=== PATIENT | male | born 1985 | race Caucasian/White ===

== ENCOUNTER 2017-05-07 15:26 | Inpatient (IN) | payer MEDICAID, SELFPAY ==
[2017-05-07] MEDS ORDERED: Ondansetron 4 MG/2 ML SDV IVPUSH ONE (15:36)
--- NOTE | 2017-05-07 15:46 | EDM.PDOC ---
ED HPI GENERAL MEDICAL PROBLEM - General Chief Complaint: Diabetic Complaint Stated Complaint: AMBULANCE Time Seen by Provider: 05/07/17 15:45 Source of Information: Reports: Patient - History of Present Illness INITIAL COMMENTS - FREE TEXT/NARRATIVE: HISTORY AND PHYSICAL: History of present illness: [Patient presents via EMS with generalized weakness and complaints of back pain he has been vomiting no chills sweats no chest pain shortness breath headache dizziness palpitation no bowel or urine symptoms ] Review of systems: As per history of present illness and below otherwise all systems reviewed and negative. Past medical history: As per history of present illness and as reviewed below otherwise noncontributory. Surgical history: As per history of present illness and as reviewed below otherwise noncontributory. Social history: No reported history of drug or alcohol abuse. Family history: As per history of present illness and as reviewed below otherwise noncontributory. Physical exam: HEENT: Atraumatic, normocephalic, pupils reactive, negative for conjunctival pallor or scleral icterus, mucous membranes moist, throat clear, neck supple, nontender, trachea midline. Lungs: Clear to auscultation, breath sounds equal bilaterally, chest nontender. Heart: S1S2, regular, negative for clicks, rubs, or JVD. Abdomen: Soft, nondistended, nontender. Negative for masses or hepatosplenomegaly. Negative for costovertebral tenderness. Pelvis: Stable nontender. Genitourinary: Deferred. Rectal: Deferred. Extremities: Atraumatic, negative for cords or calf pain. Neurovascular unremarkable. Neuro: Awake, alert, oriented. Cranial nerves II through XII unremarkable. Cerebellum unremarkable. Motor and sensory unremarkable throughout. Exam nonfocal. Diagnostics: [CBC CMP troponin UA amylase lipase Blood cultures 1 view chest EKG ] Therapeutics: [1 L normal saline bolus Insulin 10 units IV Insulin repeated 10 units IV 10 subcutaneous Insulin drip ] Morphine 2 mg IV Impression: []Hypoxia with EMS Pancreatitis DKA Low back pain Sinus tachycardia History of type 1 diabetes Hyperglycemia Hyperkalemia Definitive disposition and diagnosis as appropriate pending reevaluation and review of above. Back Pain Score (Numeric/FACES): 10 - Related Data Allergies Allergy/AdvReac Type Severity Reaction Status Date / Time No Known Allergies Allergy Verified 05/07/17 15:31 Home Meds: Home Meds Insulin Glarg,Human.Rec.Analog [LantUS Solostar] 30 unit SUBCUT DAILY 05/07/17 [ History] Past Medical History Endocrine/Metabolic History: Reports: Diabetes, Type I - Infectious Disease History Infectious Disease History: Reports: Chicken Pox - Past Surgical History GI Surgical History: Reports: Appendectomy Social & Family History - Tobacco Use Smoking Status *Q: Current Some Day Smoker Years of Tobacco use: 10 Packs/Tins Daily: 0.1 - Caffeine Use Caffeine Use: Reports: Soda, Tea - Recreational Drug Use Recreational Drug Use: Yes Drug Use in Last 12 Months: Yes Recreational Drug Type: Reports: Marijuana/Hashish Recreational Drug Use Frequency: Not Used In Over 1 Month ED ROS GENERAL - Review of Systems Review Of Systems: ROS reveals no pertinent complaints other than HPI. ED EXAM GENERAL NO PERIP PULSE - Physical Exam Exam: See Below Course - Vital Signs Last Recorded V/S: Last Vital Signs Temp 97.7 F 05/07/17 15:27 Pulse 127 H 05/07/17 15:27 Resp 20 05/07/17 15:27 BP 133/79 05/07/17 15:27 Pulse Ox 100 05/07/17 15:27 - Orders/Labs/Meds Orders: Active Orders 24 hr Category Date Time Status Patient Status [ADT] Stat ADT 05/07/17 16:25 Active Accu Check [Blood Glucose Check, Bedside] [RC] ONETIME Care 05/07/17 15:45 Active EKG Documentation Completion [RC] STAT Care 05/07/17 15:36 Active Chest 1V Frontal [CR] Stat Exams 05/07/17 15:36 Taken CULTURE URINE [RM] Stat Lab 05/07/17 15:44 Uncollected UA W/MICROSCOPIC [URIN] Stat Lab 05/07/17 15:36 Uncollected Insulin Regular, Human [NovoLIN R] 100 unit Med 05/07/17 16:30 Active Sodium Chloride 0.9% [Normal Saline] 99 ml IV TITRATE Sodium Chloride 0.9% [Normal Saline] 1,000 ml Med 05/07/17 15:45 Active IV ASDIRECTED Sodium Chloride 0.9% [Normal Saline] 1,000 ml Med 05/07/17 16:30 Ordered IV STAT Medication Orders Sodium Chloride (Normal Saline) 1,000 mls @ 999 mls/hr IV ASDIRECTED BONIFACIO Last Admin: 05/07/17 15:56 Dose: 999 mls/hr Insulin Human Regular 100 unit (/ Sodium Chloride) 100 mls @ 10 mls/hr IV TITRATE BONIFACIO; 10 UNIT/HR PRN Reason: Protocol Labs: Laboratory Tests 05/07/17 05/07/17 05/07/17 Range/Units 15:27 15:27 15:27 WBC 26.84 H (4.0-11.0) K/uL RBC 5.51 (4.50-5.90) M/uL Hgb 18.2 H (13.0-17.0) g/dL Hct 52.2 H (38.0-50.0) % MCV 94.7 (80.0-98.0) fL MCH 33.0 H (27.0-32.0) pg MCHC 34.9 (31.0-37.0) g/dL RDW Std Deviation 45.9 (28.0-62.0) fl RDW Coeff of Macario 13 (11.0-15.0) % Plt Count 256 (150-400) K/uL MPV 9.90 (7.40-12.00) fL Add Manual Diff YES Neutrophils % (Manual) 73 (48.0-80.0) % Band Neutrophils % 9 % Lymphocytes % (Manual) 13 L (16.0-40.0) % Monocytes % (Manual) 3 (0.0-15.0) % Basophils % (Manual) 2 H (0.0-1.5) % Nucleated RBC % 0.0 /100WBC Absolute Seg Neuts 19.6 H (1.4-5.7) Band Neutrophils # 2.4 Lymphocytes # (Manual) 3.5 H (0.6-2.4) Monocytes # (Manual) 0.8 (0.0-0.8) Basophils # (Manual) 0.5 H (0.0-0.1) Nucleated RBCs # 0 K/uL ABG pH (7.35-7.45) ABG pCO2 (35-45) mmHG ABG pO2 (75-100) mmHG ABG HCO3 (22-26) mEq/L ABG Total CO2 ABG Base Excess (-2.0-2.0) Lactate 6.7 H (0.20-2.00) mmol/L Sodium 131 L (136-146) mmol/L Potassium 6.1 H (3.5-5.1) mmol/L Chloride 91 L (98-110) mmol/L Carbon Dioxide < 5 L (21-31) mmol/L BUN 31 H (6.0-23.0) mg/dL Creatinine 2.2 H (0.6-1.5) mg/dL Est Cr Clr Drug Dosing 45.67 mL/min Estimated GFR (MDRD) 35.3 ml/min Glucose 685 H* (60-110) mg/dL Calcium 9.9 (8.8-10.8) mg/dL Total Bilirubin 0.6 (0.1-1.5) mg/dL AST 22 (5-40) IU/L ALT 33 (8-54) IU/L Alkaline Phosphatase 145 (40-150) Troponin I (0.0-0.29) NG/ML Total Protein 7.6 (6.0-8.0) g/dL Albumin 4.5 (3.5-5.0) g/dL Globulin 3.1 (2.0-3.5) g/dL Albumin/Globulin Ratio 1.5 (1.3-2.8) Amylase 99 H (10-90) U/L Lipase 131 H (7-80) U/L 05/07/17 05/07/17 Range/Units 15:27 15:57 WBC (4.0-11.0) K/uL RBC (4.50-5.90) M/uL Hgb (13.0-17.0) g/dL Hct (38.0-50.0) % MCV (80.0-98.0) fL MCH (27.0-32.0) pg MCHC (31.0-37.0) g/dL RDW Std Deviation (28.0-62.0) fl RDW Coeff of Macario (11.0-15.0) % Plt Count (150-400) K/uL MPV (7.40-12.00) fL Add Manual Diff Neutrophils % (Manual) (48.0-80.0) % Band Neutrophils % % Lymphocytes % (Manual) (16.0-40.0) % Monocytes % (Manual) (0.0-15.0) % Basophils % (Manual) (0.0-1.5) % Nucleated RBC % /100WBC Absolute Seg Neuts (1.4-5.7) Band Neutrophils # Lymphocytes # (Manual) (0.6-2.4) Monocytes # (Manual) (0.0-0.8) Basophils # (Manual) (0.0-0.1) Nucleated RBCs # K/uL ABG pH 7.016 L* (7.35-7.45) ABG pCO2 13 L (35-45) mmHG ABG pO2 143 H (75-100) mmHG ABG HCO3 3 L (22-26) mEq/L ABG Total CO2 3.2 ABG Base Excess -25.5 L (-2.0-2.0) Lactate (0.20-2.00) mmol/L Sodium (136-146) mmol/L Potassium (3.5-5.1) mmol/L Chloride (98-110) mmol/L Carbon Dioxide (21-31) mmol/L BUN (6.0-23.0) mg/dL Creatinine (0.6-1.5) mg/dL Est Cr Clr Drug Dosing mL/min Estimated GFR (MDRD) ml/min Glucose (60-110) mg/dL Calcium (8.8-10.8) mg/dL Total Bilirubin (0.1-1.5) mg/dL AST (5-40) IU/L ALT (8-54) IU/L Alkaline Phosphatase (40-150) Troponin I < 0.10 (0.0-0.29) NG/ML Total Protein (6.0-8.0) g/dL Albumin (3.5-5.0) g/dL Globulin (2.0-3.5) g/dL Albumin/Globulin Ratio (1.3-2.8) Amylase (10-90) U/L Lipase (7-80) U/L Meds: Medications Generic Name Dose Route Start Last Admin Trade Name Freq PRN Reason Stop Dose Admin Sodium Chloride 1,000 mls @ 999 mls/hr 05/07/17 15:45 05/07/17 15:56 Normal Saline IV 999 mls/hr ASDIRECTED BONIFACIO Administration Insulin Human Regular 100 unit 100 mls @ 10 mls/hr 05/07/17 16:30 / Sodium Chloride IV TITRATE BONIFACIO Protocol 10 UNIT/HR Discontinued Medications Generic Name Dose Route Start Last Admin Trade Name Freq PRN Reason Stop Dose Admin Insulin Human Regular 10 unit 05/07/17 15:49 05/07/17 16:16 Novolin R IVPUSH 05/07/17 15:50 10 units ONETIME ONE Administration Protocol Insulin Human Regular 10 unit 05/07/17 16:19 05/07/17 16:20 Novolin R SUBCUT 05/07/17 16:20 10 unit ONETIME ONE Administration Protocol Morphine Sulfate 2 mg 05/07/17 16:18 Morphine IVPUSH 05/07/17 16:19 ONETIME ONE Ondansetron HCl 4 mg 05/07/17 15:36 05/07/17 15:56 Zofran IVPUSH 05/07/17 15:37 4 mg ONETIME ONE Administration Departure - Departure Time of Disposition: 16:30 Disposition: Admitted As Inpatient 67 Condition: Poor Clinical Impression: DKA (diabetic ketoacidoses) - Discharge Information Referrals: PCP,None [Primary Care Provider] - Forms: ED Department Discharge - My Orders Last 24 Hours: My Active Orders 05/07/17 15:44 CULTURE URINE [RM] Stat 05/07/17 15:45 Accu Check [Blood Glucose Check, Bedside] [RC] ONETIME 05/07/17 16:25 Patient Status [ADT] Stat 05/07/17 16:30 Insulin Regular, Human [NovoLIN R] 100 unit Sodium Chloride 0.9% [Normal Saline] 99 ml IV TITRATE Sodium Chloride 0.9% [Normal Saline] 1,000 ml IV STAT - Assessment/Plan Last 24 Hours: My Active Orders 05/07/17 15:44 CULTURE URINE [RM] Stat 05/07/17 15:45 Accu Check [Blood Glucose Check, Bedside] [RC] ONETIME 05/07/17 16:25 Patient Status [ADT] Stat 05/07/17 16:30 Insulin Regular, Human [NovoLIN R] 100 unit Sodium Chloride 0.9% [Normal Saline] 99 ml IV TITRATE Sodium Chloride 0.9% [Normal Saline] 1,000 ml IV STAT
[2017-05-07] MEDS ORDERED: Insulin Regular, Human 100 Units/ML 10 ML Vial IVPUSH ONE (15:49)
[2017-05-07] MEDS: Sodium Chloride 0.9% 1,000 ML IV SCH ×2 (15:56→19:00)
[2017-05-07 16:08] LABS: CHLORIDE,CL 91 mmol/L (98-110); SODIUM,NA 131 mmol/L (136-146)
[2017-05-07] MEDS ORDERED: Insulin Regular, Human 100 Units/ML 10 ML Vial SUBCUT ONE (16:19)
--- NOTE | 2017-05-07 16:50 | PCM.HP ---
H&P History of Present Illness - General Date of Service: 05/07/17 Admit Problem/Dx: Admission Diagnosis/Problem Admission Diagnosis/Problem Diabetic ketoacidosis Source of Information: Patient, Family History Limitations: Reports: No Limitations - History of Present Illness Initial Comments - Free Text/Narative: 31 yo male presenting to ED with chief complaint of nausea and vomiting starting early this am with pmh of Type I diabetes. Patient states that he felt his normal self up until late last evening around midnight when he began to have nausea and vomiting. He did feel sweaty but reported no fever. He also reports a cough without production that started at similar time. He states that he now has some diffuse mild abdominal pain but denies dysuria. Secondary to his continued nausea and vomiting he presented to the ED with his father. He is a type I diabetic and has been in DKA before. States that he regularly only uses 30 of Lantus in the morning. He checks his blood sugars "every couple of days". They are usually in the 120s to 140s. He does note that for the last couple days they were little higher than low 200s. He also complains of some mild back pain she states started when he is in high school secondary to sports. He usually takes Tylenol for this pain. In ED found to have leukocytosis of 26k, 6.7 lactate, Glucose 700+, Na 131, K 6.1, BUN 31, Cr 2.2 and PH 7.0 metabolic acidosis. CXR neg, UA neg. Patient admitted for DKA Back Pain Score (Numeric/FACES): 10 - Related Data Allergies/Adverse Reactions: Allergies Allergy/AdvReac Type Severity Reaction Status Date / Time No Known Allergies Allergy Verified 05/07/17 15:31 Home Medications: Home Meds Insulin Glarg,Human.Rec.Analog [LantUS Solostar] 30 unit SUBCUT DAILY 05/07/17 [ History] Past Medical History Endocrine/Metabolic History: Reports: Diabetes, Type I - Infectious Disease History Infectious Disease History: Reports: Chicken Pox - Past Surgical History GI Surgical History: Reports: Appendectomy Social & Family History - Tobacco Use Smoking Status *Q: Current Some Day Smoker Years of Tobacco use: 10 Packs/Tins Daily: 0.1 - Caffeine Use Caffeine Use: Reports: Soda, Tea - Recreational Drug Use Recreational Drug Use: Yes Drug Use in Last 12 Months: Yes Recreational Drug Type: Reports: Marijuana/Hashish Recreational Drug Use Frequency: Not Used In Over 1 Month H&P Review of Systems - Review of Systems: Review Of Systems: See Below General: Reports: Chills, Weakness, Fatigue. Denies: Fever HEENT: Denies: Headaches, Sinus Congestion, Sore Throat Pulmonary: Reports: Shortness of Breath, Cough. Denies: Sputum Cardiovascular: Denies: Chest Pain, Palpitations, Edema Gastrointestinal: Reports: Abdominal Pain, Black Stool, Bloody Stool, Nausea, Vomiting. Denies: Constipation, Diarrhea Genitourinary: Denies: Dysuria, Hematuria Musculoskeletal: Reports: Back Pain. Denies: Neck Pain, Leg Pain Skin: Denies: Cyanosis Psychiatric: Denies: Confusion, Depression Neurological: Denies: Confusion, Dizziness, Headache Hematologic/Lymphatic: Denies: Anemia Exam - Exam Exam: See Below - Vital Signs Vital Signs: Last Vital Signs Temp 97.7 F 05/07/17 15:27 Pulse 127 H 05/07/17 15:27 Resp 20 05/07/17 15:27 BP 133/79 05/07/17 15:27 Pulse Ox 100 05/07/17 15:27 Weight: 65.771 kg - Exam Quality Assessment: DVT Prophylaxis General: Alert, Oriented, Cooperative, Mild Distress HEENT: Conjunctiva Clear, EACs Clear, EOMI, Hearing Intact, Mucosa Moist & Quintana , Nares Patent, Normal Nasal Septum, Posterior Pharynx Clear, TMs Clear, PERRLA Neck: Supple, Trachea Midline, 2 Lungs: Clear to Auscultation, Normal Respiratory Effort Cardiovascular: Regular Rate, Regular Rhythm, Normal S1, Normal S2 GI/Abdominal Exam: Normal Bowel Sounds, No Organomegaly, No Distention, No Mass , Tender Back Exam: Normal Inspection Extremities: Normal Inspection, Normal Range of Motion, Non-Tender, No Pedal Edema, Normal Capillary Refill Peripheral Pulses: 2+: Radial (L), Radial (R), Posterior Tibial (L), Posterior Tibial (R), Dorsalis Pedis (L), Dorsalis Pedis (R) Skin: Intact, Cool, Moist Neurological: Cranial Nerves Intact Neuro Extensive - Mental Status: Alert, Oriented x3, Normal Mood/Affect, Normal Cognition Neuro Extensive - Motor, Sensory, Reflexes: CN II-XII Intact Psychiatric: Alert, Normal Affect, Normal Mood - Patient Data Lab Results Last 24 hrs: Laboratory Results - last 24 hr 05/07/17 05/07/17 05/07/17 Range/Units 15:27 15:27 15:27 WBC 26.84 H (4.0-11.0) K/uL RBC 5.51 (4.50-5.90) M/uL Hgb 18.2 H (13.0-17.0) g/dL Hct 52.2 H (38.0-50.0) % MCV 94.7 (80.0-98.0) fL MCH 33.0 H (27.0-32.0) pg MCHC 34.9 (31.0-37.0) g/dL RDW Std Deviation 45.9 (28.0-62.0) fl RDW Coeff of Macario 13 (11.0-15.0) % Plt Count 256 (150-400) K/uL MPV 9.90 (7.40-12.00) fL Add Manual Diff YES Neutrophils % (Manual) 73 (48.0-80.0) % Band Neutrophils % 9 % Lymphocytes % (Manual) 13 L (16.0-40.0) % Monocytes % (Manual) 3 (0.0-15.0) % Basophils % (Manual) 2 H (0.0-1.5) % Nucleated RBC % 0.0 /100WBC Absolute Seg Neuts 19.6 H (1.4-5.7) Band Neutrophils # 2.4 Lymphocytes # (Manual) 3.5 H (0.6-2.4) Monocytes # (Manual) 0.8 (0.0-0.8) Basophils # (Manual) 0.5 H (0.0-0.1) Nucleated RBCs # 0 K/uL ABG pH (7.35-7.45) ABG pCO2 (35-45) mmHG ABG pO2 (75-100) mmHG ABG HCO3 (22-26) mEq/L ABG Total CO2 ABG Base Excess (-2.0-2.0) Lactate 6.7 H (0.20-2.00) mmol/L Sodium 131 L (136-146) mmol/L Potassium 6.1 H (3.5-5.1) mmol/L Chloride 91 L (98-110) mmol/L Carbon Dioxide < 5 L (21-31) mmol/L BUN 31 H (6.0-23.0) mg/dL Creatinine 2.2 H (0.6-1.5) mg/dL Est Cr Clr Drug Dosing 45.67 mL/min Estimated GFR (MDRD) 35.3 ml/min Glucose 685 H* (60-110) mg/dL Calcium 9.9 (8.8-10.8) mg/dL Total Bilirubin 0.6 (0.1-1.5) mg/dL AST 22 (5-40) IU/L ALT 33 (8-54) IU/L Alkaline Phosphatase 145 (40-150) Troponin I (0.0-0.29) NG/ML Total Protein 7.6 (6.0-8.0) g/dL Albumin 4.5 (3.5-5.0) g/dL Globulin 3.1 (2.0-3.5) g/dL Albumin/Globulin Ratio 1.5 (1.3-2.8) Amylase 99 H (10-90) U/L Lipase 131 H (7-80) U/L 05/07/17 05/07/17 Range/Units 15:27 15:57 WBC (4.0-11.0) K/uL RBC (4.50-5.90) M/uL Hgb (13.0-17.0) g/dL Hct (38.0-50.0) % MCV (80.0-98.0) fL MCH (27.0-32.0) pg MCHC (31.0-37.0) g/dL RDW Std Deviation (28.0-62.0) fl RDW Coeff of Macario (11.0-15.0) % Plt Count (150-400) K/uL MPV (7.40-12.00) fL Add Manual Diff Neutrophils % (Manual) (48.0-80.0) % Band Neutrophils % % Lymphocytes % (Manual) (16.0-40.0) % Monocytes % (Manual) (0.0-15.0) % Basophils % (Manual) (0.0-1.5) % Nucleated RBC % /100WBC Absolute Seg Neuts (1.4-5.7) Band Neutrophils # Lymphocytes # (Manual) (0.6-2.4) Monocytes # (Manual) (0.0-0.8) Basophils # (Manual) (0.0-0.1) Nucleated RBCs # K/uL ABG pH 7.016 L* (7.35-7.45) ABG pCO2 13 L (35-45) mmHG ABG pO2 143 H (75-100) mmHG ABG HCO3 3 L (22-26) mEq/L ABG Total CO2 3.2 ABG Base Excess -25.5 L (-2.0-2.0) Lactate (0.20-2.00) mmol/L Sodium (136-146) mmol/L Potassium (3.5-5.1) mmol/L Chloride (98-110) mmol/L Carbon Dioxide (21-31) mmol/L BUN (6.0-23.0) mg/dL Creatinine (0.6-1.5) mg/dL Est Cr Clr Drug Dosing mL/min Estimated GFR (MDRD) ml/min Glucose (60-110) mg/dL Calcium (8.8-10.8) mg/dL Total Bilirubin (0.1-1.5) mg/dL AST (5-40) IU/L ALT (8-54) IU/L Alkaline Phosphatase (40-150) Troponin I < 0.10 (0.0-0.29) NG/ML Total Protein (6.0-8.0) g/dL Albumin (3.5-5.0) g/dL Globulin (2.0-3.5) g/dL Albumin/Globulin Ratio (1.3-2.8) Amylase (10-90) U/L Lipase (7-80) U/L Result Diagrams: 05/07/17 15:27 05/07/17 18:03 *Q Meaningful Use (ADM) - VTE *Q VTE Criteria *Q: - Stroke *Q Stroke Criteria *Q: - AMI *Q AMI Criteria *Q: - Problem List (1) Leukocytosis, unspecified SNOMED Code(s): 354221486 ICD Code: D72.829 - ELEVATED WHITE BLOOD CELL COUNT, UNSPECIFIED Status: Acute Priority: High Current Visit: Yes Qualifiers: Leukocytosis type: unspecified Qualified Code(s): D72.829 - Elevated white blood cell count, unspecified (2) DKA (diabetic ketoacidoses) SNOMED Code(s): 938364614 ICD Code: E13.10 - OTH DIABETES MELLITUS WITH KETOACIDOSIS WITHOUT COMA Status: Acute Priority: High Current Visit: Yes Qualifiers: Diabetes mellitus type: type 1 Diabetes mellitus complication detail: without coma Qualified Code(s): E10.10 - Type 1 diabetes mellitus with ketoacidosis without coma Problem List Initiated/Reviewed/Updated: Yes Orders Last 24hrs: Active Orders 24 hr Category Date Time Status Patient Status [ADT] Stat ADT 05/07/17 16:25 Active Accu Check [Blood Glucose Check, Bedside] [RC] ONETIME Care 05/07/17 15:45 Active EKG Documentation Completion [RC] STAT Care 05/07/17 15:36 Active Chest 1V Frontal [CR] Stat Exams 05/07/17 15:36 Taken CULTURE URINE [RM] Stat Lab 05/07/17 15:44 Uncollected UA W/MICROSCOPIC [URIN] Stat Lab 05/07/17 15:36 Uncollected Insulin Regular, Human [NovoLIN R] 100 unit Med 05/07/17 16:30 Active Sodium Chloride 0.9% [Normal Saline] 99 ml IV TITRATE Sodium Chloride 0.9% [Normal Saline] 1,000 ml Med 05/07/17 15:45 Active IV ASDIRECTED Sodium Chloride 0.9% [Normal Saline] 1,000 ml Med 05/07/17 16:30 Active IV STAT Medication Orders Sodium Chloride (Normal Saline) 1,000 mls @ 999 mls/hr IV ASDIRECTED BONIFACIO Last Admin: 05/07/17 15:56 Dose: 999 mls/hr Insulin Human Regular 100 unit (/ Sodium Chloride) 100 mls @ 10 mls/hr IV TITRATE BONIFACIO; 10 UNIT/HR PRN Reason: Protocol Sodium Chloride (Normal Saline) 1,000 mls @ 999 mls/hr IV STAT ONE Stop: 05/07/17 17:30 Assessment/Plan Comment:: 31 yo Male admitted 05/07/17 for DKA and leukocytosis with pmh of type I diabetes. DKA: Moderate DKA, K 6.1 with pseudohyponatremia. 3 L bolus NS, NS 250 ml/hr, Insulin drip. Bmp q 4 hrs, glucose q 1 hr. After glucose 200 switch to D5 1/ 2NS. Patient is alert and oriented will monitor closely in ICU. Leukocytosis: Blood culture x2, CXR and UA neg. Tenderness on abd exam will get CT abd/pelvis tonight. Zosyn IV VTE proph: Heparin, SCD Dispo: 2-3 days pending
[2017-05-07] MEDS: Sodium Chloride 0.9% 1,000 ML IV ONE ×2 (16:53→19:00)
[2017-05-07] MEDS: Morphine 2 MG/ML Syringe IVPUSH ONE ×2 (16:55→16:56)
[2017-05-07] MEDS ORDERED: Acetaminophen 325 MG Tab PO PRN (17:09)
[2017-05-07] MEDS ORDERED: Ondansetron 4 MG/2 ML SDV IVPUSH PRN (17:09)
[2017-05-07] MEDS ORDERED: Sodium Chloride 0.9% 1,000 ML IV SCH ×2 (17:15→18:15)
[2017-05-07] MEDS: Piperacillin/Tazobactam 4.5 GM in Sodium Chloride 0.9% 100 ML IV SCH ×2 (18:23→23:19)
[2017-05-07] MEDS: HYDROmorphone 1 MG/ML Syringe IVPUSH PRN ×3 (18:27→23:37)
[2017-05-07] MEDS: Heparin Sodium 5,000 Units/ML Vial SUBCUT SCH (22:40)
[2017-05-08] MEDS: Dextrose 5%-0.45% NaCl 1,000 ML IV SCH ×3 (00:06→19:24)
[2017-05-08] MEDS: HYDROmorphone 1 MG/ML Syringe IVPUSH PRN ×7 (04:05→22:07)
[2017-05-08] MEDS: Piperacillin/Tazobactam 4.5 GM in Sodium Chloride 0.9% 100 ML IV SCH ×4 (05:09→23:49)
[2017-05-08] MEDS: Heparin Sodium 5,000 Units/ML Vial SUBCUT SCH ×3 (05:09→21:14)
[2017-05-08] MEDS ORDERED: Potassium Phosphates 3 mMole/ML 5 ML SDV IV ONE (07:00)
[2017-05-08] MEDS ORDERED: Dextrose 5%-0.45% NaCl 1,000 ML IV SCH (07:00)
[2017-05-08] MEDS ORDERED: Magnesium Sulfate/Water 2 GM in Premix Bag 1 BAG IV ONE (07:00)
[2017-05-08] MEDS ORDERED: Potassium Phosphates 30 MMOLE in Sodium Chloride 0.9% 500 ML IV ONE (07:30)
[2017-05-08] MEDS: Pantoprazole 40 MG Vial IVPUSH SCH (08:29)
--- NOTE | 2017-05-08 08:54 | PCM.PN ---
- General Info Date of Service: 05/08/17 Admission Dx/Problem (Free Text): Admission Diagnosis/Problem Admission Diagnosis/Problem Diabetic ketoacidosis Subjective Update: Feeling much more alert this morning. Mild nausea. Continued mid abd and back pain. Overall feeling much improved. Denies diarrhea, sob, cough. Functional Status: Reports: Pain Controlled - Review of Systems General: Reports: Fatigue. Denies: Fever, Chills HEENT: Denies: Headaches, Visual Changes Pulmonary: Denies: Shortness of Breath, Cough, Hemoptysis Cardiovascular: Denies: Chest Pain, Palpitations Gastrointestinal: Reports: Abdominal Pain, Nausea. Denies: Diarrhea, Vomiting Genitourinary: Denies: Dysuria, Hematuria Musculoskeletal: Denies: Neck Pain, Leg Pain Skin: Denies: Cyanosis Neurological: Denies: Confusion, Dizziness, Headache Psychiatric: Denies: Confusion - Patient Data Vitals - Most Recent: Last Vital Signs Temp 97.9 F 05/08/17 08:00 Pulse 132 H 05/07/17 16:57 Resp 12 05/08/17 08:00 BP 108/63 05/08/17 08:00 Pulse Ox 100 05/08/17 08:00 Weight - Most Recent: 59.3 kg I&O - Last 24 Hours: Intake & Output 05/07/17 05/08/17 05/08/17 22:59 06:59 14:59 Intake Total 3200 3338 Output Total 500 1200 Balance 2700 2138 Lab Results Last 24 Hours: Laboratory Results - last 24 hr 05/07/17 05/07/17 05/07/17 Range/Units 17:54 18:03 18:03 WBC (4.0-11.0) K/uL RBC (4.50-5.90) M/uL Hgb (13.0-17.0) g/dL Hct (38.0-50.0) % MCV (80.0-98.0) fL MCH (27.0-32.0) pg MCHC (31.0-37.0) g/dL RDW Std Deviation (28.0-62.0) fl RDW Coeff of Macario (11.0-15.0) % Plt Count (150-400) K/uL MPV (7.40-12.00) fL Neut % (Auto) (48.0-80.0) % Lymph % (Auto) (16.0-40.0) % Dawes % (Auto) (0.0-15.0) % Eos % (Auto) (0.0-7.0) % Baso % (Auto) (0.0-1.5) % Neut # (Auto) (1.4-5.7) K/uL Lymph # (Auto) (0.6-2.4) K/uL Dawes # (Auto) (0.0-0.8) K/uL Eos # (Auto) (0.0-0.7) K/uL Baso # (Auto) (0.0-0.1) K/uL Nucleated RBC % /100WBC Nucleated RBCs # K/uL Lactate 5.7 H (0.20-2.00) mmol/L Sodium 137 (136-146) mmol/L Potassium 5.3 H (3.5-5.1) mmol/L Chloride 100 (98-110) mmol/L Carbon Dioxide 6 L (21-31) mmol/L BUN 29 H (6.0-23.0) mg/dL Creatinine 1.9 H (0.6-1.5) mg/dL Est Cr Clr Drug Dosing 52.89 mL/min Estimated GFR (MDRD) 41.8 ml/min Glucose 512 H* (60-110) mg/dL POC Glucose 442 H (60-110) mg/dL Hemoglobin A1c (0.0-6.0) % Calcium 9.0 (8.8-10.8) mg/dL Phosphorus (2.4-4.7) mg/dL Magnesium (1.5-2.3) mEq/L Total Bilirubin (0.1-1.5) mg/dL AST (5-40) IU/L ALT (8-54) IU/L Alkaline Phosphatase (40-150) Total Protein (6.0-8.0) g/dL Albumin (3.5-5.0) g/dL Globulin (2.0-3.5) g/dL Albumin/Globulin Ratio (1.3-2.8) Amylase (10-90) U/L Lipase (7-80) U/L Urine Color Urine Appearance Urine pH (5.0-8.0) Ur Specific [place] (1.001-1.035) Urine Protein (NEGATIVE) mg/dL Urine Glucose (UA) (NEGATIVE) mg/dL Urine Ketones (NEGATIVE) mg/dL Urine Occult Blood (NEGATIVE) Urine Nitrite (NEGATIVE) Urine Bilirubin (NEGATIVE) Urine Urobilinogen (<2.0) EU/dL Ur Leukocyte Esterase (NEGATIVE) Urine RBC (0-2/HPF) Urine WBC (0-5/HPF) Ur Epithelial Cells (NONE-FEW) Urine Bacteria (NEGATIVE) Urine Yeast 05/07/17 05/07/17 05/07/17 Range/Units 18:10 19:03 20:04 WBC (4.0-11.0) K/uL RBC (4.50-5.90) M/uL Hgb (13.0-17.0) g/dL Hct (38.0-50.0) % MCV (80.0-98.0) fL MCH (27.0-32.0) pg MCHC (31.0-37.0) g/dL RDW Std Deviation (28.0-62.0) fl RDW Coeff of Macario (11.0-15.0) % Plt Count (150-400) K/uL MPV (7.40-12.00) fL Neut % (Auto) (48.0-80.0) % Lymph % (Auto) (16.0-40.0) % Dawes % (Auto) (0.0-15.0) % Eos % (Auto) (0.0-7.0) % Baso % (Auto) (0.0-1.5) % Neut # (Auto) (1.4-5.7) K/uL Lymph # (Auto) (0.6-2.4) K/uL Dawes # (Auto) (0.0-0.8) K/uL Eos # (Auto) (0.0-0.7) K/uL Baso # (Auto) (0.0-0.1) K/uL Nucleated RBC % /100WBC Nucleated RBCs # K/uL Lactate (0.20-2.00) mmol/L Sodium (136-146) mmol/L Potassium (3.5-5.1) mmol/L Chloride (98-110) mmol/L Carbon Dioxide (21-31) mmol/L BUN (6.0-23.0) mg/dL Creatinine (0.6-1.5) mg/dL Est Cr Clr Drug Dosing mL/min Estimated GFR (MDRD) ml/min Glucose (60-110) mg/dL POC Glucose 446 H 314 H (60-110) mg/dL Hemoglobin A1c (0.0-6.0) % Calcium (8.8-10.8) mg/dL Phosphorus (2.4-4.7) mg/dL Magnesium (1.5-2.3) mEq/L Total Bilirubin (0.1-1.5) mg/dL AST (5-40) IU/L ALT (8-54) IU/L Alkaline Phosphatase (40-150) Total Protein (6.0-8.0) g/dL Albumin (3.5-5.0) g/dL Globulin (2.0-3.5) g/dL Albumin/Globulin Ratio (1.3-2.8) Amylase (10-90) U/L Lipase (7-80) U/L Urine Color YELLOW Urine Appearance CLEAR Urine pH 5.5 (5.0-8.0) Ur Specific [place] >= 1.030 (1.001-1.035) Urine Protein TRACE (NEGATIVE) mg/dL Urine Glucose (UA) 500 H (NEGATIVE) mg/dL Urine Ketones >=80 (NEGATIVE) mg/dL Urine Occult Blood SMALL H (NEGATIVE) Urine Nitrite NEGATIVE (NEGATIVE) Urine Bilirubin NEGATIVE (NEGATIVE) Urine Urobilinogen 0.2 (<2.0) EU/dL Ur Leukocyte Esterase NEGATIVE (NEGATIVE) Urine RBC 0-1 (0-2/HPF) Urine WBC 0-1 (0-5/HPF) Ur Epithelial Cells OCCASIONAL (NONE-FEW) Urine Bacteria RARE (NEGATIVE) Urine Yeast OCCASIONAL 05/07/17 05/07/17 05/07/17 Range/Units 21:43 21:43 21:44 WBC (4.0-11.0) K/uL RBC (4.50-5.90) M/uL Hgb (13.0-17.0) g/dL Hct (38.0-50.0) % MCV (80.0-98.0) fL MCH (27.0-32.0) pg MCHC (31.0-37.0) g/dL RDW Std Deviation (28.0-62.0) fl RDW Coeff of Macario (11.0-15.0) % Plt Count (150-400) K/uL MPV (7.40-12.00) fL Neut % (Auto) (48.0-80.0) % Lymph % (Auto) (16.0-40.0) % Dawes % (Auto) (0.0-15.0) % Eos % (Auto) (0.0-7.0) % Baso % (Auto) (0.0-1.5) % Neut # (Auto) (1.4-5.7) K/uL Lymph # (Auto) (0.6-2.4) K/uL Dawes # (Auto) (0.0-0.8) K/uL Eos # (Auto) (0.0-0.7) K/uL Baso # (Auto) (0.0-0.1) K/uL Nucleated RBC % /100WBC Nucleated RBCs # K/uL Lactate 2.9 H (0.20-2.00) mmol/L Sodium 136 (136-146) mmol/L Potassium 4.8 (3.5-5.1) mmol/L Chloride 105 (98-110) mmol/L Carbon Dioxide 10 L (21-31) mmol/L BUN 24 H (6.0-23.0) mg/dL Creatinine 1.6 H (0.6-1.5) mg/dL Est Cr Clr Drug Dosing 62.80 mL/min Estimated GFR (MDRD) 51.0 ml/min Glucose 305 H (60-110) mg/dL POC Glucose 266 H (60-110) mg/dL Hemoglobin A1c (0.0-6.0) % Calcium 8.7 L (8.8-10.8) mg/dL Phosphorus (2.4-4.7) mg/dL Magnesium (1.5-2.3) mEq/L Total Bilirubin (0.1-1.5) mg/dL AST (5-40) IU/L ALT (8-54) IU/L Alkaline Phosphatase (40-150) Total Protein (6.0-8.0) g/dL Albumin (3.5-5.0) g/dL Globulin (2.0-3.5) g/dL Albumin/Globulin Ratio (1.3-2.8) Amylase (10-90) U/L Lipase (7-80) U/L Urine Color Urine Appearance Urine pH (5.0-8.0) Ur Specific [place] (1.001-1.035) Urine Protein (NEGATIVE) mg/dL Urine Glucose (UA) (NEGATIVE) mg/dL Urine Ketones (NEGATIVE) mg/dL Urine Occult Blood (NEGATIVE) Urine Nitrite (NEGATIVE) Urine Bilirubin (NEGATIVE) Urine Urobilinogen (<2.0) EU/dL Ur Leukocyte Esterase (NEGATIVE) Urine RBC (0-2/HPF) Urine WBC (0-5/HPF) Ur Epithelial Cells (NONE-FEW) Urine Bacteria (NEGATIVE) Urine Yeast 05/07/17 05/08/17 05/08/17 Range/Units 23:23 00:09 01:08 WBC (4.0-11.0) K/uL RBC (4.50-5.90) M/uL Hgb (13.0-17.0) g/dL Hct (38.0-50.0) % MCV (80.0-98.0) fL MCH (27.0-32.0) pg MCHC (31.0-37.0) g/dL RDW Std Deviation (28.0-62.0) fl RDW Coeff of Macario (11.0-15.0) % Plt Count (150-400) K/uL MPV (7.40-12.00) fL Neut % (Auto) (48.0-80.0) % Lymph % (Auto) (16.0-40.0) % Dawes % (Auto) (0.0-15.0) % Eos % (Auto) (0.0-7.0) % Baso % (Auto) (0.0-1.5) % Neut # (Auto) (1.4-5.7) K/uL Lymph # (Auto) (0.6-2.4) K/uL Dawes # (Auto) (0.0-0.8) K/uL Eos # (Auto) (0.0-0.7) K/uL Baso # (Auto) (0.0-0.1) K/uL Nucleated RBC % /100WBC Nucleated RBCs # K/uL Lactate 1.0 (0.20-2.00) mmol/L Sodium (136-146) mmol/L Potassium (3.5-5.1) mmol/L Chloride (98-110) mmol/L Carbon Dioxide (21-31) mmol/L BUN (6.0-23.0) mg/dL Creatinine (0.6-1.5) mg/dL Est Cr Clr Drug Dosing mL/min Estimated GFR (MDRD) ml/min Glucose (60-110) mg/dL POC Glucose 190 H 157 H (60-110) mg/dL Hemoglobin A1c (0.0-6.0) % Calcium (8.8-10.8) mg/dL Phosphorus (2.4-4.7) mg/dL Magnesium (1.5-2.3) mEq/L Total Bilirubin (0.1-1.5) mg/dL AST (5-40) IU/L ALT (8-54) IU/L Alkaline Phosphatase (40-150) Total Protein (6.0-8.0) g/dL Albumin (3.5-5.0) g/dL Globulin (2.0-3.5) g/dL Albumin/Globulin Ratio (1.3-2.8) Amylase (10-90) U/L Lipase (7-80) U/L Urine Color Urine Appearance Urine pH (5.0-8.0) Ur Specific [place] (1.001-1.035) Urine Protein (NEGATIVE) mg/dL Urine Glucose (UA) (NEGATIVE) mg/dL Urine Ketones (NEGATIVE) mg/dL Urine Occult Blood (NEGATIVE) Urine Nitrite (NEGATIVE) Urine Bilirubin (NEGATIVE) Urine Urobilinogen (<2.0) EU/dL Ur Leukocyte Esterase (NEGATIVE) Urine RBC (0-2/HPF) Urine WBC (0-5/HPF) Ur Epithelial Cells (NONE-FEW) Urine Bacteria (NEGATIVE) Urine Yeast 05/08/17 05/08/17 05/08/17 Range/Units 01:08 01:08 02:04 WBC (4.0-11.0) K/uL RBC (4.50-5.90) M/uL Hgb (13.0-17.0) g/dL Hct (38.0-50.0) % MCV (80.0-98.0) fL MCH (27.0-32.0) pg MCHC (31.0-37.0) g/dL RDW Std Deviation (28.0-62.0) fl RDW Coeff of Macario (11.0-15.0) % Plt Count (150-400) K/uL MPV (7.40-12.00) fL Neut % (Auto) (48.0-80.0) % Lymph % (Auto) (16.0-40.0) % Dawes % (Auto) (0.0-15.0) % Eos % (Auto) (0.0-7.0) % Baso % (Auto) (0.0-1.5) % Neut # (Auto) (1.4-5.7) K/uL Lymph # (Auto) (0.6-2.4) K/uL Dawes # (Auto) (0.0-0.8) K/uL Eos # (Auto) (0.0-0.7) K/uL Baso # (Auto) (0.0-0.1) K/uL Nucleated RBC % /100WBC Nucleated RBCs # K/uL Lactate (0.20-2.00) mmol/L Sodium 134 L (136-146) mmol/L Potassium 4.6 (3.5-5.1) mmol/L Chloride 107 (98-110) mmol/L Carbon Dioxide 16 L (21-31) mmol/L BUN 18 (6.0-23.0) mg/dL Creatinine 1.5 (0.6-1.5) mg/dL Est Cr Clr Drug Dosing 66.99 mL/min Estimated GFR (MDRD) 55.0 ml/min Glucose 242 H (60-110) mg/dL POC Glucose 199 H 240 H (60-110) mg/dL Hemoglobin A1c (0.0-6.0) % Calcium 7.9 L (8.8-10.8) mg/dL Phosphorus (2.4-4.7) mg/dL Magnesium (1.5-2.3) mEq/L Total Bilirubin (0.1-1.5) mg/dL AST (5-40) IU/L ALT (8-54) IU/L Alkaline Phosphatase (40-150) Total Protein (6.0-8.0) g/dL Albumin (3.5-5.0) g/dL Globulin (2.0-3.5) g/dL Albumin/Globulin Ratio (1.3-2.8) Amylase (10-90) U/L Lipase (7-80) U/L Urine Color Urine Appearance Urine pH (5.0-8.0) Ur Specific [place] (1.001-1.035) Urine Protein (NEGATIVE) mg/dL Urine Glucose (UA) (NEGATIVE) mg/dL Urine Ketones (NEGATIVE) mg/dL Urine Occult Blood (NEGATIVE) Urine Nitrite (NEGATIVE) Urine Bilirubin (NEGATIVE) Urine Urobilinogen (<2.0) EU/dL Ur Leukocyte Esterase (NEGATIVE) Urine RBC (0-2/HPF) Urine WBC (0-5/HPF) Ur Epithelial Cells (NONE-FEW) Urine Bacteria (NEGATIVE) Urine Yeast 05/08/17 05/08/17 05/08/17 Range/Units 03:12 03:53 04:58 WBC (4.0-11.0) K/uL RBC (4.50-5.90) M/uL Hgb (13.0-17.0) g/dL Hct (38.0-50.0) % MCV (80.0-98.0) fL MCH (27.0-32.0) pg MCHC (31.0-37.0) g/dL RDW Std Deviation (28.0-62.0) fl RDW Coeff of Macario (11.0-15.0) % Plt Count (150-400) K/uL MPV (7.40-12.00) fL Neut % (Auto) (48.0-80.0) % Lymph % (Auto) (16.0-40.0) % Dawes % (Auto) (0.0-15.0) % Eos % (Auto) (0.0-7.0) % Baso % (Auto) (0.0-1.5) % Neut # (Auto) (1.4-5.7) K/uL Lymph # (Auto) (0.6-2.4) K/uL [place] # (Auto) (0.0-0.8) K/uL Eos # (Auto) (0.0-0.7) K/uL Baso # (Auto) (0.0-0.1) K/uL Nucleated RBC % /100WBC Nucleated RBCs # K/uL Lactate (0.20-2.00) mmol/L Sodium (136-146) mmol/L Potassium (3.5-5.1) mmol/L Chloride (98-110) mmol/L Carbon Dioxide (21-31) mmol/L BUN (6.0-23.0) mg/dL Creatinine (0.6-1.5) mg/dL Est Cr Clr Drug Dosing mL/min Estimated GFR (MDRD) ml/min Glucose (60-110) mg/dL POC Glucose 263 H 250 H 264 H (60-110) mg/dL Hemoglobin A1c (0.0-6.0) % Calcium (8.8-10.8) mg/dL Phosphorus (2.4-4.7) mg/dL Magnesium (1.5-2.3) mEq/L Total Bilirubin (0.1-1.5) mg/dL AST (5-40) IU/L ALT (8-54) IU/L Alkaline Phosphatase (40-150) Total Protein (6.0-8.0) g/dL Albumin (3.5-5.0) g/dL Globulin (2.0-3.5) g/dL Albumin/Globulin Ratio (1.3-2.8) Amylase (10-90) U/L Lipase (7-80) U/L Urine Color Urine Appearance Urine pH (5.0-8.0) Ur Specific [place] (1.001-1.035) Urine Protein (NEGATIVE) mg/dL Urine Glucose (UA) (NEGATIVE) mg/dL Urine Ketones (NEGATIVE) mg/dL Urine Occult Blood (NEGATIVE) Urine Nitrite (NEGATIVE) Urine Bilirubin (NEGATIVE) Urine Urobilinogen (<2.0) EU/dL Ur Leukocyte Esterase (NEGATIVE) Urine RBC (0-2/HPF) Urine WBC (0-5/HPF) Ur Epithelial Cells (NONE-FEW) Urine Bacteria (NEGATIVE) Urine Yeast 05/08/17 05/08/17 05/08/17 Range/Units 05:25 05:25 05:25 WBC 13.92 H (4.0-11.0) K/uL RBC 4.60 (4.50-5.90) M/uL Hgb 14.5 (13.0-17.0) g/dL Hct 40.8 (38.0-50.0) % MCV 88.7 (80.0-98.0) fL MCH 31.5 (27.0-32.0) pg MCHC 35.5 (31.0-37.0) g/dL RDW Std Deviation 43.2 (28.0-62.0) fl RDW Coeff of Macario 14 (11.0-15.0) % Plt Count 141 L (150-400) K/uL MPV 8.80 (7.40-12.00) fL Neut % (Auto) 79.2 (48.0-80.0) % Lymph % (Auto) 12.8 L (16.0-40.0) % Dawes % (Auto) 7.8 (0.0-15.0) % Eos % (Auto) 0.1 (0.0-7.0) % Baso % (Auto) 0.1 (0.0-1.5) % Neut # (Auto) 11.0 H (1.4-5.7) K/uL Lymph # (Auto) 1.8 (0.6-2.4) K/uL [place]es # (Auto) 1.1 H (0.0-0.8) K/uL Eos # (Auto) 0.0 (0.0-0.7) K/uL Baso # (Auto) 0.0 (0.0-0.1) K/uL Nucleated RBC % 0.0 /100WBC Nucleated RBCs # 0 K/uL Lactate (0.20-2.00) mmol/L Sodium 134 L (136-146) mmol/L Potassium 3.7 (3.5-5.1) mmol/L Chloride 108 (98-110) mmol/L Carbon Dioxide 17 L (21-31) mmol/L BUN 15 (6.0-23.0) mg/dL Creatinine 1.4 (0.6-1.5) mg/dL Est Cr Clr Drug Dosing 64.71 mL/min Estimated GFR (MDRD) 59.5 ml/min Glucose 304 H (60-110) mg/dL POC Glucose (60-110) mg/dL Hemoglobin A1c 9.5 H (0.0-6.0) % Calcium 7.9 L (8.8-10.8) mg/dL Phosphorus 1.9 L (2.4-4.7) mg/dL Magnesium 1.3 L (1.5-2.3) mEq/L Total Bilirubin 0.6 (0.1-1.5) mg/dL AST 14 (5-40) IU/L ALT 21 (8-54) IU/L Alkaline Phosphatase 77 (40-150) Total Protein 5.0 L (6.0-8.0) g/dL Albumin 3.3 L (3.5-5.0) g/dL Globulin 1.7 L (2.0-3.5) g/dL Albumin/Globulin Ratio 1.9 (1.3-2.8) Amylase 898 H (10-90) U/L Lipase 870 H (7-80) U/L Urine Color Urine Appearance Urine pH (5.0-8.0) Ur Specific [place] (1.001-1.035) Urine Protein (NEGATIVE) mg/dL Urine Glucose (UA) (NEGATIVE) mg/dL Urine Ketones (NEGATIVE) mg/dL Urine Occult Blood (NEGATIVE) Urine Nitrite (NEGATIVE) Urine Bilirubin (NEGATIVE) Urine Urobilinogen (<2.0) EU/dL Ur Leukocyte Esterase (NEGATIVE) Urine RBC (0-2/HPF) Urine WBC (0-5/HPF) Ur Epithelial Cells (NONE-FEW) Urine Bacteria (NEGATIVE) Urine Yeast 05/08/17 05/08/17 05/08/17 Range/Units 05:58 06:54 08:01 WBC (4.0-11.0) K/uL RBC (4.50-5.90) M/uL Hgb (13.0-17.0) g/dL Hct (38.0-50.0) % MCV (80.0-98.0) fL MCH (27.0-32.0) pg MCHC (31.0-37.0) g/dL RDW Std Deviation (28.0-62.0) fl RDW Coeff of Macario (11.0-15.0) % Plt Count (150-400) K/uL MPV (7.40-12.00) fL Neut % (Auto) (48.0-80.0) % Lymph % (Auto) (16.0-40.0) % [place] % (Auto) (0.0-15.0) % Eos % (Auto) (0.0-7.0) % Baso % (Auto) (0.0-1.5) % Neut # (Auto) (1.4-5.7) K/uL Lymph # (Auto) (0.6-2.4) K/uL [place] # (Auto) (0.0-0.8) K/uL Eos # (Auto) (0.0-0.7) K/uL Baso # (Auto) (0.0-0.1) K/uL Nucleated RBC % /100WBC Nucleated RBCs # K/uL Lactate (0.20-2.00) mmol/L Sodium (136-146) mmol/L Potassium (3.5-5.1) mmol/L Chloride (98-110) mmol/L Carbon Dioxide (21-31) mmol/L BUN (6.0-23.0) mg/dL Creatinine (0.6-1.5) mg/dL Est Cr Clr Drug Dosing mL/min Estimated GFR (MDRD) ml/min Glucose (60-110) mg/dL POC Glucose 214 H 233 H 200 H (60-110) mg/dL Hemoglobin A1c (0.0-6.0) % Calcium (8.8-10.8) mg/dL Phosphorus (2.4-4.7) mg/dL Magnesium (1.5-2.3) mEq/L Total Bilirubin (0.1-1.5) mg/dL AST (5-40) IU/L ALT (8-54) IU/L Alkaline Phosphatase (40-150) Total Protein (6.0-8.0) g/dL Albumin (3.5-5.0) g/dL Globulin (2.0-3.5) g/dL Albumin/Globulin Ratio (1.3-2.8) Amylase (10-90) U/L Lipase (7-80) U/L Urine Color Urine Appearance Urine pH (5.0-8.0) Ur Specific [place] (1.001-1.035) Urine Protein (NEGATIVE) mg/dL Urine Glucose (UA) (NEGATIVE) mg/dL Urine Ketones (NEGATIVE) mg/dL Urine Occult Blood (NEGATIVE) Urine Nitrite (NEGATIVE) Urine Bilirubin (NEGATIVE) Urine Urobilinogen (<2.0) EU/dL Ur Leukocyte Esterase (NEGATIVE) Urine RBC (0-2/HPF) Urine WBC (0-5/HPF) Ur Epithelial Cells (NONE-FEW) Urine Bacteria (NEGATIVE) Urine Yeast Kavin Results Last 24 Hours: Microbiology 05/07/17 18:22 Anaerobic Blood Culture - Final Blood - Venous - Lab Draw 05/07/17 18:03 Anaerobic Blood Culture - Final Blood - Venous Med Orders - Current: Current Medications Acetaminophen (Tylenol) 650 mg PO Q4H PRN PRN Reason: Pain (Mild 1-3)/fever Heparin Sodium (Porcine) (Heparin Sodium) 5,000 units SUBCUT Q8H [facility] Last Admin: 05/08/17 05:09 Dose: 5,000 units Hydromorphone HCl (Dilaudid) 0.25 mg IVPUSH Q2H PRN PRN Reason: Pain (severe 7-10) Last Admin: 05/08/17 08:29 Dose: 0.25 mg Insulin Human Regular 100 unit (/ Sodium Chloride) 100 mls @ 4 mls/hr IV TITRATE BONIFACIO; 4 UNIT/HR PRN Reason: Protocol Last Titration: 05/08/17 08:05 Dose: 2 unit/hr, 2 mls/hr Piperacillin Sod/Tazobactam (Sod 4.5 gm/ Sodium Chloride) 100 mls @ 100 mls/hr IV Q6H [facility] Last Admin: 05/08/17 05:09 Dose: 100 mls/hr Dextrose/Sodium Chloride (Dextrose 5%-1/2 Ns) 1,000 mls @ 150 mls/hr IV ASDIRECTED [facility] Potassium Phosphate 30 mmole/ (Sodium Chloride) 510 mls @ 125 mls/hr IV ONETIME ONE Stop: 05/08/17 11:34 Last Admin: 05/08/17 08:29 Dose: 125 mls/hr Ondansetron HCl (Zofran) 4 mg IVPUSH Q4H PRN PRN Reason: Nausea Pantoprazole Sodium (Protonix Iv) 40 mg IVPUSH DAILY [facility] Last Admin: 05/08/17 08:29 Dose: 40 mg Discontinued Medications Sodium Chloride (Normal Saline) 1,000 mls @ 999 mls/hr IV ASDIRECTED [facility] Last Admin: 05/07/17 19:00 Dose: 999 mls/hr Insulin Human Regular 100 unit (/ Sodium Chloride) 100 mls @ 10 mls/hr IV TITRATE BONIFACIO; 10 UNIT/HR PRN Reason: Protocol Last Admin: 05/07/17 16:57 Dose: 10 unit/hr, 10 mls/hr Sodium Chloride (Normal Saline) 1,000 mls @ 999 mls/hr IV STAT ONE Stop: 05/07/17 17:30 Last Infusion: 05/07/17 17:54 Dose: Infused Sodium Chloride (Normal Saline) 1,000 mls @ 999 mls/hr IV .BOLUS BONIFACIO Sodium Chloride (Normal Saline) 1,000 mls @ 250 mls/hr IV ASDIRECTED BONIFACIO Last Admin: 05/07/17 18:16 Dose: 250 mls/hr Dextrose/Sodium Chloride (Dextrose 5%-1/2 Ns) 1,000 mls @ 250 mls/hr IV ASDIRECTED BONIFACIO Last Admin: 05/08/17 04:05 Dose: 250 mls/hr Magnesium Sulfate 2 gm/ Premix 50 mls @ 50 mls/hr IV ONETIME ONE Stop: 05/08/17 07:59 Last Admin: 05/08/17 07:31 Dose: 50 mls/hr Insulin Human Regular (Novolin R) 10 unit IVPUSH ONETIME ONE PRN Reason: Protocol Stop: 05/07/17 15:50 Last Admin: 05/07/17 16:16 Dose: 10 units Insulin Human Regular (Novolin R) 10 unit SUBCUT ONETIME ONE PRN Reason: Protocol Stop: 05/07/17 16:20 Last Admin: 05/07/17 16:20 Dose: 10 unit Morphine Sulfate (Morphine) 2 mg IVPUSH ONETIME ONE Stop: 05/07/17 16:19 Last Admin: 05/07/17 16:55 Dose: 2 mg Ondansetron HCl (Zofran) 4 mg IVPUSH ONETIME ONE Stop: 05/07/17 15:37 Last Admin: 05/07/17 15:56 Dose: 4 mg - Exam Quality Assessment: DVT Prophylaxis General: Alert, Oriented, Cooperative, No Acute Distress HEENT: Pupils Equal, Pupils Reactive, EOMI, Mucous Membr. Moist/[place]: Supple, Trachea Midline Lungs: Clear to Auscultation, Normal Respiratory Effort Cardiovascular: Regular Rate, Regular Rhythm, No Murmurs GI/Abdominal Exam: Normal Bowel Sounds, No Mass, Distended, Guarding, Tender Back Exam: Normal Inspection Extremities: Normal Inspection, Non-Tender, No Pedal Edema, Normal Capillary Refill Peripheral Pulses: 2+: Radial (L), Radial (R), Posterior Tibial (L), Posterior Tibial (R), Dorsalis Pedis (L), Dorsalis Pedis (R) Skin: Warm, Dry, Intact Neurological: No New Focal Deficit Psy/Mental Status: Alert, Normal Affect, Normal Mood - Problem List & Annotations (1) Leukocytosis, unspecified SNOMED Code(s): 786768833 Code(s): D72.829 - ELEVATED WHITE BLOOD CELL COUNT, UNSPECIFIED Status: Acute Priority: High Current Visit: Yes Qualifiers: Leukocytosis type: unspecified Qualified Code(s): D72.829 - Elevated white blood cell count, unspecified (2) DKA (diabetic ketoacidoses) SNOMED Code(s): 248988112 Code(s): E13.10 - OTH DIABETES MELLITUS WITH KETOACIDOSIS WITHOUT COMA Status: Acute Priority: High Current Visit: Yes Qualifiers: Diabetes mellitus type: type 1 Diabetes mellitus complication detail: without coma Qualified Code(s): E10.10 - Type 1 diabetes mellitus with ketoacidosis without coma (3) Pancreatitis SNOMED Code(s): 83949486 Code(s): K85.90 - ACUTE PANCREATITIS WITHOUT NECROSIS OR INFECTION, UNSP Status: Acute Priority: High Current Visit: Yes Qualifiers: Chronicity: acute Pancreatitis type: unspecified pancreatitis type Acute pancreatitis complication: unspecified Qualified Code(s): K85.90 - Acute pancreatitis without necrosis or infection, unspecified - Problem List Review Problem List Initiated/Reviewed/Updated: Yes - My Orders Last 24 Hours: My Active Orders 05/07/17 17:09 Patient Status [ADT] Routine Bedrest Bedside Commode [RC] ASDIRECTED Communication Order [RC] ROUTINE Height and Weight [RC] DAILY Oxygen Therapy [RC] PRN Vital Signs [RC] Q1H Acetaminophen [Tylenol] 650 mg PO Q4H PRN HYDROmorphone [Dilaudid] 0.25 mg IVPUSH Q2H PRN Ondansetron [Zofran] 4 mg IVPUSH Q4H PRN Resuscitation Status Routine 05/07/17 17:10 Intake and Output [RC] Q12H Pulse Oximetry [RC] CONTINUOUS 05/07/17 17:11 Sequential Compression Device [OM.PC] Per Unit Routine 05/07/17 17:13 Antiembolic Devices [RC] PER UNIT ROUTINE 05/07/17 18:00 Piperacillin/Tazobactam [Piperacil-Tazobact] 4.5 gm Sodium Chloride 0.9% [ Normal Saline] 100 ml IV Q6H 05/07/17 18:03 CULTURE BLOOD [BC] Stat 05/07/17 18:07 Blood Culture x2 Reflex Set [OM.PC] Stat 05/07/17 18:22 CULTURE BLOOD [BC] Stat 05/07/17 19:00 Blood Glucose Check, Bedside [RC] Q1HR 05/07/17 19:46 Abdomen Pelvis wo Cont [CT] Stat 05/07/17 22:00 Heparin Sodium 5,000 units SUBCUT Q8H 05/08/17 07:30 Potassium Phosphates 30 mmole Sodium Chloride 0.9% [Normal Saline] 500 ml IV ONETIME 05/08/17 09:29 BASIC METABOLIC PANEL,BMP [CHEM] Q4H 05/08/17 13:29 BASIC METABOLIC PANEL,BMP [CHEM] Q4H 05/08/17 17:29 BASIC METABOLIC PANEL,BMP [CHEM] Q4H 05/08/17 Breakfast NPO [Nothing Per Oral Diet] [DIET] 05/09/17 05:11 CBC WITH AUTO DIFF [HEME] AM COMPREHENSIVE METABOLIC PN,CMP [CHEM] AM 05/10/17 05:11 CBC WITH AUTO DIFF [HEME] AM COMPREHENSIVE METABOLIC PN,CMP [CHEM] AM 05/11/17 05:11 CBC WITH AUTO DIFF [HEME] AM COMPREHENSIVE METABOLIC PN,CMP [CHEM] AM - Plan Plan:: 31 yo Male admitted 05/07/17 for DKA and leukocytosis with pmh of type I diabetes. DKA: Moderate DKA, Gap closed this morning, Bicarb 17 will transition to regular insulin sliding scale qid today. Will remain NPO secondary to pancreatitis at this time may have ice chips. A1C 9.5 Leukocytosis: Afebrile WBC decreased from 26k to 13k this am. Anaerobic BC neg. BC pending this am. Still unclear of source. Will consider chest imaging today and continue Zosyn IV day 2. Pancreatitis: Amylase 898 up from 99 and Lipase [address] abd showed acute pancreatitis without well-defined fluid collection. No inflammatory changes seen in gallbladder. There was a subtle increase attenuation in the dependent portion of the gallbadder. Will get US today. Lipids unremarkable and patient not a heavy drinker. Talked with Dr. Fields, surgery and he recommended US and possible MRCP first. VTE proph: Heparin, SCD Dispo: 2-3 days pending
[2017-05-08 10:13] LABS: CHLORIDE,CL 108 mmol/L (98-110); SODIUM,NA 135 mmol/L (136-146)
--- NOTE | 2017-05-08 10:44 | CR ---
EXAM DATE: 05/07/17 PATIENT'S AGE: 31 Patient: KELLY DAVIS Facility: [place], [place] Site . Site : [id number] Study: XRay Chest [id number]/26/[id number] 4:09:02 PM Ordering Physician: Doctor French Final Report: INDICATION: Chest pain, shortness of breath. TECHNIQUE: Chest radiograph 1 view COMPARISON: None FINDINGS: Cardiovascular and mediastinum: The heart silhouette is normal in size and morphology. The mediastinum is normal in appearance. Lungs and pleural spaces: Both lungs are unremarkable in appearance. No sign of pleural effusion seen. No pneumothorax is identified. Bones and soft tissues: No significant findings. IMPRESSION: 1. Negative chest. Dictated by Alen Macario MD @ 05/07/2017 5:16:16 PM Dictated by: Alen Macario MD @ 05/07/2017 17:16:20 (Electronic Signature) Report Signed by Proxy. [facility]
[2017-05-08] MEDS ORDERED: Insulin Regular, Human 100 Units/ML 10 ML Vial SUBCUT SCH (11:30)
[2017-05-08] MEDS ORDERED: Insulin Aspart 100 Units/ML 3 ML Pen SUBCUT SCH (12:45)
--- NOTE | 2017-05-08 13:25 | CT ---
EXAM DATE: 05/07/17 PATIENT'S AGE: 31 Patient: KELLY DAVIS Facility: [place], [place] Site . Site : 1985 Study: CT Abdomen/Pelvis [id number] 9:25:39 PM Ordering Physician: Magdy Ashley Final Report: INDICATION: Elevated white blood count. Diabetic ketoacidosis. Abdominal pain. TECHNIQUE: CT abdomen and pelvis without contrast. COMPARISON: None. FINDINGS: Lower chest: Lung bases are clear. No effusions. . Liver: The unenhanced liver is unremarkable. . Spleen: Unremarkable. . Pancreas: Mild diffuse edematous appearance of the body of the pancreas with mild Uzma pancreatic stranding and ill-defined fluid. No well-defined peripancreatic fluid collection. . Gallbladder and bile ducts: Subtle increased attenuation in the dependent portion of the gallbladder. No acute inflammatory changes involving the gallbladder. . Kidneys: No evidence of urolithiasis or hydroureteronephrosis. . Adrenal glands: Unremarkable. . GI tract: Surgical clips about the cecum suggesting prior appendectomy. The appendix is not visualized. No bowel obstruction or focal inflammatory changes involving the GI tract. No free air or free fluid. . Vascular structures: Unremarkable. . Lymph nodes: Unremarkable. . Pelvic Organs: Distended urinary bladder. . Bones: No acute abnormality. IMPRESSION: Acute pancreatitis. No peripancreatic fluid collection. Question sludge or noncalcified stones in the dependent portion of the gallbladder. No inflammatory changes involving the gallbladder. Dictated by Filiberto Simpson MD @ 05/07/2017 10:27:42 PM Dictated by: Filiberto Simpson MD @ 05/07/2017 22:28:08 (Electronic Signature) Report Signed by Proxy. [facility] HOSPITALAshlee
[2017-05-08 14:20] LABS: CHLORIDE,CL 106 mmol/L (98-110); SODIUM,NA 135 mmol/L (136-146)
--- NOTE | 2017-05-08 14:22 | US ---
EXAM DATE: 05/07/17 PATIENT'S AGE: 31 Patient: KELLY DAVIS Facility: [place], [place] Site . Site : 1985 Study: US Abdomen [id number]/2017 12:00:28 PM Ordering Physician: Magdy Ashley Final Report: INDICATION: Right upper quadrant pain. Pancreatitis. TECHNIQUE: Ultrasound abdomen limited. Sonographic images of the right upper quadrant were obtained using sainz-scale and color Doppler images. COMPARISON: CT abdomen pelvis May 07, 2017. FINDINGS: LIVER: Normal in size and echotexture. No masses. No intrahepatic biliary dilatation. GALLBLADDER: No stones. There is minimal sludge. Normal wall thickness. No pericholecystic fluid. COMMON BILE DUCT: 4 mm. PANCREAS: Normal. RIGHT KIDNEY: Normal in size. Normal echotexture and cortex. No masses, stones, or hydronephrosis. IMPRESSION: Minimal gallbladder sludge. Otherwise unremarkable right upper quadrant ultrasound. Dictated by Ritesh Ramirez MD @ May 08 2017 12:44PM (Electronic Signature) Report Signed by Proxy. [facility]
[2017-05-08] MEDS: Insulin Aspart 100 Units/ML 3 ML Pen SUBCUT SCH ×2 (17:33→21:13)
[2017-05-08 18:04] LABS: CHLORIDE,CL 106 mmol/L (98-110); SODIUM,NA 134 mmol/L (136-146)
[2017-05-09] MEDS: HYDROmorphone 1 MG/ML Syringe IVPUSH PRN ×5 (01:12→13:31)
[2017-05-09] MEDS: Heparin Sodium 5,000 Units/ML Vial SUBCUT SCH ×3 (05:21→21:05)
[2017-05-09] MEDS: Piperacillin/Tazobactam 4.5 GM in Sodium Chloride 0.9% 100 ML IV SCH ×3 (05:23→17:18)
[2017-05-09 06:14] LABS: CHLORIDE,CL 107 mmol/L (98-110); SODIUM,NA 136 mmol/L (136-146)
[2017-05-09] MEDS: Insulin Aspart 100 Units/ML 3 ML Pen SUBCUT SCH ×5 (06:49→19:16)
[2017-05-09] MEDS: Dextrose 5%-0.45% NaCl 1,000 ML IV SCH (07:29)
[2017-05-09] MEDS ORDERED: Potassium Phosphates 3 mMole/ML 5 ML SDV IV ONE (07:30)
[2017-05-09] MEDS ORDERED: Magnesium Sulfate/Water 2 GM in Premix Bag 1 BAG IV ONE (07:31)
[2017-05-09] MEDS ORDERED: Potassium Phosphates 15 MMOLE in Sodium Chloride 0.9% 250 ML IV ONE (07:45)
[2017-05-09] MEDS: Insulin Glargine,Human Rec. Analog 100 Units/ML 3 ML Pen SUBCUT SCH ×2 (08:42→09:18)
[2017-05-09] MEDS: Pantoprazole 40 MG Vial IVPUSH SCH (08:56)
--- NOTE | 2017-05-09 14:00 | PCM.PN ---
- Review of Systems Systems Review Comment:: abdominal pain improving, wants to try eating. - Patient Data Vitals - Most Recent: Last Vital Signs Temp 36.2 C 05/09/17 12:00 Pulse 53 L 05/09/17 13:00 Resp 10 L 05/09/17 13:00 BP 100/62 05/09/17 13:00 Pulse Ox 99 05/09/17 13:00 Weight - Most Recent: 60.5 kg I&O - Last 24 Hours: Intake & Output 05/08/17 05/09/17 05/09/17 22:59 06:59 14:59 Intake Total 2150 1320 400 Output Total 1350 1400 Balance 800 -80 400 Lab Results Last 24 Hours: Laboratory Results - last 24 hr 05/08/17 05/08/17 05/08/17 Range/Units 13:38 17:31 17:32 WBC (4.0-11.0) K/uL RBC (4.50-5.90) M/uL Hgb (13.0-17.0) g/dL Hct (38.0-50.0) % MCV (80.0-98.0) fL MCH (27.0-32.0) pg MCHC (31.0-37.0) g/dL RDW Std Deviation (28.0-62.0) fl RDW Coeff of Macario (11.0-15.0) % Plt Count (150-400) K/uL MPV (7.40-12.00) fL Neut % (Auto) (48.0-80.0) % Lymph % (Auto) (16.0-40.0) % Dale % (Auto) (0.0-15.0) % Eos % (Auto) (0.0-7.0) % Baso % (Auto) (0.0-1.5) % Neut # (Auto) (1.4-5.7) K/uL Lymph # (Auto) (0.6-2.4) K/uL Dale # (Auto) (0.0-0.8) K/uL Eos # (Auto) (0.0-0.7) K/uL Baso # (Auto) (0.0-0.1) K/uL Nucleated RBC % /100WBC Nucleated RBCs # K/uL Sodium 135 L 134 L (136-146) mmol/L Potassium 4.4 4.1 (3.5-5.1) mmol/L Chloride 106 106 (98-110) mmol/L Carbon Dioxide 20 L 21 (21-31) mmol/L BUN 10 8 (6.0-23.0) mg/dL Creatinine 1.3 1.2 (0.6-1.5) mg/dL Est Cr Clr Drug Dosing 69.69 75.50 mL/min Estimated GFR (MDRD) > 60.0 > 60.0 ml/min Glucose 301 H 302 H (60-110) mg/dL POC Glucose 245 H (60-110) mg/dL Calcium 7.8 L 8.0 L (8.8-10.8) mg/dL Phosphorus (2.4-4.7) mg/dL Magnesium (1.5-2.3) mEq/L Total Bilirubin (0.1-1.5) mg/dL AST (5-40) IU/L ALT (8-54) IU/L Alkaline Phosphatase (40-150) Total Protein (6.0-8.0) g/dL Albumin (3.5-5.0) g/dL Globulin (2.0-3.5) g/dL Albumin/Globulin Ratio (1.3-2.8) Amylase (10-90) U/L Lipase (7-80) U/L 05/08/17 05/09/17 05/09/17 Range/Units 21:07 05:30 05:30 WBC 7.19 (4.0-11.0) K/uL RBC 4.60 (4.50-5.90) M/uL Hgb 14.8 (13.0-17.0) g/dL Hct 41.2 (38.0-50.0) % MCV 89.6 (80.0-98.0) fL MCH 32.2 H (27.0-32.0) pg MCHC 35.9 (31.0-37.0) g/dL RDW Std Deviation 45.8 (28.0-62.0) fl RDW Coeff of Macario 14 (11.0-15.0) % Plt Count 97 L (150-400) K/uL MPV 8.90 (7.40-12.00) fL Neut % (Auto) 62.7 (48.0-80.0) % Lymph % (Auto) 31.0 (16.0-40.0) % Dale % (Auto) 5.6 (0.0-15.0) % Eos % (Auto) 0.6 (0.0-7.0) % Baso % (Auto) 0.1 (0.0-1.5) % Neut # (Auto) 4.5 (1.4-5.7) K/uL Lymph # (Auto) 2.2 (0.6-2.4) K/uL Dale # (Auto) 0.4 (0.0-0.8) K/uL Eos # (Auto) 0.0 (0.0-0.7) K/uL Baso # (Auto) 0.0 (0.0-0.1) K/uL Nucleated RBC % 0.0 /100WBC Nucleated RBCs # 0 K/uL Sodium 136 (136-146) mmol/L Potassium 3.9 (3.5-5.1) mmol/L Chloride 107 (98-110) mmol/L Carbon Dioxide 19 L (21-31) mmol/L BUN 7 (6.0-23.0) mg/dL Creatinine 1.2 (0.6-1.5) mg/dL Est Cr Clr Drug Dosing 77.03 mL/min Estimated GFR (MDRD) > 60.0 ml/min Glucose 358 H (60-110) mg/dL POC Glucose 298 H (60-110) mg/dL Calcium 8.1 L (8.8-10.8) mg/dL Phosphorus (2.4-4.7) mg/dL Magnesium 1.4 L (1.5-2.3) mEq/L Total Bilirubin 0.5 (0.1-1.5) mg/dL AST 16 (5-40) IU/L ALT 20 (8-54) IU/L Alkaline Phosphatase 74 (40-150) Total Protein 5.0 L (6.0-8.0) g/dL Albumin 3.2 L (3.5-5.0) g/dL Globulin 1.8 L (2.0-3.5) g/dL Albumin/Globulin Ratio 1.8 (1.3-2.8) Amylase 622 H (10-90) U/L Lipase 791 H (7-80) U/L 05/09/17 05/09/17 05/09/17 Range/Units 05:30 06:33 11:13 WBC (4.0-11.0) K/uL RBC (4.50-5.90) M/uL Hgb (13.0-17.0) g/dL Hct (38.0-50.0) % MCV (80.0-98.0) fL MCH (27.0-32.0) pg MCHC (31.0-37.0) g/dL RDW Std Deviation (28.0-62.0) fl RDW Coeff of Macario (11.0-15.0) % Plt Count (150-400) K/uL MPV (7.40-12.00) fL Neut % (Auto) (48.0-80.0) % Lymph % (Auto) (16.0-40.0) % Dale % (Auto) (0.0-15.0) % Eos % (Auto) (0.0-7.0) % Baso % (Auto) (0.0-1.5) % Neut # (Auto) (1.4-5.7) K/uL Lymph # (Auto) (0.6-2.4) K/uL Dale # (Auto) (0.0-0.8) K/uL Eos # (Auto) (0.0-0.7) K/uL Baso # (Auto) (0.0-0.1) K/uL Nucleated RBC % /100WBC Nucleated RBCs # K/uL Sodium (136-146) mmol/L Potassium (3.5-5.1) mmol/L Chloride (98-110) mmol/L Carbon Dioxide (21-31) mmol/L BUN (6.0-23.0) mg/dL Creatinine (0.6-1.5) mg/dL Est Cr Clr Drug Dosing mL/min Estimated GFR (MDRD) ml/min Glucose (60-110) mg/dL POC Glucose 318 H 275 H (60-110) mg/dL Calcium (8.8-10.8) mg/dL Phosphorus 2.0 L (2.4-4.7) mg/dL Magnesium (1.5-2.3) mEq/L Total Bilirubin (0.1-1.5) mg/dL AST (5-40) IU/L ALT (8-54) IU/L Alkaline Phosphatase (40-150) Total Protein (6.0-8.0) g/dL Albumin (3.5-5.0) g/dL Globulin (2.0-3.5) g/dL Albumin/Globulin Ratio (1.3-2.8) Amylase (10-90) U/L Lipase (7-80) U/L Kavin Results Last 24 Hours: Microbiology 05/07/17 18:10 Urine Culture - Final Urine, Clean Catch YEAST 05/07/17 18:22 Aerobic Blood Culture - Preliminary Blood - Venous - Lab Draw NO GROWTH AFTER 1 DAY Anaerobic Blood Culture - Final 05/07/17 18:03 Aerobic Blood Culture - Preliminary Blood - Venous NO GROWTH AFTER 1 DAY Anaerobic Blood Culture - Final Med Orders - Current: Current Medications Acetaminophen (Tylenol) 650 mg PO Q4H PRN PRN Reason: Pain (Mild 1-3)/fever Last Admin: 05/09/17 10:48 Dose: 650 mg Heparin Sodium (Porcine) (Heparin Sodium) 5,000 units SUBCUT Q8H [facility] Last Admin: 05/09/17 13:31 Dose: 5,000 units Piperacillin Sod/Tazobactam (Sod 4.5 gm/ Sodium Chloride) 100 mls @ 100 mls/hr IV Q6H [facility] Last Admin: 05/09/17 11:21 Dose: 100 mls/hr Sodium Chloride (Normal Saline) 1,000 mls @ 100 mls/hr IV ASDIRECTED [facility] Insulin Aspart (Novolog) 0 unit SUBCUT Q4HR [facility] PRN Reason: Protocol Last Admin: 05/09/17 11:14 Dose: 6 units Insulin Glargine (Lantus Solostar) 15 units SUBCUT DAILY [facility] Last Admin: 05/09/17 09:18 Dose: Not Given Ondansetron HCl (Zofran) 4 mg IVPUSH Q4H PRN PRN Reason: Nausea Pantoprazole Sodium (Protonix Iv) 40 mg IVPUSH DAILY [facility] Last Admin: 05/09/17 08:56 Dose: 40 mg Discontinued Medications Hydromorphone HCl (Dilaudid) 0.25 mg IVPUSH Q2H PRN PRN Reason: Pain (severe 7-10) Last Admin: 05/08/17 10:35 Dose: 0.25 mg Hydromorphone HCl (Dilaudid) 0.5 mg IVPUSH Q2H PRN PRN Reason: pain Last Admin: 05/09/17 13:31 Dose: 0.5 mg Sodium Chloride (Normal Saline) 1,000 mls @ 999 mls/hr IV ASDIRECTED [facility] Last Admin: 05/07/17 19:00 Dose: 999 mls/hr Insulin Human Regular 100 unit (/ Sodium Chloride) 100 mls @ 10 mls/hr IV TITRATE [facility]; 10 UNIT/HR PRN Reason: Protocol Last Admin: 05/07/17 16:57 Dose: 10 unit/hr, 10 mls/hr Sodium Chloride (Normal Saline) 1,000 mls @ 999 mls/hr IV STAT ONE Stop: 05/07/17 17:30 Last Infusion: 05/07/17 17:54 Dose: Infused Insulin Human Regular 100 unit (/ Sodium Chloride) 100 mls @ 4 mls/hr IV TITRATE [facility]; 4 UNIT/HR PRN Reason: Protocol Last Titration: 05/08/17 08:05 Dose: 2 unit/hr, 2 mls/hr Sodium Chloride (Normal Saline) 1,000 mls @ 999 mls/hr IV .BOLUS [facility] Sodium Chloride (Normal Saline) 1,000 mls @ 250 mls/hr IV ASDIRECTED [facility] Last Admin: 05/07/17 18:16 Dose: 250 mls/hr Dextrose/Sodium Chloride (Dextrose 5%-1/2 Ns) 1,000 mls @ 250 mls/hr IV ASDIRECTED [facility] Last Admin: 05/08/17 04:05 Dose: 250 mls/hr Dextrose/Sodium Chloride (Dextrose 5%-1/2 Ns) 1,000 mls @ 150 mls/hr IV ASDIRECTED [facility] Last Admin: 05/08/17 10:37 Dose: 150 mls/hr Magnesium Sulfate 2 gm/ Premix 50 mls @ 50 mls/hr IV ONETIME ONE Stop: 05/08/17 07:59 Last Admin: 05/08/17 07:31 Dose: 50 mls/hr Potassium Phosphate 30 mmole/ (Sodium Chloride) 510 mls @ 125 mls/hr IV ONETIME ONE Stop: 05/08/17 11:34 Last Admin: 05/08/17 08:29 Dose: 125 mls/hr Dextrose/Sodium Chloride (Dextrose 5%-1/2 Ns) 1,000 mls @ 100 mls/hr IV ASDIRECTED [facility] Last Admin: 05/09/17 07:29 Dose: 100 mls/hr Magnesium Sulfate 2 gm/ Premix 50 mls @ 50 mls/hr IV ONETIME ONE Stop: 05/09/17 08:30 Last Admin: 05/09/17 08:56 Dose: 50 mls/hr Potassium Phosphate 15 mmole/ (Sodium Chloride) 255 mls @ 127.5 mls/hr IV ONETIME ONE Stop: 05/09/17 09:44 Last Admin: 05/09/17 08:45 Dose: 127.5 mls/hr Insulin Aspart (Novolog) 0 unit SUBCUT Q4H [facility] PRN Reason: Protocol Last Admin: 05/08/17 12:41 Dose: 6 units Insulin Aspart (Novolog) 0 unit SUBCUT QIDACANDBED [facility] PRN Reason: Protocol Last Admin: 05/09/17 06:49 Dose: 8 units Insulin Human Regular (Novolin R) 10 unit IVPUSH ONETIME ONE PRN Reason: Protocol Stop: 05/07/17 15:50 Last Admin: 05/07/17 16:16 Dose: 10 units Insulin Human Regular (Novolin R) 10 unit SUBCUT ONETIME ONE PRN Reason: Protocol Stop: 05/07/17 16:20 Last Admin: 05/07/17 16:20 Dose: 10 unit Insulin Human Regular (Novolin R) 0 unit SUBCUT QIDACANDBED [facility] PRN Reason: Protocol Last Admin: 05/08/17 13:00 Dose: Not Given Morphine Sulfate (Morphine) 2 mg IVPUSH ONETIME ONE Stop: 05/07/17 16:19 Last Admin: 05/07/17 16:55 Dose: 2 mg Ondansetron HCl (Zofran) 4 mg IVPUSH ONETIME ONE Stop: 05/07/17 15:37 Last Admin: 05/07/17 15:56 Dose: 4 mg - Exam General: Alert, Oriented HEENT: Mucous Membr. Moist/[place] Lungs: Clear to Auscultation, Normal Respiratory Effort Cardiovascular: Regular Rate, Regular Rhythm GI/Abdominal Exam: Soft, Non-Tender. No: Distended, Guarding Extremities: Non-Tender, No Pedal Edema - Problem List Review Problem List Initiated/Reviewed/Updated: Yes - My Orders Last 24 Hours: My Active Orders 05/09/17 14:00 Sodium Chloride 0.9% @ 100 MLS/HR(1,000ml) Sodium Chloride 0.9% [Normal Saline] 1,000 ml IV ASDIRECTED 05/09/17 Dinner Clear Liquid Diet [DIET] - Plan Plan:: 31 yo Male admitted DKA and pancreatitis Pancreatitis: MRCP reports acute pancreatitis, no bile duct dilation, WBC normal today. We will try clear liquids, DKA: resolving, on sliding scale insulin, and lantus VTE proph: Heparin, SCD Dispo: 2-3 days pending
[2017-05-09] MEDS: Sodium Chloride 0.9% 1,000 ML IV SCH ×2 (14:07→23:58)
--- NOTE | 2017-05-09 15:21 | MR ---
EXAM DATE: 05/07/17 PATIENT'S AGE: 31 Patient: KELLY DAVIS Facility: [place], [place] Site . Site : 1985 Study: MRI Abdomen [id number]/28/2017 9:19:45 AM Ordering Physician: Magdy Ashley Final Report: INDICATION: RUQ PAIN, MID ABD PAIN, PANCREATITIS WITHOUT ETIOLOGY, POSSIBLE STONE IN DUCT TECHNIQUE: MRCP with heavily T2 weighted 2D and 3D MRCP images. Axial T1 in- and out of phase and T2 weighted images also performed. No gadolinium administered. COMPARISON: Abdominal ultrasound dated [address] scan of the abdomen and pelvis dated 07 May 2017. FINDINGS: No fatty infiltration of the liver. No focal abnormalities identified in the visualized portions of the liver, spleen, adrenal glands, and kidneys. No hydronephrosis. Diffuse edema of the pancreas with a mild amount of peripancreatic edematous fluid extending into the pericolic gutters. No intra or extrahepatic bile duct dilation with the common bile duct measuring 4 mm. No filling defects in the biliary system. Normal size of the main pancreatic duct. IMPRESSION: 1. No bile duct dilation. No choledocholithiasis. Normal size of the main pancreatic duct. 2. Acute pancreatitis. Dictated by Oscar Tanner MD @ 05/09/2017 9:35:14 AM Dictated by: Oscar Tanner MD @ 05/09/2017 09:35:28 (Electronic Signature) Report Signed by Proxy. [facility] HOSPITALAshlee
[2017-05-10] MEDS: Piperacillin/Tazobactam 4.5 GM in Sodium Chloride 0.9% 100 ML IV SCH ×2 (00:08→05:12)
[2017-05-10] MEDS: Insulin Aspart 100 Units/ML 3 ML Pen SUBCUT SCH ×4 (00:11→12:22)
[2017-05-10] MEDS: Heparin Sodium 5,000 Units/ML Vial SUBCUT SCH (05:10)
[2017-05-10 05:26] LABS: CHLORIDE,CL 110 mmol/L (98-110); SODIUM,NA 139 mmol/L (136-146)
[2017-05-10] MEDS: Insulin Glargine,Human Rec. Analog 100 Units/ML 3 ML Pen SUBCUT SCH (08:53)
[2017-05-10] MEDS: Pantoprazole 40 MG Vial IVPUSH SCH (08:54)
--- NOTE | 2017-05-10 11:31 | PCM.DCSUM1 ---
Discharge Summary - Hospital Course Brief History: 31 yo male presenting to ED with chief complaint of nausea and vomiting starting early this am with pmh of Type I diabetes. Patient states that he felt his normal self up until late last evening around midnight when he began to have nausea and vomiting. He did feel sweaty but reported no fever. He also reports a cough without production that started at similar time. He states that he now has some diffuse mild abdominal pain but denies dysuria. Secondary to his continued nausea and vomiting he presented to the ED with his father. He is a type I diabetic and has been in DKA before. States that he regularly only uses 30 of Lantus in the morning. He checks his blood sugars "every couple of days". They are usually in the 120s to 140s. He does note that for the last couple days they were little higher than low 200s. He also complains of some mild back pain she states started when he is in high school secondary to sports. He usually takes Tylenol for this pain. In ED found to have leukocytosis of 26k, 6.7 lactate, Glucose 700+, Na 131, K 6.1, BUN 31, Cr 2.2 and PH 7.0 metabolic acidosis. CXR neg, UA neg. - Discharge Data Discharge Date: 05/10/17 Discharge Disposition: Home, Self-Care 01 Condition: Good - Discharge Diagnosis/Problem(s) (1) DM type 1 (diabetes mellitus, type 1) SNOMED Code(s): 76319089 ICD Code: E10.9 - TYPE 1 DIABETES MELLITUS WITHOUT COMPLICATIONS Status: Chronic Qualifiers: Diabetes mellitus complication status: with ketoacidosis Diabetes mellitus complication detail: without coma Qualified Code(s): E10.10 - Type 1 diabetes mellitus with ketoacidosis without coma (2) Pancreatitis SNOMED Code(s): 25856587 ICD Code: K85.90 - ACUTE PANCREATITIS WITHOUT NECROSIS OR INFECTION, UNSP Status: Acute Priority: High Qualifiers: Chronicity: acute Pancreatitis type: biliary Acute pancreatitis complication: unspecified Qualified Code(s): K85.10 - Biliary acute pancreatitis without necrosis or infection (3) Leukocytosis, unspecified SNOMED Code(s): 615089210 ICD Code: D72.829 - ELEVATED WHITE BLOOD CELL COUNT, UNSPECIFIED Status: Resolved Priority: High Qualifiers: Leukocytosis type: unspecified Qualified Code(s): D72.829 - Elevated white blood cell count, unspecified - Patient Summary/Data Consults: Consultations 05/10/17 09:37 Consult to Diabetic Nurse Specialist [CONS] Routine - Patient Instructions Diet: Diabetic Diet, GI Soft/Low Residue/Low Fiber Activity: As Tolerated Driving: May Drive Today Showering/Bathing: May Shower Notify Provider of: Fever, Increased Pain, Swelling and Redness, Drainage, Nausea and/or Vomiting - Discharge Plan Prescriptions/Med Rec: Insulin Aspart [NovoLOG] See Protocol SUBCUT TIDAC #1 box Insulin Glarg,Human.Rec.Analog [LantUS Solostar] 20 units SUBCUT DAILY #1 box Home Medications: Home Meds Insulin Aspart [NovoLOG] See Protocol SUBCUT TIDAC #1 box 05/10/17 [Rx] Insulin Glarg,Human.Rec.Analog [LantUS Solostar] 20 units SUBCUT DAILY #1 box [Rx] Patient Handouts: Insulin Aspart; Insulin Aspart Protamine injection, Type 1 Diabetes Mellitus, Adult, Insulin Glargine injection Referrals: Sulaiman Alberto MD [Physician] - 05/17/17 8:30 am Alfredo Oconnor MD [Physician] - 05/20/17 2:30 pm (Follow up appointment with Cloth Hauler this same day as well. Please bring meter to download blood sugar readings. ) - Discharge Summary/Plan Comment DC Time >30 min.: No Discharge Summary/Plan Comment: Admission Diagnoses: DKA Leukocytosis Pancreatitis Metabolic acidosis Discharge Diagnoses: Type 1 DM, DKA resolved Susepected biliary pancreatitis Mauricio was admitted to ICU initially and treated with agressive IV fluid resusitation and an insulin gtt to correct his metabolic acidosis and DKA. He was noted to have continued abdominal pain. Lipase and amylase were noted to be elevated as well. Surgery was contacted and recommended US and MRCP. Patient is not a heavy drinker and lipid panel was unremarkable. US revealed minimal gallbladder sludge. MRCP revealed no bile duct dilation, no choledocholithiasis and normal pancreatic duct, acute pancreatitis. He was treated with bowel rest and continued IVFs. He was moved to the floor after DKA resolved. Leukocytosis resolved as well, likely secondary to DKA and pancreatitis, no source of infection found. DM educator was notified and consulted to help with dosing of insulin. He reports he was taken off his mealtime insulin by his PCP due to his job and Lantus was increased to 30 units. He reports many lows during the most nights. He checks his blood sugars scarcely. 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 He will be started on aggressive Novolog SSI and Lantus will be decreased to 20 units nightly. He will follow up with Dr. Oconnor, since his PCP is leaving and also the same day follow up with Diabetic education. Aga was able to visit with him at length and provided him a new meter and samples of both short acting and long acting insulins. He requested not to carb count, so aggressive scale was selected for this reason. He was advanced to CL and FL diet well without returning abdominal pain or nausea and vomiting. He is eager to be discharged home today. He will follow up as scheduled with new PCP, DM educator and surgeon regarding suspected biliary pancreatitis. He is to return to ED or clinic if concerns should arise. He was encouraged to continue with low fat, low residue ADA diet until follow up with surgery. - General Info Date of Service: 05/10/17 Admission Dx/Problem (Free Text: Admission Diagnosis/Problem Admission Diagnosis/Problem Diabetic ketoacidosis Subjective Update: Feeling well this morning, no pain. Just hunger pains, wanting diet advanced and asking about discharge home. No chest pain or SOB. No recurrent abdominal pain, scant tenderness to epigastric region. No diarrhea or constipation. Functional Status: Reports: Pain Controlled, Tolerating Diet, Ambulating, Urinating - Review of Systems General: Reports: No Symptoms. Denies: Fever, Fatigue, Malaise Pulmonary: Reports: No Symptoms. Denies: Shortness of Breath Cardiovascular: Reports: No Symptoms. Denies: Chest Pain, Palpitations Gastrointestinal: Reports: No Symptoms. Denies: Abdominal Pain, Nausea, Vomiting Genitourinary: Reports: No Symptoms. Denies: Dysuria, Frequency, Burning, Pain , Urgency Skin: Reports: No Symptoms Psychiatric: Reports: No Symptoms. Denies: Confusion - Patient Data Vitals - Most Recent: Last Vital Signs Temp 97.3 F 05/10/17 08:00 Pulse 100 05/10/17 08:00 Resp 16 05/10/17 08:00 BP 119/73 05/10/17 08:00 Pulse Ox 98 05/10/17 08:00 Weight - Most Recent: 59.5 kg I&O - Last 24 hours: Intake & Output 05/09/17 05/10/17 05/10/17 22:59 06:59 14:59 Intake Total 2730 Output Total 500 1300 Balance -500 1430 Lab Results - Last 24 hrs: Laboratory Results - last 24 hr 05/09/17 05/09/17 05/10/17 Range/Units 15:52 19:15 00:11 WBC (4.0-11.0) K/uL RBC (4.50-5.90) M/uL Hgb (13.0-17.0) g/dL Hct (38.0-50.0) % MCV (80.0-98.0) fL MCH (27.0-32.0) pg MCHC (31.0-37.0) g/dL RDW Std Deviation (28.0-62.0) fl RDW Coeff of Macario (11.0-15.0) % Plt Count (150-400) K/uL MPV (7.40-12.00) fL Neut % (Auto) (48.0-80.0) % Lymph % (Auto) (16.0-40.0) % [place] % (Auto) (0.0-15.0) % Eos % (Auto) (0.0-7.0) % Baso % (Auto) (0.0-1.5) % Neut # (Auto) (1.4-5.7) K/uL Lymph # (Auto) (0.6-2.4) K/uL [place] # (Auto) (0.0-0.8) K/uL Eos # (Auto) (0.0-0.7) K/uL Baso # (Auto) (0.0-0.1) K/uL Nucleated RBC % /100WBC Nucleated RBCs # K/uL Sodium (136-146) mmol/L Potassium (3.5-5.1) mmol/L Chloride (98-110) mmol/L Carbon Dioxide (21-31) mmol/L BUN (6.0-23.0) mg/dL Creatinine (0.6-1.5) mg/dL Est Cr Clr Drug Dosing mL/min Estimated GFR (MDRD) ml/min Glucose (60-110) mg/dL POC Glucose 243 H 280 H 219 H (60-110) mg/dL Calcium (8.8-10.8) mg/dL Total Bilirubin (0.1-1.5) mg/dL AST (5-40) IU/L ALT (8-54) IU/L Alkaline Phosphatase (40-150) Total Protein (6.0-8.0) g/dL Albumin (3.5-5.0) g/dL Globulin (2.0-3.5) g/dL Albumin/Globulin Ratio (1.3-2.8) 05/10/17 05/10/17 05/10/17 Range/Units 04:16 04:16 04:16 WBC 4.65 (4.0-11.0) K/uL RBC 4.22 L (4.50-5.90) M/uL Hgb 13.5 (13.0-17.0) g/dL Hct 37.4 L (38.0-50.0) % MCV 88.6 (80.0-98.0) fL MCH 32.0 (27.0-32.0) pg MCHC 36.1 (31.0-37.0) g/dL RDW Std Deviation 43.4 (28.0-62.0) fl RDW Coeff of Macario 13 (11.0-15.0) % Plt Count 89 L (150-400) K/uL MPV 9.00 (7.40-12.00) fL Neut % (Auto) 51.3 (48.0-80.0) % Lymph % (Auto) 41.7 H (16.0-40.0) % [place] % (Auto) 6.0 (0.0-15.0) % Eos % (Auto) 0.6 (0.0-7.0) % Baso % (Auto) 0.4 (0.0-1.5) % Neut # (Auto) 2.4 (1.4-5.7) K/uL Lymph # (Auto) 1.9 (0.6-2.4) K/uL [place] # (Auto) 0.3 (0.0-0.8) K/uL Eos # (Auto) 0.0 (0.0-0.7) K/uL Baso # (Auto) 0.0 (0.0-0.1) K/uL Nucleated RBC % 0.0 /100WBC Nucleated RBCs # 0 K/uL Sodium 139 (136-146) mmol/L Potassium 3.5 (3.5-5.1) mmol/L Chloride 110 (98-110) mmol/L Carbon Dioxide 23 (21-31) mmol/L BUN 6 (6.0-23.0) mg/dL Creatinine 0.9 (0.6-1.5) mg/dL Est Cr Clr Drug Dosing 101.00 mL/min Estimated GFR (MDRD) > 60.0 ml/min Glucose 213 H (60-110) mg/dL POC Glucose 182 H (60-110) mg/dL Calcium 8.3 L (8.8-10.8) mg/dL Total Bilirubin 0.6 (0.1-1.5) mg/dL AST 20 (5-40) IU/L ALT 23 (8-54) IU/L Alkaline Phosphatase 65 (40-150) Total Protein 4.5 L (6.0-8.0) g/dL Albumin 2.9 L (3.5-5.0) g/dL Globulin 1.6 L (2.0-3.5) g/dL Albumin/Globulin Ratio 1.8 (1.3-2.8) 05/10/17 Range/Units 08:22 WBC (4.0-11.0) K/uL RBC (4.50-5.90) M/uL Hgb (13.0-17.0) g/dL Hct (38.0-50.0) % MCV (80.0-98.0) fL MCH (27.0-32.0) pg MCHC (31.0-37.0) g/dL RDW Std Deviation (28.0-62.0) fl RDW Coeff of Macario (11.0-15.0) % Plt Count (150-400) K/uL MPV (7.40-12.00) fL Neut % (Auto) (48.0-80.0) % Lymph % (Auto) (16.0-40.0) % [place] % (Auto) (0.0-15.0) % Eos % (Auto) (0.0-7.0) % Baso % (Auto) (0.0-1.5) % Neut # (Auto) (1.4-5.7) K/uL Lymph # (Auto) (0.6-2.4) K/uL [place] # (Auto) (0.0-0.8) K/uL Eos # (Auto) (0.0-0.7) K/uL Baso # (Auto) (0.0-0.1) K/uL Nucleated RBC % /100WBC Nucleated RBCs # K/uL Sodium (136-146) mmol/L Potassium (3.5-5.1) mmol/L Chloride (98-110) mmol/L Carbon Dioxide (21-31) mmol/L BUN (6.0-23.0) mg/dL Creatinine (0.6-1.5) mg/dL Est Cr Clr Drug Dosing mL/min Estimated GFR (MDRD) ml/min Glucose (60-110) mg/dL POC Glucose 326 H (60-110) mg/dL Calcium (8.8-10.8) mg/dL Total Bilirubin (0.1-1.5) mg/dL AST (5-40) IU/L ALT (8-54) IU/L Alkaline Phosphatase (40-150) Total Protein (6.0-8.0) g/dL Albumin (3.5-5.0) g/dL Globulin (2.0-3.5) g/dL Albumin/Globulin Ratio (1.3-2.8) DILAN Results - Last 24 hrs: Microbiology 05/07/17 18:22 Aerobic Blood Culture - Preliminary Blood - Venous - Lab Draw NO GROWTH AFTER 2 DAYS Anaerobic Blood Culture - Final 05/07/17 18:03 Aerobic Blood Culture - Preliminary Blood - Venous NO GROWTH AFTER 2 DAYS Anaerobic Blood Culture - Final 05/07/17 18:10 Urine Culture - Final Urine, Clean Catch YEAST Med Orders - Current: Current Medications Acetaminophen (Tylenol) 650 mg PO Q4H PRN PRN Reason: Pain (Mild 1-3)/fever Last Admin: 05/09/17 10:48 Dose: 650 mg Piperacillin Sod/Tazobactam (Sod 4.5 gm/ Sodium Chloride) 100 mls @ 100 mls/hr IV Q6H [facility] Last Admin: 05/10/17 05:12 Dose: 100 mls/hr Insulin Aspart (Novolog) 0 unit SUBCUT Q4HR [facility] PRN Reason: Protocol Last Admin: 05/10/17 08:53 Dose: 8 units Insulin Glargine (Lantus Solostar) 15 units SUBCUT DAILY [facility] Last Admin: 05/10/17 08:53 Dose: 15 units Ondansetron HCl (Zofran) 4 mg IVPUSH Q4H PRN PRN Reason: Nausea Pantoprazole Sodium (Protonix Iv) 40 mg IVPUSH DAILY [facility] Last Admin: 05/10/17 08:54 Dose: 40 mg Discontinued Medications Heparin Sodium (Porcine) (Heparin Sodium) 5,000 units SUBCUT Q8H [facility] Last Admin: 05/10/17 05:10 Dose: 5,000 units Hydromorphone HCl (Dilaudid) 0.25 mg IVPUSH Q2H PRN PRN Reason: Pain (severe 7-10) Last Admin: 05/08/17 10:35 Dose: 0.25 mg Hydromorphone HCl (Dilaudid) 0.5 mg IVPUSH Q2H PRN PRN Reason: pain Last Admin: 05/09/17 13:31 Dose: 0.5 mg Sodium Chloride (Normal Saline) 1,000 mls @ 999 mls/hr IV ASDIRECTED [facility] Last Admin: 05/07/17 19:00 Dose: 999 mls/hr Insulin Human Regular 100 unit (/ Sodium Chloride) 100 mls @ 10 mls/hr IV TITRATE BONIFACIO; 10 UNIT/HR PRN Reason: Protocol Last Admin: 05/07/17 16:57 Dose: 10 unit/hr, 10 mls/hr Sodium Chloride (Normal Saline) 1,000 mls @ 999 mls/hr IV STAT ONE Stop: 05/07/17 17:30 Last Infusion: 05/07/17 17:54 Dose: Infused Insulin Human Regular 100 unit (/ Sodium Chloride) 100 mls @ 4 mls/hr IV TITRATE BONIFACIO; 4 UNIT/HR PRN Reason: Protocol Last Titration: 05/08/17 08:05 Dose: 2 unit/hr, 2 mls/hr Sodium Chloride (Normal Saline) 1,000 mls @ 999 mls/hr IV .BOLUS [facility]ACIO Sodium Chloride (Normal Saline) 1,000 mls @ 250 mls/hr IV ASDIRECTED [facility] Last Admin: 05/07/17 18:16 Dose: 250 mls/hr Dextrose/Sodium Chloride (Dextrose 5%-1/2 Ns) 1,000 mls @ 250 mls/hr IV ASDIRECTED [facility] Last Admin: 05/08/17 04:05 Dose: 250 mls/hr Dextrose/Sodium Chloride (Dextrose 5%-1/2 Ns) 1,000 mls @ 150 mls/hr IV ASDIRECTED [facility] Last Admin: 05/08/17 10:37 Dose: 150 mls/hr Magnesium Sulfate 2 gm/ Premix 50 mls @ 50 mls/hr IV ONETIME ONE Stop: 05/08/17 07:59 Last Admin: 05/08/17 07:31 Dose: 50 mls/hr Potassium Phosphate 30 mmole/ (Sodium Chloride) 510 mls @ 125 mls/hr IV ONETIME ONE Stop: 05/08/17 11:34 Last Admin: 05/08/17 08:29 Dose: 125 mls/hr Dextrose/Sodium Chloride (Dextrose 5%-1/2 Ns) 1,000 mls @ 100 mls/hr IV ASDIRECTED [facility] Last Admin: 05/09/17 07:29 Dose: 100 mls/hr Magnesium Sulfate 2 gm/ Premix 50 mls @ 50 mls/hr IV ONETIME ONE Stop: 05/09/17 08:30 Last Admin: 05/09/17 08:56 Dose: 50 mls/hr Potassium Phosphate 15 mmole/ (Sodium Chloride) 255 mls @ 127.5 mls/hr IV ONETIME ONE Stop: 05/09/17 09:44 Last Admin: 05/09/17 08:45 Dose: 127.5 mls/hr Sodium Chloride (Normal Saline) 1,000 mls @ 100 mls/hr IV ASDIRECTED [facility] Last Admin: 05/09/17 23:58 Dose: 100 mls/hr Insulin Aspart (Novolog) 0 unit SUBCUT Q4H [facility] PRN Reason: Protocol Last Admin: 05/08/17 12:41 Dose: 6 units Insulin Aspart (Novolog) 0 unit SUBCUT QIDACANDBED [facility] PRN Reason: Protocol Last Admin: 05/09/17 06:49 Dose: 8 units Insulin Human Regular (Novolin R) 10 unit IVPUSH ONETIME ONE PRN Reason: Protocol Stop: 05/07/17 15:50 Last Admin: 05/07/17 16:16 Dose: 10 units Insulin Human Regular (Novolin R) 10 unit SUBCUT ONETIME ONE PRN Reason: Protocol Stop: 05/07/17 16:20 Last Admin: 05/07/17 16:20 Dose: 10 unit Insulin Human Regular (Novolin R) 0 unit SUBCUT QIDACANDBED [facility] PRN Reason: Protocol Last Admin: 05/08/17 13:00 Dose: Not Given Morphine Sulfate (Morphine) 2 mg IVPUSH ONETIME ONE Stop: 05/07/17 16:19 Last Admin: 05/07/17 16:55 Dose: 2 mg Ondansetron HCl (Zofran) 4 mg IVPUSH ONETIME ONE Stop: 05/07/17 15:37 Last Admin: 05/07/17 15:56 Dose: 4 mg - Exam General: Reports: Alert, Oriented, Cooperative, No Acute Distress Neck: Reports: Supple Lungs: Reports: Clear to Auscultation, Normal Respiratory Effort Cardiovascular: Reports: Regular Rate, Regular Rhythm GI/Abdominal Exam: Normal Bowel Sounds, Soft, No Organomegaly, No Distention, No Abnormal Bruit, No Mass, Pelvis Stable, Tender (scant to epigastric region, explained this tenderness may last a couple to few weeks after pancreatitis.) Back Exam: Reports: Normal Inspection, Full Range of Motion Extremities: Normal Inspection, Normal Range of Motion, Non-Tender, No Pedal Edema, Normal Capillary Refill Skin: Reports: Warm, Dry, Intact Neurological: Reports: No New Focal Deficit Psy/Mental Status: Reports: Alert, Normal Affect, Normal Mood *Q Meaningful Use (DIS) - VTE *Q VTE Criteria *Q: - Stroke *Q Stroke Criteria *Q: - AMI *Q AMI Criteria *Q:
== END 2017-05-10 12:15 | disposition home or self-care (01) | DRG 637 ==
LOC: MW.ED 15:26 → MW.ICU 16:55 → MW.MS 05-09 15:46
PROVIDERS: ADMIT Family Medicine; ATTEND Family Medicine
DX: E10.10 Type 1 diabetes mellitus with ketoacidosis without coma (principal); K85.10 Biliary acute pancreatitis without necrosis or infection; Z79.4 Long term (current) use of insulin; F17.210 Nicotine dependence, cigarettes, uncomplicated; D72.829 Elevated white blood cell count, unspecified
CPT/HCPCS: 36415; 36600; 71010; 71010-26; 74176; 74176-26; 74181; 74181-26; 76705; 76705-26; 80048; 80053; 80061; 81001; 82150; 82803; 82962; 83036; 83605; 83690; 83735; 84100; 84484; 85025; 87040; 87086; 93005; 96361; 96372; 96374; 96375; 96376; 99284; 99285-25; A9270-GY; C9113; J1170; J1644; J1815-GY ×2; J2270; J2405; J2543; J3475; J7030; J7040; J7042; J7050

== ENCOUNTER 2017-08-17 18:10 | Inpatient (IN) | payer MEDICAID ==
[2017-08-17] MEDS ORDERED: Ondansetron 4 MG/2 ML SDV IVPUSH ONE ×2 (18:26→18:31)
[2017-08-17] MEDS ORDERED: Sodium Chloride 0.9% 1,000 ML IV ONE ×3 (18:26→20:55)
[2017-08-17] MEDS ORDERED: Insulin Regular, Human 100 Units/ML 10 ML Vial IVPUSH ONE ×2 (18:27→19:44)
--- NOTE | 2017-08-17 18:31 | EDM.PDOC ---
ED HPI GENERAL MEDICAL PROBLEM - General Chief Complaint: Diabetic Complaint Stated Complaint: CHEST PAINS Time Seen by Provider: 08/17/17 18:28 Source of Information: Reports: Patient History Limitations: Reports: No Limitations - History of Present Illness INITIAL COMMENTS - FREE TEXT/NARRATIVE: HISTORY AND PHYSICAL: History of present illness: Patient is a 32-year-old male who presents to the emergency room with complaints of generalized abdominal pain, chest discomfort that radiates into his low back, nausea, vomiting and diarrhea. Patient is a type I diabetic and states he believes his sugars are high. He does not routinely check his blood sugars but uses a sliding scale at home. Was admitted on 05/09/2017 for DKA and pancreatitis. States his symptoms feel similar. Patient denies any fever, chills, shortness of breath, constipation. Review of systems: As per history of present illness and below otherwise all systems reviewed and negative. Past medical history: As per history of present illness and as reviewed below otherwise noncontributory. Surgical history: As per history of present illness and as reviewed below otherwise noncontributory. Social history: No reported history of drug or alcohol abuse. Family history: As per history of present illness and as reviewed below otherwise noncontributory. Physical exam: General: Well-developed and well-nourished 32-year-old male. Alert and oriented. Nontoxic appearing and in no acute distress. HEENT: Atraumatic, normocephalic, pupils equal and reactive bilaterally, negative for conjunctival pallor or scleral icterus, mucous membranes moist, throat clear, neck supple, nontender, trachea midline. No drooling or trismus noted. No meningeal signs Lungs: Clear to auscultation, breath sounds equal bilaterally, chest nontender. Heart: S1S2, regular rate and rhythm without overt murmur Abdomen: Soft, nondistended, generalized/diffuse abdominal pain in all 4 quadrants. Negative for masses or hepatosplenomegaly. Negative for costovertebral tenderness. Pelvis: Stable nontender. Genitourinary: Deferred. Rectal: Deferred. Skin: Intact, warm, dry. No lesions or rashes noted. Extremities: Atraumatic, negative for cords or calf pain. Neurovascular unremarkable. Neuro: Awake, alert, oriented. Cranial nerves II through XII unremarkable. Cerebellum unremarkable. Motor and sensory unremarkable throughout. Exam nonfocal. Notes: Bedside glucose is greater than 500. WBC 42.9, Lactic acid 8.6, Glucose 890. IV/ Subcut regular insulin and insulin drip ordered CT abd/pelvis WNL. Hospitalist paged at this time for admission. Dr. العراقي was consulted on this case. He has agreed to admit for inpatient ICU. It is aware and agreeable. Diagnostics: CBC, CMP, Lasix, lipase, lactic acid, UA Therapeutics: IV fluid, Zofran, regular insulin IV Push, Morphine Impression: DKA Plan: Patient ICU with insulin drip Definitive disposition and diagnosis as appropriate pending reevaluation and review of above. Onset: Today Duration: Hour(s): Generalized Pain Score (Numeric/FACES): 8 - Related Data Allergies Allergy/AdvReac Type Severity Reaction Status Date / Time No Known Allergies Allergy Verified 05/07/17 15:31 Home Meds: Home Meds Insulin Aspart [NovoLOG] See Protocol SUBCUT TIDAC #1 box 05/10/17 [Rx] Insulin Glarg,Human.Rec.Analog [LantUS Solostar] 27 units SUBCUT DAILY 08/17/17 [History] Past Medical History Endocrine/Metabolic History: Reports: Diabetes, Type I - Infectious Disease History Infectious Disease History: Reports: Chicken Pox - Past Surgical History GI Surgical History: Reports: Appendectomy Social & Family History - Tobacco Use Smoking Status *Q: Current Some Day Smoker Years of Tobacco use: 10 Packs/Tins Daily: 0.1 Second Hand Smoke Exposure: No - Caffeine Use Caffeine Use: Reports: Soda, Tea - Recreational Drug Use Recreational Drug Use: Yes Drug Use in Last 12 Months: Yes Recreational Drug Type: Reports: Marijuana/Hashish Recreational Drug Use Frequency: Not Used In Over 1 Month ED ROS GENERAL - Review of Systems Review Of Systems: ROS reveals no pertinent complaints other than HPI. ED EXAM GENERAL NO PERIP PULSE - Physical Exam Exam: See Below (See dictation) Course - Vital Signs Last Recorded V/S: Last Vital Signs Temp 98 F 08/17/17 19:30 Pulse 130 H 08/17/17 19:30 Resp 25 H 08/17/17 19:30 BP 119/70 08/17/17 19:30 Pulse Ox 100 08/17/17 19:30 - Orders/Labs/Meds Orders: Active Orders 24 hr Category Date Time Status Admission Status [Patient Status] [ADT] Stat ADT 08/17/17 19:57 Active EKG Documentation Completion [RC] STAT Care 08/17/17 18:26 Active Abdomen Pelvis wo Cont [CT] Stat Exams 08/17/17 18:34 Taken Chest 1V Frontal [CR] Stat Exams 08/17/17 18:26 Taken UA W/MICROSCOPIC [URIN] Stat Lab 08/17/17 18:27 Ordered Insulin Regular, Human [NovoLIN R] 100 unit Med 08/17/17 19:45 Active Sodium Chloride 0.9% [Normal Saline] 99 ml IV TITRATE Sodium Chloride 0.9% [Normal Saline] 1,000 ml Med 08/17/17 19:43 Active IV STAT Medication Orders Insulin Human Regular 100 unit (/ Sodium Chloride) 100 mls @ 6.8 mls/hr IV TITRATE BONIFACIO; Protocol Sodium Chloride (Normal Saline) 1,000 mls @ 999 mls/hr IV STAT ONE Stop: 08/17/17 20:43 Last Admin: 08/17/17 19:56 Dose: 999 mls/hr Labs: Laboratory Tests 08/17/17 08/17/17 08/17/17 Range/Units 18:48 18:48 18:48 WBC 42.92 H (4.0-11.0) K/uL RBC 5.64 (4.50-5.90) M/uL Hgb 18.5 H (13.0-17.0) g/dL Hct 55.0 H (38.0-50.0) % MCV 97.5 (80.0-98.0) fL MCH 32.8 H (27.0-32.0) pg MCHC 33.6 (31.0-37.0) g/dL RDW Std Deviation 47.9 (28.0-62.0) fl RDW Coeff of Macario 13 (11.0-15.0) % Plt Count 304 (150-400) K/uL MPV 10.20 (7.40-12.00) fL Add Manual Diff YES Neutrophils % (Manual) 87 H (48.0-80.0) % Band Neutrophils % 4 % Lymphocytes % (Manual) 6 L (16.0-40.0) % Monocytes % (Manual) 3 (0.0-15.0) % Nucleated RBC % 0.0 /100WBC Absolute Seg Neuts 37.3 H (1.4-5.7) Band Neutrophils # 1.7 Lymphocytes # (Manual) 2.6 H (0.6-2.4) Monocytes # (Manual) 1.3 H (0.0-0.8) Nucleated RBCs # 0 K/uL ABG pH (7.35-7.45) ABG pCO2 (35-45) mmHG ABG pO2 (75-100) mmHG ABG HCO3 (22-26) mEq/L ABG Total CO2 ABG Base Excess (-2.0-2.0) Lactate 8.6 H (0.20-2.00) mmol/L Sodium 127 L (136-148) mmol/L Potassium 5.5 H (3.5-5.1) mmol/L Chloride 81 L (98-107) mmol/L Carbon Dioxide 7.1 L (21.0-32.0) mmol/L BUN 29 H (7.0-18.0) mg/dL Creatinine 2.3 H (0.8-1.3) mg/dL Est Cr Clr Drug Dosing 44.78 mL/min Estimated GFR (MDRD) 33.3 ml/min Glucose 890 H* (74-106) mg/dL POC Glucose (60-110) mg/dL Calcium 9.5 (8.5-10.1) mg/dL Total Bilirubin 0.7 (0.2-1.0) mg/dL AST 28 (15-37) IU/L ALT 40 (14-63) IU/L Alkaline Phosphatase 145 H (46-116) U/L Total Protein 8.0 (6.4-8.2) g/dL Albumin 4.7 (3.4-5.0) g/dL Globulin 3.3 (2.0-3.5) g/dL Albumin/Globulin Ratio 1.4 (1.3-2.8) Amylase 76 (25-115) U/L Lipase 86 (73-393) U/L 08/17/17 08/17/17 08/17/17 Range/Units 18:58 19:29 19:50 WBC (4.0-11.0) K/uL RBC (4.50-5.90) M/uL Hgb (13.0-17.0) g/dL Hct (38.0-50.0) % MCV (80.0-98.0) fL MCH (27.0-32.0) pg MCHC (31.0-37.0) g/dL RDW Std Deviation (28.0-62.0) fl RDW Coeff of Macario (11.0-15.0) % Plt Count (150-400) K/uL MPV (7.40-12.00) fL Add Manual Diff Neutrophils % (Manual) (48.0-80.0) % Band Neutrophils % % Lymphocytes % (Manual) (16.0-40.0) % Monocytes % (Manual) (0.0-15.0) % Nucleated RBC % /100WBC Absolute Seg Neuts (1.4-5.7) Band Neutrophils # Lymphocytes # (Manual) (0.6-2.4) Monocytes # (Manual) (0.0-0.8) Nucleated RBCs # K/uL ABG pH 7.129 L* (7.35-7.45) ABG pCO2 18 L (35-45) mmHG ABG pO2 112 H (75-100) mmHG ABG HCO3 6 L (22-26) mEq/L ABG Total CO2 5.5 ABG Base Excess -21.0 L (-2.0-2.0) Lactate (0.20-2.00) mmol/L Sodium (136-148) mmol/L Potassium (3.5-5.1) mmol/L Chloride (98-107) mmol/L Carbon Dioxide (21.0-32.0) mmol/L BUN (7.0-18.0) mg/dL Creatinine (0.8-1.3) mg/dL Est Cr Clr Drug Dosing mL/min Estimated GFR (MDRD) ml/min Glucose (74-106) mg/dL POC Glucose > 500 H > 500 H (60-110) mg/dL Calcium (8.5-10.1) mg/dL Total Bilirubin (0.2-1.0) mg/dL AST (15-37) IU/L ALT (14-63) IU/L Alkaline Phosphatase (46-116) U/L Total Protein (6.4-8.2) g/dL Albumin (3.4-5.0) g/dL Globulin (2.0-3.5) g/dL Albumin/Globulin Ratio (1.3-2.8) Amylase (25-115) U/L Lipase (73-393) U/L Meds: Medications Generic Name Dose Route Start Last Admin Trade Name Freq PRN Reason Stop Dose Admin Insulin Human Regular 100 unit 100 mls @ 6.8 mls/hr 08/17/17 19:45 / Sodium Chloride IV TITRATE BONIFACIO Protocol 0.1 UNIT/KG/HR Sodium Chloride 1,000 mls @ 999 mls/hr 08/17/17 19:43 08/17/17 19:56 Normal Saline IV 08/17/17 20:43 999 mls/hr STAT ONE Administration Discontinued Medications Generic Name Dose Route Start Last Admin Trade Name Freq PRN Reason Stop Dose Admin Sodium Chloride 1,000 mls @ 999 mls/hr 08/17/17 18:26 08/17/17 18:59 Normal Saline IV 08/17/17 19:26 999 mls/hr .Bolus ONE Administration Insulin Human Regular 10 unit 08/17/17 18:27 08/17/17 18:57 Novolin R IVPUSH 08/17/17 18:28 10 units ONETIME ONE Administration Protocol Insulin Human Regular 10 unit 08/17/17 19:43 08/17/17 20:02 Novolin R SUBCUT 08/17/17 19:44 10 unit ONETIME ONE Administration Protocol Insulin Human Regular 10 unit 08/17/17 19:44 08/17/17 20:00 Novolin R IVPUSH 08/17/17 19:45 10 unit ONETIME ONE Administration Protocol Metoclopramide HCl 10 mg 08/17/17 19:42 08/17/17 19:58 Reglan IV 08/17/17 19:43 10 mg ONETIME ONE Administration Morphine Sulfate 4 mg 08/17/17 18:53 08/17/17 19:23 Morphine IVPUSH 08/17/17 18:54 4 mg ONETIME ONE Administration Ondansetron HCl 4 mg 08/17/17 18:26 08/17/17 18:57 Zofran IVPUSH 08/17/17 18:27 4 mg ONETIME ONE Administration Ondansetron HCl 4 mg 08/17/17 18:31 08/17/17 19:25 Zofran IVPUSH 08/17/17 18:32 4 mg ONETIME ONE Administration Departure - Departure Time of Disposition: 20:11 Disposition: Admitted As Inpatient 67 Clinical Impression: DKA (diabetic ketoacidoses) Qualifiers: Diabetes mellitus type: type 1 Diabetes mellitus complication detail: without coma Qualified Code(s): E10.10 - Type 1 diabetes mellitus with ketoacidosis without coma - Discharge Information Referrals: PCP,None [Primary Care Provider] - Forms: ED Department Discharge - My Orders Last 24 Hours: My Active Orders 08/17/17 18:26 EKG Documentation Completion [RC] STAT Chest 1V Frontal [CR] Stat 08/17/17 18:27 UA W/MICROSCOPIC [URIN] Stat 08/17/17 18:34 Abdomen Pelvis wo Cont [CT] Stat 08/17/17 19:43 Sodium Chloride 0.9% [Normal Saline] 1,000 ml IV STAT 08/17/17 19:45 Insulin Regular, Human [NovoLIN R] 100 unit Sodium Chloride 0.9% [Normal Saline] 99 ml IV TITRATE 08/17/17 19:57 Admission Status [Patient Status] [ADT] Stat - Assessment/Plan Last 24 Hours: My Active Orders 08/17/17 18:26 EKG Documentation Completion [RC] STAT Chest 1V Frontal [CR] Stat 08/17/17 18:27 UA W/MICROSCOPIC [URIN] Stat 08/17/17 18:34 Abdomen Pelvis wo Cont [CT] Stat 08/17/17 19:43 Sodium Chloride 0.9% [Normal Saline] 1,000 ml IV STAT 08/17/17 19:45 Insulin Regular, Human [NovoLIN R] 100 unit Sodium Chloride 0.9% [Normal Saline] 99 ml IV TITRATE 08/17/17 19:57 Admission Status [Patient Status] [ADT] Stat
[2017-08-17] MEDS ORDERED: Morphine 4 MG/ML Syringe IVPUSH ONE (18:53)
[2017-08-17] MEDS ORDERED: Metoclopramide 10 MG/2 ML SDV IV ONE (19:42)
[2017-08-17] MEDS ORDERED: Insulin Regular, Human 100 Units/ML 10 ML Vial SUBCUT ONE (19:43)
[2017-08-17] MEDS ORDERED: Pantoprazole 40 MG Vial IVPUSH ONE (21:01)
--- NOTE | 2017-08-17 21:08 | PCM.HP ---
H&P History of Present Illness - General Admit Problem/Dx: Admission Diagnosis/Problem Admission Diagnosis/Problem Diabetic ketoacidosis - History of Present Illness Initial Comments - Free Text/Narative: 32 yo male with pmh of type 1 DM and admission four months ago for DKA and pancreatitis who presents with nausea, vomiting and myalgias. Patient reports taking lantus 25 units daily with sliding scale insulin. He takes his blood glucose three times a day. He reports his blood glucose is normal controlled until today. In the ED he was noted to have blood sugar above 800, WBC of 42, 920, Bicarb of 7 and Creatinine of 2.3. CT abdomen and CXR were unremarkable. Patient was given a liter of fluid and started on an insulin drip. Generalized Pain Score (Numeric/FACES): 8 - Related Data Allergies/Adverse Reactions: Allergies Allergy/AdvReac Type Severity Reaction Status Date / Time No Known Allergies Allergy Verified 05/07/17 15:31 Home Medications: Home Meds Insulin Aspart [NovoLOG] See Protocol SUBCUT TIDAC #1 box 05/10/17 [Rx] Insulin Glarg,Human.Rec.Analog [LantUS Solostar] 25 units SUBCUT DAILY 08/17/17 [History] Past Medical History Endocrine/Metabolic History: Reports: Diabetes, Type I - Infectious Disease History Infectious Disease History: Reports: Chicken Pox - Past Surgical History GI Surgical History: Reports: Appendectomy Social & Family History - Family History Family Medical History: Noncontributory - Tobacco Use Smoking Status *Q: Current Some Day Smoker Years of Tobacco use: 10 Packs/Tins Daily: 0.1 Second Hand Smoke Exposure: No - Caffeine Use Caffeine Use: Reports: Soda, Tea - Recreational Drug Use Recreational Drug Use: Yes Drug Use in Last 12 Months: Yes Recreational Drug Type: Reports: Marijuana/Hashish Recreational Drug Use Frequency: Not Used In Over 1 Month H&P Review of Systems - Review of Systems: Review Of Systems: ROS reveals no pertinent complaints other than HPI. Exam - Exam Exam: See Below - Vital Signs Vital Signs: Last Vital Signs Temp 36.6 C 08/17/17 19:30 Pulse 130 H 08/17/17 20:30 Resp 24 H 08/17/17 20:30 BP 130/75 08/17/17 20:30 Pulse Ox 99 08/17/17 20:30 Weight: 68.039 kg - Exam General: Alert, Oriented HEENT: Mucosa Moist & [place] Neck: Supple, Trachea Midline Lungs: Clear to Auscultation, Normal Respiratory Effort Cardiovascular: Regular Rate, Regular Rhythm GI/Abdominal Exam: Soft, Non-Tender Extremities: Non-Tender, No Pedal Edema Skin: Warm, Dry, Intact - Patient Data Lab Results Last 24 hrs: Laboratory Results - last 24 hr 08/17/17 08/17/17 08/17/17 Range/Units 18:48 18:48 18:48 WBC 42.92 H (4.0-11.0) K/uL RBC 5.64 (4.50-5.90) M/uL Hgb 18.5 H (13.0-17.0) g/dL Hct 55.0 H (38.0-50.0) % MCV 97.5 (80.0-98.0) fL MCH 32.8 H (27.0-32.0) pg MCHC 33.6 (31.0-37.0) g/dL RDW Std Deviation 47.9 (28.0-62.0) fl RDW Coeff of Macario 13 (11.0-15.0) % Plt Count 304 (150-400) K/uL MPV 10.20 (7.40-12.00) fL Add Manual Diff YES Neutrophils % (Manual) 87 H (48.0-80.0) % Band Neutrophils % 4 % Lymphocytes % (Manual) 6 L (16.0-40.0) % Monocytes % (Manual) 3 (0.0-15.0) % Nucleated RBC % 0.0 /100WBC Absolute Seg Neuts 37.3 H (1.4-5.7) Band Neutrophils # 1.7 Lymphocytes # (Manual) 2.6 H (0.6-2.4) Monocytes # (Manual) 1.3 H (0.0-0.8) Nucleated RBCs # 0 K/uL ABG pH (7.35-7.45) ABG pCO2 (35-45) mmHG ABG pO2 (75-100) mmHG ABG HCO3 (22-26) mEq/L ABG Total CO2 ABG Base Excess (-2.0-2.0) Lactate 8.6 H (0.20-2.00) mmol/L Sodium 127 L (136-148) mmol/L Potassium 5.5 H (3.5-5.1) mmol/L Chloride 81 L (98-107) mmol/L Carbon Dioxide 7.1 L (21.0-32.0) mmol/L BUN 29 H (7.0-18.0) mg/dL Creatinine 2.3 H (0.8-1.3) mg/dL Est Cr Clr Drug Dosing 44.78 mL/min Estimated GFR (MDRD) 33.3 ml/min Glucose 890 H* (74-106) mg/dL POC Glucose (60-110) mg/dL Calcium 9.5 (8.5-10.1) mg/dL Total Bilirubin 0.7 (0.2-1.0) mg/dL AST 28 (15-37) IU/L ALT 40 (14-63) IU/L Alkaline Phosphatase 145 H (46-116) U/L Total Protein 8.0 (6.4-8.2) g/dL Albumin 4.7 (3.4-5.0) g/dL Globulin 3.3 (2.0-3.5) g/dL Albumin/Globulin Ratio 1.4 (1.3-2.8) Amylase 76 (25-115) U/L Lipase 86 (73-393) U/L 08/17/17 08/17/17 08/17/17 Range/Units 18:58 19:29 19:50 WBC (4.0-11.0) K/uL RBC (4.50-5.90) M/uL Hgb (13.0-17.0) g/dL Hct (38.0-50.0) % MCV (80.0-98.0) fL MCH (27.0-32.0) pg MCHC (31.0-37.0) g/dL RDW Std Deviation (28.0-62.0) fl RDW Coeff of Macario (11.0-15.0) % Plt Count (150-400) K/uL MPV (7.40-12.00) fL Add Manual Diff Neutrophils % (Manual) (48.0-80.0) % Band Neutrophils % % Lymphocytes % (Manual) (16.0-40.0) % Monocytes % (Manual) (0.0-15.0) % Nucleated RBC % /100WBC Absolute Seg Neuts (1.4-5.7) Band Neutrophils # Lymphocytes # (Manual) (0.6-2.4) Monocytes # (Manual) (0.0-0.8) Nucleated RBCs # K/uL ABG pH 7.129 L* (7.35-7.45) ABG pCO2 18 L (35-45) mmHG ABG pO2 112 H (75-100) mmHG ABG HCO3 6 L (22-26) mEq/L ABG Total CO2 5.5 ABG Base Excess -21.0 L (-2.0-2.0) Lactate (0.20-2.00) mmol/L Sodium (136-148) mmol/L Potassium (3.5-5.1) mmol/L Chloride (98-107) mmol/L Carbon Dioxide (21.0-32.0) mmol/L BUN (7.0-18.0) mg/dL Creatinine (0.8-1.3) mg/dL Est Cr Clr Drug Dosing mL/min Estimated GFR (MDRD) ml/min Glucose (74-106) mg/dL POC Glucose > 500 H > 500 H (60-110) mg/dL Calcium (8.5-10.1) mg/dL Total Bilirubin (0.2-1.0) mg/dL AST (15-37) IU/L ALT (14-63) IU/L Alkaline Phosphatase (46-116) U/L Total Protein (6.4-8.2) g/dL Albumin (3.4-5.0) g/dL Globulin (2.0-3.5) g/dL Albumin/Globulin Ratio (1.3-2.8) Amylase (25-115) U/L Lipase (73-393) U/L 08/17/17 Range/Units 20:29 WBC (4.0-11.0) K/uL RBC (4.50-5.90) M/uL Hgb (13.0-17.0) g/dL Hct (38.0-50.0) % MCV (80.0-98.0) fL MCH (27.0-32.0) pg MCHC (31.0-37.0) g/dL RDW Std Deviation (28.0-62.0) fl RDW Coeff of Macario (11.0-15.0) % Plt Count (150-400) K/uL MPV (7.40-12.00) fL Add Manual Diff Neutrophils % (Manual) (48.0-80.0) % Band Neutrophils % % Lymphocytes % (Manual) (16.0-40.0) % Monocytes % (Manual) (0.0-15.0) % Nucleated RBC % /100WBC Absolute Seg Neuts (1.4-5.7) Band Neutrophils # Lymphocytes # (Manual) (0.6-2.4) Monocytes # (Manual) (0.0-0.8) Nucleated RBCs # K/uL ABG pH (7.35-7.45) ABG pCO2 (35-45) mmHG ABG pO2 (75-100) mmHG ABG HCO3 (22-26) mEq/L ABG Total CO2 ABG Base Excess (-2.0-2.0) Lactate (0.20-2.00) mmol/L Sodium (136-148) mmol/L Potassium (3.5-5.1) mmol/L Chloride (98-107) mmol/L Carbon Dioxide (21.0-32.0) mmol/L BUN (7.0-18.0) mg/dL Creatinine (0.8-1.3) mg/dL Est Cr Clr Drug Dosing mL/min Estimated GFR (MDRD) ml/min Glucose (74-106) mg/dL POC Glucose > 500 H (60-110) mg/dL Calcium (8.5-10.1) mg/dL Total Bilirubin (0.2-1.0) mg/dL AST (15-37) IU/L ALT (14-63) IU/L Alkaline Phosphatase (46-116) U/L Total Protein (6.4-8.2) g/dL Albumin (3.4-5.0) g/dL Globulin (2.0-3.5) g/dL Albumin/Globulin Ratio (1.3-2.8) Amylase (25-115) U/L Lipase (73-393) U/L Result Diagrams: 08/18/17 05:29 08/18/17 05:29 Problem List Initiated/Reviewed/Updated: Yes Orders Last 24hrs: Active Orders 24 hr Category Date Time Status Admission Status [Patient Status] [ADT] Stat ADT 08/17/17 19:57 Active EKG Documentation Completion [RC] STAT Care 08/17/17 18:26 Active Oxygen Therapy [RC] PRN Care 08/17/17 21:01 Ordered VTE/DVT Education [RC] PER UNIT ROUTINE Care 08/17/17 21:01 Ordered Vital Signs [RC] Q4H Care 08/17/17 21:01 Ordered Consult to Diabetic Nurse Specialist [CONS] Routine Cons 08/17/17 21:01 Ordered Nothing per Oral Now Diet [DIET] Diet 08/17/17 Breakfast Ordered Abdomen Pelvis wo Cont [CT] Stat Exams 08/17/17 18:34 Taken Chest 1V Frontal [CR] Stat Exams 08/17/17 18:26 Taken BASIC METABOLIC PANEL,BMP [CHEM] Q4H Lab 08/17/17 21:01 Ordered BASIC METABOLIC PANEL,BMP [CHEM] Q4H Lab 08/18/17 01:01 Ordered BASIC METABOLIC PANEL,BMP [CHEM] Q4H Lab 08/18/17 05:01 Ordered BASIC METABOLIC PANEL,BMP [CHEM] Q4H Lab 08/18/17 09:01 Ordered CBC WITH AUTO DIFF [HEME] AM Lab 08/18/17 05:11 Ordered CBC WITH AUTO DIFF [HEME] AM Lab 08/19/17 05:11 Ordered UA W/MICROSCOPIC [URIN] Stat Lab 08/17/17 18:27 Ordered Acetaminophen [Tylenol] Med 08/17/17 21:01 Ordered 650 mg PO Q4H PRN Heparin Sodium Med 08/17/17 21:15 Ordered 5,000 units SUBCUT Q8H Insulin Regular, Human [NovoLIN R] 100 unit Med 08/17/17 19:45 Active Sodium Chloride 0.9% [Normal Saline] 99 ml IV TITRATE Morphine Med 08/17/17 21:01 Ordered 2 mg IVPUSH Q2H PRN Pantoprazole [ProTONIX IV] Med 08/17/17 21:01 Once 40 mg IVPUSH ONETIME ONE Sodium Chloride 0.9% [Normal Saline] 1,000 ml Med 08/17/17 20:55 Ordered IV .Bolus Sodium Chloride 0.9% [Normal Saline] 1,000 ml Med 08/17/17 21:15 Ordered IV ASDIRECTED Sequential Compression Device [OM.PC] Per Unit Routine Oth 08/17/17 21:02 Ordered Resuscitation Status Routine Resus Stat 08/17/17 21:01 Ordered Medication Orders Insulin Human Regular 100 unit (/ Sodium Chloride) 100 mls @ 6.8 mls/hr IV TITRATE BONIFACIO; Protocol Last Admin: 08/17/17 20:27 Dose: 0.1 unit/kg/hr, 6.8 mls/hr Sodium Chloride (Normal Saline) 1,000 mls @ 999 mls/hr IV .Bolus ONE Stop: 08/17/17 21:55 Assessment/Plan Comment:: 32 yo male admitted with DKA. We will resuscitate with IV fluids, treat with insulin drip and trend anion gap with serial BMPs. A UA is pending but suspect leukocytosis is secondary to DKA.
[2017-08-17] MEDS ORDERED: Sodium Chloride 0.9% 1,000 ML IV SCH (21:15)
[2017-08-17] MEDS: Morphine 4 MG/ML Syringe IVPUSH PRN (21:58)
[2017-08-17] MEDS: Acetaminophen 325 MG Tab PO PRN (22:02)
[2017-08-17] MEDS: Heparin Sodium 5,000 Units/ML Vial SUBCUT SCH (22:04)
[2017-08-18] MEDS: Morphine 4 MG/ML Syringe IVPUSH PRN ×5 (00:05→12:40)
[2017-08-18] MEDS: Dextrose 5%-0.9% NaCl 1,000 ML IV SCH ×2 (02:15→07:11)
[2017-08-18] MEDS: Heparin Sodium 5,000 Units/ML Vial SUBCUT SCH ×3 (06:27→22:29)
[2017-08-18] MEDS: Acetaminophen 325 MG Tab PO PRN ×2 (07:14→15:38)
[2017-08-18] MEDS ORDERED: Insulin Glargine,Human Rec. Analog 100 Units/ML 3 ML Pen SUBCUT SCH (09:00)
[2017-08-18] MEDS: Sodium Chloride 0.9% 1,000 ML IV SCH ×2 (09:00→16:52)
[2017-08-18] MEDS: Insulin Glargine,Human Rec. Analog 100 Units/ML 3 ML Pen SUBCUT SCH (09:27)
[2017-08-18] MEDS: Insulin Aspart 100 Units/ML 3 ML Pen SUBCUT SCH ×2 (11:26→16:35)
[2017-08-18] MEDS ORDERED: Insulin Aspart 100 Units/ML 3 ML Pen SUBCUT SCH (11:30)
--- NOTE | 2017-08-18 15:16 | PCM.PN ---
- Review of Systems Systems Review Comment:: abdominal and back pain improving, no fevers. - Patient Data Vitals - Most Recent: Last Vital Signs Temp 36.8 C 08/18/17 11:00 Pulse 130 H 08/17/17 20:30 Resp 14 08/18/17 15:00 BP 111/73 08/18/17 15:00 Pulse Ox 98 08/18/17 15:00 Weight - Most Recent: 64.7 kg I&O - Last 24 Hours: Intake & Output 08/18/17 08/18/17 08/18/17 06:59 14:59 22:59 Intake Total 1914 715 Output Total 1200 Balance 714 715 Lab Results Last 24 Hours: Laboratory Results - last 24 hr 08/17/17 08/17/17 08/17/17 Range/Units 18:48 18:48 18:48 WBC 42.92 H (4.0-11.0) K/uL RBC 5.64 (4.50-5.90) M/uL Hgb 18.5 H (13.0-17.0) g/dL Hct 55.0 H (38.0-50.0) % MCV 97.5 (80.0-98.0) fL MCH 32.8 H (27.0-32.0) pg MCHC 33.6 (31.0-37.0) g/dL RDW Std Deviation 47.9 (28.0-62.0) fl RDW Coeff of Macario 13 (11.0-15.0) % Plt Count 304 (150-400) K/uL MPV 10.20 (7.40-12.00) fL Neut % (Auto) (48.0-80.0) % Lymph % (Auto) (16.0-40.0) % [place] % (Auto) (0.0-15.0) % Eos % (Auto) (0.0-7.0) % Baso % (Auto) (0.0-1.5) % Neut # (Auto) (1.4-5.7) K/uL Lymph # (Auto) (0.6-2.4) K/uL [place] # (Auto) (0.0-0.8) K/uL Eos # (Auto) (0.0-0.7) K/uL Baso # (Auto) (0.0-0.1) K/uL Add Manual Diff YES Neutrophils % (Manual) 87 H (48.0-80.0) % Band Neutrophils % 4 % Lymphocytes % (Manual) 6 L (16.0-40.0) % Monocytes % (Manual) 3 (0.0-15.0) % Nucleated RBC % 0.0 /100WBC Absolute Seg Neuts 37.3 H (1.4-5.7) Band Neutrophils # 1.7 Lymphocytes # (Manual) 2.6 H (0.6-2.4) Monocytes # (Manual) 1.3 H (0.0-0.8) Nucleated RBCs # 0 K/uL ABG pH (7.35-7.45) ABG pCO2 (35-45) mmHG ABG pO2 (75-100) mmHG ABG HCO3 (22-26) mEq/L ABG Total CO2 ABG Base Excess (-2.0-2.0) Lactate 8.6 H (0.20-2.00) mmol/L Sodium 127 L (136-148) mmol/L Potassium 5.5 H (3.5-5.1) mmol/L Chloride 81 L (98-107) mmol/L Carbon Dioxide 7.1 L (21.0-32.0) mmol/L BUN 29 H (7.0-18.0) mg/dL Creatinine 2.3 H (0.8-1.3) mg/dL Est Cr Clr Drug Dosing 44.78 mL/min Estimated GFR (MDRD) 33.3 ml/min Glucose 890 H* (74-106) mg/dL POC Glucose (60-110) mg/dL Calcium 9.5 (8.5-10.1) mg/dL Total Bilirubin 0.7 (0.2-1.0) mg/dL AST 28 (15-37) IU/L ALT 40 (14-63) IU/L Alkaline Phosphatase 145 H (46-116) U/L Total Protein 8.0 (6.4-8.2) g/dL Albumin 4.7 (3.4-5.0) g/dL Globulin 3.3 (2.0-3.5) g/dL Albumin/Globulin Ratio 1.4 (1.3-2.8) Amylase 76 (25-115) U/L Lipase 86 (73-393) U/L Urine Color Urine Appearance Urine pH (5.0-8.0) Ur Specific [place] (1.001-1.035) Urine Protein (NEGATIVE) mg/dL Urine Glucose (UA) (NEGATIVE) mg/dL Urine Ketones (NEGATIVE) mg/dL Urine Occult Blood (NEGATIVE) Urine Nitrite (NEGATIVE) Urine Bilirubin (NEGATIVE) Urine Ictotest Urine Urobilinogen (<2.0) EU/dL Ur Leukocyte Esterase (NEGATIVE) Urine RBC (0-2/HPF) Urine WBC (0-5/HPF) Ur Epithelial Cells (NONE-FEW) Urine Bacteria (NEGATIVE) 08/17/17 08/17/17 08/17/17 Range/Units 18:58 19:29 19:50 WBC (4.0-11.0) K/uL RBC (4.50-5.90) M/uL Hgb (13.0-17.0) g/dL Hct (38.0-50.0) % MCV (80.0-98.0) fL MCH (27.0-32.0) pg MCHC (31.0-37.0) g/dL RDW Std Deviation (28.0-62.0) fl RDW Coeff of Macario (11.0-15.0) % Plt Count (150-400) K/uL MPV (7.40-12.00) fL Neut % (Auto) (48.0-80.0) % Lymph % (Auto) (16.0-40.0) % [place] % (Auto) (0.0-15.0) % Eos % (Auto) (0.0-7.0) % Baso % (Auto) (0.0-1.5) % Neut # (Auto) (1.4-5.7) K/uL Lymph # (Auto) (0.6-2.4) K/uL [place] # (Auto) (0.0-0.8) K/uL Eos # (Auto) (0.0-0.7) K/uL Baso # (Auto) (0.0-0.1) K/uL Add Manual Diff Neutrophils % (Manual) (48.0-80.0) % Band Neutrophils % % Lymphocytes % (Manual) (16.0-40.0) % Monocytes % (Manual) (0.0-15.0) % Nucleated RBC % /100WBC Absolute Seg Neuts (1.4-5.7) Band Neutrophils # Lymphocytes # (Manual) (0.6-2.4) Monocytes # (Manual) (0.0-0.8) Nucleated RBCs # K/uL ABG pH 7.129 L* (7.35-7.45) ABG pCO2 18 L (35-45) mmHG ABG pO2 112 H (75-100) mmHG ABG HCO3 6 L (22-26) mEq/L ABG Total CO2 5.5 ABG Base Excess -21.0 L (-2.0-2.0) Lactate (0.20-2.00) mmol/L Sodium (136-148) mmol/L Potassium (3.5-5.1) mmol/L Chloride (98-107) mmol/L Carbon Dioxide (21.0-32.0) mmol/L BUN (7.0-18.0) mg/dL Creatinine (0.8-1.3) mg/dL Est Cr Clr Drug Dosing mL/min Estimated GFR (MDRD) ml/min Glucose (74-106) mg/dL POC Glucose > 500 H > 500 H (60-110) mg/dL Calcium (8.5-10.1) mg/dL Total Bilirubin (0.2-1.0) mg/dL AST (15-37) IU/L ALT (14-63) IU/L Alkaline Phosphatase (46-116) U/L Total Protein (6.4-8.2) g/dL Albumin (3.4-5.0) g/dL Globulin (2.0-3.5) g/dL Albumin/Globulin Ratio (1.3-2.8) Amylase (25-115) U/L Lipase (73-393) U/L Urine Color Urine Appearance Urine pH (5.0-8.0) Ur Specific [place] (1.001-1.035) Urine Protein (NEGATIVE) mg/dL Urine Glucose (UA) (NEGATIVE) mg/dL Urine Ketones (NEGATIVE) mg/dL Urine Occult Blood (NEGATIVE) Urine Nitrite (NEGATIVE) Urine Bilirubin (NEGATIVE) Urine Ictotest Urine Urobilinogen (<2.0) EU/dL Ur Leukocyte Esterase (NEGATIVE) Urine RBC (0-2/HPF) Urine WBC (0-5/HPF) Ur Epithelial Cells (NONE-FEW) Urine Bacteria (NEGATIVE) 08/17/17 08/17/17 08/17/17 Range/Units 20:29 21:16 21:16 WBC (4.0-11.0) K/uL RBC (4.50-5.90) M/uL Hgb (13.0-17.0) g/dL Hct (38.0-50.0) % MCV (80.0-98.0) fL MCH (27.0-32.0) pg MCHC (31.0-37.0) g/dL RDW Std Deviation (28.0-62.0) fl RDW Coeff of Macario (11.0-15.0) % Plt Count (150-400) K/uL MPV (7.40-12.00) fL Neut % (Auto) (48.0-80.0) % Lymph % (Auto) (16.0-40.0) % [place] % (Auto) (0.0-15.0) % Eos % (Auto) (0.0-7.0) % Baso % (Auto) (0.0-1.5) % Neut # (Auto) (1.4-5.7) K/uL Lymph # (Auto) (0.6-2.4) K/uL [place] # (Auto) (0.0-0.8) K/uL Eos # (Auto) (0.0-0.7) K/uL Baso # (Auto) (0.0-0.1) K/uL Add Manual Diff Neutrophils % (Manual) (48.0-80.0) % Band Neutrophils % % Lymphocytes % (Manual) (16.0-40.0) % Monocytes % (Manual) (0.0-15.0) % Nucleated RBC % /100WBC Absolute Seg Neuts (1.4-5.7) Band Neutrophils # Lymphocytes # (Manual) (0.6-2.4) Monocytes # (Manual) (0.0-0.8) Nucleated RBCs # K/uL ABG pH (7.35-7.45) ABG pCO2 (35-45) mmHG ABG pO2 (75-100) mmHG ABG HCO3 (22-26) mEq/L ABG Total CO2 ABG Base Excess (-2.0-2.0) Lactate (0.20-2.00) mmol/L Sodium 130 L (136-148) mmol/L Potassium 4.6 (3.5-5.1) mmol/L Chloride 91 L (98-107) mmol/L Carbon Dioxide 11.3 L (21.0-32.0) mmol/L BUN 29 H (7.0-18.0) mg/dL Creatinine 2.0 H (0.8-1.3) mg/dL Est Cr Clr Drug Dosing 51.50 mL/min Estimated GFR (MDRD) 39.2 ml/min Glucose 609 H* (74-106) mg/dL POC Glucose > 500 H > 500 H (60-110) mg/dL Calcium 8.4 L (8.5-10.1) mg/dL Total Bilirubin (0.2-1.0) mg/dL AST (15-37) IU/L ALT (14-63) IU/L Alkaline Phosphatase (46-116) U/L Total Protein (6.4-8.2) g/dL Albumin (3.4-5.0) g/dL Globulin (2.0-3.5) g/dL Albumin/Globulin Ratio (1.3-2.8) Amylase (25-115) U/L Lipase (73-393) U/L Urine Color Urine Appearance Urine pH (5.0-8.0) Ur Specific [place] (1.001-1.035) Urine Protein (NEGATIVE) mg/dL Urine Glucose (UA) (NEGATIVE) mg/dL Urine Ketones (NEGATIVE) mg/dL Urine Occult Blood (NEGATIVE) Urine Nitrite (NEGATIVE) Urine Bilirubin (NEGATIVE) Urine Ictotest Urine Urobilinogen (<2.0) EU/dL Ur Leukocyte Esterase (NEGATIVE) Urine RBC (0-2/HPF) Urine WBC (0-5/HPF) Ur Epithelial Cells (NONE-FEW) Urine Bacteria (NEGATIVE) 08/17/17 08/17/17 08/18/17 Range/Units 23:00 23:07 00:09 WBC (4.0-11.0) K/uL RBC (4.50-5.90) M/uL Hgb (13.0-17.0) g/dL Hct (38.0-50.0) % MCV (80.0-98.0) fL MCH (27.0-32.0) pg MCHC (31.0-37.0) g/dL RDW Std Deviation (28.0-62.0) fl RDW Coeff of Macario (11.0-15.0) % Plt Count (150-400) K/uL MPV (7.40-12.00) fL Neut % (Auto) (48.0-80.0) % Lymph % (Auto) (16.0-40.0) % [place] % (Auto) (0.0-15.0) % Eos % (Auto) (0.0-7.0) % Baso % (Auto) (0.0-1.5) % Neut # (Auto) (1.4-5.7) K/uL Lymph # (Auto) (0.6-2.4) K/uL [place] # (Auto) (0.0-0.8) K/uL Eos # (Auto) (0.0-0.7) K/uL Baso # (Auto) (0.0-0.1) K/uL Add Manual Diff Neutrophils % (Manual) (48.0-80.0) % Band Neutrophils % % Lymphocytes % (Manual) (16.0-40.0) % Monocytes % (Manual) (0.0-15.0) % Nucleated RBC % /100WBC Absolute Seg Neuts (1.4-5.7) Band Neutrophils # Lymphocytes # (Manual) (0.6-2.4) Monocytes # (Manual) (0.0-0.8) Nucleated RBCs # K/uL ABG pH (7.35-7.45) ABG pCO2 (35-45) mmHG ABG pO2 (75-100) mmHG ABG HCO3 (22-26) mEq/L ABG Total CO2 ABG Base Excess (-2.0-2.0) Lactate (0.20-2.00) mmol/L Sodium (136-148) mmol/L Potassium (3.5-5.1) mmol/L Chloride (98-107) mmol/L Carbon Dioxide (21.0-32.0) mmol/L BUN (7.0-18.0) mg/dL Creatinine (0.8-1.3) mg/dL Est Cr Clr Drug Dosing mL/min Estimated GFR (MDRD) ml/min Glucose (74-106) mg/dL POC Glucose 426 H 316 H (60-110) mg/dL Calcium (8.5-10.1) mg/dL Total Bilirubin (0.2-1.0) mg/dL AST (15-37) IU/L ALT (14-63) IU/L Alkaline Phosphatase (46-116) U/L Total Protein (6.4-8.2) g/dL Albumin (3.4-5.0) g/dL Globulin (2.0-3.5) g/dL Albumin/Globulin Ratio (1.3-2.8) Amylase (25-115) U/L Lipase (73-393) U/L Urine Color YELLOW Urine Appearance CLEAR Urine pH 5.0 (5.0-8.0) Ur Specific [place] 1.020 (1.001-1.035) Urine Protein NEGATIVE (NEGATIVE) mg/dL Urine Glucose (UA) >=1000 (NEGATIVE) mg/dL Urine Ketones >=80 (NEGATIVE) mg/dL Urine Occult Blood TRACE-INTACT (NEGATIVE) Urine Nitrite NEGATIVE (NEGATIVE) Urine Bilirubin SMALL H (NEGATIVE) Urine Ictotest NEGATIVE Urine Urobilinogen 0.2 (<2.0) EU/dL Ur Leukocyte Esterase NEGATIVE (NEGATIVE) Urine RBC 0-2 (0-2/HPF) Urine WBC 0-2 (0-5/HPF) Ur Epithelial Cells RARE (NONE-FEW) Urine Bacteria RARE (NEGATIVE) 08/18/17 08/18/17 08/18/17 Range/Units 00:58 00:59 02:03 WBC (4.0-11.0) K/uL RBC (4.50-5.90) M/uL Hgb (13.0-17.0) g/dL Hct (38.0-50.0) % MCV (80.0-98.0) fL MCH (27.0-32.0) pg MCHC (31.0-37.0) g/dL RDW Std Deviation (28.0-62.0) fl RDW Coeff of Macario (11.0-15.0) % Plt Count (150-400) K/uL MPV (7.40-12.00) fL Neut % (Auto) (48.0-80.0) % Lymph % (Auto) (16.0-40.0) % [place] % (Auto) (0.0-15.0) % Eos % (Auto) (0.0-7.0) % Baso % (Auto) (0.0-1.5) % Neut # (Auto) (1.4-5.7) K/uL Lymph # (Auto) (0.6-2.4) K/uL [place] # (Auto) (0.0-0.8) K/uL Eos # (Auto) (0.0-0.7) K/uL Baso # (Auto) (0.0-0.1) K/uL Add Manual Diff Neutrophils % (Manual) (48.0-80.0) % Band Neutrophils % % Lymphocytes % (Manual) (16.0-40.0) % Monocytes % (Manual) (0.0-15.0) % Nucleated RBC % /100WBC Absolute Seg Neuts (1.4-5.7) Band Neutrophils # Lymphocytes # (Manual) (0.6-2.4) Monocytes # (Manual) (0.0-0.8) Nucleated RBCs # K/uL ABG pH (7.35-7.45) ABG pCO2 (35-45) mmHG ABG pO2 (75-100) mmHG ABG HCO3 (22-26) mEq/L ABG Total CO2 ABG Base Excess (-2.0-2.0) Lactate (0.20-2.00) mmol/L Sodium 137 (136-148) mmol/L Potassium 4.6 (3.5-5.1) mmol/L Chloride 101 (98-107) mmol/L Carbon Dioxide 18.6 L (21.0-32.0) mmol/L BUN 24 H (7.0-18.0) mg/dL Creatinine 1.6 H (0.8-1.3) mg/dL Est Cr Clr Drug Dosing 59.80 mL/min Estimated GFR (MDRD) 50.7 ml/min Glucose 276 H (74-106) mg/dL POC Glucose 254 H 169 H (60-110) mg/dL Calcium 8.1 L (8.5-10.1) mg/dL Total Bilirubin (0.2-1.0) mg/dL AST (15-37) IU/L ALT (14-63) IU/L Alkaline Phosphatase (46-116) U/L Total Protein (6.4-8.2) g/dL Albumin (3.4-5.0) g/dL Globulin (2.0-3.5) g/dL Albumin/Globulin Ratio (1.3-2.8) Amylase (25-115) U/L Lipase (73-393) U/L Urine Color Urine Appearance Urine pH (5.0-8.0) Ur Specific [place] (1.001-1.035) Urine Protein (NEGATIVE) mg/dL Urine Glucose (UA) (NEGATIVE) mg/dL Urine Ketones (NEGATIVE) mg/dL Urine Occult Blood (NEGATIVE) Urine Nitrite (NEGATIVE) Urine Bilirubin (NEGATIVE) Urine Ictotest Urine Urobilinogen (<2.0) EU/dL Ur Leukocyte Esterase (NEGATIVE) Urine RBC (0-2/HPF) Urine WBC (0-5/HPF) Ur Epithelial Cells (NONE-FEW) Urine Bacteria (NEGATIVE) 08/18/17 08/18/17 08/18/17 Range/Units 03:13 04:05 05:15 WBC (4.0-11.0) K/uL RBC (4.50-5.90) M/uL Hgb (13.0-17.0) g/dL Hct (38.0-50.0) % MCV (80.0-98.0) fL MCH (27.0-32.0) pg MCHC (31.0-37.0) g/dL RDW Std Deviation (28.0-62.0) fl RDW Coeff of Macario (11.0-15.0) % Plt Count (150-400) K/uL MPV (7.40-12.00) fL Neut % (Auto) (48.0-80.0) % Lymph % (Auto) (16.0-40.0) % [place] % (Auto) (0.0-15.0) % Eos % (Auto) (0.0-7.0) % Baso % (Auto) (0.0-1.5) % Neut # (Auto) (1.4-5.7) K/uL Lymph # (Auto) (0.6-2.4) K/uL [place] # (Auto) (0.0-0.8) K/uL Eos # (Auto) (0.0-0.7) K/uL Baso # (Auto) (0.0-0.1) K/uL Add Manual Diff Neutrophils % (Manual) (48.0-80.0) % Band Neutrophils % % Lymphocytes % (Manual) (16.0-40.0) % Monocytes % (Manual) (0.0-15.0) % Nucleated RBC % /100WBC Absolute Seg Neuts (1.4-5.7) Band Neutrophils # Lymphocytes # (Manual) (0.6-2.4) Monocytes # (Manual) (0.0-0.8) Nucleated RBCs # K/uL ABG pH (7.35-7.45) ABG pCO2 (35-45) mmHG ABG pO2 (75-100) mmHG ABG HCO3 (22-26) mEq/L ABG Total CO2 ABG Base Excess (-2.0-2.0) Lactate (0.20-2.00) mmol/L Sodium (136-148) mmol/L Potassium (3.5-5.1) mmol/L Chloride (98-107) mmol/L Carbon Dioxide (21.0-32.0) mmol/L BUN (7.0-18.0) mg/dL Creatinine (0.8-1.3) mg/dL Est Cr Clr Drug Dosing mL/min Estimated GFR (MDRD) ml/min Glucose (74-106) mg/dL POC Glucose 169 H 184 H 179 H (60-110) mg/dL Calcium (8.5-10.1) mg/dL Total Bilirubin (0.2-1.0) mg/dL AST (15-37) IU/L ALT (14-63) IU/L Alkaline Phosphatase (46-116) U/L Total Protein (6.4-8.2) g/dL Albumin (3.4-5.0) g/dL Globulin (2.0-3.5) g/dL Albumin/Globulin Ratio (1.3-2.8) Amylase (25-115) U/L Lipase (73-393) U/L Urine Color Urine Appearance Urine pH (5.0-8.0) Ur Specific [place] (1.001-1.035) Urine Protein (NEGATIVE) mg/dL Urine Glucose (UA) (NEGATIVE) mg/dL Urine Ketones (NEGATIVE) mg/dL Urine Occult Blood (NEGATIVE) Urine Nitrite (NEGATIVE) Urine Bilirubin (NEGATIVE) Urine Ictotest Urine Urobilinogen (<2.0) EU/dL Ur Leukocyte Esterase (NEGATIVE) Urine RBC (0-2/HPF) Urine WBC (0-5/HPF) Ur Epithelial Cells (NONE-FEW) Urine Bacteria (NEGATIVE) 08/18/17 08/18/17 08/18/17 Range/Units 05:29 05:29 06:15 WBC 20.55 H (4.0-11.0) K/uL RBC 4.42 L (4.50-5.90) M/uL Hgb 14.4 (13.0-17.0) g/dL Hct 39.7 (38.0-50.0) % MCV 89.8 (80.0-98.0) fL MCH 32.6 H (27.0-32.0) pg MCHC 36.3 (31.0-37.0) g/dL RDW Std Deviation 42.6 (28.0-62.0) fl RDW Coeff of Macario 13 (11.0-15.0) % Plt Count 169 (150-400) K/uL MPV 9.60 (7.40-12.00) fL Neut % (Auto) 80.6 H (48.0-80.0) % Lymph % (Auto) 10.1 L (16.0-40.0) % [place] % (Auto) 9.1 (0.0-15.0) % Eos % (Auto) 0.1 (0.0-7.0) % Baso % (Auto) 0.1 (0.0-1.5) % Neut # (Auto) 16.6 H (1.4-5.7) K/uL Lymph # (Auto) 2.1 (0.6-2.4) K/uL [place] # (Auto) 1.9 H (0.0-0.8) K/uL Eos # (Auto) 0.0 (0.0-0.7) K/uL Baso # (Auto) 0.0 (0.0-0.1) K/uL Add Manual Diff Neutrophils % (Manual) (48.0-80.0) % Band Neutrophils % % Lymphocytes % (Manual) (16.0-40.0) % Monocytes % (Manual) (0.0-15.0) % Nucleated RBC % 0.0 /100WBC Absolute Seg Neuts (1.4-5.7) Band Neutrophils # Lymphocytes # (Manual) (0.6-2.4) Monocytes # (Manual) (0.0-0.8) Nucleated RBCs # 0 K/uL ABG pH (7.35-7.45) ABG pCO2 (35-45) mmHG ABG pO2 (75-100) mmHG ABG HCO3 (22-26) mEq/L ABG Total CO2 ABG Base Excess (-2.0-2.0) Lactate (0.20-2.00) mmol/L Sodium 138 (136-148) mmol/L Potassium 4.3 (3.5-5.1) mmol/L Chloride 106 (98-107) mmol/L Carbon Dioxide 22.7 (21.0-32.0) mmol/L BUN 20 H (7.0-18.0) mg/dL Creatinine 1.4 H (0.8-1.3) mg/dL Est Cr Clr Drug Dosing 69.96 mL/min Estimated GFR (MDRD) 59.1 ml/min Glucose 207 H (74-106) mg/dL POC Glucose 180 H (60-110) mg/dL Calcium 7.8 L (8.5-10.1) mg/dL Total Bilirubin (0.2-1.0) mg/dL AST (15-37) IU/L ALT (14-63) IU/L Alkaline Phosphatase (46-116) U/L Total Protein (6.4-8.2) g/dL Albumin (3.4-5.0) g/dL Globulin (2.0-3.5) g/dL Albumin/Globulin Ratio (1.3-2.8) Amylase (25-115) U/L Lipase (73-393) U/L Urine Color Urine Appearance Urine pH (5.0-8.0) Ur Specific [place] (1.001-1.035) Urine Protein (NEGATIVE) mg/dL Urine Glucose (UA) (NEGATIVE) mg/dL Urine Ketones (NEGATIVE) mg/dL Urine Occult Blood (NEGATIVE) Urine Nitrite (NEGATIVE) Urine Bilirubin (NEGATIVE) Urine Ictotest Urine Urobilinogen (<2.0) EU/dL Ur Leukocyte Esterase (NEGATIVE) Urine RBC (0-2/HPF) Urine WBC (0-5/HPF) Ur Epithelial Cells (NONE-FEW) Urine Bacteria (NEGATIVE) 08/18/17 08/18/17 08/18/17 Range/Units 07:08 07:59 11:14 WBC (4.0-11.0) K/uL RBC (4.50-5.90) M/uL Hgb (13.0-17.0) g/dL Hct (38.0-50.0) % MCV (80.0-98.0) fL MCH (27.0-32.0) pg MCHC (31.0-37.0) g/dL RDW Std Deviation (28.0-62.0) fl RDW Coeff of Macario (11.0-15.0) % Plt Count (150-400) K/uL MPV (7.40-12.00) fL Neut % (Auto) (48.0-80.0) % Lymph % (Auto) (16.0-40.0) % [place] % (Auto) (0.0-15.0) % Eos % (Auto) (0.0-7.0) % Baso % (Auto) (0.0-1.5) % Neut # (Auto) (1.4-5.7) K/uL Lymph # (Auto) (0.6-2.4) K/uL [place] # (Auto) (0.0-0.8) K/uL Eos # (Auto) (0.0-0.7) K/uL Baso # (Auto) (0.0-0.1) K/uL Add Manual Diff Neutrophils % (Manual) (48.0-80.0) % Band Neutrophils % % Lymphocytes % (Manual) (16.0-40.0) % Monocytes % (Manual) (0.0-15.0) % Nucleated RBC % /100WBC Absolute Seg Neuts (1.4-5.7) Band Neutrophils # Lymphocytes # (Manual) (0.6-2.4) Monocytes # (Manual) (0.0-0.8) Nucleated RBCs # K/uL ABG pH (7.35-7.45) ABG pCO2 (35-45) mmHG ABG pO2 (75-100) mmHG ABG HCO3 (22-26) mEq/L ABG Total CO2 ABG Base Excess (-2.0-2.0) Lactate (0.20-2.00) mmol/L Sodium (136-148) mmol/L Potassium (3.5-5.1) mmol/L Chloride (98-107) mmol/L Carbon Dioxide (21.0-32.0) mmol/L BUN (7.0-18.0) mg/dL Creatinine (0.8-1.3) mg/dL Est Cr Clr Drug Dosing mL/min Estimated GFR (MDRD) ml/min Glucose (74-106) mg/dL POC Glucose 152 H 142 H 113 H (60-110) mg/dL Calcium (8.5-10.1) mg/dL Total Bilirubin (0.2-1.0) mg/dL AST (15-37) IU/L ALT (14-63) IU/L Alkaline Phosphatase (46-116) U/L Total Protein (6.4-8.2) g/dL Albumin (3.4-5.0) g/dL Globulin (2.0-3.5) g/dL Albumin/Globulin Ratio (1.3-2.8) Amylase (25-115) U/L Lipase (73-393) U/L Urine Color Urine Appearance Urine pH (5.0-8.0) Ur Specific Jackson (1.001-1.035) Urine Protein (NEGATIVE) mg/dL Urine Glucose (UA) (NEGATIVE) mg/dL Urine Ketones (NEGATIVE) mg/dL Urine Occult Blood (NEGATIVE) Urine Nitrite (NEGATIVE) Urine Bilirubin (NEGATIVE) Urine Ictotest Urine Urobilinogen (<2.0) EU/dL Ur Leukocyte Esterase (NEGATIVE) Urine RBC (0-2/HPF) Urine WBC (0-5/HPF) Ur Epithelial Cells (NONE-FEW) Urine Bacteria (NEGATIVE) Med Orders - Current: Current Medications Acetaminophen (Tylenol) 650 mg PO Q4H PRN PRN Reason: Pain (Mild 1-3)/fever Last Admin: 04/08/18 07:14 Dose: 650 mg Heparin Sodium (Porcine) (Heparin Sodium) 5,000 units SUBCUT Q8H [facility] Last Admin: 08/18/17 13:57 Dose: 5,000 units Sodium Chloride (Normal Saline) 1,000 mls @ 125 mls/hr IV ASDIRECTED [facility] Last Admin: 08/18/17 09:00 Dose: 125 mls/hr Insulin Aspart (Novolog) 0 unit SUBCUT TIDAC [facility]; Protocol Last Admin: 08/18/17 11:26 Dose: Not Given Insulin Glargine (Lantus Solostar) 25 units SUBCUT DAILY [facility] Last Admin: 08/18/17 09:27 Dose: 25 units Discontinued Medications Sodium Chloride (Normal Saline) 1,000 mls @ 999 mls/hr IV .Bolus ONE Stop: 08/17/17 19:26 Last Admin: 08/17/17 18:59 Dose: 999 mls/hr Insulin Human Regular 100 unit (/ Sodium Chloride) 100 mls @ 6.8 mls/hr IV TITRATE BONIFACIO; Protocol Last Titration: 08/18/17 08:01 Dose: 0.01 unit/kg/hr, 1 mls/hr Sodium Chloride (Normal Saline) 1,000 mls @ 999 mls/hr IV STAT ONE Stop: 08/17/17 20:43 Last Admin: 08/17/17 19:56 Dose: 999 mls/hr Sodium Chloride (Normal Saline) 1,000 mls @ 999 mls/hr IV .Bolus ONE Stop: 08/17/17 21:55 Last Admin: 08/17/17 21:07 Dose: 999 mls/hr Sodium Chloride (Normal Saline) 1,000 mls @ 200 mls/hr IV ASDIRECTED [facility] Last Admin: 08/17/17 22:06 Dose: 200 mls/hr Dextrose/Sodium Chloride (Dextrose 5%-Normal Saline) 1,000 mls @ 200 mls/hr IV ASDIRECTED [facility] Last Admin: 08/18/17 07:11 Dose: 200 mls/hr Insulin Aspart (Novolog) 0 unit SUBCUT TIDAC [facility] Insulin Glargine (Lantus Solostar) 5 units SUBCUT DAILY [facility] Insulin Human Regular (Novolin R) 10 unit IVPUSH ONETIME ONE; Protocol Stop: 08/17/17 18:28 Last Admin: 08/17/17 18:57 Dose: 10 units Insulin Human Regular (Novolin R) 10 unit SUBCUT ONETIME ONE; Protocol Stop: 08/17/17 19:44 Last Admin: 08/17/17 20:02 Dose: 10 unit Insulin Human Regular (Novolin R) 10 unit IVPUSH ONETIME ONE; Protocol Stop: 08/17/17 19:45 Last Admin: 08/17/17 20:00 Dose: 10 unit Metoclopramide HCl (Reglan) 10 mg IV ONETIME ONE Stop: 08/17/17 19:43 Last Admin: 08/17/17 19:58 Dose: 10 mg Morphine Sulfate (Morphine) 4 mg IVPUSH ONETIME ONE Stop: 08/17/17 18:54 Last Admin: 08/17/17 19:23 Dose: 4 mg Morphine Sulfate (Morphine) 2 mg IVPUSH Q2H PRN PRN Reason: Pain (severe 7-10) Stop: 08/18/17 21:02 Last Admin: 08/18/17 12:40 Dose: 2 mg Ondansetron HCl (Zofran) 4 mg IVPUSH ONETIME ONE Stop: 08/17/17 18:27 Last Admin: 08/17/17 18:57 Dose: 4 mg Ondansetron HCl (Zofran) 4 mg IVPUSH ONETIME ONE Stop: 08/17/17 18:32 Last Admin: 08/17/17 19:25 Dose: 4 mg Pantoprazole Sodium (Protonix Iv) 40 mg IVPUSH ONETIME ONE Stop: 08/17/17 21:02 Last Admin: 08/17/17 22:06 Dose: 40 mg - Exam General: Alert, Oriented HEENT: Mucous Membr. Moist/Ayden Lungs: Clear to Auscultation, Normal Respiratory Effort Cardiovascular: Regular Rate, Regular Rhythm GI/Abdominal Exam: Normal Bowel Sounds, Soft, Non-Tender, No Distention Extremities: Non-Tender, No Pedal Edema Skin: Warm, Dry, Intact Wound/Incisions: Erythema Improving - Problem List Review Problem List Initiated/Reviewed/Updated: Yes - My Orders Last 24 Hours: My Active Orders 08/17/17 21:01 Oxygen Therapy [RC] PRN Vital Signs [RC] Q1HR Consult to Diabetic Nurse Specialist [CONS] Routine Acetaminophen [Tylenol] 650 mg PO Q4H PRN Resuscitation Status Routine 08/17/17 21:02 Sequential Compression Device [OM.PC] Per Unit Routine 08/17/17 22:00 Heparin Sodium 5,000 units SUBCUT Q8H 08/18/17 09:00 Insulin Glarg,Human.Rec.Analog [LantUS Solostar] 25 units SUBCUT DAILY Sodium Chloride 0.9% [Normal Saline] 1,000 ml IV ASDIRECTED 08/18/17 11:30 Insulin Aspart [NovoLOG] See Protocol SUBCUT TIDAC 08/19/17 05:11 BMP [BASIC METABOLIC PANEL,BMP] [CHEM] AM CBC WITH AUTO DIFF [HEME] AM - Plan Plan:: 32 yo male admitted with DKA. Anion Gap has closed and leukocytosis improving. Swithcing to subcutanteous insulin. Will monitor today and if continue to improve will discharge home tomorrow.
[2017-08-18] MEDS: traMADol 50 MG Tab PO PRN (22:30)
[2017-08-19] MEDS: Sodium Chloride 0.9% 1,000 ML IV SCH ×3 (00:52→16:54)
[2017-08-19] MEDS: Benzocaine/Cetylpyridinium/Menthol Lozenge MUCMEM PRN ×2 (03:34→16:18)
[2017-08-19] MEDS: traMADol 50 MG Tab PO PRN (03:41)
[2017-08-19] MEDS: Heparin Sodium 5,000 Units/ML Vial SUBCUT SCH ×3 (05:52→21:07)
[2017-08-19 06:22] LABS: CHLORIDE,CL 106 mmol/L (98-107); SODIUM,NA 139 mmol/L (136-148)
[2017-08-19] MEDS: Insulin Aspart 100 Units/ML 3 ML Pen SUBCUT SCH ×3 (08:23→16:57)
[2017-08-19] MEDS: Insulin Glargine,Human Rec. Analog 100 Units/ML 3 ML Pen SUBCUT SCH (08:24)
[2017-08-19] MEDS ORDERED: Ondansetron 4 MG/2 ML SDV IVPUSH PRN (09:13)
[2017-08-19] MEDS ORDERED: oxyCODONE 5 MG Tab PO ONE (09:26)
[2017-08-19] MEDS: Pantoprazole 40 MG Vial IVPUSH SCH (10:51)
--- NOTE | 2017-08-19 11:40 | US ---
EXAMINATION: Right upper quadrant ultrasound HISTORY: Abdominal pain COMPARISON: CT dated 08/17/2017 TECHNIQUE: Grayscale and color Doppler images obtained of the right upper quadrant. FINDINGS: The visualized pancreas appears normal. The liver is normal in contour and echogenicity wit hout a focal hepatic mass. Gallbladder wall thickness is normal. No pericholecystic fluid or shadowin g gallstones. Common bile duct measures 4 mm. Right kidney measures 11.9 cm [id number] without evid ence of hydronephrosis. No abdominal ascites identified. IMPRESSION: Unremarkable right upper quadrant ultrasound.
--- NOTE | 2017-08-19 12:06 | PCM.PN ---
- General Info Date of Service: 08/19/17 Admission Dx/Problem (Free Text): Admission Diagnosis/Problem Admission Diagnosis/Problem Diabetic ketoacidosis Subjective Update: Patient is now out of DKA. He continues to complain of abdominal pain and back pain. States tramadol was not working. He is not tolerating oral intake and experiencing nausea and vomiting. He also notes difficulties with swallowing and a feeling as though something is "stuck in his throat". Functional Status: Reports: Ambulating, Urinating. Denies: Pain Controlled, Tolerating Diet - Review of Systems General: Reports: No Symptoms HEENT: Reports: No Symptoms Pulmonary: Reports: No Symptoms Cardiovascular: Reports: No Symptoms Gastrointestinal: Reports: Abdominal Pain, Decreased Appetite, Nausea, Vomiting Genitourinary: Reports: No Symptoms Musculoskeletal: Reports: Back Pain Skin: Reports: No Symptoms Neurological: Reports: No Symptoms Psychiatric: Reports: No Symptoms - Patient Data Vitals - Most Recent: Last Vital Signs Temp 98.6 F 08/19/17 08:00 Pulse 73 08/19/17 08:00 Resp 18 08/19/17 08:00 BP 128/84 08/19/17 08:00 Pulse Ox 97 08/19/17 08:00 Weight - Most Recent: 150 lb I&O - Last 24 Hours: Intake & Output 08/18/17 08/19/17 08/19/17 22:59 06:59 14:59 Intake Total 2004 2599 504 Output Total 800 1775 400 Balance 1205 824 104 Lab Results Last 24 Hours: Laboratory Results - last 24 hr 08/18/17 08/18/17 08/19/17 Range/Units 16:33 22:53 05:46 WBC 10.85 (4.0-11.0) K/uL RBC 4.21 L (4.50-5.90) M/uL Hgb 13.6 (13.0-17.0) g/dL Hct 38.6 (38.0-50.0) % MCV 91.7 (80.0-98.0) fL MCH 32.3 H (27.0-32.0) pg MCHC 35.2 (31.0-37.0) g/dL RDW Std Deviation 44.0 (28.0-62.0) fl RDW Coeff of Macario 13 (11.0-15.0) % Plt Count 106 L (150-400) K/uL MPV 9.40 (7.40-12.00) fL Neut % (Auto) 74.4 (48.0-80.0) % Lymph % (Auto) 19.2 (16.0-40.0) % Yancey % (Auto) 6.0 (0.0-15.0) % Eos % (Auto) 0.3 (0.0-7.0) % Baso % (Auto) 0.1 (0.0-1.5) % Neut # (Auto) 8.1 H (1.4-5.7) K/uL Lymph # (Auto) 2.1 (0.6-2.4) K/uL Yancey # (Auto) 0.7 (0.0-0.8) K/uL Eos # (Auto) 0.0 (0.0-0.7) K/uL Baso # (Auto) 0.0 (0.0-0.1) K/uL Nucleated RBC % 0.0 /100WBC Nucleated RBCs # 0 K/uL Lactate (0.20-2.00) mmol/L Sodium (136-148) mmol/L Potassium (3.5-5.1) mmol/L Chloride (98-107) mmol/L Carbon Dioxide (21.0-32.0) mmol/L BUN (7.0-18.0) mg/dL Creatinine (0.8-1.3) mg/dL Est Cr Clr Drug Dosing mL/min Estimated GFR (MDRD) ml/min Glucose (74-106) mg/dL POC Glucose 90 149 H (60-110) mg/dL Calcium (8.5-10.1) mg/dL AST (15-37) IU/L ALT (14-63) IU/L Alkaline Phosphatase (46-116) U/L Lipase (73-393) U/L H. pylori IgG Antibody (NEG) 08/19/17 08/19/17 08/19/17 Range/Units 05:46 05:46 05:46 WBC (4.0-11.0) K/uL RBC (4.50-5.90) M/uL Hgb (13.0-17.0) g/dL Hct (38.0-50.0) % MCV (80.0-98.0) fL MCH (27.0-32.0) pg MCHC (31.0-37.0) g/dL RDW Std Deviation (28.0-62.0) fl RDW Coeff of Macario (11.0-15.0) % Plt Count (150-400) K/uL MPV (7.40-12.00) fL Neut % (Auto) (48.0-80.0) % Lymph % (Auto) (16.0-40.0) % Yancey % (Auto) (0.0-15.0) % Eos % (Auto) (0.0-7.0) % Baso % (Auto) (0.0-1.5) % Neut # (Auto) (1.4-5.7) K/uL Lymph # (Auto) (0.6-2.4) K/uL Yancey # (Auto) (0.0-0.8) K/uL Eos # (Auto) (0.0-0.7) K/uL Baso # (Auto) (0.0-0.1) K/uL Nucleated RBC % /100WBC Nucleated RBCs # K/uL Lactate (0.20-2.00) mmol/L Sodium 139 (136-148) mmol/L Potassium 3.9 (3.5-5.1) mmol/L Chloride 106 (98-107) mmol/L Carbon Dioxide 21.3 (21.0-32.0) mmol/L BUN 9 (7.0-18.0) mg/dL Creatinine 1.0 (0.8-1.3) mg/dL Est Cr Clr Drug Dosing 103.00 mL/min Estimated GFR (MDRD) > 60.0 ml/min Glucose 232 H (74-106) mg/dL POC Glucose (60-110) mg/dL Calcium 7.8 L (8.5-10.1) mg/dL AST 38 H (15-37) IU/L ALT 30 (14-63) IU/L Alkaline Phosphatase 70 (46-116) U/L Lipase 100 (73-393) U/L H. pylori IgG Antibody NEGATIVE (NEG) 08/19/17 08/19/17 08/19/17 Range/Units 06:45 08:22 10:33 WBC (4.0-11.0) K/uL RBC (4.50-5.90) M/uL Hgb (13.0-17.0) g/dL Hct (38.0-50.0) % MCV (80.0-98.0) fL MCH (27.0-32.0) pg MCHC (31.0-37.0) g/dL RDW Std Deviation (28.0-62.0) fl RDW Coeff of Macario (11.0-15.0) % Plt Count (150-400) K/uL MPV (7.40-12.00) fL Neut % (Auto) (48.0-80.0) % Lymph % (Auto) (16.0-40.0) % Yancey % (Auto) (0.0-15.0) % Eos % (Auto) (0.0-7.0) % Baso % (Auto) (0.0-1.5) % Neut # (Auto) (1.4-5.7) K/uL Lymph # (Auto) (0.6-2.4) K/uL Yancey # (Auto) (0.0-0.8) K/uL Eos # (Auto) (0.0-0.7) K/uL Baso # (Auto) (0.0-0.1) K/uL Nucleated RBC % /100WBC Nucleated RBCs # K/uL Lactate 0.7 (0.20-2.00) mmol/L Sodium (136-148) mmol/L Potassium (3.5-5.1) mmol/L Chloride (98-107) mmol/L Carbon Dioxide (21.0-32.0) mmol/L BUN (7.0-18.0) mg/dL Creatinine (0.8-1.3) mg/dL Est Cr Clr Drug Dosing mL/min Estimated GFR (MDRD) ml/min Glucose (74-106) mg/dL POC Glucose 207 H 185 H (60-110) mg/dL Calcium (8.5-10.1) mg/dL AST (15-37) IU/L ALT (14-63) IU/L Alkaline Phosphatase (46-116) U/L Lipase (73-393) U/L H. pylori IgG Antibody (NEG) 04/09/18 Range/Units 11:29 WBC (4.0-11.0) K/uL RBC (4.50-5.90) M/uL Hgb (13.0-17.0) g/dL Hct (38.0-50.0) % MCV (80.0-98.0) fL MCH (27.0-32.0) pg MCHC (31.0-37.0) g/dL RDW Std Deviation (28.0-62.0) fl RDW Coeff of Macario (11.0-15.0) % Plt Count (150-400) K/uL MPV (7.40-12.00) fL Neut % (Auto) (48.0-80.0) % Lymph % (Auto) (16.0-40.0) % Yancey % (Auto) (0.0-15.0) % Eos % (Auto) (0.0-7.0) % Baso % (Auto) (0.0-1.5) % Neut # (Auto) (1.4-5.7) K/uL Lymph # (Auto) (0.6-2.4) K/uL Yancey # (Auto) (0.0-0.8) K/uL Eos # (Auto) (0.0-0.7) K/uL Baso # (Auto) (0.0-0.1) K/uL Nucleated RBC % /100WBC Nucleated RBCs # K/uL Lactate (0.20-2.00) mmol/L Sodium (136-148) mmol/L Potassium (3.5-5.1) mmol/L Chloride (98-107) mmol/L Carbon Dioxide (21.0-32.0) mmol/L BUN (7.0-18.0) mg/dL Creatinine (0.8-1.3) mg/dL Est Cr Clr Drug Dosing mL/min Estimated GFR (MDRD) ml/min Glucose (74-106) mg/dL POC Glucose 188 H (60-110) mg/dL Calcium (8.5-10.1) mg/dL AST (15-37) IU/L ALT (14-63) IU/L Alkaline Phosphatase (46-116) U/L Lipase (73-393) U/L H. pylori IgG Antibody (NEG) Med Orders - Current: Current Medications Acetaminophen (Tylenol) 650 mg PO Q4H PRN PRN Reason: Pain (Mild 1-3)/fever Last Admin: 08/18/17 15:38 Dose: 650 mg Benzocaine/Menthol (Cepacol Sore Throat) 1 lozenge MUCMEM Q4H PRN PRN Reason: Sore Throat Last Admin: 08/19/17 03:34 Dose: 1 lozenge Heparin Sodium (Porcine) (Heparin Sodium) 5,000 units SUBCUT Q8H [facility] Last Admin: 08/19/17 05:52 Dose: 5,000 units Sodium Chloride (Normal Saline) 1,000 mls @ 125 mls/hr IV ASDIRECTED [facility] Last Admin: 08/19/17 08:53 Dose: 125 mls/hr Insulin Aspart (Novolog) 0 unit SUBCUT TIDAC [facility]; Protocol Last Admin: 08/19/17 11:30 Dose: 2 units Insulin Glargine (Lantus Solostar) 25 units SUBCUT DAILY [facility] Last Admin: 08/19/17 08:24 Dose: 25 units Ondansetron HCl (Zofran) 4 mg IVPUSH Q6H PRN PRN Reason: Nausea Oxycodone HCl (Oxycodone) 5 mg PO Q8H PRN PRN Reason: Pain Pantoprazole Sodium (Protonix Iv) 40 mg IVPUSH Q24H [facility] Last Admin: 08/19/17 10:51 Dose: 40 mg Discontinued Medications Sodium Chloride (Normal Saline) 1,000 mls @ 999 mls/hr IV .Bolus ONE Stop: 08/17/17 19:26 Last Admin: 08/17/17 18:59 Dose: 999 mls/hr Insulin Human Regular 100 unit (/ Sodium Chloride) 100 mls @ 6.8 mls/hr IV TITRATE [facility]; Protocol Last Titration: 08/18/17 08:01 Dose: 0.01 unit/kg/hr, 1 mls/hr Sodium Chloride (Normal Saline) 1,000 mls @ 999 mls/hr IV STAT ONE Stop: 08/17/17 20:43 Last Admin: 08/17/17 19:56 Dose: 999 mls/hr Sodium Chloride (Normal Saline) 1,000 mls @ 999 mls/hr IV .Bolus ONE Stop: 08/17/17 21:55 Last Admin: 08/17/17 21:07 Dose: 999 mls/hr Sodium Chloride (Normal Saline) 1,000 mls @ 200 mls/hr IV ASDIRECTED [facility] Last Admin: 08/17/17 22:06 Dose: 200 mls/hr Dextrose/Sodium Chloride (Dextrose 5%-Normal Saline) 1,000 mls @ 200 mls/hr IV ASDIRECTED [facility] Last Admin: 08/18/17 07:11 Dose: 200 mls/hr Insulin Aspart (Novolog) 0 unit SUBCUT TIDAC [facility] Insulin Glargine (Lantus Solostar) 5 units SUBCUT DAILY [facility] Insulin Human Regular (Novolin R) 10 unit IVPUSH ONETIME ONE; Protocol Stop: 08/17/17 18:28 Last Admin: 08/17/17 18:57 Dose: 10 units Insulin Human Regular (Novolin R) 10 unit SUBCUT ONETIME ONE; Protocol Stop: 08/17/17 19:44 Last Admin: 08/17/17 20:02 Dose: 10 unit Insulin Human Regular (Novolin R) 10 unit IVPUSH ONETIME ONE; Protocol Stop: 08/17/17 19:45 Last Admin: 08/17/17 20:00 Dose: 10 unit Metoclopramide HCl (Reglan) 10 mg IV ONETIME ONE Stop: 08/17/17 19:43 Last Admin: 08/17/17 19:58 Dose: 10 mg Morphine Sulfate (Morphine) 4 mg IVPUSH ONETIME ONE Stop: 08/17/17 18:54 Last Admin: 08/17/17 19:23 Dose: 4 mg Morphine Sulfate (Morphine) 2 mg IVPUSH Q2H PRN PRN Reason: Pain (severe 7-10) Stop: 08/18/17 21:02 Last Admin: 08/18/17 12:40 Dose: 2 mg Ondansetron HCl (Zofran) 4 mg IVPUSH ONETIME ONE Stop: 08/17/17 18:27 Last Admin: 08/17/17 18:57 Dose: 4 mg Ondansetron HCl (Zofran) 4 mg IVPUSH ONETIME ONE Stop: 08/17/17 18:32 Last Admin: 08/17/17 19:25 Dose: 4 mg Oxycodone HCl (Oxycodone) 5 mg PO ONETIME ONE Stop: 08/19/17 09:27 Last Admin: 08/19/17 09:45 Dose: 5 mg Pantoprazole Sodium (Protonix Iv) 40 mg IVPUSH ONETIME ONE Stop: 08/17/17 21:02 Last Admin: 08/17/17 22:06 Dose: 40 mg Tramadol HCl (Ultram) 50 mg PO Q6H PRN PRN Reason: Pain Last Admin: 08/19/17 03:41 Dose: 50 mg - Exam Quality Assessment: DVT Prophylaxis (SCDs, heparin) General: Alert, Oriented, Cooperative, No Acute Distress Neck: Supple Lungs: Clear to Auscultation, Normal Respiratory Effort Cardiovascular: Regular Rate, Regular Rhythm GI/Abdominal Exam: Normal Bowel Sounds, Soft, No Organomegaly, No Distention, No Abnormal Bruit, No Mass, Pelvis Stable, Tender (Diffusely tender) Back Exam: Normal Inspection Extremities: Normal Inspection, Normal Range of Motion, Non-Tender, No Pedal Edema, Normal Capillary Refill Peripheral Pulses: 2+: Radial (L), Radial (R), Posterior Tibial (L), Posterior Tibial (R) Skin: Warm, Dry, Intact Wound/Incisions: Healing Well Neurological: No New Focal Deficit Psy/Mental Status: Alert, Normal Affect, Normal Mood - Problem List & Annotations (1) Abdominal pain SNOMED Code(s): 01384070 Code(s): R10.9 - UNSPECIFIED ABDOMINAL PAIN Status: Acute Current Visit: Yes (2) DKA (diabetic ketoacidoses) SNOMED Code(s): 437165826, 470787111 Code(s): E13.10 - OTH DIABETES MELLITUS WITH KETOACIDOSIS WITHOUT COMA Status: Acute Priority: High Current Visit: Yes Qualifiers: Diabetes mellitus type: type 1 Diabetes mellitus complication detail: without coma Qualified Code(s): E10.10 - Type 1 diabetes mellitus with ketoacidosis without coma - Problem List Review Problem List Initiated/Reviewed/Updated: Yes - My Orders Last 24 Hours: My Active Orders 08/19/17 09:13 Ondansetron [Zofran] 4 mg IVPUSH Q6H PRN 08/19/17 09:26 oxyCODONE 5 mg PO Q8H PRN - Plan Plan:: 32 yo male admitted with DKA. #1. DKA: DKA has resolved. Patient receiving subcutaneous insulin. Continue to monitor with fingerstick glucose. Still has to be seen by the hospice educator. #2. Abdominal pain: Most likely secondary to DKA. Liver enzymes are unremarkable. Lipase is normal. Lactate is normal. Right upper quadrant is unremarkable. Patient started on IV Protonix. He states tramadol was not helping but that morphine was. Patient switched to oxycodone 5 mg as needed every 4 hours. While in the ER, abdomen/pelvis CT was unremarkable. Patient has no white count. Disposition: 1-2 days pending improvement.
[2017-08-19] MEDS: Amoxicillin 500 MG Cap PO SCH ×2 (12:56→21:07)
--- NOTE | 2017-08-19 13:07 | CT ---
EXAM DATE: 08/17/17 PATIENT'S AGE: 32 Patient: KELLY DAVIS Facility: [place], [place] Site . Site : 1985 Study: CT Abdomen/Pelvis W/O [id number]/[id number] 7:17:06 PM Ordering Physician: Doctor French Final Report: INDICATION: General abdomen pain and weakness TECHNIQUE: CT abdomen and pelvis without contrast. COMPARISON: 05/07/2017 FINDINGS: Lower chest: Unremarkable. Liver: Normal in size and attenuation. No masses. Gallbladder and bile ducts: No stones or inflammation. No biliary dilatation. Pancreas: Unremarkable. No mass or inflammation. Spleen: Normal in size. No masses. Adrenal glands: Normal in size. No nodules. Kidneys: Normal in size. No masses, stones, or hydronephrosis. GI tract: Unremarkable. Normal in caliber. No sign of mass or inflammation. Vasculature: Unremarkable. Lymph nodes: No lymphadenopathy. Abdominal wall/Omentum/Peritoneum: Unremarkable. No sign of mass or infiltration. No free air or significant free fluid. Pelvis: Unremarkable. No pelvic masses. Bones: Unremarkable for age. IMPRESSION: Unremarkable CT of the abdomen and pelvis. No findings to explain abdominal pain. Please note that all CT scans at this facility use dose modulation, iterative reconstruction, and/or weight-based dosing when appropriate to reduce radiation dose to as low as reasonably achievable. Dictated by Ritesh Ramirez MD @ Aug 17 2017 7:29PM (Electronic Signature) Report Signed by Proxy. [facility]
--- NOTE | 2017-08-19 13:07 | CR ---
EXAM DATE: 08/17/17 PATIENT'S AGE: 32 Patient: KELLY DAVIS Facility: [place], [place] Site . Site : 1985 Study: XRay Chest [id number]/7/[id number] 7:20:04 PM Ordering Physician: Doctor French Final Report: INDICATION: Chest pain and shortness of breath TECHNIQUE: Chest 1 view COMPARISON: None FINDINGS: Cardiovascular and mediastinum: Heart size and vasculature are normal in caliber and appearance. Lungs and pleural spaces: Lungs are clear. No sign of infiltrate or mass. No sign of pleural effusion. No pneumothorax. Bones and soft tissues: No significant findings. IMPRESSION: No acute or significant findings. Dictated by Ritesh Ramirez MD @ Aug 17 2017 7:34PM (Electronic Signature) Report Signed by Proxy. [facility]
[2017-08-19] MEDS: Acetaminophen 325 MG Tab PO PRN (16:16)
[2017-08-19] MEDS: oxyCODONE 5 MG Tab PO PRN (17:30)
[2017-08-20] MEDS: Sodium Chloride 0.9% 1,000 ML IV SCH (00:59)
[2017-08-20] MEDS: oxyCODONE 5 MG Tab PO PRN ×2 (01:31→09:30)
[2017-08-20] MEDS: Acetaminophen 325 MG Tab PO PRN (05:30)
[2017-08-20] MEDS: Heparin Sodium 5,000 Units/ML Vial SUBCUT SCH (05:30)
[2017-08-20 06:23] LABS: CHLORIDE,CL 107 mmol/L (98-107); SODIUM,NA 141 mmol/L (136-148)
[2017-08-20] MEDS: Insulin Aspart 100 Units/ML 3 ML Pen SUBCUT SCH (07:08)
[2017-08-20] MEDS: Amoxicillin 500 MG Cap PO SCH (08:09)
[2017-08-20] MEDS: Insulin Glargine,Human Rec. Analog 100 Units/ML 3 ML Pen SUBCUT SCH (08:12)
[2017-08-20] MEDS: Pantoprazole 40 MG Vial IVPUSH SCH (09:27)
--- NOTE | 2017-08-21 14:33 | PCM.DCSUM1 ---
<Uziel Moody - Last Filed: 08/21/17 14:28> Discharge Summary - Hospital Course Free Text/Narrative:: Admission diagnosis: #1. DKA #2. Uncontrolled type 1 diabetes Discharge diagnosis: #1. DKA, resolved #2. Uncontrolled type 1 diabetes 32-year-old male that was admitted with DKA. Patient was hydrated with IV fluids and started on an insulin drip. When his INR and Had closed his bicarbonate was normal, he was switched over to subcutaneous insulin and a NovoLog sliding scale. Upon admission, his white blood cell count was 42,920. At the time of discharge it had improved to 5.4. Patient's diet was advanced as tolerated. Patient was complaining of abdominal pain and so an abdomen/pelvis CT , abdominal ultrasound were all done and these were negative. Lipase and lactate were also negative. Patient with subsequent started on IV Protonix to see if this would help. It did seem to. Patient was initially receiving IV pain medications for pain related to his DKA and with subsequent switched over to by mouth pain medications. Chest x-ray was negative. Patient also complained of a sore throat. Strep swab was negative. Despite this, the patient was started on amoxicillin 500 mg twice daily given that his throat was erythematous and there were white dots appreciated on the back of the throat. At the time of discharge , the patient was tolerating oral intake, voiding appropriately and ambulating without assistance. The patient was visited by the extension educator and the patient will follow up with her following discharge. - Discharge Data Discharge Date: 08/20/17 Discharge Disposition: Home, Self-Care 01 Condition: Fair - Discharge Diagnosis/Problem(s) (1) Abdominal pain SNOMED Code(s): 47561702 ICD Code: R10.9 - UNSPECIFIED ABDOMINAL PAIN Status: Acute (2) DKA (diabetic ketoacidoses) SNOMED Code(s): 833891366, 091281217 ICD Code: E13.10 - OTH DIABETES MELLITUS WITH KETOACIDOSIS WITHOUT COMA Status: Acute Priority: High Qualifiers: Diabetes mellitus type: type 1 Diabetes mellitus complication detail: without coma Qualified Code(s): E10.10 - Type 1 diabetes mellitus with ketoacidosis without coma - Patient Summary/Data Consults: Consultations 08/17/17 21:01 Consult to Diabetic Nurse Specialist [CONS] Routine - Patient Instructions Diet: Diabetic Diet Activity: As Tolerated Driving: May Drive Today Showering/Bathing: May Shower Notify Provider of: Fever, Increased Pain, Nausea and/or Vomiting - Discharge Plan Prescriptions/Med Rec: Amoxicillin [IJD: Amoxicillin] 500 mg PO Q12HR #18 capsule Pantoprazole Sodium [Protonix] 40 mg PO DAILY #30 tablet. Home Medications: Home Meds Insulin Aspart [NovoLOG] See Protocol SUBCUT TIDAC #1 box 05/10/17 [Rx] Insulin Glarg,Human.Rec.Analog [LantUS Solostar] 25 units SUBCUT DAILY 08/17/17 [History] Amoxicillin [IJD: Amoxicillin] 500 mg PO Q12HR #18 capsule 08/20/17 [Rx] Pantoprazole Sodium [Protonix] 40 mg PO DAILY #30 tablet. 08/20/17 [Rx] Patient Handouts: Amoxicillin capsules or tablets, Diabetic Ketoacidosis, Pantoprazole tablets Referrals: [facility] [Outside] Alfredo Oconnor MD [Physician] - 08/26/17 2:30 pm Aga Moses RN [Registered Nurse] - - Discharge Summary/Plan Comment DC Time >30 min.: No Discharge Summary/Plan Comment: Admission diagnosis: #1. DKA #2. Uncontrolled type 1 diabetes Discharge diagnosis: #1. DKA, resolved #2. Uncontrolled type 1 diabetes #3. Pharyngitis 32-year-old male that was admitted with DKA. Patient was hydrated with IV fluids and started on an insulin drip. When his INR and Had closed his bicarbonate was normal, he was switched over to subcutaneous insulin and a NovoLog sliding scale. Upon admission, his white blood cell count was 42,920. At the time of discharge it had improved to 5.4. Patient's diet was advanced as tolerated. Patient was complaining of abdominal pain and so an abdomen/pelvis CT , abdominal ultrasound were all done and these were negative. Lipase and lactate were also negative. Patient with subsequent started on IV Protonix to see if this would help. It did seem to. Patient was initially receiving IV pain medications for pain related to his DKA and with subsequent switched over to by mouth pain medications. Chest x-ray was negative. Patient also complained of a sore throat. Strep swab was negative. Despite this, the patient was started on amoxicillin 500 mg twice daily given that his throat was erythematous and there were white dots appreciated on the back of the throat. At the time of discharge , the patient was tolerating oral intake, voiding appropriately and ambulating without assistance. The patient was visited by the extension educator and the patient will follow up with her following discharge. Discharge plan: #1. Patient will follow-up with Dr. Oconnor #2. Patient will follow-up with Aga Moses, extension educator #3. Patient was sent home with samples of Tresiba and a prescription for the same medication was sent to his pharmacy. #4. Patient will continue with his NovoLog sliding scale. He'll continue to check his blood sugars multiple times daily. #5. Prescription sent in for amoxicillin 500 mg twice a day for 10 days. - Patient Data Vitals - Most Recent: Last Vital Signs Temp 98.2 F 08/20/17 07:19 Pulse 58 L 08/20/17 07:19 Resp 16 08/20/17 07:19 BP 134/74 08/20/17 07:19 Pulse Ox 96 08/20/17 07:19 Weight - Most Recent: 68.039 kg DILAN Results - Last 24 hrs: Microbiology 08/19/17 12:20 Quick Strep Confirmation Culture - Final Throat NO GROUP A STREP ISOLATED Group A Streptococcus Rapid Screen - Final NEGATIVE STREP A SCREEN Med Orders - Current: Current Medications Discontinued Medications Acetaminophen (Tylenol) 650 mg PO Q4H PRN PRN Reason: Pain (Mild 1-3)/fever Last Admin: 08/20/17 05:30 Dose: 650 mg Amoxicillin (Amoxil) 500 mg PO Q12HR [facility] Last Admin: 08/20/17 08:09 Dose: 500 mg Benzocaine/Menthol (Cepacol Sore Throat) 1 lozenge MUCMEM Q4H PRN PRN Reason: Sore Throat Last Admin: 08/19/17 16:18 Dose: 1 lozenge Heparin Sodium (Porcine) (Heparin Sodium) 5,000 units SUBCUT Q8H [facility] Last Admin: 08/20/17 05:30 Dose: 5,000 units Sodium Chloride (Normal Saline) 1,000 mls @ 999 mls/hr IV .Bolus ONE Stop: 08/17/17 19:26 Last Admin: 08/17/17 18:59 Dose: 999 mls/hr Insulin Human Regular 100 unit (/ Sodium Chloride) 100 mls @ 6.8 mls/hr IV TITRATE [facility]; Protocol Last Titration: 08/18/17 08:01 Dose: 0.01 unit/kg/hr, 1 mls/hr Sodium Chloride (Normal Saline) 1,000 mls @ 999 mls/hr IV STAT ONE Stop: 08/17/17 20:43 Last Admin: 08/17/17 19:56 Dose: 999 mls/hr Sodium Chloride (Normal Saline) 1,000 mls @ 999 mls/hr IV .Bolus ONE Stop: 08/17/17 21:55 Last Admin: 08/17/17 21:07 Dose: 999 mls/hr Sodium Chloride (Normal Saline) 1,000 mls @ 200 mls/hr IV ASDIRECTED [facility] Last Admin: 08/17/17 22:06 Dose: 200 mls/hr Dextrose/Sodium Chloride (Dextrose 5%-Normal Saline) 1,000 mls @ 200 mls/hr IV ASDIRECTED [facility] Last Admin: 08/18/17 07:11 Dose: 200 mls/hr Sodium Chloride (Normal Saline) 1,000 mls @ 125 mls/hr IV ASDIRECTED [facility] Last Admin: 08/20/17 00:59 Dose: 125 mls/hr Insulin Aspart (Novolog) 0 unit SUBCUT TIDAC [facility] Insulin Aspart (Novolog) 0 unit SUBCUT TIDAC [facility]; Protocol Last Admin: 08/20/17 07:08 Dose: 4 units Insulin Glargine (Lantus Solostar) 5 units SUBCUT DAILY [facility] Insulin Glargine (Lantus Solostar) 25 units SUBCUT DAILY [facility] Last Admin: 08/20/17 08:12 Dose: 25 units Insulin Human Regular (Novolin R) 10 unit IVPUSH ONETIME ONE; Protocol Stop: 08/17/17 18:28 Last Admin: 08/17/17 18:57 Dose: 10 units Insulin Human Regular (Novolin R) 10 unit SUBCUT ONETIME ONE; Protocol Stop: 08/17/17 19:44 Last Admin: 08/17/17 20:02 Dose: 10 unit Insulin Human Regular (Novolin R) 10 unit IVPUSH ONETIME ONE; Protocol Stop: 08/17/17 19:45 Last Admin: 08/17/17 20:00 Dose: 10 unit Metoclopramide HCl (Reglan) 10 mg IV ONETIME ONE Stop: 08/17/17 19:43 Last Admin: 08/17/17 19:58 Dose: 10 mg Morphine Sulfate (Morphine) 4 mg IVPUSH ONETIME ONE Stop: 08/17/17 18:54 Last Admin: 08/17/17 19:23 Dose: 4 mg Morphine Sulfate (Morphine) 2 mg IVPUSH Q2H PRN PRN Reason: Pain (severe 7-10) Stop: 08/18/17 21:02 Last Admin: 08/18/17 12:40 Dose: 2 mg Ondansetron HCl (Zofran) 4 mg IVPUSH ONETIME ONE Stop: 08/17/17 18:27 Last Admin: 08/17/17 18:57 Dose: 4 mg Ondansetron HCl (Zofran) 4 mg IVPUSH ONETIME ONE Stop: 08/17/17 18:32 Last Admin: 08/17/17 19:25 Dose: 4 mg Ondansetron HCl (Zofran) 4 mg IVPUSH Q6H PRN PRN Reason: Nausea Oxycodone HCl (Oxycodone) 5 mg PO Q8H PRN PRN Reason: Pain Last Admin: 08/20/17 09:30 Dose: 5 mg Oxycodone HCl (Oxycodone) 5 mg PO ONETIME ONE Stop: 08/19/17 09:27 Last Admin: 08/19/17 09:45 Dose: 5 mg Pantoprazole Sodium (Protonix Iv) 40 mg IVPUSH ONETIME ONE Stop: 08/17/17 21:02 Last Admin: 08/17/17 22:06 Dose: 40 mg Pantoprazole Sodium (Protonix Iv) 40 mg IVPUSH Q24H [facility] Last Admin: 08/20/17 09:27 Dose: 40 mg Tramadol HCl (Ultram) 50 mg PO Q6H PRN PRN Reason: Pain Last Admin: 08/19/17 03:41 Dose: 50 mg <Bobby العراقي - Last Filed: 08/25/17 13:13> Discharge Summary - Patient Summary/Data Consults: Consultations 08/17/17 21:01 Consult to Diabetic Nurse Specialist [CONS] Routine - Patient Data Vitals - Most Recent: Last Vital Signs Temp 36.8 C 08/20/17 07:19 Pulse 58 L 08/20/17 07:19 Resp 16 08/20/17 07:19 BP 134/74 08/20/17 07:19 Pulse Ox 96 08/20/17 07:19 Med Orders - Current: Current Medications Discontinued Medications Acetaminophen (Tylenol) 650 mg PO Q4H PRN PRN Reason: Pain (Mild 1-3)/fever Last Admin: 08/20/17 05:30 Dose: 650 mg Amoxicillin (Amoxil) 500 mg PO Q12HR [facility] Last Admin: 08/20/17 08:09 Dose: 500 mg Benzocaine/Menthol (Cepacol Sore Throat) 1 lozenge MUCMEM Q4H PRN PRN Reason: Sore Throat Last Admin: 08/19/17 16:18 Dose: 1 lozenge Heparin Sodium (Porcine) (Heparin Sodium) 5,000 units SUBCUT Q8H [facility] Last Admin: 08/20/17 05:30 Dose: 5,000 units Sodium Chloride (Normal Saline) 1,000 mls @ 999 mls/hr IV .Bolus ONE Stop: 08/17/17 19:26 Last Admin: 08/17/17 18:59 Dose: 999 mls/hr Insulin Human Regular 100 unit (/ Sodium Chloride) 100 mls @ 6.8 mls/hr IV TITRATE BONIFACIO; Protocol Last Titration: 08/18/17 08:01 Dose: 0.01 unit/kg/hr, 1 mls/hr Sodium Chloride (Normal Saline) 1,000 mls @ 999 mls/hr IV STAT ONE Stop: 08/17/17 20:43 Last Admin: 08/17/17 19:56 Dose: 999 mls/hr Sodium Chloride (Normal Saline) 1,000 mls @ 999 mls/hr IV .Bolus ONE Stop: 08/17/17 21:55 Last Admin: 08/17/17 21:07 Dose: 999 mls/hr Sodium Chloride (Normal Saline) 1,000 mls @ 200 mls/hr IV ASDIRECTED [facility] Last Admin: 08/17/17 22:06 Dose: 200 mls/hr Dextrose/Sodium Chloride (Dextrose 5%-Normal Saline) 1,000 mls @ 200 mls/hr IV ASDIRECTED [facility] Last Admin: 08/18/17 07:11 Dose: 200 mls/hr Sodium Chloride (Normal Saline) 1,000 mls @ 125 mls/hr IV ASDIRECTED [facility] Last Admin: 08/20/17 00:59 Dose: 125 mls/hr Insulin Aspart (Novolog) 0 unit SUBCUT TIDAC [facility] Insulin Aspart (Novolog) 0 unit SUBCUT TIDAC [facility]; Protocol Last Admin: 08/20/17 07:08 Dose: 4 units Insulin Glargine (Lantus Solostar) 5 units SUBCUT DAILY [facility] Insulin Glargine (Lantus Solostar) 25 units SUBCUT DAILY [facility] Last Admin: 08/20/17 08:12 Dose: 25 units Insulin Human Regular (Novolin R) 10 unit IVPUSH ONETIME ONE; Protocol Stop: 08/17/17 18:28 Last Admin: 08/17/17 18:57 Dose: 10 units Insulin Human Regular (Novolin R) 10 unit SUBCUT ONETIME ONE; Protocol Stop: 08/17/17 19:44 Last Admin: 08/17/17 20:02 Dose: 10 unit Insulin Human Regular (Novolin R) 10 unit IVPUSH ONETIME ONE; Protocol Stop: 08/17/17 19:45 Last Admin: 08/17/17 20:00 Dose: 10 unit Metoclopramide HCl (Reglan) 10 mg IV ONETIME ONE Stop: 08/17/17 19:43 Last Admin: 08/17/17 19:58 Dose: 10 mg Morphine Sulfate (Morphine) 4 mg IVPUSH ONETIME ONE Stop: 08/17/17 18:54 Last Admin: 08/17/17 19:23 Dose: 4 mg Morphine Sulfate (Morphine) 2 mg IVPUSH Q2H PRN PRN Reason: Pain (severe 7-10) Stop: 08/18/17 21:02 Last Admin: 08/18/17 12:40 Dose: 2 mg Ondansetron HCl (Zofran) 4 mg IVPUSH ONETIME ONE Stop: 08/17/17 18:27 Last Admin: 08/17/17 18:57 Dose: 4 mg Ondansetron HCl (Zofran) 4 mg IVPUSH ONETIME ONE Stop: 08/17/17 18:32 Last Admin: 08/17/17 19:25 Dose: 4 mg Ondansetron HCl (Zofran) 4 mg IVPUSH Q6H PRN PRN Reason: Nausea Oxycodone HCl (Oxycodone) 5 mg PO Q8H PRN PRN Reason: Pain Last Admin: 08/20/17 09:30 Dose: 5 mg Oxycodone HCl (Oxycodone) 5 mg PO ONETIME ONE Stop: 08/19/17 09:27 Last Admin: 08/19/17 09:45 Dose: 5 mg Pantoprazole Sodium (Protonix Iv) 40 mg IVPUSH ONETIME ONE Stop: 08/17/17 21:02 Last Admin: 08/17/17 22:06 Dose: 40 mg Pantoprazole Sodium (Protonix Iv) 40 mg IVPUSH Q24H [facility] Last Admin: 08/20/17 09:27 Dose: 40 mg Tramadol HCl (Ultram) 50 mg PO Q6H PRN PRN Reason: Pain Last Admin: 08/19/17 03:41 Dose: 50 mg - Free Text/Narrative Note: I have examined the patient. I have discussed findings and treatment plan with the resident. I agree with the assessment and plan outlined in the following resident's note.
== END 2017-08-20 10:30 | disposition home or self-care (01) | DRG 639 ==
LOC: MW.ED 18:10 → MW.ICU 20:18
PROVIDERS: ADMIT Internal Medicine; ATTEND Internal Medicine
DX: E10.10 Type 1 diabetes mellitus with ketoacidosis without coma (principal); R10.9 Unspecified abdominal pain; R07.0 Pain in throat; F17.200 Nicotine dependence, unspecified, uncomplicated; Z79.4 Long term (current) use of insulin
CPT/HCPCS: 36415; 36600; 71045; 71045-26; 74176; 74176-26; 76705; 76705-26; 80048; 80053; 81001; 82150; 82803; 82962; 83605; 83690; 84075; 84450; 84460; 85025; 86677; 87081; 87880; 93005; 96361; 96372; 96374; 96375; 96376; 99284; 99285-25; A9270-GY; C9113; J1644; J1815-GY ×2; J2270; J2405; J2765; J7030; J7040; J7042

== ENCOUNTER 2018-12-27 07:45 | Observation (INO) | payer SELFPAY ==
[2018-12-27] MEDS ORDERED: Ondansetron 4 MG/2 ML SDV IVPUSH ONE (07:53)
[2018-12-27] MEDS ORDERED: Sodium Chloride 0.9% 2,000 ML IV ONE (07:53)
--- NOTE | 2018-12-27 07:59 | EDM.PDOC ---
ED HPI GENERAL MEDICAL PROBLEM - General Chief Complaint: Abdominal Pain Stated Complaint: NAUSEATED, PAIN IN RIGHT LOWER QUADRANT Time Seen by Provider: 12/27/18 07:48 - History of Present Illness INITIAL COMMENTS - FREE TEXT/NARRATIVE: HISTORY AND PHYSICAL: History of present illness: Patient 33-year-old white male history of insulin-dependent diabetes presents with concern of acute right upper quadrant abdominal pain nausea and vomiting that started this a.m. he denies fever chills denies trauma denies prior abdominal surgery. Review of systems: As per history of present illness and below otherwise all systems reviewed and negative. Past medical history: As per history of present illness and as reviewed below otherwise noncontributory. Surgical history: As per history of present illness and as reviewed below otherwise noncontributory. Social history: No reported history of drug or alcohol abuse. Family history: As per history of present illness and as reviewed below otherwise noncontributory. Physical exam: HEENT: Atraumatic, normocephalic, pupils reactive, negative for conjunctival pallor or scleral icterus, mucous membranes dry, throat clear, neck supple, nontender, trachea midline. Lungs: Clear to auscultation, breath sounds equal bilaterally, chest nontender. Heart: S1S2, regular, negative for clicks, rubs, or JVD. Abdomen: Soft, nondistended, tenderness across upper abdomen to deep palpation. Negative for masses or hepatosplenomegaly. Negative for costovertebral tenderness. Pelvis: Stable nontender. Genitourinary: Deferred. Rectal: Deferred. Extremities: Atraumatic, negative for cords or calf pain. Neurovascular unremarkable. Neuro: Awake, alert, oriented. Cranial nerves II through XII unremarkable. Cerebellum unremarkable. Motor and sensory unremarkable throughout. Exam nonfocal. Diagnostics: CBC CMP troponin PT/INR lipase UA urine drug screen chest x-ray CT abdomen and pelvis Therapeutics: Saline 2 L bolus Zofran 4 mg IV Impression: #1 abdominal pain #2 diabetes Definitive disposition and diagnosis as appropriate pending reevaluation and review of above. RUQ pain Pain Score (Numeric/FACES): 10 - Related Data Allergies Allergy/AdvReac Type Severity Reaction Status Date / Time No Known Allergies Allergy Verified 12/27/18 11:49 Home Meds: Home Meds Insulin Aspart [NovoLOG] See Protocol SUBCUT TIDAC #1 box 05/10/17 [Rx] Insulin Glarg,Human.Rec.Analog [LantUS Solostar] 25 units SUBCUT QAM 08/17/17 [ History] Past Medical History Gastrointestinal History: Reports: Pancreatitis Musculoskeletal History: Reports: Back Pain, Chronic, Other (See Below) Other Musculoskeletal History: had a sport accident when he was on early 20's Endocrine/Metabolic History: Reports: Diabetes, Type I - Infectious Disease History Infectious Disease History: Reports: Chicken Pox - Past Surgical History GI Surgical History: Reports: Appendectomy Endocrine Surgical History: Reports: None Social & Family History - Family History Family Medical History: Noncontributory - Tobacco Use Smoking Status *Q: Never Smoker - Caffeine Use Caffeine Use: Reports: Coffee, Energy Drinks, Soda - Alcohol Use Date of Last Drink: 12/26/18 Time of Last Drink: 21:00 ED ROS GENERAL - Review of Systems Review Of Systems: ROS reveals no pertinent complaints other than HPI. ED EXAM, GENERAL - Physical Exam Exam: See Below (See dictation) Course - Vital Signs Last Recorded V/S: Last Vital Signs Temp 37.6 C 12/27/18 16:00 Pulse 123 H 12/27/18 16:00 Resp 18 12/27/18 16:00 BP 123/68 12/27/18 16:00 Pulse Ox 99 12/27/18 16:00 - Orders/Labs/Meds Orders: Active Orders 24 hr Category Date Time Status Patient Status [ADT] Stat ADT 12/27/18 10:27 Active Blood Glucose Check, Bedside [RC] TIDAC Care 12/27/18 10:48 Active Blood Glucose Check, Bedside [RC] TIDMEALS Care 12/27/18 10:48 Active Diabetes Education [RC] Click to Edit Care 12/27/18 10:49 Active EKG Documentation Completion [RC] STAT Care 12/27/18 07:50 Active Oxygen Therapy [RC] PRN Care 12/27/18 10:48 Active Pulse Oximetry [RC] ASDIRECTED Care 12/27/18 07:50 Active Up ad Mandy [RC] ASDIRECTED Care 12/27/18 10:48 Active VTE/DVT Education [RC] PER UNIT ROUTINE Care 12/27/18 10:48 Active Vital Signs [RC] Q4H Care 12/27/18 10:48 Active Consult to Diabetic Nurse Specialist [CONS] Routine Cons 08/17/19 10:48 Active CULTURE BLOOD [BC] Stat Lab 12/27/18 08:20 Results CULTURE BLOOD [BC] Stat Lab 12/27/18 08:31 Results Acetaminophen [Tylenol] Med 12/27/18 10:48 Active 650 mg PO Q4H PRN Docusate Sodium [Colace] Med 12/27/18 10:48 Active 100 mg PO BID PRN Heparin Sodium Med 12/27/18 11:00 Active 5,000 units SUBCUT Q8H Insulin Aspart [NovoLOG] Med 12/27/18 11:30 Active See Protocol SUBCUT TIDAC Insulin Glarg,Human.Rec.Analog [LantUS Solostar] Med 12/27/18 11:30 Active 25 units SUBCUT ACBED Ketorolac [Toradol] Med 12/27/18 10:48 Active 30 mg IV Q6H PRN Nicotine [Habitrol] Med 12/27/18 11:00 Active 14 mg TRDERM DAILY Ondansetron [Zofran] Med 12/27/18 11:00 Active 4 mg IVPUSH Q4H Sodium Chloride 0.9% [Normal Saline] 1,000 ml Med 12/27/18 11:00 Active IV Q6H Temazepam [Restoril] Med 12/27/18 10:48 Active 15 mg PO BEDTIME PRN Blood Culture x2 Reflex Set [OM.PC] Stat Oth 12/27/18 07:51 Ordered Glucose Management Sub Q Reflex [OM.PC] Click To Edit Oth 12/27/18 10:48 Ordered Resuscitation Status Routine Resus Stat 12/27/18 10:48 Ordered Medication Orders Acetaminophen (Tylenol) 650 mg PO Q4H PRN PRN Reason: Pain (Mild 1-3)/fever Last Admin: 12/27/18 18:02 Dose: 650 mg Admin: 12/27/18 13:01 Dose: 650 mg Docusate Sodium (Colace) 100 mg PO BID PRN PRN Reason: Constipation Heparin Sodium (Porcine) (Heparin Sodium) 5,000 units SUBCUT Q8H [facility] Last Admin: 12/27/18 18:04 Dose: 5,000 units Admin: 12/27/18 12:54 Dose: 5,000 units Sodium Chloride (Normal Saline) 1,000 mls @ 175 mls/hr IV Q6H [facility] Last Admin: 12/27/18 17:56 Dose: 175 mls/hr Infusion: 12/27/18 17:42 Dose: 175 mls/hr Admin: 12/27/18 11:59 Dose: 175 mls/hr Insulin Aspart (Novolog) 0 unit SUBCUT TIDAC [facility]; Protocol Last Admin: 12/27/18 18:10 Dose: 4 units Admin: 12/27/18 12:51 Dose: 10 units Insulin Glargine (Lantus Solostar) 25 units SUBCUT ACBED [facility] Last Admin: 12/27/18 21:51 Dose: 25 units Admin: 12/27/18 18:11 Dose: 25 units Admin: 12/27/18 12:41 Dose: 25 units Ketorolac Tromethamine (Toradol) 30 mg IV Q6H PRN PRN Reason: Pain (moderate 4-6) Stop: 12/31/18 10:49 Last Admin: 12/27/18 16:12 Dose: 30 mg Nicotine (Habitrol) 14 mg TRDERM DAILY [facility] Last Admin: 12/27/18 12:34 Dose: 14 mg Ondansetron HCl (Zofran) 4 mg IVPUSH Q4H [facility] Last Admin: 12/27/18 18:04 Dose: 4 mg Admin: 12/27/18 16:09 Dose: 4 mg Admin: 12/27/18 12:36 Dose: 4 mg Temazepam (Restoril) 15 mg PO BEDTIME PRN PRN Reason: Sleep Labs: Laboratory Tests 12/27/18 12/27/18 12/27/18 Range/Units 08:02 08:02 08:02 WBC 12.48 H (4.0-11.0) K/uL RBC 5.11 (4.50-5.90) M/uL Hgb 17.1 H (13.0-17.0) g/dL Hct 47.7 (38.0-50.0) % MCV 93.3 (80.0-98.0) fL MCH 33.5 H (27.0-32.0) pg MCHC 35.8 (31.0-37.0) g/dL RDW Std Deviation 42.7 (28.0-62.0) fl RDW Coeff of Macario 13 (11.0-15.0) % Plt Count 234 (150-400) K/uL MPV 9.80 (7.40-12.00) fL Neut % (Auto) 73.8 (48.0-80.0) % Lymph % (Auto) 16.9 (16.0-40.0) % Payne % (Auto) 6.8 (0.0-15.0) % Eos % (Auto) 1.8 (0.0-7.0) % Baso % (Auto) 0.7 (0.0-1.5) % Neut # (Auto) 9.2 H (1.4-5.7) K/uL Lymph # (Auto) 2.1 (0.6-2.4) K/uL Payne # (Auto) 0.9 H (0.0-0.8) K/uL Eos # (Auto) 0.2 (0.0-0.7) K/uL Baso # (Auto) 0.1 (0.0-0.1) K/uL Nucleated RBC % 0.0 /100WBC Nucleated RBCs # 0 K/uL INR 0.95 ABG pH (7.35-7.45) ABG pCO2 (35-45) mmHG ABG pO2 (75-100) mmHG ABG HCO3 (22-26) mEq/L ABG Total CO2 ABG Base Excess (-2.0-2.0) Sodium 133 L (136-148) mmol/L Potassium 5.0 (3.5-5.1) mmol/L Chloride 89 L (98-107) mmol/L Carbon Dioxide 15.3 L (21.0-32.0) mmol/L BUN 17 (7.0-18.0) mg/dL Creatinine 1.3 (0.8-1.3) mg/dL Est Cr Clr Drug Dosing 75.89 mL/min Estimated GFR (MDRD) > 60.0 ml/min Glucose 448 H (74-106) mg/dL Hemoglobin A1c (4.5-6.2) % Calcium 12.7 H (8.5-10.1) mg/dL Total Bilirubin 1.2 H (0.2-1.0) mg/dL AST 35 (15-37) IU/L ALT 30 (14-63) IU/L Alkaline Phosphatase 127 H (46-116) U/L Total Protein 7.8 (6.4-8.2) g/dL Albumin 4.5 (3.4-5.0) g/dL Globulin 3.3 (2.6-4.0) g/dL Albumin/Globulin Ratio 1.4 (0.9-1.6) Lipase 43 L (73-393) U/L Ethyl Alcohol <3 mg/dL 12/27/18 12/27/18 Range/Units 08:02 08:05 WBC (4.0-11.0) K/uL RBC (4.50-5.90) M/uL Hgb (13.0-17.0) g/dL Hct (38.0-50.0) % MCV (80.0-98.0) fL MCH (27.0-32.0) pg MCHC (31.0-37.0) g/dL RDW Std Deviation (28.0-62.0) fl RDW Coeff of Macario (11.0-15.0) % Plt Count (150-400) K/uL MPV (7.40-12.00) fL Neut % (Auto) (48.0-80.0) % Lymph % (Auto) (16.0-40.0) % Payne % (Auto) (0.0-15.0) % Eos % (Auto) (0.0-7.0) % Baso % (Auto) (0.0-1.5) % Neut # (Auto) (1.4-5.7) K/uL Lymph # (Auto) (0.6-2.4) K/uL Payne # (Auto) (0.0-0.8) K/uL Eos # (Auto) (0.0-0.7) K/uL Baso # (Auto) (0.0-0.1) K/uL Nucleated RBC % /100WBC Nucleated RBCs # K/uL INR ABG pH 7.368 (7.35-7.45) ABG pCO2 19 L (35-45) mmHG ABG pO2 116 H (75-100) mmHG ABG HCO3 11 L (22-26) mEq/L ABG Total CO2 9.6 ABG Base Excess -11.2 L (-2.0-2.0) Sodium (136-148) mmol/L Potassium (3.5-5.1) mmol/L Chloride (98-107) mmol/L Carbon Dioxide (21.0-32.0) mmol/L BUN (7.0-18.0) mg/dL Creatinine (0.8-1.3) mg/dL Est Cr Clr Drug Dosing mL/min Estimated GFR (MDRD) ml/min Glucose (74-106) mg/dL Hemoglobin A1c 8.6 H (4.5-6.2) % Calcium (8.5-10.1) mg/dL Total Bilirubin (0.2-1.0) mg/dL AST (15-37) IU/L ALT (14-63) IU/L Alkaline Phosphatase (46-116) U/L Total Protein (6.4-8.2) g/dL Albumin (3.4-5.0) g/dL Globulin (2.6-4.0) g/dL Albumin/Globulin Ratio (0.9-1.6) Lipase (73-393) U/L Ethyl Alcohol mg/dL Meds: Medications Generic Name Dose Route Start Last Admin Trade Name Freq PRN Reason Stop Dose Admin Acetaminophen 650 mg 12/27/18 10:48 12/27/18 18:02 Tylenol PO 650 mg Q4H PRN Administration Pain (Mild 1-3)/fever Docusate Sodium 100 mg 12/27/18 10:48 Colace PO BID PRN Constipation Heparin Sodium (Porcine) 5,000 units 12/27/18 11:00 12/27/18 18:04 Heparin Sodium SUBCUT 5,000 units Q8H [facility] Administration Sodium Chloride 1,000 mls @ 175 mls/hr 12/27/18 11:00 12/27/18 17:56 Normal Saline IV 175 mls/hr Q6H [facility] Administration Insulin Aspart 0 unit 12/27/18 11:30 12/27/18 18:10 Novolog SUBCUT 4 units TIDAC [facility] Administration Protocol Insulin Glargine 25 units 12/27/18 11:30 12/27/18 21:51 Lantus Solostar SUBCUT 25 units ACBED [facility] Administration Ketorolac Tromethamine 30 mg 12/27/18 10:48 12/27/18 16:12 Toradol IV 12/31/18 10:49 30 mg Q6H PRN Administration Pain (moderate 4-6) Nicotine 14 mg 12/27/18 11:00 12/27/18 12:34 Habitrol TRDERM 14 mg DAILY [facility] Administration Ondansetron HCl 4 mg 12/27/18 11:00 12/27/18 18:04 Zofran IVPUSH 4 mg Q4H [facility] Administration Temazepam 15 mg 12/27/18 10:48 Restoril PO BEDTIME PRN Sleep Discontinued Medications Generic Name Dose Route Start Last Admin Trade Name Freq PRN Reason Stop Dose Admin Sodium Chloride 2,000 mls @ 999 mls/hr 12/27/18 07:53 12/27/18 08:04 Normal Saline IV 12/27/18 09:53 999 mls/hr STAT ONE Administration Insulin Aspart 10 unit 12/27/18 12:40 12/27/18 12:52 Novolog SUBCUT 12/27/18 12:41 10 units ONETIME ONE Administration Ketorolac Tromethamine 30 mg 12/27/18 10:26 12/27/18 10:40 Toradol IVPUSH 12/27/18 10:27 30 mg ONETIME ONE Administration Ondansetron HCl 4 mg 12/27/18 07:53 12/27/18 08:05 Zofran IVPUSH 12/27/18 07:54 4 mg ONETIME ONE Administration Departure - Departure Time of Disposition: 22:12 Disposition: Admitted As Inpatient 67 Clinical Impression: DM type 1 (diabetes mellitus, type 1) Qualifiers: Diabetes mellitus complication status: with ketoacidosis Diabetes mellitus complication detail: without coma Qualified Code(s): E10.10 - Type 1 diabetes mellitus with ketoacidosis without coma Abdominal pain Qualifiers: Abdominal location: generalized Qualified Code(s): R10.84 - Generalized abdominal pain - Discharge Information - My Orders Last 24 Hours: My Active Orders 12/27/18 07:50 EKG Documentation Completion [RC] STAT Pulse Oximetry [RC] ASDIRECTED 12/27/18 07:51 Blood Culture x2 Reflex Set [OM.PC] Stat 12/27/18 08:20 CULTURE BLOOD [BC] Stat 12/27/18 08:31 CULTURE BLOOD [BC] Stat 12/27/18 10:27 Patient Status [ADT] Stat - Assessment/Plan Last 24 Hours: My Active Orders 12/27/18 07:50 EKG Documentation Completion [RC] STAT Pulse Oximetry [RC] ASDIRECTED 12/27/18 07:51 Blood Culture x2 Reflex Set [OM.PC] Stat 12/27/18 08:20 CULTURE BLOOD [BC] Stat 12/27/18 08:31 CULTURE BLOOD [BC] Stat 12/27/18 10:27 Patient Status [ADT] Stat
[2018-12-27 08:31] LABS: CHLORIDE,CL 89 mmol/L (98-107); SODIUM,NA 133 mmol/L (136-148)
--- NOTE | 2018-12-27 09:57 | CR ---
Indication: Pain. Shortness of breath. Technique: A single AP portable view of the chest was obtained. Comparison: None Findings: The heart is normal in size. The lungs are clear. No infiltrate, pleural effusion, or pneumothorax is identified. Impression: No acute cardiopulmonary process. Dictated by Kaylene Vega MD @ Dec 27 2018 9:54AM Signed by Dr. Kaylene Vega @ Dec 27 2018 9:55AM
--- NOTE | 2018-12-27 10:12 | CT ---
Indication: Right upper quadrant pain. Nausea. Technique: Multiple contiguous axial images were obtained from the lung bases through the symphysis pubis without intravenous contrast enhancement. Please note that all CT scans at this facility use dose modulation, iterative reconstruction, and/or weight-based dosing when appropriate to reduce radiation dose to as low as reasonably achievable. Comparison: None Findings: The lung bases are clear. The heart is normal in size. Mild diffuse fatty infiltration of the liver is identified. The gallbladder, spleen, pancreas, adrenals, and kidneys are normal. No intrahepatic biliary ductal dilatation is identified. No hydronephrosis is seen. Minimal fat stranding of the mesentery just inferior to the level of the transverse colon is identified in the right upper quadrant. In the pelvis, the urinary bladder is normal. The prostate gland is normal. The small and large bowel are normal in caliber. Postsurgical changes of an appendectomy are identified. No free air free fluid is identified within the abdomen or pelvis. No lytic or blastic lesions are identified within the spine. Impression: Diffuse fatty infiltration of the liver. Mild fatty infiltration of the mesentery just inferior to the level of the transverse colon in the right upper quadrant, of uncertain chronicity and etiology. This is nonspecific. No hydronephrosis or hydroureter. Postsurgical changes of appendectomy. Please note that all CT scans at this facility use dose modulation, iterative reconstruction, and/or weight-based dosing when appropriate to reduce radiation dose to as low as reasonably achievable. Dictated by Kaylene Vega MD @ Dec 27 2018 10:06AM Signed by Dr. Kaylene Vega @ Dec 27 2018 10:10AM
[2018-12-27] MEDS ORDERED: Ketorolac 30 MG/ML SDV IVPUSH ONE (10:26)
[2018-12-27] MEDS ORDERED: Temazepam 15 MG Cap PO PRN (10:48)
[2018-12-27] MEDS ORDERED: Docusate Sodium 100 MG Cap PO PRN (10:48)
--- NOTE | 2018-12-27 10:54 | PCM.HP.2 ---
H&P History of Present Illness - General Date of Service: 12/27/18 Admit Problem/Dx: Admission Diagnosis/Problem Admission Diagnosis/Problem Abdominal pain, nausea and vomiting, diabetes mellitus type 1 Source of Information: Patient History Limitations: Reports: No Limitations - History of Present Illness Initial Comments - Free Text/Narative: The patient is a 33-year-old gentleman who had presented to the emergency department with pain in right lower quadrant of his abdomen along with severe nausea and vomiting with dehydration. The patient also is a type I diabetic and has been using insulin for years. The patient has been somewhat vague in his answers. He said that he checked his blood sugars yesterday and said that they were high. The patient says that the pain is not radiating. He has described it as sharp and stabbing. The patient also has had intractable vomiting of bilious material. The patient says that he has a history of DKA but that was many years ago. The patient has denied any fever or chills. He also has been complaining of severe migraine headache. Also complaining of photophobia. Onset of Symptoms: Reports: Gradual Duration of Symptoms: Reports: Day(s): Location: Reports: Abdomen Quality: Reports: Stabbing, Throbbing Severity: Severe Improves with: Reports: Medication, Rest Worsens with: Reports: Eating Associated Symptoms: Reports: Headaches, Nausea/Vomiting RUQ pain Pain Score (Numeric/FACES): 10 - Related Data Allergies/Adverse Reactions: Allergies Allergy/AdvReac Type Severity Reaction Status Date / Time No Known Allergies Allergy Verified 03/16/18 08:31 Home Medications: Home Meds Insulin Aspart [NovoLOG] See Protocol SUBCUT TIDAC #1 box 05/10/17 [Rx] Insulin Glarg,Human.Rec.Analog [LantUS Solostar] 25 units SUBCUT DAILY 08/17/17 [History] Past Medical History HEENT History: Reports: None Cardiovascular History: Reports: None Respiratory History: Reports: None Gastrointestinal History: Reports: Pancreatitis Genitourinary History: Reports: None Musculoskeletal History: Reports: Back Pain, Chronic, Other (See Below) Other Musculoskeletal History: had a sport accident when he was on early Neurological History: Reports: None Psychiatric History: Reports: None Endocrine/Metabolic History: Reports: Diabetes, Type I Hematologic History: Reports: None Immunologic History: Reports: None Oncologic (Cancer) History: Reports: None Dermatologic History: Reports: None - Infectious Disease History Infectious Disease History: Reports: Chicken Pox - Past Surgical History GI Surgical History: Reports: Appendectomy Endocrine Surgical History: Reports: None Social & Family History - Family History Family Medical History: Noncontributory - Tobacco Use Smoking Status *Q: Never Smoker - Caffeine Use Caffeine Use: Reports: Coffee, Energy Drinks, Soda - Alcohol Use Date of Last Drink: 12/26/18 Time of Last Drink: 21:00 - Living Situation & Occupation Occupation: Employed H&P Review of Systems - Review of Systems: Review Of Systems: See Below General: Reports: Weakness HEENT: Reports: Headaches Pulmonary: Reports: No Symptoms Cardiovascular: Reports: No Symptoms Gastrointestinal: Reports: Abdominal Pain, Nausea, Vomiting Genitourinary: Reports: No Symptoms Musculoskeletal: Reports: No Symptoms Skin: Reports: No Symptoms Psychiatric: Reports: No Symptoms Neurological: Reports: No Symptoms Hematologic/Lymphatic: Reports: No Symptoms Immunologic: Reports: No Symptoms Exam - Exam Exam: See Below - Vital Signs Vital Signs: Last Vital Signs Temp 36.5 C 12/27/18 10:40 Pulse 133 H 12/27/18 10:40 Resp 20 12/27/18 10:40 BP 109/49 L 12/27/18 10:40 Pulse Ox 100 12/27/18 10:40 Weight: 65.771 kg - Exam Quality Assessment: No: Supplemental Oxygen General: Alert, Oriented, Cooperative, Moderate Distress HEENT: EACs Clear, EOMI, Hearing Intact, Nares Patent, PERRLA. No: Conjunctiva Clear (Inflamed), Mucosa Moist & Maloy (Dry) Neck: Supple, Trachea Midline Lungs: Clear to Auscultation, Normal Respiratory Effort Cardiovascular: Regular Rhythm, Tachycardia GI/Abdominal Exam: Normal Bowel Sounds, Soft, No Distention, Tender ( Predominantly right side, exquisite, light palpation). No: Guarding, Rigid, Rebound Back Exam: Normal Inspection, Full Range of Motion Extremities: Normal Inspection, No Pedal Edema Skin: Warm, Dry, Intact Neurological: Cranial Nerves Intact Neuro Extensive - Mental Status: Alert, Oriented x3 Psychiatric: Alert, Normal Affect, Normal Mood - Patient Data Lab Results Last 24 hrs: Laboratory Results - last 24 hr 08/17/19 08/17/19 08/17/19 Range/Units 08:02 08:02 08:02 WBC 12.48 H (4.0-11.0) K/uL RBC 5.11 (4.50-5.90) M/uL Hgb 17.1 H (13.0-17.0) g/dL Hct 47.7 (38.0-50.0) % MCV 93.3 (80.0-98.0) fL MCH 33.5 H (27.0-32.0) pg MCHC 35.8 (31.0-37.0) g/dL RDW Std Deviation 42.7 (28.0-62.0) fl RDW Coeff of Macario 13 (11.0-15.0) % Plt Count 234 (150-400) K/uL MPV 9.80 (7.40-12.00) fL Neut % (Auto) 73.8 (48.0-80.0) % Lymph % (Auto) 16.9 (16.0-40.0) % Wharton % (Auto) 6.8 (0.0-15.0) % Eos % (Auto) 1.8 (0.0-7.0) % Baso % (Auto) 0.7 (0.0-1.5) % Neut # (Auto) 9.2 H (1.4-5.7) K/uL Lymph # (Auto) 2.1 (0.6-2.4) K/uL Wharton # (Auto) 0.9 H (0.0-0.8) K/uL Eos # (Auto) 0.2 (0.0-0.7) K/uL Baso # (Auto) 0.1 (0.0-0.1) K/uL Nucleated RBC % 0.0 /100WBC Nucleated RBCs # 0 K/uL INR 0.95 ABG pH (7.35-7.45) ABG pCO2 (35-45) mmHG ABG pO2 (75-100) mmHG ABG HCO3 (22-26) mEq/L ABG Total CO2 ABG Base Excess (-2.0-2.0) Sodium 133 L (136-148) mmol/L Potassium 5.0 (3.5-5.1) mmol/L Chloride 89 L (98-107) mmol/L Carbon Dioxide 15.3 L (21.0-32.0) mmol/L BUN 17 (7.0-18.0) mg/dL Creatinine 1.3 (0.8-1.3) mg/dL Est Cr Clr Drug Dosing 75.89 mL/min Estimated GFR (MDRD) > 60.0 ml/min Glucose 448 H (74-106) mg/dL Calcium 12.7 H (8.5-10.1) mg/dL Total Bilirubin 1.2 H (0.2-1.0) mg/dL AST 35 (15-37) IU/L ALT 30 (14-63) IU/L Alkaline Phosphatase 127 H (46-116) U/L Total Protein 7.8 (6.4-8.2) g/dL Albumin 4.5 (3.4-5.0) g/dL Globulin 3.3 (2.6-4.0) g/dL Albumin/Globulin Ratio 1.4 (0.9-1.6) Lipase 43 L (73-393) U/L Ethyl Alcohol <3 mg/dL 12/27/18 Range/Units 08:05 WBC (4.0-11.0) K/uL RBC (4.50-5.90) M/uL Hgb (13.0-17.0) g/dL Hct (38.0-50.0) % MCV (80.0-98.0) fL MCH (27.0-32.0) pg MCHC (31.0-37.0) g/dL RDW Std Deviation (28.0-62.0) fl RDW Coeff of Macario (11.0-15.0) % Plt Count (150-400) K/uL MPV (7.40-12.00) fL Neut % (Auto) (48.0-80.0) % Lymph % (Auto) (16.0-40.0) % Wharton % (Auto) (0.0-15.0) % Eos % (Auto) (0.0-7.0) % Baso % (Auto) (0.0-1.5) % Neut # (Auto) (1.4-5.7) K/uL Lymph # (Auto) (0.6-2.4) K/uL Wharton # (Auto) (0.0-0.8) K/uL Eos # (Auto) (0.0-0.7) K/uL Baso # (Auto) (0.0-0.1) K/uL Nucleated RBC % /100WBC Nucleated RBCs # K/uL INR ABG pH 7.368 (7.35-7.45) ABG pCO2 19 L (35-45) mmHG ABG pO2 116 H (75-100) mmHG ABG HCO3 11 L (22-26) mEq/L ABG Total CO2 9.6 ABG Base Excess -11.2 L (-2.0-2.0) Sodium (136-148) mmol/L Potassium (3.5-5.1) mmol/L Chloride (98-107) mmol/L Carbon Dioxide (21.0-32.0) mmol/L BUN (7.0-18.0) mg/dL Creatinine (0.8-1.3) mg/dL Est Cr Clr Drug Dosing mL/min Estimated GFR (MDRD) ml/min Glucose (74-106) mg/dL Calcium (8.5-10.1) mg/dL Total Bilirubin (0.2-1.0) mg/dL AST (15-37) IU/L ALT (14-63) IU/L Alkaline Phosphatase (46-116) U/L Total Protein (6.4-8.2) g/dL Albumin (3.4-5.0) g/dL Globulin (2.6-4.0) g/dL Albumin/Globulin Ratio (0.9-1.6) Lipase (73-393) U/L Ethyl Alcohol mg/dL Result Diagrams: 12/27/18 08:02 12/27/18 08:02 Kavin Results Last 24 hrs: Microbiology 12/27/18 08:31 Anaerobic Blood Culture - Final Blood - Venous - Lab Draw 12/27/18 08:20 Anaerobic Blood Culture - Final Blood - Venous - Problem List (1) Abdominal pain SNOMED Code(s): 18087741 ICD Code: R10.9 - UNSPECIFIED ABDOMINAL PAIN Status: Acute Priority: High Current Visit: Yes Qualifiers: Abdominal location: generalized Qualified Code(s): R10.84 - Generalized abdominal pain (2) Intractable nausea and vomiting SNOMED Code(s): 390932404 ICD Code: R11.2 - NAUSEA WITH VOMITING, UNSPECIFIED Status: Acute Priority: High Current Visit: Yes Qualifiers: Vomiting type: unspecified Qualified Code(s): R11.2 - Nausea with vomiting , unspecified (3) Hyperglycemia due to type 1 diabetes mellitus SNOMED Code(s): 624905603642417, 295276064174974 ICD Code: E10.65 - TYPE 1 DIABETES MELLITUS WITH HYPERGLYCEMIA Status: Chronic Priority: High Current Visit: Yes (4) DM type 1 (diabetes mellitus, type 1) SNOMED Code(s): 45621169 ICD Code: E10.9 - TYPE 1 DIABETES MELLITUS WITHOUT COMPLICATIONS Status: Chronic Priority: High Current Visit: Yes Qualifiers: Diabetes mellitus complication status: with ketoacidosis Diabetes mellitus complication detail: without coma Qualified Code(s): E10.10 - Type 1 diabetes mellitus with ketoacidosis without coma Problem List Initiated/Reviewed/Updated: Yes Orders Last 24hrs: Active Orders 24 hr Category Date Time Status Patient Status [ADT] Stat ADT 12/27/18 10:27 Active Blood Glucose Check, Bedside [RC] TIDAC Care 12/27/18 10:48 Ordered Blood Glucose Check, Bedside [RC] TIDMEALS Care 12/27/18 10:48 Ordered Diabetes Education [RC] Click to Edit Care 12/27/18 10:49 Ordered EKG Documentation Completion [RC] STAT Care 12/27/18 07:50 Active Oxygen Therapy [RC] PRN Care 12/27/18 10:48 Ordered Pulse Oximetry [RC] ASDIRECTED Care 12/27/18 07:50 Active Up ad Mandy [RC] ASDIRECTED Care 12/27/18 10:48 Ordered VTE/DVT Education [RC] PER UNIT ROUTINE Care 12/27/18 10:48 Ordered Vital Signs [RC] Q4H Care 12/27/18 10:48 Ordered Consult to Diabetic Nurse Specialist [CONS] Routine Cons 12/27/18 10:48 Ordered Clear Liquid Diet [DIET] Diet 12/27/18 Lunch Ordered CBC WITH AUTO DIFF [HEME] AM Lab 12/28/18 05:11 Ordered COMPREHENSIVE METABOLIC PN,CMP [CHEM] AM Lab 12/28/18 05:11 Ordered CULTURE BLOOD [BC] Stat Lab 12/27/18 08:20 Results CULTURE BLOOD [BC] Stat Lab 12/27/18 08:31 Results DRUG SCREEN, URINE [URCHEM] Stat Lab 12/27/18 07:52 Ordered GLYCOSYLATED HEMOGLOBIN,HGBA1C [CHEM] Stat Lab 12/27/18 10:48 Ordered UA RFX KAVIN AND CULT IF INDIC [URIN] Stat Lab 12/27/18 07:51 Ordered Acetaminophen [Tylenol] Med 12/27/18 10:48 Ordered 650 mg PO Q4H PRN Docusate Sodium [Colace] Med 12/27/18 10:48 Ordered 100 mg PO BID PRN Heparin Sodium Med 12/27/18 11:00 Ordered 5,000 units SUBCUT Q8H Insulin Aspart [NovoLOG] Med 12/27/18 11:30 Ordered See Protocol SUBCUT TIDAC Insulin Glarg,Human.Rec.Analog [LantUS Solostar] Med 12/27/18 11:30 Ordered 25 units SUBCUT ACBED Ketorolac [Toradol] Med 12/27/18 10:48 Ordered 30 mg IV Q6H PRN Nicotine [Habitrol] Med 12/27/18 11:00 Ordered 14 mg TRDERM DAILY Ondansetron [Zofran] Med 12/27/18 11:00 Ordered 4 mg IVPUSH Q4H Sodium Chloride 0.9% [Normal Saline] 1,000 ml Med 12/27/18 11:00 Ordered IV ASDIRECTED Temazepam [Restoril] Med 12/27/18 10:48 Ordered 15 mg PO BEDTIME PRN Blood Culture x2 Reflex Set [OM.PC] Stat Oth 12/27/18 07:51 Ordered Glucose Management Sub Q Reflex [OM.PC] Click To Edit Oth 12/27/18 10:48 Ordered Resuscitation Status Routine Resus Stat 12/27/18 10:48 Ordered Assessment/Plan Comment:: The patient is a 33-year-old gentleman who had been admitted secondary to dehydration, nausea and vomiting as well as severe abdominal pain. CT scan obtained of the patient's abdomen did not show specific cause for his excruciating abdominal pain. The patient will be kept on clear liquid diet for now. He can also have ice chips. Because of the patient's dehydration he can have normal saline at 175 mL per hour. The patient's pain will be controlled with the use of ketorolac 30 mg IV every 6 hours. The patient also says that he has a migraine headache but dehydration may be playing a part of this. This should resolve with fluid resuscitation. The patient will have Zofran 4 mg IV every 6 hours as needed for nausea and vomiting. I've also ordered hemoglobin A1c and he has been referred to sign out clerk. The patient should be appropriate for discharge in 1-2 days depending upon his symptoms and findings. - Mortality Measure Prognosis:: Good
[2018-12-27 11:18] LABS: HEMOGLOBIN A1C 8.6 % (4.5-6.2)
[2018-12-27] MEDS: Sodium Chloride 0.9% 1,000 ML IV SCH ×3 (11:59→23:46)
[2018-12-27] MEDS: Nicotine 14 MG/24 Hr Patch TRDERM SCH (12:34)
[2018-12-27] MEDS: Ondansetron 4 MG/2 ML SDV IVPUSH SCH ×4 (12:36→22:49)
[2018-12-27] MEDS ORDERED: Insulin Aspart 100 Units/ML 3 ML Pen SUBCUT ONE (12:40)
[2018-12-27] MEDS: Insulin Glargine,Human Rec. Analog 100 Units/ML 3 ML Pen SUBCUT SCH ×3 (12:41→21:51)
[2018-12-27] MEDS: Insulin Aspart 100 Units/ML 3 ML Pen SUBCUT SCH ×2 (12:51→18:10)
[2018-12-27] MEDS: Heparin Sodium 5,000 Units/ML Vial SUBCUT SCH ×2 (12:54→18:04)
[2018-12-27] MEDS: Acetaminophen 325 MG Tab PO PRN ×3 (13:01→22:49)
[2018-12-27] MEDS: Ketorolac 30 MG/ML SDV IV PRN ×2 (16:12→22:47)
[2018-12-28] MEDS: Heparin Sodium 5,000 Units/ML Vial SUBCUT SCH ×2 (03:43→10:17)
[2018-12-28] MEDS: Ondansetron 4 MG/2 ML SDV IVPUSH SCH ×3 (03:43→10:17)
[2018-12-28] MEDS: Sodium Chloride 0.9% 1,000 ML IV SCH ×2 (05:26→13:17)
[2018-12-28 06:36] LABS: CHLORIDE,CL 106 mmol/L (98-107); SODIUM,NA 138 mmol/L (136-148)
[2018-12-28] MEDS ORDERED: Sodium Chloride 0.9% 1,000 ML IV ONE (08:01)
[2018-12-28] MEDS: Nicotine 14 MG/24 Hr Patch TRDERM SCH (08:35)
[2018-12-28] MEDS: Insulin Glargine,Human Rec. Analog 100 Units/ML 3 ML Pen SUBCUT SCH (09:45)
[2018-12-28] MEDS: Insulin Aspart 100 Units/ML 3 ML Pen SUBCUT SCH (09:48)
[2018-12-28] MEDS ORDERED: Sodium Chloride 0.9% 1,000 ML IV STA (09:49)
[2018-12-28] MEDS: Ketorolac 30 MG/ML SDV IV PRN (09:54)
--- NOTE | 2018-12-28 10:14 | PCM.DCSUM1 ---
<Marco Villanueva - Last Filed: 12/28/18 10:22> Discharge Summary - Hospital Course Free Text/Narrative:: 33 y/o male with history of type 1 diabetes who presented to the ER complaining of nausea, abdominal pain. Found to be hyperglycemic in 400's and dehydrated. CT abdomen did not show any acute process to explain his abdominal pain. Urine drug screen was positive for cocaine which he denies taking. Patient was aggressively hydrated with NS and treated with insulin sliding scale. He improved overnight and he was discharged home with instruction to follow-up with his PCP and abstain from any alcohol or mood altering substances. - Discharge Data Discharge Date: 12/28/18 Discharge Disposition: Home, Self-Care 01 Condition: Fair - Patient Summary/Data Consults: Consultations 12/27/18 10:48 Consult to Diabetic Nurse Specialist [CONS] Routine - Patient Instructions Diet: Regular Diet as Tolerated, Drink 8-10+ Glasses/Day Activity: As Tolerated Notify Provider of: Fever, Increased Pain, Swelling and Redness, Nausea and/or Vomiting Other/Special Instructions: Abstain from alcohol and any mood altering substances. - Discharge Plan *PRESCRIPTION DRUG MONITORING PROGRAM REVIEWED*: Not Applicable *COPY OF PRESCRIPTION DRUG MONITORING REPORT IN PATIENT JAMMIE: Not Applicable Home Medications: Home Meds Insulin Aspart [NovoLOG] See Protocol SUBCUT TIDAC #1 box 05/10/17 [Rx] Insulin Glarg,Human.Rec.Analog [LantUS Solostar] 25 units SUBCUT QAM 08/17/17 [ History] Forms: ED Department Discharge Referrals: PCP,None [Primary Care Provider] - - Discharge Summary/Plan Comment DC Time >30 min.: No - Patient Data Vitals - Most Recent: Last Vital Signs Temp 36.4 C 12/28/18 08:00 Pulse 74 12/28/18 08:00 Resp 16 12/28/18 08:00 BP 90/62 12/28/18 08:00 Pulse Ox 98 12/28/18 08:00 Weight - Most Recent: 60.328 kg I&O - Last 24 hours: Intake & Output 12/27/18 12/28/18 12/28/18 22:59 06:59 14:59 Intake Total 3000 3898 Output Total 1900 575 Balance 1100 3323 Lab Results - Last 24 hrs: Laboratory Results - last 24 hr 12/27/18 12/27/18 12/27/18 Range/Units 08:02 12:21 16:15 WBC (4.0-11.0) K/uL RBC (4.50-5.90) M/uL Hgb (13.0-17.0) g/dL Hct (38.0-50.0) % MCV (80.0-98.0) fL MCH (27.0-32.0) pg MCHC (31.0-37.0) g/dL RDW Std Deviation (28.0-62.0) fl RDW Coeff of Macario (11.0-15.0) % Plt Count (150-400) K/uL MPV (7.40-12.00) fL Neut % (Auto) (48.0-80.0) % Lymph % (Auto) (16.0-40.0) % Randall % (Auto) (0.0-15.0) % Eos % (Auto) (0.0-7.0) % Baso % (Auto) (0.0-1.5) % Neut # (Auto) (1.4-5.7) K/uL Lymph # (Auto) (0.6-2.4) K/uL Randall # (Auto) (0.0-0.8) K/uL Eos # (Auto) (0.0-0.7) K/uL Baso # (Auto) (0.0-0.1) K/uL Nucleated RBC % /100WBC Nucleated RBCs # K/uL Sodium (136-148) mmol/L Potassium (3.5-5.1) mmol/L Chloride (98-107) mmol/L Carbon Dioxide (21.0-32.0) mmol/L BUN (7.0-18.0) mg/dL Creatinine (0.8-1.3) mg/dL Est Cr Clr Drug Dosing mL/min Estimated GFR (MDRD) ml/min Glucose (74-106) mg/dL POC Glucose 467 H (60-110) mg/dL Hemoglobin A1c 8.6 H (4.5-6.2) % Calcium (8.5-10.1) mg/dL Total Bilirubin (0.2-1.0) mg/dL AST (15-37) IU/L ALT (14-63) IU/L Alkaline Phosphatase (46-116) U/L Total Protein (6.4-8.2) g/dL Albumin (3.4-5.0) g/dL Globulin (2.6-4.0) g/dL Albumin/Globulin Ratio (0.9-1.6) Urine Color YELLOW Urine Appearance CLEAR Urine pH 5.5 (5.0-8.0) Ur Specific [place] >= 1.030 (1.001-1.035) Urine Protein NEGATIVE (NEGATIVE) mg/dL Urine Glucose (UA) 500 H (NEGATIVE) mg/dL Urine Ketones >=80 (NEGATIVE) mg/dL Urine Occult Blood TRACE-LYSED H (NEGATIVE) Urine Nitrite NEGATIVE (NEGATIVE) Urine Bilirubin SMALL H (NEGATIVE) Urine Ictotest NEGATIVE Urine Urobilinogen 0.2 (<2.0) EU/dL Ur Leukocyte Esterase NEGATIVE (NEGATIVE) Urine RBC 0-1 (0-2/HPF) Urine WBC 0-1 (0-5/HPF) Ur Epithelial Cells RARE (NONE-FEW) Urine Bacteria RARE (NEGATIVE) Urine Opiates Screen (NEGATIVE) Ur Oxycodone Screen (NEGATIVE) Urine Methadone Screen (NEGATIVE) Ur Barbiturates Screen (NEGATIVE) Ur Phencyclidine Scrn (NEGATIVE) Ur Amphetamine Screen (NEGATIVE) U Methamphetamines Scrn (NEGATIVE) U Benzodiazepines Scrn (NEGATIVE) U Cocaine Metab Screen (NEGATIVE) U Marijuana (THC) Screen (NEGATIVE) 12/27/18 12/27/18 12/27/18 Range/Units 16:15 17:14 21:38 WBC (4.0-11.0) K/uL RBC (4.50-5.90) M/uL Hgb (13.0-17.0) g/dL Hct (38.0-50.0) % MCV (80.0-98.0) fL MCH (27.0-32.0) pg MCHC (31.0-37.0) g/dL RDW Std Deviation (28.0-62.0) fl RDW Coeff of Macario (11.0-15.0) % Plt Count (150-400) K/uL MPV (7.40-12.00) fL Neut % (Auto) (48.0-80.0) % Lymph % (Auto) (16.0-40.0) % Randall % (Auto) (0.0-15.0) % Eos % (Auto) (0.0-7.0) % Baso % (Auto) (0.0-1.5) % Neut # (Auto) (1.4-5.7) K/uL Lymph # (Auto) (0.6-2.4) K/uL Randall # (Auto) (0.0-0.8) K/uL Eos # (Auto) (0.0-0.7) K/uL Baso # (Auto) (0.0-0.1) K/uL Nucleated RBC % /100WBC Nucleated RBCs # K/uL Sodium (136-148) mmol/L Potassium (3.5-5.1) mmol/L Chloride (98-107) mmol/L Carbon Dioxide (21.0-32.0) mmol/L BUN (7.0-18.0) mg/dL Creatinine (0.8-1.3) mg/dL Est Cr Clr Drug Dosing mL/min Estimated GFR (MDRD) ml/min Glucose (74-106) mg/dL POC Glucose 223 H 193 H (60-110) mg/dL Hemoglobin A1c (4.5-6.2) % Calcium (8.5-10.1) mg/dL Total Bilirubin (0.2-1.0) mg/dL AST (15-37) IU/L ALT (14-63) IU/L Alkaline Phosphatase (46-116) U/L Total Protein (6.4-8.2) g/dL Albumin (3.4-5.0) g/dL Globulin (2.6-4.0) g/dL Albumin/Globulin Ratio (0.9-1.6) Urine Color Urine Appearance Urine pH (5.0-8.0) Ur Specific Troy (1.001-1.035) Urine Protein (NEGATIVE) mg/dL Urine Glucose (UA) (NEGATIVE) mg/dL Urine Ketones (NEGATIVE) mg/dL Urine Occult Blood (NEGATIVE) Urine Nitrite (NEGATIVE) Urine Bilirubin (NEGATIVE) Urine Ictotest Urine Urobilinogen (<2.0) EU/dL Ur Leukocyte Esterase (NEGATIVE) Urine RBC (0-2/HPF) Urine WBC (0-5/HPF) Ur Epithelial Cells (NONE-FEW) Urine Bacteria (NEGATIVE) Urine Opiates Screen NEGATIVE (NEGATIVE) Ur Oxycodone Screen NEGATIVE (NEGATIVE) Urine Methadone Screen NEGATIVE (NEGATIVE) Ur Barbiturates Screen NEGATIVE (NEGATIVE) Ur Phencyclidine Scrn NEGATIVE (NEGATIVE) Ur Amphetamine Screen NEGATIVE (NEGATIVE) U Methamphetamines Scrn NEGATIVE (NEGATIVE) U Benzodiazepines Scrn NEGATIVE (NEGATIVE) U Cocaine Metab Screen POSITIVE (NEGATIVE) U Marijuana (THC) Screen NEGATIVE (NEGATIVE) 12/28/18 12/28/18 12/28/18 Range/Units 05:50 05:50 06:30 WBC 7.68 (4.0-11.0) K/uL RBC 4.11 L (4.50-5.90) M/uL Hgb 13.3 (13.0-17.0) g/dL Hct 38.5 (38.0-50.0) % MCV 93.7 (80.0-98.0) fL MCH 32.4 H (27.0-32.0) pg MCHC 34.5 (31.0-37.0) g/dL RDW Std Deviation 42.8 (28.0-62.0) fl RDW Coeff of Macario 13 (11.0-15.0) % Plt Count 141 L (150-400) K/uL MPV 9.30 (7.40-12.00) fL Neut % (Auto) 59.5 (48.0-80.0) % Lymph % (Auto) 30.5 (16.0-40.0) % Randall % (Auto) 7.6 (0.0-15.0) % Eos % (Auto) 2.0 (0.0-7.0) % Baso % (Auto) 0.4 (0.0-1.5) % Neut # (Auto) 4.6 (1.4-5.7) K/uL Lymph # (Auto) 2.3 (0.6-2.4) K/uL Randall # (Auto) 0.6 (0.0-0.8) K/uL Eos # (Auto) 0.2 (0.0-0.7) K/uL Baso # (Auto) 0.0 (0.0-0.1) K/uL Nucleated RBC % 0.0 /100WBC Nucleated RBCs # 0 K/uL Sodium 138 (136-148) mmol/L Potassium 4.0 (3.5-5.1) mmol/L Chloride 106 (98-107) mmol/L Carbon Dioxide 20.3 L (21.0-32.0) mmol/L BUN 15 (7.0-18.0) mg/dL Creatinine 1.3 (0.8-1.3) mg/dL Est Cr Clr Drug Dosing 69.61 mL/min Estimated GFR (MDRD) > 60.0 ml/min Glucose 225 H (74-106) mg/dL POC Glucose 201 H (60-110) mg/dL Hemoglobin A1c (4.5-6.2) % Calcium 7.8 L (8.5-10.1) mg/dL Total Bilirubin 0.4 (0.2-1.0) mg/dL AST 15 (15-37) IU/L ALT 17 (14-63) IU/L Alkaline Phosphatase 73 (46-116) U/L Total Protein 4.8 L (6.4-8.2) g/dL Albumin 2.6 L (3.4-5.0) g/dL Globulin 2.2 L (2.6-4.0) g/dL Albumin/Globulin Ratio 1.2 (0.9-1.6) Urine Color Urine Appearance Urine pH (5.0-8.0) Ur Specific Troy (1.001-1.035) Urine Protein (NEGATIVE) mg/dL Urine Glucose (UA) (NEGATIVE) mg/dL Urine Ketones (NEGATIVE) mg/dL Urine Occult Blood (NEGATIVE) Urine Nitrite (NEGATIVE) Urine Bilirubin (NEGATIVE) Urine Ictotest Urine Urobilinogen (<2.0) EU/dL Ur Leukocyte Esterase (NEGATIVE) Urine RBC (0-2/HPF) Urine WBC (0-5/HPF) Ur Epithelial Cells (NONE-FEW) Urine Bacteria (NEGATIVE) Urine Opiates Screen (NEGATIVE) Ur Oxycodone Screen (NEGATIVE) Urine Methadone Screen (NEGATIVE) Ur Barbiturates Screen (NEGATIVE) Ur Phencyclidine Scrn (NEGATIVE) Ur Amphetamine Screen (NEGATIVE) U Methamphetamines Scrn (NEGATIVE) U Benzodiazepines Scrn (NEGATIVE) U Cocaine Metab Screen (NEGATIVE) U Marijuana (THC) Screen (NEGATIVE) DILAN Results - Last 24 hrs: Microbiology 12/27/18 08:31 Aerobic Blood Culture - Preliminary Blood - Venous - Lab Draw NO GROWTH AFTER 1 DAY Anaerobic Blood Culture - Final 12/27/18 08:20 Aerobic Blood Culture - Preliminary Blood - Venous NO GROWTH AFTER 1 DAY Anaerobic Blood Culture - Final Med Orders - Current: Current Medications Acetaminophen (Tylenol) 650 mg PO Q4H PRN PRN Reason: Pain (Mild 1-3)/fever Last Admin: 12/27/18 22:49 Dose: 650 mg Docusate Sodium (Colace) 100 mg PO BID PRN PRN Reason: Constipation Heparin Sodium (Porcine) (Heparin Sodium) 5,000 units SUBCUT Q8H [facility] Last Admin: 12/28/18 03:43 Dose: 5,000 units Sodium Chloride (Normal Saline) 1,000 mls @ 175 mls/hr IV Q6H [facility] Last Admin: 12/28/18 05:26 Dose: 175 mls/hr Sodium Chloride (Normal Saline) 1,000 mls @ 999 mls/hr IV NOW STA Stop: 12/28/18 10:49 Last Admin: 12/28/18 09:55 Dose: 999 mls/hr Insulin Aspart (Novolog) 0 unit SUBCUT TIDAC [facility]; Protocol Last Admin: 12/28/18 09:48 Dose: 4 units Insulin Glargine (Lantus Solostar) 25 units SUBCUT ACBED [facility] Last Admin: 12/28/18 09:45 Dose: 25 units Ketorolac Tromethamine (Toradol) 30 mg IV Q6H PRN PRN Reason: Pain (moderate 4-6) Stop: 12/31/18 10:49 Last Admin: 12/28/18 09:54 Dose: 30 mg Nicotine (Habitrol) 14 mg TRDERM DAILY [facility] Last Admin: 12/28/18 08:35 Dose: 14 mg Ondansetron HCl (Zofran) 4 mg IVPUSH Q4H [facility] Last Admin: 12/28/18 06:53 Dose: 4 mg Temazepam (Restoril) 15 mg PO BEDTIME PRN PRN Reason: Sleep Discontinued Medications Sodium Chloride (Normal Saline) 2,000 mls @ 999 mls/hr IV STAT ONE Stop: 12/27/18 09:53 Last Admin: 12/27/18 08:04 Dose: 999 mls/hr Sodium Chloride (Normal Saline) 1,000 mls @ 999 mls/hr IV .BOLUS ONE Stop: 12/28/18 09:01 Last Admin: 12/28/18 08:34 Dose: 999 mls/hr Insulin Aspart (Novolog) 10 unit SUBCUT ONETIME ONE Stop: 12/27/18 12:41 Last Admin: 12/27/18 12:52 Dose: 10 units Ketorolac Tromethamine (Toradol) 30 mg IVPUSH ONETIME ONE Stop: 12/27/18 10:27 Last Admin: 12/27/18 10:40 Dose: 30 mg Ondansetron HCl (Zofran) 4 mg IVPUSH ONETIME ONE Stop: 12/27/18 07:54 Last Admin: 12/27/18 08:05 Dose: 4 mg <AwaAlexis - Last Filed: 12/28/18 11:03> Discharge Summary - Hospital Course Free Text/Narrative:: I have examined the patient independently of medical record technician, Dr. George MD. I have discussed the case with him. I have reviewed and agree with the examination and plan as outlined by him. Please see orders. - Discharge Diagnosis/Problem(s) (1) Abdominal pain SNOMED Code(s): 12653729 ICD Code: R10.9 - UNSPECIFIED ABDOMINAL PAIN Status: Acute Priority: High Current Visit: Yes Qualifiers: Abdominal location: generalized Qualified Code(s): R10.84 - Generalized abdominal pain (2) Intractable nausea and vomiting SNOMED Code(s): 842794686 ICD Code: R11.2 - NAUSEA WITH VOMITING, UNSPECIFIED Status: Acute Priority: High Current Visit: Yes Qualifiers: Vomiting type: unspecified Qualified Code(s): R11.2 - Nausea with vomiting , unspecified (3) Hyperglycemia due to type 1 diabetes mellitus SNOMED Code(s): 801098826722027, 475164038781672 ICD Code: E10.65 - TYPE 1 DIABETES MELLITUS WITH HYPERGLYCEMIA Status: Chronic Priority: High Current Visit: Yes (4) DM type 1 (diabetes mellitus, type 1) SNOMED Code(s): 08752643 ICD Code: E10.9 - TYPE 1 DIABETES MELLITUS WITHOUT COMPLICATIONS Status: Chronic Priority: High Current Visit: Yes Qualifiers: Diabetes mellitus complication status: with ketoacidosis Diabetes mellitus complication detail: without coma Qualified Code(s): E10.10 - Type 1 diabetes mellitus with ketoacidosis without coma - Patient Summary/Data Consults: Consultations 12/27/18 10:48 Consult to Diabetic Nurse Specialist [CONS] Routine - Patient Data Vitals - Most Recent: Last Vital Signs Temp 36.4 C 12/28/18 08:00 Pulse 74 12/28/18 08:00 Resp 16 12/28/18 08:00 BP 90/62 12/28/18 08:00 Pulse Ox 98 12/28/18 08:00 I&O - Last 24 hours: Intake & Output 12/27/18 12/28/18 12/28/18 22:59 06:59 14:59 Intake Total 3000 3898 Output Total 1900 575 Balance 1100 3323 Lab Results - Last 24 hrs: Laboratory Results - last 24 hr 12/27/18 12/27/18 12/27/18 Range/Units 08:02 12:21 16:15 WBC (4.0-11.0) K/uL RBC (4.50-5.90) M/uL Hgb (13.0-17.0) g/dL Hct (38.0-50.0) % MCV (80.0-98.0) fL MCH (27.0-32.0) pg MCHC (31.0-37.0) g/dL RDW Std Deviation (28.0-62.0) fl RDW Coeff of Macario (11.0-15.0) % Plt Count (150-400) K/uL MPV (7.40-12.00) fL Neut % (Auto) (48.0-80.0) % Lymph % (Auto) (16.0-40.0) % Randall % (Auto) (0.0-15.0) % Eos % (Auto) (0.0-7.0) % Baso % (Auto) (0.0-1.5) % Neut # (Auto) (1.4-5.7) K/uL Lymph # (Auto) (0.6-2.4) K/uL Randall # (Auto) (0.0-0.8) K/uL Eos # (Auto) (0.0-0.7) K/uL Baso # (Auto) (0.0-0.1) K/uL Nucleated RBC % /100WBC Nucleated RBCs # K/uL Sodium (136-148) mmol/L Potassium (3.5-5.1) mmol/L Chloride (98-107) mmol/L Carbon Dioxide (21.0-32.0) mmol/L BUN (7.0-18.0) mg/dL Creatinine (0.8-1.3) mg/dL Est Cr Clr Drug Dosing mL/min Estimated GFR (MDRD) ml/min Glucose (74-106) mg/dL POC Glucose 467 H (60-110) mg/dL Hemoglobin A1c 8.6 H (4.5-6.2) % Calcium (8.5-10.1) mg/dL Total Bilirubin (0.2-1.0) mg/dL AST (15-37) IU/L ALT (14-63) IU/L Alkaline Phosphatase (46-116) U/L Total Protein (6.4-8.2) g/dL Albumin (3.4-5.0) g/dL Globulin (2.6-4.0) g/dL Albumin/Globulin Ratio (0.9-1.6) Urine Color YELLOW Urine Appearance CLEAR Urine pH 5.5 (5.0-8.0) Ur Specific [place] >= 1.030 (1.001-1.035) Urine Protein NEGATIVE (NEGATIVE) mg/dL Urine Glucose (UA) 500 H (NEGATIVE) mg/dL Urine Ketones >=80 (NEGATIVE) mg/dL Urine Occult Blood TRACE-LYSED H (NEGATIVE) Urine Nitrite NEGATIVE (NEGATIVE) Urine Bilirubin SMALL H (NEGATIVE) Urine Ictotest NEGATIVE Urine Urobilinogen 0.2 (<2.0) EU/dL Ur Leukocyte Esterase NEGATIVE (NEGATIVE) Urine RBC 0-1 (0-2/HPF) Urine WBC 0-1 (0-5/HPF) Ur Epithelial Cells RARE (NONE-FEW) Urine Bacteria RARE (NEGATIVE) Urine Opiates Screen (NEGATIVE) Ur Oxycodone Screen (NEGATIVE) Urine Methadone Screen (NEGATIVE) Ur Barbiturates Screen (NEGATIVE) Ur Phencyclidine Scrn (NEGATIVE) Ur Amphetamine Screen (NEGATIVE) U Methamphetamines Scrn (NEGATIVE) U Benzodiazepines Scrn (NEGATIVE) U Cocaine Metab Screen (NEGATIVE) U Marijuana (THC) Screen (NEGATIVE) 12/27/18 12/27/18 12/27/18 Range/Units 16:15 17:14 21:38 WBC (4.0-11.0) K/uL RBC (4.50-5.90) M/uL Hgb (13.0-17.0) g/dL Hct (38.0-50.0) % MCV (80.0-98.0) fL MCH (27.0-32.0) pg MCHC (31.0-37.0) g/dL RDW Std Deviation (28.0-62.0) fl RDW Coeff of Macario (11.0-15.0) % Plt Count (150-400) K/uL MPV (7.40-12.00) fL Neut % (Auto) (48.0-80.0) % Lymph % (Auto) (16.0-40.0) % Randall % (Auto) (0.0-15.0) % Eos % (Auto) (0.0-7.0) % Baso % (Auto) (0.0-1.5) % Neut # (Auto) (1.4-5.7) K/uL Lymph # (Auto) (0.6-2.4) K/uL Randall # (Auto) (0.0-0.8) K/uL Eos # (Auto) (0.0-0.7) K/uL Baso # (Auto) (0.0-0.1) K/uL Nucleated RBC % /100WBC Nucleated RBCs # K/uL Sodium (136-148) mmol/L Potassium (3.5-5.1) mmol/L Chloride (98-107) mmol/L Carbon Dioxide (21.0-32.0) mmol/L BUN (7.0-18.0) mg/dL Creatinine (0.8-1.3) mg/dL Est Cr Clr Drug Dosing mL/min Estimated GFR (MDRD) ml/min Glucose (74-106) mg/dL POC Glucose 223 H 193 H (60-110) mg/dL Hemoglobin A1c (4.5-6.2) % Calcium (8.5-10.1) mg/dL Total Bilirubin (0.2-1.0) mg/dL AST (15-37) IU/L ALT (14-63) IU/L Alkaline Phosphatase (46-116) U/L Total Protein (6.4-8.2) g/dL Albumin (3.4-5.0) g/dL Globulin (2.6-4.0) g/dL Albumin/Globulin Ratio (0.9-1.6) Urine Color Urine Appearance Urine pH (5.0-8.0) Ur Specific Troy (1.001-1.035) Urine Protein (NEGATIVE) mg/dL Urine Glucose (UA) (NEGATIVE) mg/dL Urine Ketones (NEGATIVE) mg/dL Urine Occult Blood (NEGATIVE) Urine Nitrite (NEGATIVE) Urine Bilirubin (NEGATIVE) Urine Ictotest Urine Urobilinogen (<2.0) EU/dL Ur Leukocyte Esterase (NEGATIVE) Urine RBC (0-2/HPF) Urine WBC (0-5/HPF) Ur Epithelial Cells (NONE-FEW) Urine Bacteria (NEGATIVE) Urine Opiates Screen NEGATIVE (NEGATIVE) Ur Oxycodone Screen NEGATIVE (NEGATIVE) Urine Methadone Screen NEGATIVE (NEGATIVE) Ur Barbiturates Screen NEGATIVE (NEGATIVE) Ur Phencyclidine Scrn NEGATIVE (NEGATIVE) Ur Amphetamine Screen NEGATIVE (NEGATIVE) U Methamphetamines Scrn NEGATIVE (NEGATIVE) U Benzodiazepines Scrn NEGATIVE (NEGATIVE) U Cocaine Metab Screen POSITIVE (NEGATIVE) U Marijuana (THC) Screen NEGATIVE (NEGATIVE) 12/28/18 12/28/18 12/28/18 Range/Units 05:50 05:50 06:30 WBC 7.68 (4.0-11.0) K/uL RBC 4.11 L (4.50-5.90) M/uL Hgb 13.3 (13.0-17.0) g/dL Hct 38.5 (38.0-50.0) % MCV 93.7 (80.0-98.0) fL MCH 32.4 H (27.0-32.0) pg MCHC 34.5 (31.0-37.0) g/dL RDW Std Deviation 42.8 (28.0-62.0) fl RDW Coeff of Macario 13 (11.0-15.0) % Plt Count 141 L (150-400) K/uL MPV 9.30 (7.40-12.00) fL Neut % (Auto) 59.5 (48.0-80.0) % Lymph % (Auto) 30.5 (16.0-40.0) % Randall % (Auto) 7.6 (0.0-15.0) % Eos % (Auto) 2.0 (0.0-7.0) % Baso % (Auto) 0.4 (0.0-1.5) % Neut # (Auto) 4.6 (1.4-5.7) K/uL Lymph # (Auto) 2.3 (0.6-2.4) K/uL Randall # (Auto) 0.6 (0.0-0.8) K/uL Eos # (Auto) 0.2 (0.0-0.7) K/uL Baso # (Auto) 0.0 (0.0-0.1) K/uL Nucleated RBC % 0.0 /100WBC Nucleated RBCs # 0 K/uL Sodium 138 (136-148) mmol/L Potassium 4.0 (3.5-5.1) mmol/L Chloride 106 (98-107) mmol/L Carbon Dioxide 20.3 L (21.0-32.0) mmol/L BUN 15 (7.0-18.0) mg/dL Creatinine 1.3 (0.8-1.3) mg/dL Est Cr Clr Drug Dosing 69.61 mL/min Estimated GFR (MDRD) > 60.0 ml/min Glucose 225 H (74-106) mg/dL POC Glucose 201 H (60-110) mg/dL Hemoglobin A1c (4.5-6.2) % Calcium 7.8 L (8.5-10.1) mg/dL Total Bilirubin 0.4 (0.2-1.0) mg/dL AST 15 (15-37) IU/L ALT 17 (14-63) IU/L Alkaline Phosphatase 73 (46-116) U/L Total Protein 4.8 L (6.4-8.2) g/dL Albumin 2.6 L (3.4-5.0) g/dL Globulin 2.2 L (2.6-4.0) g/dL Albumin/Globulin Ratio 1.2 (0.9-1.6) Urine Color Urine Appearance Urine pH (5.0-8.0) Ur Specific [place] (1.001-1.035) Urine Protein (NEGATIVE) mg/dL Urine Glucose (UA) (NEGATIVE) mg/dL Urine Ketones (NEGATIVE) mg/dL Urine Occult Blood (NEGATIVE) Urine Nitrite (NEGATIVE) Urine Bilirubin (NEGATIVE) Urine Ictotest Urine Urobilinogen (<2.0) EU/dL Ur Leukocyte Esterase (NEGATIVE) Urine RBC (0-2/HPF) Urine WBC (0-5/HPF) Ur Epithelial Cells (NONE-FEW) Urine Bacteria (NEGATIVE) Urine Opiates Screen (NEGATIVE) Ur Oxycodone Screen (NEGATIVE) Urine Methadone Screen (NEGATIVE) Ur Barbiturates Screen (NEGATIVE) Ur Phencyclidine Scrn (NEGATIVE) Ur Amphetamine Screen (NEGATIVE) U Methamphetamines Scrn (NEGATIVE) U Benzodiazepines Scrn (NEGATIVE) U Cocaine Metab Screen (NEGATIVE) U Marijuana (THC) Screen (NEGATIVE) DILAN Results - Last 24 hrs: Microbiology 12/27/18 08:31 Aerobic Blood Culture - Preliminary Blood - Venous - Lab Draw NO GROWTH AFTER 1 DAY Anaerobic Blood Culture - Final 12/27/18 08:20 Aerobic Blood Culture - Preliminary Blood - Venous NO GROWTH AFTER 1 DAY Anaerobic Blood Culture - Final Med Orders - Current: Current Medications Acetaminophen (Tylenol) 650 mg PO Q4H PRN PRN Reason: Pain (Mild 1-3)/fever Last Admin: 12/27/18 22:49 Dose: 650 mg Docusate Sodium (Colace) 100 mg PO BID PRN PRN Reason: Constipation Heparin Sodium (Porcine) (Heparin Sodium) 5,000 units SUBCUT Q8H [facility] Last Admin: 12/28/18 10:17 Dose: 5,000 units Sodium Chloride (Normal Saline) 1,000 mls @ 175 mls/hr IV Q6H [facility] Last Admin: 12/28/18 05:26 Dose: 175 mls/hr Insulin Aspart (Novolog) 0 unit SUBCUT TIDAC [facility]; Protocol Last Admin: 12/28/18 09:48 Dose: 4 units Insulin Glargine (Lantus Solostar) 25 units SUBCUT ACBED [facility] Last Admin: 12/28/18 09:45 Dose: 25 units Ketorolac Tromethamine (Toradol) 30 mg IV Q6H PRN PRN Reason: Pain (moderate 4-6) Stop: 12/31/18 10:49 Last Admin: 12/28/18 09:54 Dose: 30 mg Nicotine (Habitrol) 14 mg TRDERM DAILY [facility] Last Admin: 12/28/18 08:35 Dose: 14 mg Ondansetron HCl (Zofran) 4 mg IVPUSH Q4H [facility] Last Admin: 12/28/18 10:17 Dose: 4 mg Temazepam (Restoril) 15 mg PO BEDTIME PRN PRN Reason: Sleep Discontinued Medications Sodium Chloride (Normal Saline) 2,000 mls @ 999 mls/hr IV STAT ONE Stop: 12/27/18 09:53 Last Admin: 12/27/18 08:04 Dose: 999 mls/hr Sodium Chloride (Normal Saline) 1,000 mls @ 999 mls/hr IV .BOLUS ONE Stop: 12/28/18 09:01 Last Admin: 12/28/18 08:34 Dose: 999 mls/hr Sodium Chloride (Normal Saline) 1,000 mls @ 999 mls/hr IV NOW STA Stop: 12/28/18 10:49 Last Admin: 12/28/18 09:55 Dose: 999 mls/hr Insulin Aspart (Novolog) 10 unit SUBCUT ONETIME ONE Stop: 12/27/18 12:41 Last Admin: 12/27/18 12:52 Dose: 10 units Ketorolac Tromethamine (Toradol) 30 mg IVPUSH ONETIME ONE Stop: 12/27/18 10:27 Last Admin: 12/27/18 10:40 Dose: 30 mg Ondansetron HCl (Zofran) 4 mg IVPUSH ONETIME ONE Stop: 12/27/18 07:54 Last Admin: 12/27/18 08:05 Dose: 4 mg
== END 2018-12-28 12:05 | disposition home or self-care (01) ==
LOC: MW.ED 07:45 → MW.MS 10:27 → MW.ED 11:19 → MW.MS 11:19
PROVIDERS: ADMIT Internal Medicine; ATTEND Internal Medicine
DX: R10.84 Generalized abdominal pain (principal); R11.2 Nausea with vomiting, unspecified; R73.9 Hyperglycemia, unspecified; E10.65 Type 1 diabetes mellitus with hyperglycemia; E10.10 Type 1 diabetes mellitus with ketoacidosis without coma; Z79.4 Long term (current) use of insulin
CPT/HCPCS: 36415; 36600; 71045; 74176; 80053; 80305; 81001; 82803; 82962; 83036; 83690; 85025; 85610; 87040; 93005; 96361; 96374; 96375; 99285; A9270; G0480; J1644; J1815; J1885; J2405; J7040; 96372; 96376; 99284; G0378

== ENCOUNTER 2019-03-24 23:12 | Inpatient (IN) | payer BC, OTHER ==
[2019-03-24] MEDS ORDERED: Sodium Chloride 0.9% 1,000 ML IV ONE (23:21)
[2019-03-24] MEDS ORDERED: Ondansetron 4 MG/2 ML SDV IVPUSH ONE (23:21)
[2019-03-24] MEDS ORDERED: Sodium Chloride 0.9% 10 ML Syringe FLUSH PRN (23:21)
[2019-03-24] MEDS ORDERED: Sodium Chloride 0.9% 2.5 ML Syringe FLUSH PRN (23:21)
[2019-03-24] MEDS ORDERED: Ondansetron 4 MG/2 ML SDV ONE (23:22)
[2019-03-24] MEDS ORDERED: Pantoprazole 40 MG Vial IVPUSH ONE (23:41)
[2019-03-24] MEDS ORDERED: Morphine 2 MG/ML Syringe IVPUSH ONE (23:41)
--- NOTE | 2019-03-24 23:41 | EDM.PDOC ---
ED HPI GENERAL MEDICAL PROBLEM - General Chief Complaint: Gastrointestinal Problem Stated Complaint: VOMITING Time Seen by Provider: 03/24/19 23:26 - History of Present Illness INITIAL COMMENTS - FREE TEXT/NARRATIVE: HISTORY AND PHYSICAL: History of present illness: The patient is a 33-year-old male with a known history of type 1 diabetes as well as an episode of pancreatitis in the past who has no stated GI history such as gastroparesis ulcer disease and had an appendectomy but no other abdominal surgical procedures and presents with nausea and vomiting and diffuse abdominal pain that started at 6:30 PM, approximately 5 hours ago. He says that he felt fine earlier today and ate normally and did not have polyuria or polydipsia but that he has been under stress due to a new job. He says that he is unsure of his last hemoglobin A1c but he says that his fasting blood sugar usually runs about 115. He did not note that his blood sugar was elevated until this evening. He has not been able to tolerate anything by mouth and says that his pain started shortly after vomiting and it is diffuse not just epigastric. He has no flank pain and no urinary complaints but is only making a scant amount of urine since the symptoms started. He's had no recent diarrhea or black or bloody stools. He did not take any medications [id number] for the nausea or vomiting. He's not had any recent illnesses such as upper respiratory infections or GI problems area has not had any fevers or chills. The patient also told nursing that he got a diffuse headache after all of the vomiting. He did not take anything specifically for the pain Review of systems: As per history of present illness and below otherwise all systems reviewed and negative. Past medical history: As per history of present illness and as reviewed below otherwise noncontributory. Surgical history: As per history of present illness and as reviewed below otherwise noncontributory. Social history: No reported history of drug or alcohol abuse. Family history: As per history of present illness and as reviewed below otherwise noncontributory. Physical exam: General: Well-developed well-nourished man who is actively vomiting in the ED and it looks bilious and in small amounts. It is not black or bloody. Vital signs are noted by me. His breath does smell like ketones HEENT: Atraumatic, normocephalic, pupils reactive, negative for conjunctival pallor or scleral icterus, mucous membranes tacky, throat clear, neck supple, nontender, trachea midline. Lungs: Clear to auscultation, breath sounds equal bilaterally, chest nontender. Heart: S1S2, regular rhythm and tachycardic rate on my evaluation but no overt murmurs, negative for clicks, rubs, or JVD. Abdomen: Soft, nondistended, bowel sounds are hypoactive and there is no tympany on percussion and there is diffuse tenderness throughout the entire abdomen without any localized area and there is some voluntary rebound but no involuntary rebound or guarding Negative for masses or hepatosplenomegaly. Negative for costovertebral tenderness. Pelvis: Stable nontender. Genitourinary: Deferred. Rectal: Deferred. Extremities: Atraumatic, negative for cords or calf pain. Neurovascular unremarkable. Neuro: Awake, alert, oriented. Cranial nerves II through XII unremarkable. Cerebellum unremarkable. Motor and sensory unremarkable throughout. Exam nonfocal. Diagnostics: CBC CMP venous blood gas hemoglobin A1c amylase lipase UA with reflex serum ketones abdominal x-rays with chest Therapeutics: IV fluids Zofran Protonix insulin subcutaneous morphine insulin drip Discussed all testing results with the patient and family at bedside and he says he is feeling much better and has no more nausea and the pain is much improved. I will continue to monitor his workup and follow-up the x-ray results and a urine sample if he is able to produce. He is aware that he needs to be admitted to the hospital and the reason as well as needing to be on insulin drip. He is agreeable. 0029: Case was discussed with Dr. Caceres who was aware of this case and the testing results and agrees with ICU inpatient admission Impression: DKA, vomiting and abdominal pain Definitive disposition and diagnosis as appropriate pending reevaluation and review of above. Abdomen Pain Score (Numeric/FACES): 10 - Related Data Allergies Allergy/AdvReac Type Severity Reaction Status Date / Time No Known Allergies Allergy Verified 03/24/19 23:22 Home Meds: Home Meds Insulin Aspart [NovoLOG] See Protocol SUBCUT TIDAC #1 box 05/10/17 [Rx] Insulin Glarg,Human.Rec.Analog [LantUS Solostar] 25 units SUBCUT QAM 08/17/17 [ History] Past Medical History HEENT History: Reports: None Cardiovascular History: Reports: None Respiratory History: Reports: Asthma Other Respiratory History: asthma as a child Gastrointestinal History: Reports: Pancreatitis Genitourinary History: Reports: None Musculoskeletal History: Reports: Back Pain, Chronic, Other (See Below) Other Musculoskeletal History: had a sport accident when he was on early 21' Neurological History: Reports: None Psychiatric History: Reports: None Endocrine/Metabolic History: Reports: Diabetes, Type I Insulin Pump Model and Recovery Coach: None Hematologic History: Reports: None Immunologic History: Reports: None Oncologic (Cancer) History: Reports: None Dermatologic History: Reports: None - Infectious Disease History Infectious Disease History: Reports: None - Past Surgical History Head Surgeries/Procedures: Reports: None Respiratory Surgical History: Reports: None GI Surgical History: Reports: Appendectomy Endocrine Surgical History: Reports: None Social & Family History - Family History Family Medical History: Noncontributory - Caffeine Use Caffeine Use: Reports: Coffee, Energy Drinks, Soda, Tea Caffeine Use Comment: drinks 5 or 6 energy drinks per day - Recreational Drug Use Recreational Drug Use: No - Living Situation & Occupation Occupation: Employed ED ROS GENERAL - Review of Systems Review Of Systems: Comprehensive ROS is negative, except as noted in HPI. ED EXAM, GENERAL - Physical Exam Exam: See Below (see dictation) Course - Vital Signs Last Recorded V/S: Last Vital Signs Temp 36.6 C 03/24/19 23:22 Pulse 127 H 03/25/19 00:07 Resp 16 03/25/19 00:07 BP 126/70 03/25/19 00:07 Pulse Ox 99 03/25/19 00:07 - Orders/Labs/Meds Orders: Active Orders 24 hr Category Date Time Status Patient Status [ADT] Stat ADT 03/25/19 00:33 Ordered Abdomen Series w Chest 1V [CR] Stat Exams 03/24/19 23:37 Taken AMYLASE [CHEM] Stat Lab 03/24/19 23:34 Results COMPREHENSIVE METABOLIC PN,CMP [CHEM] Stat Lab 03/24/19 23:34 Results LIPASE [CHEM] Stat Lab 03/24/19 23:34 Results UA RFX DILAN AND CULT IF INDIC [URIN] Stat Lab 03/24/19 23:34 Ordered Insulin Regular, Human [NovoLIN R] Med 03/25/19 23:36 Once 15 unit SUBCUT ONETIME ONE Insulin Regular, Human [NovoLIN R] 100 unit Med 03/25/19 00:30 Ordered Sodium Chloride 0.9% [Normal Saline] 99 ml IV TITRATE Sodium Chloride 0.9% [Normal Saline] 1,000 ml Med 03/25/19 00:30 Active IV ASDIRECTED Sodium Chloride 0.9% [Normal Saline] 1,000 ml Med 03/25/19 00:17 Active IV STAT Sodium Chloride 0.9% [Saline Flush] Med 03/24/19 23:21 Active 10 ml FLUSH ASDIRECTED PRN Sodium Chloride 0.9% [Saline Flush] Med 03/24/19 23:21 Active 2.5 ml FLUSH ASDIRECTED PRN Saline Lock Insert [OM.PC] Stat Oth 03/24/19 23:21 Ordered Medication Orders Sodium Chloride (Normal Saline) 1,000 mls @ 999 mls/hr IV STAT ONE Stop: 03/25/19 01:17 Last Admin: 03/25/19 00:31 Dose: 999 mls/hr Insulin Human Regular 100 unit (/ Sodium Chloride) 100 mls @ 6.2 mls/hr IV TITRATE BONIFACIO; Protocol Sodium Chloride (Normal Saline) 1,000 mls @ 125 mls/hr IV ASDIRECTED BONIFACIO Insulin Human Regular (Novolin R) 15 unit SUBCUT ONETIME ONE; Protocol Stop: 03/25/19 23:37 Last Admin: 03/24/19 23:53 Dose: 15 unit Sodium Chloride (Saline Flush) 10 ml FLUSH ASDIRECTED PRN PRN Reason: Keep Vein Open Sodium Chloride (Saline Flush) 2.5 ml FLUSH ASDIRECTED PRN PRN Reason: Keep Vein Open Labs: Laboratory Tests 03/24/19 03/24/19 03/24/19 Range/Units 23:33 23:34 23:34 WBC 16.66 H (4.0-11.0) K/uL RBC 5.14 (4.50-5.90) M/uL Hgb 17.2 H (13.0-17.0) g/dL Hct 47.7 (38.0-50.0) % MCV 92.8 (80.0-98.0) fL MCH 33.5 H (27.0-32.0) pg MCHC 36.1 (31.0-37.0) g/dL RDW Std Deviation 44.1 (28.0-62.0) fl RDW Coeff of Macario 13 (11.0-15.0) % Plt Count 193 (150-400) K/uL MPV 9.30 (7.40-12.00) fL Neut % (Auto) 79.5 (48.0-80.0) % Lymph % (Auto) 13.1 L (16.0-40.0) % [place] % (Auto) 6.8 (0.0-15.0) % Eos % (Auto) 0.2 (0.0-7.0) % Baso % (Auto) 0.4 (0.0-1.5) % Neut # (Auto) 13.3 H (1.4-5.7) K/uL Lymph # (Auto) 2.2 (0.6-2.4) K/uL [place] # (Auto) 1.1 H (0.0-0.8) K/uL Eos # (Auto) 0.0 (0.0-0.7) K/uL Baso # (Auto) 0.1 (0.0-0.1) K/uL Nucleated RBC % 0.0 /100WBC Nucleated RBCs # 0 K/uL VBG pH 7.23 L (7.31-7.41) VBG pCO2 28 L (35-45) mmHG VBG pO2 49 H (30-40) mmHG VBG HCO3 12 L (22-30) mEq/L VBG Total CO2 10 L (41-51) mmol/L VBG Base Excess -14.2 L (-3.0-3.0) Sodium (136-148) mmol/L Potassium (3.5-5.1) mmol/L Chloride (98-107) mmol/L Carbon Dioxide (21.0-32.0) mmol/L BUN (7.0-18.0) mg/dL Creatinine (0.8-1.3) mg/dL Est Cr Clr Drug Dosing Estimated GFR (MDRD) ml/min Glucose (74-106) mg/dL POC Glucose (60-110) mg/dL Hemoglobin A1c 8.4 H (4.5-6.2) % Calcium (8.5-10.1) mg/dL Total Bilirubin (0.2-1.0) mg/dL ALT (14-63) IU/L Alkaline Phosphatase (46-116) U/L Total Protein (6.4-8.2) g/dL Albumin (3.4-5.0) g/dL Globulin (2.6-4.0) g/dL Albumin/Globulin Ratio (0.9-1.6) Amylase (25-115) U/L Lipase (73-393) U/L Ketones (NEG) 03/24/19 03/24/19 03/24/19 Range/Units 23:34 23:34 23:56 WBC (4.0-11.0) K/uL RBC (4.50-5.90) M/uL Hgb (13.0-17.0) g/dL Hct (38.0-50.0) % MCV (80.0-98.0) fL MCH (27.0-32.0) pg MCHC (31.0-37.0) g/dL RDW Std Deviation (28.0-62.0) fl RDW Coeff of Macario (11.0-15.0) % Plt Count (150-400) K/uL MPV (7.40-12.00) fL Neut % (Auto) (48.0-80.0) % Lymph % (Auto) (16.0-40.0) % [place] % (Auto) (0.0-15.0) % Eos % (Auto) (0.0-7.0) % Baso % (Auto) (0.0-1.5) % Neut # (Auto) (1.4-5.7) K/uL Lymph # (Auto) (0.6-2.4) K/uL [place] # (Auto) (0.0-0.8) K/uL Eos # (Auto) (0.0-0.7) K/uL Baso # (Auto) (0.0-0.1) K/uL Nucleated RBC % /100WBC Nucleated RBCs # K/uL VBG pH (7.31-7.41) VBG pCO2 (35-45) mmHG VBG pO2 (30-40) mmHG VBG HCO3 (22-30) mEq/L VBG Total CO2 (41-51) mmol/L VBG Base Excess (-3.0-3.0) Sodium 136 (136-148) mmol/L Potassium 4.9 (3.5-5.1) mmol/L Chloride 94 L (98-107) mmol/L Carbon Dioxide 12.9 L (21.0-32.0) mmol/L BUN 22 H (7.0-18.0) mg/dL Creatinine 1.4 H (0.8-1.3) mg/dL Est Cr Clr Drug Dosing TNP Estimated GFR (MDRD) 58.7 ml/min Glucose 348 H (74-106) mg/dL POC Glucose 308 H (60-110) mg/dL Hemoglobin A1c (4.5-6.2) % Calcium 9.3 (8.5-10.1) mg/dL Total Bilirubin 1.7 H (0.2-1.0) mg/dL ALT 42 (14-63) IU/L Alkaline Phosphatase 113 (46-116) U/L Total Protein 7.4 (6.4-8.2) g/dL Albumin 4.6 (3.4-5.0) g/dL Globulin 2.8 (2.6-4.0) g/dL Albumin/Globulin Ratio 1.6 (0.9-1.6) Amylase 98 (25-115) U/L Lipase 44 L (73-393) U/L Ketones SMALL H (NEG) Meds: Medications Generic Name Dose Route Start Last Admin Trade Name Freq PRN Reason Stop Dose Admin Sodium Chloride 1,000 mls @ 999 mls/hr 03/25/19 00:17 03/25/19 00:31 Normal Saline IV 03/25/19 01:17 999 mls/hr STAT ONE Administration Insulin Human Regular 100 unit 100 mls @ 6.2 mls/hr 03/25/19 00:30 / Sodium Chloride IV TITRATE BONIFACIO Protocol 0.1 UNIT/KG/HR Sodium Chloride 1,000 mls @ 125 mls/hr 03/25/19 00:30 Normal Saline IV ASDIRECTED BONIFACIO Insulin Human Regular 15 unit 03/25/19 23:36 03/24/19 23:53 Novolin R SUBCUT 03/25/19 23:37 15 unit ONETIME ONE Administration Protocol Sodium Chloride 10 ml 03/24/19 23:21 Saline Flush FLUSH ASDIRECTED PRN Keep Vein Open Sodium Chloride 2.5 ml 03/24/19 23:21 Saline Flush FLUSH ASDIRECTED PRN Keep Vein Open Discontinued Medications Generic Name Dose Route Start Last Admin Trade Name Ronnieq PRN Reason Stop Dose Admin Sodium Chloride 1,000 mls @ 999 mls/hr 03/24/19 23:21 03/24/19 23:28 Normal Saline IV 03/25/19 00:21 999 mls/hr STAT ONE Administration Insulin Human Regular Confirm 03/24/19 23:45 03/24/19 23:56 Novolin R Administered 03/24/19 23:46 Not Given Dose 1,000 unit .ROUTE .STK-MED ONE Morphine Sulfate 4 mg 03/24/19 23:41 03/24/19 23:57 Morphine IVPUSH 03/24/19 23:42 4 mg ONETIME ONE Administration Ondansetron HCl 4 mg 03/24/19 23:21 03/24/19 23:28 Zofran IVPUSH 03/24/19 23:22 4 mg ONETIME ONE Administration Ondansetron HCl Confirm 03/24/19 23:22 03/24/19 23:28 Zofran Administered 03/24/19 23:23 Not Given Dose 4 mg .ROUTE .STK-MED ONE Pantoprazole Sodium 80 mg 03/24/19 23:41 03/24/19 23:53 Protonix Iv IVPUSH 03/24/19 23:42 80 mg .BOLUS ONE Administration Departure - Departure Time of Disposition: 00:35 Disposition: Admitted As Inpatient 67 Condition: Fair Clinical Impression: Abdominal pain with vomiting DKA (diabetic ketoacidoses) Qualifiers: Diabetes mellitus type: type 1 Diabetes mellitus complication detail: without coma Qualified Code(s): E10.10 - Type 1 diabetes mellitus with ketoacidosis without coma - Discharge Information Referrals: PCP,None [Primary Care Provider] - Forms: ED Department Discharge - My Orders Last 24 Hours: My Active Orders 03/24/19 23:21 Sodium Chloride 0.9% [Saline Flush] 10 ml FLUSH ASDIRECTED PRN Sodium Chloride 0.9% [Saline Flush] 2.5 ml FLUSH ASDIRECTED PRN Saline Lock Insert [OM.PC] Stat 03/24/19 23:34 AMYLASE [CHEM] Stat COMPREHENSIVE METABOLIC PN,CMP [CHEM] Stat LIPASE [CHEM] Stat UA RFX DILAN AND CULT IF INDIC [URIN] Stat 03/24/19 23:37 Abdomen Series w Chest 1V [CR] Stat 03/25/19 00:17 Sodium Chloride 0.9% [Normal Saline] 1,000 ml IV STAT 03/25/19 00:30 Insulin Regular, Human [NovoLIN R] 100 unit Sodium Chloride 0.9% [Normal Saline] 99 ml IV TITRATE Sodium Chloride 0.9% [Normal Saline] 1,000 ml IV ASDIRECTED 03/25/19 00:33 Patient Status [ADT] Stat 03/25/19 23:36 Insulin Regular, Human [NovoLIN R] 15 unit SUBCUT ONETIME ONE - Assessment/Plan Last 24 Hours: My Active Orders 03/24/19 23:21 Sodium Chloride 0.9% [Saline Flush] 10 ml FLUSH ASDIRECTED PRN Sodium Chloride 0.9% [Saline Flush] 2.5 ml FLUSH ASDIRECTED PRN Saline Lock Insert [OM.PC] Stat 03/24/19 23:34 AMYLASE [CHEM] Stat COMPREHENSIVE METABOLIC PN,CMP [CHEM] Stat LIPASE [CHEM] Stat UA RFX DILAN AND CULT IF INDIC [URIN] Stat 03/24/19 23:37 Abdomen Series w Chest 1V [CR] Stat 03/25/19 00:17 Sodium Chloride 0.9% [Normal Saline] 1,000 ml IV STAT 03/25/19 00:30 Insulin Regular, Human [NovoLIN R] 100 unit Sodium Chloride 0.9% [Normal Saline] 99 ml IV TITRATE Sodium Chloride 0.9% [Normal Saline] 1,000 ml IV ASDIRECTED 03/25/19 00:33 Patient Status [ADT] Stat 03/25/19 23:36 Insulin Regular, Human [NovoLIN R] 15 unit SUBCUT ONETIME ONE
[2019-03-24] MEDS ORDERED: Insulin Regular, Human 100 Units/ML 10 ML Vial ONE (23:45)
[2019-03-24 23:54] LABS: HEMOGLOBIN A1C 8.4 % (4.5-6.2)
[2019-03-25 00:04] LABS: BLOOD UREA NITROGEN,BUN 22 mg/dL (7.0-18.0); CARBON DIOXIDE,CO2 12.9 mmol/L (21.0-32.0); CHLORIDE,CL 94 mmol/L (98-107); GLUCOSE RANDOM 348 mg/dL (74-106); LIPASE 44 U/L (73-393); POTASSIUM,K 4.9 mmol/L (3.5-5.1); SODIUM,NA 136 mmol/L (136-148)
[2019-03-25] MEDS ORDERED: Sodium Chloride 0.9% 1,000 ML IV ONE ×2 (00:17→01:47)
[2019-03-25] MEDS ORDERED: Sodium Chloride 0.9% 1,000 ML IV SCH (00:30)
--- NOTE | 2019-03-25 00:39 | CR ---
INDICATION: Abdominal pain, history type one diabetic, diabetic ketoacidosis TECHNIQUE: Chest and Abdominal radiograph 4 views COMPARISON: None FINDINGS: CHEST: Mediastinum: The mediastinum is normal in appearance. The heart silhouette is normal in size and morphology. Lung: Both lungs are unremarkable in appearance. No sign of pleural effusion seen. No pneumothorax is identified. ABDOMEN: Bowel: The bowel gas pattern is normal without evidence of bowel obstruction. There is a paucity of bowel gas present which limits evaluation of the bowel. Soft tissue: No evidence of pneumoperitoneum present. No suspicious calcifications noted. Bone: Unremarkable for age. IMPRESSION: 1. Unremarkable appearance of the chest and abdomen. Dictated by: Gennaro Nascimento MD @ 03/25/2019 00:37:27 (Electronically Signed)
--- NOTE | 2019-03-25 01:28 | PCM.HP.2 ---
H&P History of Present Illness - General Date of Service: 03/25/19 Admit Problem/Dx: Admission Diagnosis/Problem Admission Diagnosis/Problem Ketoacidosis Source of Information: Patient History Limitations: Reports: No Limitations - History of Present Illness Initial Comments - Free Text/Narative: The patient is a 33-year-old male with a known history of type 1 diabetes , episode of pancreatitis, appendectomy presents with nausea and vomiting and diffuse abdominal pain that started Last evening around 6pm, Patient was in his usual state of health before that but suddenly in evening started having N/V and diffuse abdominal pain. Denied any fever, cough, chills, chest pain, polyuria, polydipsia, Urinary symptoms, Diarrhea. but c/o headache. States he has been complaint with his meds but may not be watching his diet. Also states he is under a lot of stress from his new job. In the ER patient was found to be in DKA based on Hyperglycemia, Anion Gap, Blood gas and ketones. Patient was started on Insulin gtt and admitted to ICU for further care. Onset of Symptoms: Reports: Today Duration of Symptoms: Reports: Hour(s): Quality: Reports: Dull Severity: Moderate Abdomen Pain Score (Numeric/FACES): 10 - Related Data Allergies/Adverse Reactions: Allergies Allergy/AdvReac Type Severity Reaction Status Date / Time No Known Allergies Allergy Verified 03/24/19 23:22 Home Medications: Home Meds Insulin Aspart [NovoLOG] See Protocol SUBCUT TIDAC #1 box 05/10/17 [Rx] Insulin Glarg,Human.Rec.Analog [LantUS Solostar] 25 units SUBCUT QAM 08/17/17 [ History] Past Medical History HEENT History: Reports: None Cardiovascular History: Reports: None Respiratory History: Reports: Asthma Other Respiratory History: asthma as a child Gastrointestinal History: Reports: Pancreatitis Genitourinary History: Reports: None Musculoskeletal History: Reports: Back Pain, Chronic, Other (See Below) Other Musculoskeletal History: had a sport accident when he was on early Neurological History: Reports: None Psychiatric History: Reports: None Endocrine/Metabolic History: Reports: Diabetes, 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 Hematologic History: Reports: None Immunologic History: Reports: None Oncologic (Cancer) History: Reports: None Dermatologic History: Reports: None - Infectious Disease History Infectious Disease History: Reports: None - Past Surgical History Head Surgeries/Procedures: Reports: None Respiratory Surgical History: Reports: None GI Surgical History: Reports: Appendectomy Endocrine Surgical History: Reports: None Social & Family History - Family History Family Medical History: Noncontributory - Caffeine Use Caffeine Use: Reports: Coffee, Energy Drinks, Soda, Tea Caffeine Use Comment: drinks 5 or 6 energy drinks per day - Recreational Drug Use Recreational Drug Use: No - Living Situation & Occupation Occupation: Employed H&P Review of Systems - Review of Systems: Review Of Systems: See Below General: Reports: Malaise, Weakness, Fatigue. Denies: Fever, Chills Pulmonary: Denies: Shortness of Breath, Wheezing Cardiovascular: Denies: Chest Pain, Palpitations, Dyspnea on Exertion Gastrointestinal: Reports: Abdominal Pain, Anorexia. Denies: Black Stool, Bloody Stool, Constipation, Hematemesis, Hematochezia Genitourinary: Denies: Dysuria, Frequency, Burning Musculoskeletal: Denies: Neck Pain, Shoulder Pain Skin: Denies: Cyanosis, Jaundice, Mottled Psychiatric: Denies: Confusion, Depression, Mood Lability Neurological: Reports: Headache. Denies: Confusion, Dizziness, Numbness, Paresthesia Hematologic/Lymphatic: Denies: Easy Bleeding, Easy Bruising Exam - Exam Exam: See Below - Vital Signs Vital Signs: Last Vital Signs Temp 36.6 C 03/24/19 23:22 Pulse 125 H 03/25/19 00:46 Resp 14 03/25/19 00:46 BP 127/77 03/25/19 00:46 Pulse Ox 98 03/25/19 00:46 Weight: 62 kg - Exam General: Alert, Oriented HEENT: Conjunctiva Clear Neck: Trachea Midline Lungs: Clear to Auscultation, Normal Respiratory Effort Cardiovascular: Regular Rate, Regular Rhythm, Normal S1, Normal S2 GI/Abdominal Exam: Normal Bowel Sounds, Soft, Tender Extremities: Normal Inspection Peripheral Pulses: 3+: Dorsalis Pedis (L), Dorsalis Pedis (R) Neuro Extensive - Mental Status: Alert, Oriented x3, Normal Mood/Affect, Normal Cognition - Patient Data Lab Results Last 24 hrs: Laboratory Results - last 24 hr 03/24/19 03/24/19 03/24/19 Range/Units 23:33 23:34 23:34 WBC 16.66 H (4.0-11.0) K/uL RBC 5.14 (4.50-5.90) M/uL Hgb 17.2 H (13.0-17.0) g/dL Hct 47.7 (38.0-50.0) % MCV 92.8 (80.0-98.0) fL MCH 33.5 H (27.0-32.0) pg MCHC 36.1 (31.0-37.0) g/dL RDW Std Deviation 44.1 (28.0-62.0) fl RDW Coeff of Macario 13 (11.0-15.0) % Plt Count 193 (150-400) K/uL MPV 9.30 (7.40-12.00) fL Neut % (Auto) 79.5 (48.0-80.0) % Lymph % (Auto) 13.1 L (16.0-40.0) % [place] % (Auto) 6.8 (0.0-15.0) % Eos % (Auto) 0.2 (0.0-7.0) % Baso % (Auto) 0.4 (0.0-1.5) % Neut # (Auto) 13.3 H (1.4-5.7) K/uL Lymph # (Auto) 2.2 (0.6-2.4) K/uL [place] # (Auto) 1.1 H (0.0-0.8) K/uL Eos # (Auto) 0.0 (0.0-0.7) K/uL Baso # (Auto) 0.1 (0.0-0.1) K/uL Nucleated RBC % 0.0 /100WBC Nucleated RBCs # 0 K/uL VBG pH 7.23 L (7.31-7.41) VBG pCO2 28 L (35-45) mmHG VBG pO2 49 H (30-40) mmHG VBG HCO3 12 L (22-30) mEq/L VBG Total CO2 10 L (41-51) mmol/L VBG Base Excess -14.2 L (-3.0-3.0) Sodium (136-148) mmol/L Potassium (3.5-5.1) mmol/L Chloride (98-107) mmol/L Carbon Dioxide (21.0-32.0) mmol/L BUN (7.0-18.0) mg/dL Creatinine (0.8-1.3) mg/dL Est Cr Clr Drug Dosing Estimated GFR (MDRD) ml/min Glucose (74-106) mg/dL POC Glucose (60-110) mg/dL Hemoglobin A1c 8.4 H (4.5-6.2) % Calcium (8.5-10.1) mg/dL Total Bilirubin (0.2-1.0) mg/dL AST (15-37) IU/L ALT (14-63) IU/L Alkaline Phosphatase (46-116) U/L Total Protein (6.4-8.2) g/dL Albumin (3.4-5.0) g/dL Globulin (2.6-4.0) g/dL Albumin/Globulin Ratio (0.9-1.6) Amylase (25-115) U/L Lipase (73-393) U/L Urine Color Urine Appearance Urine pH (5.0-8.0) Ur Specific [place] (1.001-1.035) Urine Protein (NEGATIVE) mg/dL Urine Glucose (UA) (NEGATIVE) mg/dL Urine Ketones (NEGATIVE) mg/dL Urine Occult Blood (NEGATIVE) Urine Nitrite (NEGATIVE) Urine Bilirubin (NEGATIVE) Urine Urobilinogen (<2.0) EU/dL Ur Leukocyte Esterase (NEGATIVE) Ketones (NEG) 03/24/19 03/24/19 03/24/19 Range/Units 23:34 23:34 23:56 WBC (4.0-11.0) K/uL RBC (4.50-5.90) M/uL Hgb (13.0-17.0) g/dL Hct (38.0-50.0) % MCV (80.0-98.0) fL MCH (27.0-32.0) pg MCHC (31.0-37.0) g/dL RDW Std Deviation (28.0-62.0) fl RDW Coeff of Macario (11.0-15.0) % Plt Count (150-400) K/uL MPV (7.40-12.00) fL Neut % (Auto) (48.0-80.0) % Lymph % (Auto) (16.0-40.0) % [place] % (Auto) (0.0-15.0) % Eos % (Auto) (0.0-7.0) % Baso % (Auto) (0.0-1.5) % Neut # (Auto) (1.4-5.7) K/uL Lymph # (Auto) (0.6-2.4) K/uL [place] # (Auto) (0.0-0.8) K/uL Eos # (Auto) (0.0-0.7) K/uL Baso # (Auto) (0.0-0.1) K/uL Nucleated RBC % /100WBC Nucleated RBCs # K/uL VBG pH (7.31-7.41) VBG pCO2 (35-45) mmHG VBG pO2 (30-40) mmHG VBG HCO3 (22-30) mEq/L VBG Total CO2 (41-51) mmol/L VBG Base Excess (-3.0-3.0) Sodium 136 (136-148) mmol/L Potassium 4.9 (3.5-5.1) mmol/L Chloride 94 L (98-107) mmol/L Carbon Dioxide 12.9 L (21.0-32.0) mmol/L BUN 22 H (7.0-18.0) mg/dL Creatinine 1.4 H (0.8-1.3) mg/dL Est Cr Clr Drug Dosing TNP Estimated GFR (MDRD) 58.7 ml/min Glucose 348 H (74-106) mg/dL POC Glucose 308 H (60-110) mg/dL Hemoglobin A1c (4.5-6.2) % Calcium 9.3 (8.5-10.1) mg/dL Total Bilirubin 1.7 H (0.2-1.0) mg/dL AST 46 H (15-37) IU/L ALT 42 (14-63) IU/L Alkaline Phosphatase 113 (46-116) U/L Total Protein 7.4 (6.4-8.2) g/dL Albumin 4.6 (3.4-5.0) g/dL Globulin 2.8 (2.6-4.0) g/dL Albumin/Globulin Ratio 1.6 (0.9-1.6) Amylase 98 (25-115) U/L Lipase 44 L (73-393) U/L Urine Color Urine Appearance Urine pH (5.0-8.0) Ur Specific [place] (1.001-1.035) Urine Protein (NEGATIVE) mg/dL Urine Glucose (UA) (NEGATIVE) mg/dL Urine Ketones (NEGATIVE) mg/dL Urine Occult Blood (NEGATIVE) Urine Nitrite (NEGATIVE) Urine Bilirubin (NEGATIVE) Urine Urobilinogen (<2.0) EU/dL Ur Leukocyte Esterase (NEGATIVE) Ketones SMALL H (NEG) 03/25/19 03/25/19 03/25/19 Range/Units 00:36 01:00 01:01 WBC (4.0-11.0) K/uL RBC (4.50-5.90) M/uL Hgb (13.0-17.0) g/dL Hct (38.0-50.0) % MCV (80.0-98.0) fL MCH (27.0-32.0) pg MCHC (31.0-37.0) g/dL RDW Std Deviation (28.0-62.0) fl RDW Coeff of Macario (11.0-15.0) % Plt Count (150-400) K/uL MPV (7.40-12.00) fL Neut % (Auto) (48.0-80.0) % Lymph % (Auto) (16.0-40.0) % [place] % (Auto) (0.0-15.0) % Eos % (Auto) (0.0-7.0) % Baso % (Auto) (0.0-1.5) % Neut # (Auto) (1.4-5.7) K/uL Lymph # (Auto) (0.6-2.4) K/uL [place] # (Auto) (0.0-0.8) K/uL Eos # (Auto) (0.0-0.7) K/uL Baso # (Auto) (0.0-0.1) K/uL Nucleated RBC % /100WBC Nucleated RBCs # K/uL VBG pH (7.31-7.41) VBG pCO2 (35-45) mmHG VBG pO2 (30-40) mmHG VBG HCO3 (22-30) mEq/L VBG Total CO2 (41-51) mmol/L VBG Base Excess (-3.0-3.0) Sodium (136-148) mmol/L Potassium (3.5-5.1) mmol/L Chloride (98-107) mmol/L Carbon Dioxide (21.0-32.0) mmol/L BUN (7.0-18.0) mg/dL Creatinine (0.8-1.3) mg/dL Est Cr Clr Drug Dosing Estimated GFR (MDRD) ml/min Glucose (74-106) mg/dL POC Glucose 314 H 264 H (60-110) mg/dL Hemoglobin A1c (4.5-6.2) % Calcium (8.5-10.1) mg/dL Total Bilirubin (0.2-1.0) mg/dL AST (15-37) IU/L ALT (14-63) IU/L Alkaline Phosphatase (46-116) U/L Total Protein (6.4-8.2) g/dL Albumin (3.4-5.0) g/dL Globulin (2.6-4.0) g/dL Albumin/Globulin Ratio (0.9-1.6) Amylase (25-115) U/L Lipase (73-393) U/L Urine Color YELLOW Urine Appearance CLEAR Urine pH 6.0 (5.0-8.0) Ur Specific [place] 1.025 (1.001-1.035) Urine Protein NEGATIVE (NEGATIVE) mg/dL Urine Glucose (UA) 500 H (NEGATIVE) mg/dL Urine Ketones >=80 (NEGATIVE) mg/dL Urine Occult Blood NEGATIVE (NEGATIVE) Urine Nitrite NEGATIVE (NEGATIVE) Urine Bilirubin NEGATIVE (NEGATIVE) Urine Urobilinogen 0.2 (<2.0) EU/dL Ur Leukocyte Esterase NEGATIVE (NEGATIVE) Ketones (NEG) Result Diagrams: 03/24/19 23:34 03/24/19 23:34 *Q Meaningful Use (ADM) - VTE Risk Assess *Q Each Risk Factor Represents 1 Point: None Total Score 1 Point Risk Factors: 0 Each Risk Factor Represents 2 Points: None Total Score 2 Point Risk Factors: 0 Each Risk Factor Represents 3 Points: None Total Score 3 Point Risk Factors: 0 Each Risk Factor Represents 5 Points: None Total Score 5 Point Risk Factors: 0 Venous Thromboembolism Risk Factor Score *Q: 0 - Problem List (1) Abdominal pain with vomiting SNOMED Code(s): 53555766 ICD Code: R10.9 - UNSPECIFIED ABDOMINAL PAIN; R11.10 - VOMITING, UNSPECIFIED Status: Acute Current Visit: Yes (2) DKA (diabetic ketoacidoses) SNOMED Code(s): 416787029, 095075862 ICD Code: E13.10 - OTH DIABETES MELLITUS WITH KETOACIDOSIS WITHOUT COMA Status: Acute Priority: High Current Visit: Yes Qualifiers: Diabetes mellitus type: type 1 Diabetes mellitus complication detail: without coma Qualified Code(s): E10.10 - Type 1 diabetes mellitus with ketoacidosis without coma Problem List Initiated/Reviewed/Updated: Yes Orders Last 24hrs: Active Orders 24 hr Category Date Time Status Patient Status [ADT] Stat ADT 03/25/19 00:33 Active Insulin Regular, Human [NovoLIN R] Med 03/25/19 23:36 Once 15 unit SUBCUT ONETIME ONE Insulin Regular, Human [NovoLIN R] 100 unit Med 03/25/19 00:30 Active Sodium Chloride 0.9% [Normal Saline] 99 ml IV TITRATE Sodium Chloride 0.9% [Normal Saline] 1,000 ml Med 03/25/19 00:30 Active IV ASDIRECTED Sodium Chloride 0.9% [Saline Flush] Med 03/24/19 23:21 Active 10 ml FLUSH ASDIRECTED PRN Sodium Chloride 0.9% [Saline Flush] Med 03/24/19 23:21 Active 2.5 ml FLUSH ASDIRECTED PRN Saline Lock Insert [OM.PC] Stat Ot 03/24/19 23:21 Ordered Medication Orders Insulin Human Regular 100 unit (/ Sodium Chloride) 100 mls @ 6.2 mls/hr IV TITRATE BONIFACIO; Protocol Last Admin: 03/25/19 00:37 Dose: 0.1 unit/kg/hr, 6.2 mls/hr Sodium Chloride (Normal Saline) 1,000 mls @ 125 mls/hr IV ASDIRECTED BONIFACIO Insulin Human Regular (Novolin R) 15 unit SUBCUT ONETIME ONE; Protocol Stop: 03/25/19 23:37 Last Admin: 03/24/19 23:53 Dose: 15 unit Sodium Chloride (Saline Flush) 10 ml FLUSH ASDIRECTED PRN PRN Reason: Keep Vein Open Sodium Chloride (Saline Flush) 2.5 ml FLUSH ASDIRECTED PRN PRN Reason: Keep Vein Open Assessment/Plan Comment:: A/P: DKA, unsure of trigger, states is under lot of job related stress, states has been complaint with his meds HbA1c noted, blood gas noted Cont insulin gtt Cont IVF for hydration, will administer another bolus Recheck CBC, BMP, Mg, phos Q4H Replete electrolytes as needed Diabetic education Monitor Ins and out Once sugars are <200 will switch to dextrose based IVF cont Accu checks per protocol Morphine for pain control Lovenox for dvt ppx E-ICU on-board
[2019-03-25] MEDS ORDERED: Albuterol/Ipratropium 3.0-0.5 MG/3 ML Neb Soln NEB PRN (01:31)
[2019-03-25] MEDS ORDERED: Morphine 2 MG/ML Syringe IVPUSH PRN (01:31)
[2019-03-25] MEDS ORDERED: Ondansetron 4 MG/2 ML SDV IVPUSH PRN (01:31)
[2019-03-25] MEDS ORDERED: Dextrose 5%-0.9% NaCl 1,000 ML IV SCH (02:45)
--- NOTE | 2019-03-25 03:09 | PN ---
THC Physician - Brief Progress [id number]/13/2019 02:57[facility] Bozena De La Cruz, JOHNIE - [facility] - MWN BALJITKELLY BERGChariDate of Service 03/25/2019 02:57HPI/Ev ents of Note Case discussed with RN. 33 year old M with [id number] with N/V/abd pain. Found to be hyperglycemic to 340s. Started on insulin drip and fluids per DKA protocol.116/66 110s 99%Recs incl ude: hemodynamic monitoring, supplemental o2 PRN, GI and DVT prophylaxis, monitor temps and WBCs, fol low glu/AG/HCO3, insulin and fluids per DKA protocol, replace lytes as needed, pain control.Interven tions Minor-Communication with other healthcare providers and/or family
[2019-03-25 06:32] LABS: BLOOD UREA NITROGEN,BUN 16 mg/dL (7.0-18.0); CARBON DIOXIDE,CO2 19.2 mmol/L (21.0-32.0); CHLORIDE,CL 102 mmol/L (98-107); GLUCOSE RANDOM 167 mg/dL (74-106); POTASSIUM,K 4.4 mmol/L (3.5-5.1); SODIUM,NA 137 mmol/L (136-148)
[2019-03-25] MEDS ORDERED: Magnesium Sulfate/Water 2 GM in Premix Bag 1 BAG IV ONE (07:37)
[2019-03-25] MEDS ORDERED: Enoxaparin 40 MG/0.4 ML Syringe SUBCUT SCH (09:00)
[2019-03-25] MEDS ORDERED: Pantoprazole 40 MG in Sodium Chloride 0.9% 10 ML IV SCH (09:00)
[2019-03-25] MEDS ORDERED: Pantoprazole 40 MG Vial IV SCH (09:00)
[2019-03-25] MEDS ORDERED: Insulin Glargine,Human Rec. Analog 100 Units/ML 3 ML Pen SUBCUT SCH (09:32)
[2019-03-25] MEDS: Phosphorus #1 250 MG Tab PO SCH ×3 (09:56→17:18)
[2019-03-25 10:09] LABS: BLOOD UREA NITROGEN,BUN 14 mg/dL (7.0-18.0); CARBON DIOXIDE,CO2 24.1 mmol/L (21.0-32.0); CHLORIDE,CL 104 mmol/L (98-107); GLUCOSE RANDOM 81 mg/dL (74-106); POTASSIUM,K 3.6 mmol/L (3.5-5.1); SODIUM,NA 139 mmol/L (136-148)
[2019-03-25] MEDS: Insulin Aspart 100 Units/ML 3 ML Pen SUBCUT SCH ×2 (12:05→16:42)
[2019-03-25 13:42] LABS: BLOOD UREA NITROGEN,BUN 15 mg/dL (7.0-18.0); CARBON DIOXIDE,CO2 23.4 mmol/L (21.0-32.0); CHLORIDE,CL 101 mmol/L (98-107); GLUCOSE RANDOM 156 mg/dL (74-106); POTASSIUM,K 3.8 mmol/L (3.5-5.1); SODIUM,NA 139 mmol/L (136-148)
[2019-03-25] MEDS ORDERED: Insulin Regular, Human 100 Units/ML 10 ML Vial SUBCUT ONE (23:36)
--- NOTE | 2019-03-28 16:20 | PCM.DCSUM1 ---
Discharge Summary - Hospital Course Free Text/Narrative:: 33 y/o male with history of type 1 diabetes who presented to the ER complaining of nausea, vomiting, abdominal pain. He was found to be hyperglycemic 300's and was admitted for DKA. Patient stated that he had been taking his insulin but has been more stressed recently in the past 1 week. He was started on insulin drip and aggressively hydrated with normal saline. His electrolytes were replaced as needed. He was able to be transitioned to subcutaneous insulin later in the day after anion gap closed. He was discharged later in the day when he was able to tolerate PO intake and his symptoms had resolved. He was discharged on levemir, novolog and with instructions to follow-up with his PCP. - Discharge Data Discharge Date: 03/25/19 Discharge Disposition: Home, Self-Care 01 Condition: Stable - Referral to Home Health Primary Care Physician: PCP None - Patient Summary/Data Consults: Consultations 03/25/19 01:31 Consult to Diabetic Nurse Specialist [CONS] Routine Consult to Director Of Maternity Services [CONS] Routine - Patient Instructions Diet: Drink 8-10+ Glasses/Day, Diabetic Diet Activity: As Tolerated Notify Provider of: Fever, Increased Pain, Swelling and Redness, Nausea and/or Vomiting - Discharge Plan *PRESCRIPTION DRUG MONITORING PROGRAM REVIEWED*: Not Applicable *COPY OF PRESCRIPTION DRUG MONITORING REPORT IN PATIENT JAMMIE: Not Applicable Prescriptions/Med Rec: Insulin Glarg,Human.Rec.Analog [Lantus Solostar] 25 units SUBCUT QAM #2 pen Home Medications: Home Meds Insulin Aspart [NovoLOG] See Protocol SUBCUT TIDAC #1 box 05/10/17 [Rx] Insulin Glarg,Human.Rec.Analog [LantUS Solostar] 25 units SUBCUT QAM 08/17/17 [ History] Insulin Glarg,Human.Rec.Analog [Lantus Solostar] 25 units SUBCUT QAM #2 pen [Rx] Patient Handouts: Insulin Treatment for Diabetes Mellitus, Diabetic Ketoacidosis, Preventing Diabetic Ketoacidosis Referrals: PCP,None [Primary Care Provider] - Alfredo Oconnor MD [Physician] - (Please call the clinic and get 1 week hospital follow-up appointment.) - Discharge Summary/Plan Comment DC Time >30 min.: No - Patient Data Vitals - Most Recent: Last Vital Signs Temp 36.8 C 03/25/19 16:00 Pulse 92 03/25/19 06:00 Resp 16 03/25/19 16:00 BP 120/80 03/25/19 16:00 Pulse Ox 98 03/25/19 16:00 Weight - Most Recent: 62 kg Med Orders - Current: Current Medications Discontinued Medications Albuterol/Ipratropium (Duoneb 3.0-0.5 Mg/3 Ml) 3 ml NEB Q4HRRT PRN PRN Reason: Shortness Of Breath/wheezing Enoxaparin Sodium (Lovenox) 40 mg SUBCUT Q24H BONIFACIO Last Admin: 03/25/19 09:55 Dose: 40 mg Sodium Chloride (Normal Saline) 1,000 mls @ 999 mls/hr IV STAT ONE Stop: 03/25/19 00:21 Last Admin: 03/24/19 23:28 Dose: 999 mls/hr Sodium Chloride (Normal Saline) 1,000 mls @ 999 mls/hr IV STAT ONE Stop: 03/25/19 01:17 Last Admin: 03/25/19 00:31 Dose: 999 mls/hr Insulin Human Regular 100 unit (/ Sodium Chloride) 100 mls @ 6.2 mls/hr IV TITRATE BONIFACIO; Protocol Last Titration: 03/25/19 08:44 Dose: 0.01 unit/kg/hr, 1 mls/hr Sodium Chloride (Normal Saline) 1,000 mls @ 125 mls/hr IV ASDIRECTED BONIFACIO Last Admin: 03/25/19 01:37 Dose: 125 mls/hr Pantoprazole Sodium 40 mg/ (Sodium Chloride) 10 mls @ 200 mls/hr IV DAILY BONIFACIO Last Admin: 03/25/19 09:58 Dose: 200 mls/hr Sodium Chloride (Normal Saline) 1,000 mls @ 999 mls/hr IV BOLUS ONE Stop: 03/25/19 02:47 Last Admin: 03/25/19 01:57 Dose: 999 mls/hr Dextrose/Sodium Chloride (Dextrose 5%-Normal Saline) 1,000 mls @ 125 mls/hr IV ASDIRECTED BONIFACIO Last Admin: 03/25/19 02:55 Dose: 125 mls/hr Magnesium Sulfate 2 gm/ Premix 50 mls @ 25 mls/hr IV ONETIME ONE Stop: 03/25/19 09:36 Last Admin: 03/25/19 08:39 Dose: 25 mls/hr Insulin Aspart (Novolog) 0 unit SUBCUT TIDAC [facility]; Protocol Last Admin: 03/25/19 16:42 Dose: 2 units Insulin Glargine (Lantus Solostar) [facility] Last Admin: 03/25/19 10:05 Dose: 25 units Insulin Human Regular (Novolin R) 15 unit SUBCUT ONETIME ONE; Protocol Stop: 03/25/19 23:37 Last Admin: 03/24/19 23:53 Dose: 15 unit Insulin Human Regular (Novolin R) Confirm Administered Dose 1,000 unit .ROUTE .STK-MED ONE Stop: 03/24/19 23:46 Last Admin: 03/24/19 23:56 Dose: Not Given Morphine Sulfate (Morphine) 4 mg IVPUSH ONETIME ONE Stop: 03/24/19 23:42 Last Admin: 03/24/19 23:57 Dose: 4 mg Morphine Sulfate (Morphine) 2 mg IVPUSH Q4H PRN PRN Reason: Pain (severe 7-10) Stop: 03/26/19 01:33 Ondansetron HCl (Zofran) 4 mg IVPUSH ONETIME ONE Stop: 03/24/19 23:22 Last Admin: 03/24/19 23:28 Dose: 4 mg Ondansetron HCl (Zofran) Confirm Administered Dose 4 mg .ROUTE .STK-MED ONE Stop: 03/24/19 23:23 Last Admin: 03/24/19 23:28 Dose: Not Given Ondansetron HCl (Zofran) 4 mg IVPUSH Q4H PRN PRN Reason: Nausea/Vomiting Pantoprazole Sodium (Protonix Iv) 80 mg IVPUSH .BOLUS ONE Stop: 03/24/19 23:42 Last Admin: 03/24/19 23:53 Dose: 80 mg Sodium Chloride (Saline Flush) 10 ml FLUSH ASDIRECTED PRN PRN Reason: Keep Vein Open Sodium Chloride (Saline Flush) 2.5 ml FLUSH ASDIRECTED PRN PRN Reason: Keep Vein Open Sodium Phosphate (Neutra-Phos) 250 mg PO QID [facility] Last Admin: 03/25/19 17:18 Dose: 250 mg
== END 2019-03-25 17:28 | disposition home or self-care (01) | DRG 420 ==
LOC: MW.ED 23:12 → MW.ICU 03-25 00:33
PROVIDERS: ADMIT Student in an Organized Health Care Education/Training Program; ATTEND Student in an Organized Health Care Education/Training Program
DX: E10.10 Type 1 diabetes mellitus with ketoacidosis without coma (principal); E10.65 Type 1 diabetes mellitus with hyperglycemia; R10.9 Unspecified abdominal pain; R11.10 Vomiting, unspecified; J45.909 Unspecified asthma, uncomplicated; Z56.3 Stressful work schedule
CPT/HCPCS: 36415; 74022; 74022-26; 80048; 80053; 81003; 82009; 82040; 82150; 82803; 82962; 83036; 83690; 83735; 84100; 85025; 96361; 96372; 96374; 96375; 99285; 99285-25; A9270-GY; C9113; J1650; J1815-GY; J2270; J2405; J3475; J7030; J7040; J7042; J7050

== ENCOUNTER 2019-06-30 09:10 | Inpatient (IN) | payer SELFPAY ==
[2019-06-30] MEDS ORDERED: Ondansetron 4 MG/2 ML SDV IVPUSH ONE (10:00)
--- NOTE | 2019-06-30 10:41 | CR ---
Chest: Portable view of the chest was obtained. Comparison: No prior chest imaging is available. Heart size and mediastinum are normal. Lungs are clear with no acute parenchymal change. Bony structures are unremarkable. Impression: 1. Nothing acute is seen on portable chest x-ray. Diagnostic code #1 This report was dictated in [place] Standard Time
[2019-06-30] MEDS ORDERED: Morphine 10 MG/ML Syringe IVPUSH ONE (10:49)
[2019-06-30] MEDS ORDERED: Sodium Chloride 0.9% 1,000 ML IV ONE (10:53)
[2019-06-30] MEDS ORDERED: Metoclopramide 10 MG/2 ML SDV IVPUSH ONE (11:09)
--- NOTE | 2019-06-30 11:25 | EDM.PDOC ---
ED HPI GENERAL MEDICAL PROBLEM - General Chief Complaint: Diabetic Complaint Stated Complaint: DIABETIC Time Seen by Provider: 06/30/19 11:22 Source of Information: Reports: Patient History Limitations: Reports: No Limitations - History of Present Illness INITIAL COMMENTS - FREE TEXT/NARRATIVE: The patient is a 33-year-old male with past medical history of type 1 diabetes presenting with a chief complaint of vomiting and abdominal pain. Patient states his symptoms started this morning. Patient reports abdominal pain is generalized and nonradiating. Patient reports numerous episodes of nonbloody nonbilious vomiting. Patient denies fevers, diarrhea. Patient reports over the past 2 weeks he is started abusing alcohol again and is drinking large quantities of liquor and beer each day. Patient denies any anxiety or tremors. Patient does have prior history of DKA. Pmhx: Type 1 diabetes Pshx: Appendectomy Family Hx: noncontributory Smoking history? no Etoh use? Daily alcohol Drug use? none In addition to that documented in the HPI above, the additional ROS was obtained : Constitutional: Denies fevers or chills Eyes: Denies vision changes ENMT: Denies sore throat CV: Denies chest pain Resp: Denies SOB GI: Per HPI : Denies painful urination MSK: Denies recent trauma Skin: Denies new rashes Neuro: Denies new numbness or tingling or weakness Endocrine: Denies unexpected weight loss Heme: Denies bleeding disorders I have reviewed the triage vital signs Const: Well nourished, well developed, appears stated age Eyes: PERRL, no conjunctival injection HENT: NCAT, Neck supple without meningismus CV: RRR, Warm, well-perfused extremities RESP: Mild tachypnea with clear breath sounds bilaterally GI: Diffusely tender abdomen without guarding or rebound. MSK: No gross deformities appreciated Skin: Warm, dry. No rashes Neuro: Alert, bonding machine setter II-XII grossly intact. Sensation and motor function of extremities grossly intact. Psych: Appropriate mood and affect Assessment and plan: Patient is a 33-year-old male with presentation of vomiting abdominal pain. Patient had elevated blood sugar over 500. Patient had acidosis with anion gap of 21 and a bicarb of 13. Patient given IV fluids and antiemetics in the emergency department. Patient had CT scan done which is negative for acute pathology. Patient had ketones present as well with started on insulin drip with potassium supplementation.. Patient will be admitted to Dr. العراقي's service in the ICU for further management of DKA. Middle CHest Pain Score (Numeric/FACES): 5 - Related Data Allergies Allergy/AdvReac Type Severity Reaction Status Date / Time No Known Allergies Allergy Verified 06/30/19 09:29 Home Meds: Home Meds Insulin Aspart [NovoLOG] See Protocol SUBCUT TIDAC #1 box 05/10/17 [Rx] Insulin Glarg,Human.Rec.Analog [LantUS Solostar] 25 units SUBCUT QAM 08/17/17 [ History] Insulin Glarg,Human.Rec.Analog [Lantus Solostar] 25 units SUBCUT QAM #2 pen [Rx] Past Medical History HEENT History: Reports: None Cardiovascular History: Reports: None Respiratory History: Reports: Asthma Other Respiratory History: asthma as a child Gastrointestinal History: Reports: Pancreatitis Genitourinary History: Reports: None Musculoskeletal History: Reports: Back Pain, Chronic, Other (See Below) Other Musculoskeletal History: had a sport accident when he was on early Neurological History: Reports: None Psychiatric History: Reports: None Endocrine/Metabolic History: Reports: Diabetes, Type I Insulin Pump Model and [employer] Garage: None Hematologic History: Reports: None Immunologic History: Reports: None Oncologic (Cancer) History: Reports: None Dermatologic History: Reports: None - Infectious Disease History Infectious Disease History: Reports: Chicken Pox - Past Surgical History Head Surgeries/Procedures: Reports: None Respiratory Surgical History: Reports: None GI Surgical History: Reports: Appendectomy Endocrine Surgical History: Reports: None Social & Family History - Family History Family Medical History: Noncontributory - Tobacco Use Smoking Status *Q: Never Smoker Second Hand Smoke Exposure: No - Caffeine Use Caffeine Use: Reports: Coffee, Energy Drinks, Soda Caffeine Use Comment: drinks 5 or 6 energy drinks per day - Recreational Drug Use Recreational Drug Use: Yes Drug Use in Last 12 Months: Yes Recreational Drug Type: Reports: Marijuana/Hashish Recreational Drug Use Frequency: Weekly - Living Situation & Occupation Occupation: Employed ED ROS GENERAL - Review of Systems Review Of Systems: See Below ED EXAM GENERAL NO PERIP PULSE - Physical Exam Exam: See Below Course - Vital Signs Last Recorded V/S: Last Vital Signs Temp 36.6 C 06/30/19 09:29 Pulse 127 H 06/30/19 12:55 Resp 17 06/30/19 12:55 BP 132/79 06/30/19 12:55 Pulse Ox 98 06/30/19 12:55 - Orders/Labs/Meds Orders: Active Orders 24 hr Category Date Time Status Admission Status [Patient Status] [ADT] Stat ADT 06/30/19 13:15 Active EKG 12 Lead [EKG Documentation Completion] [RC] STAT Care 06/30/19 10:53 Active Insulin Regular, Human [NovoLIN R] 100 unit Med 06/30/19 12:00 Active Sodium Chloride 0.9% [Normal Saline] 99 ml IV TITRATE Sodium Chloride 0.9% [Normal Saline] 1,000 ml Med 06/30/19 11:45 Active IV ASDIRECTED Medication Orders Sodium Chloride (Normal Saline) 1,000 mls @ 999 mls/hr IV ASDIRECTED BONIFACIO Last Admin: 06/30/19 11:47 Dose: 999 mls/hr Insulin Human Regular 100 unit (/ Sodium Chloride) 100 mls @ 6 mls/hr IV TITRATE BONIFACIO; Protocol Labs: Laboratory Tests 06/30/19 06/30/19 06/30/19 Range/Units 09:26 10:45 10:45 WBC 10.92 (4.0-11.0) K/uL RBC 5.37 (4.50-5.90) M/uL Hgb 17.2 H (13.0-17.0) g/dL Hct 47.3 (38.0-50.0) % MCV 88.1 (80.0-98.0) fL MCH 32.0 (27.0-32.0) pg MCHC 36.4 (31.0-37.0) g/dL RDW Std Deviation 45.5 (28.0-62.0) fl RDW Coeff of Macario 14 (11.0-15.0) % Plt Count 151 (150-400) K/uL MPV 11.20 (7.40-12.00) fL Neut % (Auto) 83.1 H (48.0-80.0) % Lymph % (Auto) 11.4 L (16.0-40.0) % [place] % (Auto) 4.9 (0.0-15.0) % Eos % (Auto) 0.1 (0.0-7.0) % Baso % (Auto) 0.5 (0.0-1.5) % Neut # (Auto) 9.1 H (1.4-5.7) K/uL Lymph # (Auto) 1.3 (0.6-2.4) K/uL [place] # (Auto) 0.5 (0.0-0.8) K/uL Eos # (Auto) 0.0 (0.0-0.7) K/uL Baso # (Auto) 0.1 (0.0-0.1) K/uL Nucleated RBC % 0.0 /100WBC Nucleated RBCs # 0 K/uL VBG pH 7.26 L (7.31-7.41) VBG pCO2 31 L (35-45) mmHG VBG pO2 61 H (30-40) mmHG VBG HCO3 14 L (22-30) mEq/L VBG Total CO2 12 L (41-51) mmol/L VBG Base Excess -11.8 L (-3.0-3.0) Sodium (136-148) mmol/L Potassium (3.5-5.1) mmol/L Chloride (98-107) mmol/L Carbon Dioxide (21.0-32.0) mmol/L BUN (7.0-18.0) mg/dL Creatinine (0.8-1.3) mg/dL Est Cr Clr Drug Dosing mL/min Estimated GFR (MDRD) ml/min Glucose (74-106) mg/dL POC Glucose > 500 H (60-110) mg/dL Calcium (8.5-10.1) mg/dL Total Bilirubin (0.2-1.0) mg/dL AST (15-37) IU/L ALT (14-63) IU/L Alkaline Phosphatase (46-116) U/L Total Protein (6.4-8.2) g/dL Albumin (3.4-5.0) g/dL Globulin (2.6-4.0) g/dL Albumin/Globulin Ratio (0.9-1.6) Urine Color Urine Appearance Urine pH (5.0-8.0) Ur Specific [place] (1.001-1.035) Urine Protein (NEGATIVE) mg/dL Urine Glucose (UA) (NEGATIVE) mg/dL Urine Ketones (NEGATIVE) mg/dL Urine Occult Blood (NEGATIVE) Urine Nitrite (NEGATIVE) Urine Bilirubin (NEGATIVE) Urine Urobilinogen (<2.0) EU/dL Ur Leukocyte Esterase (NEGATIVE) Ketones (NEG) 06/30/19 06/30/19 06/30/19 Range/Units 10:45 10:45 11:03 WBC (4.0-11.0) K/uL RBC (4.50-5.90) M/uL Hgb (13.0-17.0) g/dL Hct (38.0-50.0) % MCV (80.0-98.0) fL MCH (27.0-32.0) pg MCHC (31.0-37.0) g/dL RDW Std Deviation (28.0-62.0) fl RDW Coeff of [place]ario (11.0-15.0) % Plt Count (150-400) K/uL MPV (7.40-12.00) fL Neut % (Auto) (48.0-80.0) % Lymph % (Auto) (16.0-40.0) % [place] % (Auto) (0.0-15.0) % Eos % (Auto) (0.0-7.0) % Baso % (Auto) (0.0-1.5) % Neut # (Auto) (1.4-5.7) K/uL Lymph # (Auto) (0.6-2.4) K/uL [place] # (Auto) (0.0-0.8) K/uL Eos # (Auto) (0.0-0.7) K/uL Baso # (Auto) (0.0-0.1) K/uL Nucleated RBC % /100WBC Nucleated RBCs # K/uL VBG pH (7.31-7.41) VBG pCO2 (35-45) mmHG VBG pO2 (30-40) mmHG VBG HCO3 (22-30) mEq/L VBG Total CO2 (41-51) mmol/L VBG Base Excess (-3.0-3.0) Sodium 137 (136-148) mmol/L Potassium 5.3 H (3.5-5.1) mmol/L Chloride 93 L (98-107) mmol/L Carbon Dioxide 14.6 L (21.0-32.0) mmol/L BUN 17 (7.0-18.0) mg/dL Creatinine 1.3 (0.8-1.3) mg/dL Est Cr Clr Drug Dosing 78.51 mL/min Estimated GFR (MDRD) > 60.0 ml/min Glucose 538 H* (74-106) mg/dL POC Glucose (60-110) mg/dL Calcium 9.3 (8.5-10.1) mg/dL Total Bilirubin 1.0 (0.2-1.0) mg/dL AST 44 H (15-37) IU/L ALT 48 (14-63) IU/L Alkaline Phosphatase 111 (46-116) U/L Total Protein 7.1 (6.4-8.2) g/dL Albumin 4.7 (3.4-5.0) g/dL Globulin 2.4 L (2.6-4.0) g/dL Albumin/Globulin Ratio 2.0 H (0.9-1.6) Urine Color YELLOW Urine Appearance CLEAR Urine pH 5.5 (5.0-8.0) Ur Specific [place] 1.025 (1.001-1.035) Urine Protein NEGATIVE (NEGATIVE) mg/dL Urine Glucose (UA) >=1000 (NEGATIVE) mg/dL Urine Ketones 40 H (NEGATIVE) mg/dL Urine Occult Blood NEGATIVE (NEGATIVE) Urine Nitrite NEGATIVE (NEGATIVE) Urine Bilirubin NEGATIVE (NEGATIVE) Urine Urobilinogen 0.2 (<2.0) EU/dL Ur Leukocyte Esterase NEGATIVE (NEGATIVE) Ketones NEGATIVE (NEG) Meds: Medications Generic Name Dose Route Start Last Admin Trade Name Frerobel PRN Reason Stop Dose Admin Sodium Chloride 1,000 mls @ 999 mls/hr 06/30/19 11:45 06/30/19 11:47 Normal Saline IV 999 mls/hr ASDIRECTED BONIFACIO Administration Insulin Human Regular 100 unit 100 mls @ 6 mls/hr 06/30/19 12:00 / Sodium Chloride IV TITRATE BONIFACIO Protocol 6 UNIT/HR Discontinued Medications Generic Name Dose Route Start Last Admin Trade Name Freq PRN Reason Stop Dose Admin Sodium Chloride 1,000 mls @ 999 mls/hr 06/30/19 10:53 06/30/19 10:58 Normal Saline IV 06/30/19 11:53 999 mls/hr .Bolus ONE Administration Iopamidol 100 ml 06/30/19 12:30 06/30/19 12:31 Isovue Multipack-370 (76%) IVPUSH 06/30/19 12:31 100 ml ONETIME ONE Administration Metoclopramide HCl 10 mg 06/30/19 11:09 06/30/19 11:13 Reglan IVPUSH 06/30/19 11:10 10 mg ONETIME ONE Administration Morphine Sulfate 6 mg 06/30/19 10:49 06/30/19 10:59 Morphine IVPUSH 06/30/19 10:50 6 mg ONETIME ONE Administration Ondansetron HCl 4 mg 06/30/19 10:00 06/30/19 10:23 Zofran IVPUSH 06/30/19 10:01 4 mg ONETIME ONE Administration Departure - Departure Time of Disposition: 13:29 Disposition: Admitted As Inpatient 67 Clinical Impression: DKA (diabetic ketoacidoses) Qualifiers: Diabetes mellitus type: type 1 Diabetes mellitus complication detail: without coma Qualified Code(s): E10.10 - Type 1 diabetes mellitus with ketoacidosis without coma - Discharge Information Referrals: PCP,None [Primary Care Provider] - Forms: ED Department Discharge Sepsis Event Note - Evaluation Sepsis Screening Result: No Definite Risk - Focused Exam Vital Signs: Vital Signs Temp Pulse Resp BP Pulse Ox 06/30/19 12:55 127 H 17 132/79 98 06/30/19 11:50 131 H 20 130/66 97 06/30/19 11:20 123 H 20 128/77 98 06/30/19 10:40 121 H 16 146/90 H 98 06/30/19 10:20 114 H 20 123/78 98 06/30/19 09:29 36.6 C 116 H 32 H 127/78 97 Date Exam was Performed: 06/30/19 Time Exam was Performed: 13:28 - My Orders Last 24 Hours: My Active Orders 06/30/19 10:53 EKG 12 Lead [EKG Documentation Completion] [RC] STAT 06/30/19 11:45 Sodium Chloride 0.9% [Normal Saline] 1,000 ml IV ASDIRECTED 06/30/19 12:00 Insulin Regular, Human [NovoLIN R] 100 unit Sodium Chloride 0.9% [Normal Saline] 99 ml IV TITRATE 06/30/19 13:15 Admission Status [Patient Status] [ADT] Stat - Assessment/Plan Last 24 Hours: My Active Orders 06/30/19 10:53 EKG 12 Lead [EKG Documentation Completion] [RC] STAT 06/30/19 11:45 Sodium Chloride 0.9% [Normal Saline] 1,000 ml IV ASDIRECTED 06/30/19 12:00 Insulin Regular, Human [NovoLIN R] 100 unit Sodium Chloride 0.9% [Normal Saline] 99 ml IV TITRATE 06/30/19 13:15 Admission Status [Patient Status] [ADT] Stat
[2019-06-30 11:43] LABS: BLOOD UREA NITROGEN,BUN 17 mg/dL (7.0-18.0); CARBON DIOXIDE,CO2 14.6 mmol/L (21.0-32.0); CHLORIDE,CL 93 mmol/L (98-107); POTASSIUM,K 5.3 mmol/L (3.5-5.1); SODIUM,NA 137 mmol/L (136-148)
[2019-06-30] MEDS ORDERED: Sodium Chloride 0.9% 1,000 ML IV SCH ×4 (11:45→16:45)
[2019-06-30 11:46] LABS: GLUCOSE RANDOM 538 mg/dL (74-106)
[2019-06-30] MEDS ORDERED: Iopamidol 755 MG/ML 200 ML Multipack Bottle IVPUSH ONE (12:30)
--- NOTE | 2019-06-30 12:52 | CT ---
CT abdomen and pelvis Technique: Multiple axial sections were obtained from above the dome of the diaphragm inferiorly through the pubic symphysis. Intravenous contrast was utilized. No oral contrast has been given. Comparison: Prior CT abdomen and pelvis exam of 12/27/18. Findings: Visualized lung bases show nothing acute. Liver contains no focal abnormality but appears to be have mild fatty infiltration. Spleen appears normal. Adrenal glands show no nodule. Kidneys show symmetric contrast enhancement without hydronephrosis or mass. Pancreas is within normal limits. Aorta shows no aneurysm. No retroperitoneal adenopathy is seen. Gallbladder contains no calcified gallstones. No mesenteric abnormalities are seen. No pelvic mass or adenopathy is noted. Surgical material is seen off the tip of the cecum. Appendix is not visualized with certainty. Mild increased stool is seen within the colon. No free fluid or inflammatory change is appreciated. Bone window settings were reviewed. No acute osseous finding is appreciated. Impression: 1. Nothing acute is appreciated on CT study of the abdomen and pelvis. 2. Mild increased stool is noted within the colon. Mild fatty infiltration is noted within the liver. Diagnostic code #2 This report was dictated in [place] Standard Time
[2019-06-30] MEDS ORDERED: Ondansetron 4 MG/2 ML SDV IVPUSH PRN (15:34)
[2019-06-30] MEDS ORDERED: LORazepam 2 MG/ML SDV IVPUSH PRN (15:42)
--- NOTE | 2019-06-30 15:42 | PCM.HP.2 ---
H&P History of Present Illness - General Date of Service: 06/30/19 Admit Problem/Dx: Admission Diagnosis/Problem Admission Diagnosis/Problem Diabetic ketoacidosis - History of Present Illness Initial Comments - Free Text/Narative: 33 yo male who presents with one day history of nausea and vomiting. PAtient reports history of alcohol abuse but had been sober for a four months until two weeks ago. He reports last night he drank more than usual. About six drinks in 3 hours. He nausea and vomiting started this morning along with a headache. He did not take any insulin this morning. IN the ED he was noted to have a blood glucose over 500 and bicarb of 14. Middle CHest Pain Score (Numeric/FACES): 5 - Related Data Allergies/Adverse Reactions: Allergies Allergy/AdvReac Type Severity Reaction Status Date / Time No Known Allergies Allergy Verified 06/30/19 23:17 Home Medications: Home Meds Insulin Aspart [NovoLOG] See Protocol SUBCUT TIDAC #1 box 05/10/17 [Rx] Insulin Glarg,Human.Rec.Analog [LantUS Solostar] 25 units SUBCUT QAM 08/17/17 [ History] Insulin Aspart [NovoLOG] See Protocol SQ WITHMEALSANDBED #2 pen 07/01/19 [Rx] Insulin Glarg,Human.Rec.Analog [Lantus Solostar] 25 unit SUBCUT DAILY #2 pen [Rx] Past Medical History HEENT History: Reports: None Cardiovascular History: Reports: None Respiratory History: Reports: Asthma Other Respiratory History: asthma as a child Gastrointestinal History: Reports: Pancreatitis Genitourinary History: Reports: None Musculoskeletal History: Reports: Back Pain, Chronic, Other (See Below) Other Musculoskeletal History: had a sport accident when he was on early Neurological History: Reports: None Psychiatric History: Reports: None Endocrine/Metabolic History: Reports: Diabetes, Type I Insulin Pump Model and Shank Cutter: None Hematologic History: Reports: None Immunologic History: Reports: None Oncologic (Cancer) History: Reports: None Dermatologic History: Reports: None - Infectious Disease History Infectious Disease History: Reports: Chicken Pox - Past Surgical History Head Surgeries/Procedures: Reports: None Respiratory Surgical History: Reports: None GI Surgical History: Reports: Appendectomy Endocrine Surgical History: Reports: None Social & Family History - Family History Family Medical History: Noncontributory - Tobacco Use Smoking Status *Q: Never Smoker Second Hand Smoke Exposure: Yes - Caffeine Use Caffeine Use: Reports: Soda Caffeine Use Comment: @L soda a week - Alcohol Use Days Per Week of Alcohol Use: 7 Number of Drinks Per Day: 7 Total Drinks Per Week: 49 - Recreational Drug Use Recreational Drug Use: No Drug Use in Last 12 Months: Yes Recreational Drug Type: Reports: Marijuana/Hashish Recreational Drug Use Frequency: Weekly - Living Situation & Occupation Occupation: Employed H&P Review of Systems - Review of Systems: Review Of Systems: Comprehensive ROS is negative, except as noted in HPI. Exam - Exam Exam: See Below - Vital Signs Vital Signs: Last Vital Signs Temp 36.6 C 06/30/19 09:29 Pulse 123 H 06/30/19 13:20 Resp 18 06/30/19 13:20 BP 128/65 06/30/19 13:20 Pulse Ox 99 06/30/19 13:20 Weight: 68.039 kg - Exam General: Alert, Oriented HEENT: Mucosa Moist & [place] Neck: Supple, Trachea Midline Lungs: Clear to Auscultation, Normal Respiratory Effort Cardiovascular: Regular Rate, Regular Rhythm GI/Abdominal Exam: Normal Bowel Sounds, Soft, Non-Tender Extremities: Non-Tender, No Pedal Edema Skin: Warm, Dry, Intact Neurological: No: Focal Deficit - Patient Data Lab Results Last 24 hrs: Laboratory Results - last 24 hr 06/30/19 06/30/19 06/30/19 Range/Units 09:26 10:45 10:45 WBC 10.92 (4.0-11.0) K/uL RBC 5.37 (4.50-5.90) M/uL Hgb 17.2 H (13.0-17.0) g/dL Hct 47.3 (38.0-50.0) % MCV 88.1 (80.0-98.0) fL MCH 32.0 (27.0-32.0) pg MCHC 36.4 (31.0-37.0) g/dL RDW Std Deviation 45.5 (28.0-62.0) fl RDW Coeff of Macario 14 (11.0-15.0) % Plt Count 151 (150-400) K/uL MPV 11.20 (7.40-12.00) fL Neut % (Auto) 83.1 H (48.0-80.0) % Lymph % (Auto) 11.4 L (16.0-40.0) % [place] % (Auto) 4.9 (0.0-15.0) % Eos % (Auto) 0.1 (0.0-7.0) % Baso % (Auto) 0.5 (0.0-1.5) % Neut # (Auto) 9.1 H (1.4-5.7) K/uL Lymph # (Auto) 1.3 (0.6-2.4) K/uL [place] # (Auto) 0.5 (0.0-0.8) K/uL Eos # (Auto) 0.0 (0.0-0.7) K/uL Baso # (Auto) 0.1 (0.0-0.1) K/uL Nucleated RBC % 0.0 /100WBC Nucleated RBCs # 0 K/uL VBG pH 7.26 L (7.31-7.41) VBG pCO2 31 L (35-45) mmHG VBG pO2 61 H (30-40) mmHG VBG HCO3 14 L (22-30) mEq/L VBG Total CO2 12 L (41-51) mmol/L VBG Base Excess -11.8 L (-3.0-3.0) Sodium (136-148) mmol/L Potassium (3.5-5.1) mmol/L Chloride (98-107) mmol/L Carbon Dioxide (21.0-32.0) mmol/L BUN (7.0-18.0) mg/dL Creatinine (0.8-1.3) mg/dL Est Cr Clr Drug Dosing mL/min Estimated GFR (MDRD) ml/min Glucose (74-106) mg/dL POC Glucose > 500 H (60-110) mg/dL Calcium (8.5-10.1) mg/dL Total Bilirubin (0.2-1.0) mg/dL AST (15-37) IU/L ALT (14-63) IU/L Alkaline Phosphatase (46-116) U/L Total Protein (6.4-8.2) g/dL Albumin (3.4-5.0) g/dL Globulin (2.6-4.0) g/dL Albumin/Globulin Ratio (0.9-1.6) Urine Color Urine Appearance Urine pH (5.0-8.0) Ur Specific [place] (1.001-1.035) Urine Protein (NEGATIVE) mg/dL Urine Glucose (UA) (NEGATIVE) mg/dL Urine Ketones (NEGATIVE) mg/dL Urine Occult Blood (NEGATIVE) Urine Nitrite (NEGATIVE) Urine Bilirubin (NEGATIVE) Urine Urobilinogen (<2.0) EU/dL Ur Leukocyte Esterase (NEGATIVE) Ketones (NEG) 06/30/19 06/30/19 06/30/19 Range/Units 10:45 10:45 11:03 WBC (4.0-11.0) K/uL RBC (4.50-5.90) M/uL Hgb (13.0-17.0) g/dL Hct (38.0-50.0) % MCV (80.0-98.0) fL MCH (27.0-32.0) pg MCHC (31.0-37.0) g/dL RDW Std Deviation (28.0-62.0) fl RDW Coeff of Macario (11.0-15.0) % Plt Count (150-400) K/uL MPV (7.40-12.00) fL Neut % (Auto) (48.0-80.0) % Lymph % (Auto) (16.0-40.0) % [place] % (Auto) (0.0-15.0) % Eos % (Auto) (0.0-7.0) % Baso % (Auto) (0.0-1.5) % Neut # (Auto) (1.4-5.7) K/uL Lymph # (Auto) (0.6-2.4) K/uL [place] # (Auto) (0.0-0.8) K/uL Eos # (Auto) (0.0-0.7) K/uL Baso # (Auto) (0.0-0.1) K/uL Nucleated RBC % /100WBC Nucleated RBCs # K/uL VBG pH (7.31-7.41) VBG pCO2 (35-45) mmHG VBG pO2 (30-40) mmHG VBG HCO3 (22-30) mEq/L VBG Total CO2 (41-51) mmol/L VBG Base Excess (-3.0-3.0) Sodium 137 (136-148) mmol/L Potassium 5.3 H (3.5-5.1) mmol/L Chloride 93 L (98-107) mmol/L Carbon Dioxide 14.6 L (21.0-32.0) mmol/L BUN 17 (7.0-18.0) mg/dL Creatinine 1.3 (0.8-1.3) mg/dL Est Cr Clr Drug Dosing 78.51 mL/min Estimated GFR (MDRD) > 60.0 ml/min Glucose 538 H* (74-106) mg/dL POC Glucose (60-110) mg/dL Calcium 9.3 (8.5-10.1) mg/dL Total Bilirubin 1.0 (0.2-1.0) mg/dL AST 44 H (15-37) IU/L ALT 48 (14-63) IU/L Alkaline Phosphatase 111 (46-116) U/L Total Protein 7.1 (6.4-8.2) g/dL Albumin 4.7 (3.4-5.0) g/dL Globulin 2.4 L (2.6-4.0) g/dL Albumin/Globulin Ratio 2.0 H (0.9-1.6) Urine Color YELLOW Urine Appearance CLEAR Urine pH 5.5 (5.0-8.0) Ur Specific [place] 1.025 (1.001-1.035) Urine Protein NEGATIVE (NEGATIVE) mg/dL Urine Glucose (UA) >=1000 (NEGATIVE) mg/dL Urine Ketones 40 H (NEGATIVE) mg/dL Urine Occult Blood NEGATIVE (NEGATIVE) Urine Nitrite NEGATIVE (NEGATIVE) Urine Bilirubin NEGATIVE (NEGATIVE) Urine Urobilinogen 0.2 (<2.0) EU/dL Ur Leukocyte Esterase NEGATIVE (NEGATIVE) Ketones NEGATIVE (NEG) 06/30/19 Range/Units 14:34 WBC (4.0-11.0) K/uL RBC (4.50-5.90) M/uL Hgb (13.0-17.0) g/dL Hct (38.0-50.0) % MCV (80.0-98.0) fL MCH (27.0-32.0) pg MCHC (31.0-37.0) g/dL RDW Std Deviation (28.0-62.0) fl RDW Coeff of Macario (11.0-15.0) % Plt Count (150-400) K/uL MPV (7.40-12.00) fL Neut % (Auto) (48.0-80.0) % Lymph % (Auto) (16.0-40.0) % [place] % (Auto) (0.0-15.0) % Eos % (Auto) (0.0-7.0) % Baso % (Auto) (0.0-1.5) % Neut # (Auto) (1.4-5.7) K/uL Lymph # (Auto) (0.6-2.4) K/uL [place] # (Auto) (0.0-0.8) K/uL Eos # (Auto) (0.0-0.7) K/uL Baso # (Auto) (0.0-0.1) K/uL Nucleated RBC % /100WBC Nucleated RBCs # K/uL VBG pH (7.31-7.41) VBG pCO2 (35-45) mmHG VBG pO2 (30-40) mmHG VBG HCO3 (22-30) mEq/L VBG Total CO2 (41-51) mmol/L VBG Base Excess (-3.0-3.0) Sodium (136-148) mmol/L Potassium (3.5-5.1) mmol/L Chloride (98-107) mmol/L Carbon Dioxide (21.0-32.0) mmol/L BUN (7.0-18.0) mg/dL Creatinine (0.8-1.3) mg/dL Est Cr Clr Drug Dosing mL/min Estimated GFR (MDRD) ml/min Glucose (74-106) mg/dL POC Glucose > 500 H (60-110) mg/dL Calcium (8.5-10.1) mg/dL Total Bilirubin (0.2-1.0) mg/dL AST (15-37) IU/L ALT (14-63) IU/L Alkaline Phosphatase (46-116) U/L Total Protein (6.4-8.2) g/dL Albumin (3.4-5.0) g/dL Globulin (2.6-4.0) g/dL Albumin/Globulin Ratio (0.9-1.6) Urine Color Urine Appearance Urine pH (5.0-8.0) Ur Specific [place] (1.001-1.035) Urine Protein (NEGATIVE) mg/dL Urine Glucose (UA) (NEGATIVE) mg/dL Urine Ketones (NEGATIVE) mg/dL Urine Occult Blood (NEGATIVE) Urine Nitrite (NEGATIVE) Urine Bilirubin (NEGATIVE) Urine Urobilinogen (<2.0) EU/dL Ur Leukocyte Esterase (NEGATIVE) Ketones (NEG) Result Diagrams: 07/01/19 05:23 07/01/19 18:03 Sepsis Event Note - Evaluation Sepsis Screening Result: No Definite Risk - Focused Exam Vital Signs: Vital Signs Temp Pulse Resp BP Pulse Ox 06/30/19 13:20 123 H 18 128/65 99 06/30/19 12:55 127 H 17 132/79 98 06/30/19 11:50 131 H 20 130/66 97 06/30/19 11:20 123 H 20 128/77 98 06/30/19 10:40 121 H 16 146/90 H 98 06/30/19 10:20 114 H 20 123/78 98 06/30/19 09:29 36.6 C 116 H 32 H 127/78 97 Date Exam was Performed: 07/02/19 Time Exam was Performed: 10:40 Problem List Initiated/Reviewed/Updated: Yes Orders Last 24hrs: Active Orders 24 hr Category Date Time Status Admission Status [Patient Status] [ADT] Stat ADT 06/30/19 13:15 Active Antiembolic Devices [RC] PER UNIT ROUTINE Care 06/30/19 15:35 Ordered Blood Glucose Check, Bedside [RC] Q1HR Care 06/30/19 15:34 Ordered EKG 12 Lead [EKG Documentation Completion] [RC] STAT Care 06/30/19 10:53 Active Oxygen Therapy [RC] PRN Care 06/30/19 15:34 Ordered Up ad Mandy [RC] ASDIRECTED Care 06/30/19 15:34 Ordered VTE/DVT Education [RC] PER UNIT ROUTINE Care 06/30/19 15:34 Ordered Vital Signs [RC] Q4H Care 06/30/19 15:34 Ordered Regular Diet [DIET] Diet 06/30/19 Breakfast Ordered BASIC METABOLIC PANEL,BMP [CHEM] Q6H Lab 06/30/19 15:34 Ordered BASIC METABOLIC PANEL,BMP [CHEM] Q6H Lab 06/30/19 21:34 Ordered BASIC METABOLIC PANEL,BMP [CHEM] Q6H Lab 07/01/19 03:34 Ordered CBC WITH AUTO DIFF [HEME] AM Lab 07/01/19 05:11 Ordered LIPASE [CHEM] Routine Lab 06/30/19 15:36 Ordered Acetaminophen [Tylenol] Med 06/30/19 15:34 Ordered 650 mg PO Q4H PRN Insulin Regular, Human [NovoLIN R] 100 unit Med 06/30/19 12:00 Active Sodium Chloride 0.9% [Normal Saline] 99 ml IV TITRATE Ondansetron [Zofran] Med 06/30/19 15:34 Ordered 4 mg IVPUSH Q4H PRN Sodium Chloride 0.9% [Normal Saline] 1,000 ml Med 06/30/19 11:45 Active IV ASDIRECTED Sodium Chloride 0.9% [Normal Saline] 1,000 ml Med 06/30/19 15:30 Active IV ASDIRECTED Sodium Chloride 0.9% [Normal Saline] 1,000 ml Med 06/30/19 15:45 Ordered IV ASDIRECTED Sodium Chloride 0.9% [Normal Saline] 1,000 ml Med 06/30/19 15:45 Ordered IV BOLUS Sequential Compression Device [OM.PC] Per Unit Routine Oth 06/30/19 15:34 Ordered Resuscitation Status Routine Resus Stat 06/30/19 15:34 Ordered Medication Orders Sodium Chloride (Normal Saline) 1,000 mls @ 999 mls/hr IV ASDIRECTED BONIFACIO Last Admin: 06/30/19 11:47 Dose: 999 mls/hr Insulin Human Regular 100 unit (/ Sodium Chloride) 100 mls @ 6 mls/hr IV TITRATE BONIFACIO; Protocol Last Titration: 06/30/19 14:43 Dose: 9 unit/hr, 9 mls/hr Admin: 06/30/19 13:41 Dose: 6 unit/hr, 6 mls/hr Sodium Chloride (Normal Saline) 1,000 mls @ 200 mls/hr IV ASDIRECTED BONIFACIO Assessment/Plan Comment:: 33 yo male admitted for diabetic ketoacidosis. We will rescucitate with IV fluids. We will treat with insulin drip until anion gap closes then switch to subcu insulin. Due to history of alcohol abuse will place on CIWAA protocol.
[2019-06-30] MEDS ORDERED: Thiamine 200 MG/2 ML MDV IVPUSH SCH (15:45)
[2019-06-30 16:07] LABS: CARBON DIOXIDE,CO2 14.5 mmol/L (21.0-32.0); POTASSIUM,K 4.7 mmol/L (3.5-5.1)
[2019-06-30] MEDS: Folic Acid 1 MG Tab PO SCH (16:21)
[2019-06-30] MEDS: Acetaminophen 325 MG Tab PO PRN ×2 (16:21→20:31)
[2019-06-30] MEDS: Thiamine 100 MG in Sodium Chloride 0.9% 50 ML IV SCH (17:54)
--- NOTE | 2019-06-30 18:02 | PN ---
THC Physician - Brief Progress [id number]/18/2020 18:00[facility] Butcher Bozena hurst, JOHNIE - FILI (MYCHAL) - KELLY PECKDate of Service 06/30/2019 18:00HPI/Ev ents of Note eICU admission note:33-year-old male with known alcohol abuse and insulin-dependent diab etes started not feel well and was found to be in DKA in the ER. Patient currently being treated for alcohol withdrawal as well as ELOY in DKA.Video screen monitor exam:33-year-old male no acute distres sHeart rate 112 respiratory rate 14 SPO2 100% blood pressure 107/63eICU assessment:Acute DKAAlcohol a buse with withdrawal symptomsAKIAnemiaeICU recommendations:Agree with insulin drip protocolGI DVT pro phylaxisWork-up for anemiaAlcohol abuse with CIWA protocolMonitor daily labs and urinary outputPlease call with any changes/recommendations that are neededInterventions Major-Electrolyte abnormality - e valuation and managementMinor-Communication with other healthcare providers and/or family, Routine mo difications to care plan (e.g. PRN medications for pain, fever)
[2019-06-30] MEDS: Dextrose 5%-0.9% NaCl 1,000 ML IV SCH (21:10)
[2019-06-30 21:55] LABS: BLOOD UREA NITROGEN,BUN 15 mg/dL (7.0-18.0); CARBON DIOXIDE,CO2 26.5 mmol/L (21.0-32.0); CHLORIDE,CL 106 mmol/L (98-107); GLUCOSE RANDOM 243 mg/dL (74-106); POTASSIUM,K 3.9 mmol/L (3.5-5.1); SODIUM,NA 140 mmol/L (136-148)
[2019-07-01] MEDS: Acetaminophen 325 MG Tab PO PRN (01:04)
[2019-07-01] MEDS ORDERED: Sodium Chloride 0.9% 1,000 ML IV SCH (03:05)
[2019-07-01] MEDS: Dextrose 5%-0.9% NaCl 1,000 ML IV SCH (04:31)
[2019-07-01 06:20] LABS: BLOOD UREA NITROGEN,BUN 15 mg/dL (7.0-18.0); CARBON DIOXIDE,CO2 24.9 mmol/L (21.0-32.0); CHLORIDE,CL 109 mmol/L (98-107); GLUCOSE RANDOM 140 mg/dL (74-106); POTASSIUM,K 3.2 mmol/L (3.5-5.1); SODIUM,NA 142 mmol/L (136-148)
[2019-07-01] MEDS ORDERED: Potassium Chloride 10 MEQ Tab.ER PO ONE (06:35)
--- NOTE | 2019-07-01 06:40 | PN ---
THC Physician - Brief Progress [id number]/18/2020 18:00[facility] Bozena hurst, JOHNIE - FILI (MYCHAL) - KELLY PECKDate of Service 06/30/2019 18:00HPI/Ev ents of Note eICU admission note:33-year-old male with known alcohol abuse and insulin-dependent diab etes started not feel well and was found to be in DKA in the ER. Patient currently being treated for alcohol withdrawal as well as ELOY in DKA.Video screen monitor exam:33-year-old male no acute distres sHeart rate 112 respiratory rate 14 SPO2 100% blood pressure 107/63eICU assessment:Acute DKAAlcohol a buse with withdrawal symptomsAKIAnemiaeICU recommendations:Agree with insulin drip protocolGI DVT pro phylaxisWork-up for anemiaAlcohol abuse with CIWA protocolMonitor daily labs and urinary outputPlease call with any changes/recommendations that are neededInterventions Major-Electrolyte abnormality - e valuation and managementMinor-Communication with other healthcare providers and/or family, Routine mo difications to care plan (e.g. PRN medications for pain, fever) Annotated By: SHOLA ANGUIANO) Date: 07/01/19 06:40K 3. 2- KCl 40 meq PO x 1
[2019-07-01] MEDS ORDERED: Insulin Glargine,Human Rec. Analog 100 Units/ML 3 ML Pen SUBCUT SCH (09:00)
[2019-07-01] MEDS: Folic Acid 1 MG Tab PO SCH (09:18)
[2019-07-01 09:35] LABS: HEMOGLOBIN A1C 9.7 % (4.5-6.2)
[2019-07-01] MEDS ORDERED: Potassium Chloride 20 MEQ Tab.ER PO ONE (10:00)
--- NOTE | 2019-07-01 10:12 | PCM.PN ---
- General Info Date of Service: 07/01/19 Subjective Update: No acute events overnight. transitioned to SQ insulin. Tolerating PO intake. - Patient Data Vitals - Most Recent: Last Vital Signs Temp 36.4 C 07/01/19 09:00 Pulse 123 H 06/30/19 13:20 Resp 15 07/01/19 10:00 BP 99/54 L 07/01/19 10:00 Pulse Ox 98 07/01/19 10:00 Weight - Most Recent: 64.1 kg I&O - Last 24 Hours: Intake & Output 06/30/19 07/01/19 07/01/19 22:59 06:59 14:59 Intake Total 6376 Output Total 1150 Balance 5226 Lab Results Last 24 Hours: Laboratory Results - last 24 hr 06/30/19 06/30/19 06/30/19 Range/Units 10:45 10:45 10:45 WBC 10.92 (4.0-11.0) K/uL RBC 5.37 (4.50-5.90) M/uL Hgb 17.2 H (13.0-17.0) g/dL Hct 47.3 (38.0-50.0) % MCV 88.1 (80.0-98.0) fL MCH 32.0 (27.0-32.0) pg MCHC 36.4 (31.0-37.0) g/dL RDW Std Deviation 45.5 (28.0-62.0) fl RDW Coeff of [place] 14 (11.0-15.0) % Plt Count 151 (150-400) K/uL MPV 11.20 (7.40-12.00) fL Neut % (Auto) 83.1 H (48.0-80.0) % Lymph % (Auto) 11.4 L (16.0-40.0) % [place] % (Auto) 4.9 (0.0-15.0) % Eos % (Auto) 0.1 (0.0-7.0) % Baso % (Auto) 0.5 (0.0-1.5) % Neut # (Auto) 9.1 H (1.4-5.7) K/uL Lymph # (Auto) 1.3 (0.6-2.4) K/uL [place] # (Auto) 0.5 (0.0-0.8) K/uL Eos # (Auto) 0.0 (0.0-0.7) K/uL Baso # (Auto) 0.1 (0.0-0.1) K/uL Nucleated RBC % 0.0 /100WBC Nucleated RBCs # 0 K/uL VBG pH 7.26 L (7.31-7.41) VBG pCO2 31 L (35-45) mmHG VBG pO2 61 H (30-40) mmHG VBG HCO3 14 L (22-30) mEq/L VBG Total CO2 12 L (41-51) mmol/L VBG Base Excess -11.8 L (-3.0-3.0) Sodium 137 (136-148) mmol/L Potassium 5.3 H (3.5-5.1) mmol/L Chloride 93 L (98-107) mmol/L Carbon Dioxide 14.6 L (21.0-32.0) mmol/L BUN 17 (7.0-18.0) mg/dL Creatinine 1.3 (0.8-1.3) mg/dL Est Cr Clr Drug Dosing 78.51 mL/min Estimated GFR (MDRD) > 60.0 ml/min Glucose 538 H* (74-106) mg/dL POC Glucose (60-110) mg/dL Hemoglobin A1c (4.5-6.2) % Calcium 9.3 (8.5-10.1) mg/dL Magnesium (1.8-2.4) mg/dL Total Bilirubin 1.0 (0.2-1.0) mg/dL AST 44 H (15-37) IU/L ALT 48 (14-63) IU/L Alkaline Phosphatase 111 (46-116) U/L Total Protein 7.1 (6.4-8.2) g/dL Albumin 4.7 (3.4-5.0) g/dL Globulin 2.4 L (2.6-4.0) g/dL Albumin/Globulin Ratio 2.0 H (0.9-1.6) Lipase (73-393) U/L Urine Color Urine Appearance Urine pH (5.0-8.0) Ur Specific [place] (1.001-1.035) Urine Protein (NEGATIVE) mg/dL Urine Glucose (UA) (NEGATIVE) mg/dL Urine Ketones (NEGATIVE) mg/dL Urine Occult Blood (NEGATIVE) Urine Nitrite (NEGATIVE) Urine Bilirubin (NEGATIVE) Urine Urobilinogen (<2.0) EU/dL Ur Leukocyte Esterase (NEGATIVE) Ketones (NEG) 06/30/19 06/30/19 06/30/19 Range/Units 10:45 11:03 14:34 WBC (4.0-11.0) K/uL RBC (4.50-5.90) M/uL Hgb (13.0-17.0) g/dL Hct (38.0-50.0) % MCV (80.0-98.0) fL MCH (27.0-32.0) pg MCHC (31.0-37.0) g/dL RDW Std Deviation (28.0-62.0) fl RDW Coeff of [place] (11.0-15.0) % Plt Count (150-400) K/uL MPV (7.40-12.00) fL Neut % (Auto) (48.0-80.0) % Lymph % (Auto) (16.0-40.0) % [place] % (Auto) (0.0-15.0) % Eos % (Auto) (0.0-7.0) % Baso % (Auto) (0.0-1.5) % Neut # (Auto) (1.4-5.7) K/uL Lymph # (Auto) (0.6-2.4) K/uL [place] # (Auto) (0.0-0.8) K/uL Eos # (Auto) (0.0-0.7) K/uL Baso # (Auto) (0.0-0.1) K/uL Nucleated RBC % /100WBC Nucleated RBCs # K/uL VBG pH (7.31-7.41) VBG pCO2 (35-45) mmHG VBG pO2 (30-40) mmHG VBG HCO3 (22-30) mEq/L VBG Total CO2 (41-51) mmol/L VBG Base Excess (-3.0-3.0) Sodium (136-148) mmol/L Potassium (3.5-5.1) mmol/L Chloride (98-107) mmol/L Carbon Dioxide (21.0-32.0) mmol/L BUN (7.0-18.0) mg/dL Creatinine (0.8-1.3) mg/dL Est Cr Clr Drug Dosing mL/min Estimated GFR (MDRD) ml/min Glucose (74-106) mg/dL POC Glucose > 500 H (60-110) mg/dL Hemoglobin A1c (4.5-6.2) % Calcium (8.5-10.1) mg/dL Magnesium (1.8-2.4) mg/dL Total Bilirubin (0.2-1.0) mg/dL AST (15-37) IU/L ALT (14-63) IU/L Alkaline Phosphatase (46-116) U/L Total Protein (6.4-8.2) g/dL Albumin (3.4-5.0) g/dL Globulin (2.6-4.0) g/dL Albumin/Globulin Ratio (0.9-1.6) Lipase (73-393) U/L Urine Color YELLOW Urine Appearance CLEAR Urine pH 5.5 (5.0-8.0) Ur Specific [place] 1.025 (1.001-1.035) Urine Protein NEGATIVE (NEGATIVE) mg/dL Urine Glucose (UA) >=1000 (NEGATIVE) mg/dL Urine Ketones 40 H (NEGATIVE) mg/dL Urine Occult Blood NEGATIVE (NEGATIVE) Urine Nitrite NEGATIVE (NEGATIVE) Urine Bilirubin NEGATIVE (NEGATIVE) Urine Urobilinogen 0.2 (<2.0) EU/dL Ur Leukocyte Esterase NEGATIVE (NEGATIVE) Ketones NEGATIVE (NEG) 06/30/19 06/30/19 06/30/19 Range/Units 15:36 15:45 16:39 WBC (4.0-11.0) K/uL RBC (4.50-5.90) M/uL Hgb (13.0-17.0) g/dL Hct (38.0-50.0) % MCV (80.0-98.0) fL MCH (27.0-32.0) pg MCHC (31.0-37.0) g/dL RDW Std Deviation (28.0-62.0) fl RDW Coeff of [place] (11.0-15.0) % Plt Count (150-400) K/uL MPV (7.40-12.00) fL Neut % (Auto) (48.0-80.0) % Lymph % (Auto) (16.0-40.0) % [place] % (Auto) (0.0-15.0) % Eos % (Auto) (0.0-7.0) % Baso % (Auto) (0.0-1.5) % Neut # (Auto) (1.4-5.7) K/uL Lymph # (Auto) (0.6-2.4) K/uL [place] # (Auto) (0.0-0.8) K/uL Eos # (Auto) (0.0-0.7) K/uL Baso # (Auto) (0.0-0.1) K/uL Nucleated RBC % /100WBC Nucleated RBCs # K/uL VBG pH (7.31-7.41) VBG pCO2 (35-45) mmHG VBG pO2 (30-40) mmHG VBG HCO3 (22-30) mEq/L VBG Total CO2 (41-51) mmol/L VBG Base Excess (-3.0-3.0) Sodium 139 (136-148) mmol/L Potassium 4.7 (3.5-5.1) mmol/L Chloride 99 (98-107) mmol/L Carbon Dioxide 14.5 L (21.0-32.0) mmol/L BUN 19 H (7.0-18.0) mg/dL Creatinine 1.5 H (0.8-1.3) mg/dL Est Cr Clr Drug Dosing 68.04 mL/min Estimated GFR (MDRD) 54.2 ml/min Glucose 447 H (74-106) mg/dL POC Glucose 385 H 434 H (60-110) mg/dL Hemoglobin A1c (4.5-6.2) % Calcium 9.1 (8.5-10.1) mg/dL Magnesium (1.8-2.4) mg/dL Total Bilirubin (0.2-1.0) mg/dL AST (15-37) IU/L ALT (14-63) IU/L Alkaline Phosphatase (46-116) U/L Total Protein (6.4-8.2) g/dL Albumin (3.4-5.0) g/dL Globulin (2.6-4.0) g/dL Albumin/Globulin Ratio (0.9-1.6) Lipase 73 (73-393) U/L Urine Color Urine Appearance Urine pH (5.0-8.0) Ur Specific [place] (1.001-1.035) Urine Protein (NEGATIVE) mg/dL Urine Glucose (UA) (NEGATIVE) mg/dL Urine Ketones (NEGATIVE) mg/dL Urine Occult Blood (NEGATIVE) Urine Nitrite (NEGATIVE) Urine Bilirubin (NEGATIVE) Urine Urobilinogen (<2.0) EU/dL Ur Leukocyte Esterase (NEGATIVE) Ketones (NEG) 06/30/19 06/30/19 06/30/19 Range/Units 17:33 18:42 19:56 WBC (4.0-11.0) K/uL RBC (4.50-5.90) M/uL Hgb (13.0-17.0) g/dL Hct (38.0-50.0) % MCV (80.0-98.0) fL MCH (27.0-32.0) pg MCHC (31.0-37.0) g/dL RDW Std Deviation (28.0-62.0) fl RDW Coeff of [place] (11.0-15.0) % Plt Count (150-400) K/uL MPV (7.40-12.00) fL Neut % (Auto) (48.0-80.0) % Lymph % (Auto) (16.0-40.0) % [place] % (Auto) (0.0-15.0) % Eos % (Auto) (0.0-7.0) % Baso % (Auto) (0.0-1.5) % Neut # (Auto) (1.4-5.7) K/uL Lymph # (Auto) (0.6-2.4) K/uL [place] # (Auto) (0.0-0.8) K/uL Eos # (Auto) (0.0-0.7) K/uL Baso # (Auto) (0.0-0.1) K/uL Nucleated RBC % /100WBC Nucleated RBCs # K/uL VBG pH (7.31-7.41) VBG pCO2 (35-45) mmHG VBG pO2 (30-40) mmHG VBG HCO3 (22-30) mEq/L VBG Total CO2 (41-51) mmol/L VBG Base Excess (-3.0-3.0) Sodium (136-148) mmol/L Potassium (3.5-5.1) mmol/L Chloride (98-107) mmol/L Carbon Dioxide (21.0-32.0) mmol/L BUN (7.0-18.0) mg/dL Creatinine (0.8-1.3) mg/dL Est Cr Clr Drug Dosing mL/min Estimated GFR (MDRD) ml/min Glucose (74-106) mg/dL POC Glucose 339 H 305 H 241 H (60-110) mg/dL Hemoglobin A1c (4.5-6.2) % Calcium (8.5-10.1) mg/dL Magnesium (1.8-2.4) mg/dL Total Bilirubin (0.2-1.0) mg/dL AST (15-37) IU/L ALT (14-63) IU/L Alkaline Phosphatase (46-116) U/L Total Protein (6.4-8.2) g/dL Albumin (3.4-5.0) g/dL Globulin (2.6-4.0) g/dL Albumin/Globulin Ratio (0.9-1.6) Lipase (73-393) U/L Urine Color Urine Appearance Urine pH (5.0-8.0) Ur Specific [place] (1.001-1.035) Urine Protein (NEGATIVE) mg/dL Urine Glucose (UA) (NEGATIVE) mg/dL Urine Ketones (NEGATIVE) mg/dL Urine Occult Blood (NEGATIVE) Urine Nitrite (NEGATIVE) Urine Bilirubin (NEGATIVE) Urine Urobilinogen (<2.0) EU/dL Ur Leukocyte Esterase (NEGATIVE) Ketones (NEG) 06/30/19 06/30/19 06/30/19 Range/Units 20:38 20:56 21:35 WBC (4.0-11.0) K/uL RBC (4.50-5.90) M/uL Hgb (13.0-17.0) g/dL Hct (38.0-50.0) % MCV (80.0-98.0) fL MCH (27.0-32.0) pg MCHC (31.0-37.0) g/dL RDW Std Deviation (28.0-62.0) fl RDW Coeff of [place] (11.0-15.0) % Plt Count (150-400) K/uL MPV (7.40-12.00) fL Neut % (Auto) (48.0-80.0) % Lymph % (Auto) (16.0-40.0) % [place] % (Auto) (0.0-15.0) % Eos % (Auto) (0.0-7.0) % Baso % (Auto) (0.0-1.5) % Neut # (Auto) (1.4-5.7) K/uL Lymph # (Auto) (0.6-2.4) K/uL [place] # (Auto) (0.0-0.8) K/uL Eos # (Auto) (0.0-0.7) K/uL Baso # (Auto) (0.0-0.1) K/uL Nucleated RBC % /100WBC Nucleated RBCs # K/uL VBG pH (7.31-7.41) VBG pCO2 (35-45) mmHG VBG pO2 (30-40) mmHG VBG HCO3 (22-30) mEq/L VBG Total CO2 (41-51) mmol/L VBG Base Excess (-3.0-3.0) Sodium 140 (136-148) mmol/L Potassium 3.9 (3.5-5.1) mmol/L Chloride 106 (98-107) mmol/L Carbon Dioxide 26.5 (21.0-32.0) mmol/L BUN 15 (7.0-18.0) mg/dL Creatinine 1.3 (0.8-1.3) mg/dL Est Cr Clr Drug Dosing 78.51 mL/min Estimated GFR (MDRD) > 60.0 ml/min Glucose 243 H (74-106) mg/dL POC Glucose 214 H 217 H (60-110) mg/dL Hemoglobin A1c (4.5-6.2) % Calcium 7.9 L (8.5-10.1) mg/dL Magnesium (1.8-2.4) mg/dL Total Bilirubin (0.2-1.0) mg/dL AST (15-37) IU/L ALT (14-63) IU/L Alkaline Phosphatase (46-116) U/L Total Protein (6.4-8.2) g/dL Albumin (3.4-5.0) g/dL Globulin (2.6-4.0) g/dL Albumin/Globulin Ratio (0.9-1.6) Lipase (73-393) U/L Urine Color Urine Appearance Urine pH (5.0-8.0) Ur Specific [place] (1.001-1.035) Urine Protein (NEGATIVE) mg/dL Urine Glucose (UA) (NEGATIVE) mg/dL Urine Ketones (NEGATIVE) mg/dL Urine Occult Blood (NEGATIVE) Urine Nitrite (NEGATIVE) Urine Bilirubin (NEGATIVE) Urine Urobilinogen (<2.0) EU/dL Ur Leukocyte Esterase (NEGATIVE) Ketones (NEG) 06/30/19 06/30/19 07/01/19 Range/Units 22:00 22:59 00:02 WBC (4.0-11.0) K/uL RBC (4.50-5.90) M/uL Hgb (13.0-17.0) g/dL Hct (38.0-50.0) % MCV (80.0-98.0) fL MCH (27.0-32.0) pg MCHC (31.0-37.0) g/dL RDW Std Deviation (28.0-62.0) fl RDW Coeff of [place] (11.0-15.0) % Plt Count (150-400) K/uL MPV (7.40-12.00) fL Neut % (Auto) (48.0-80.0) % Lymph % (Auto) (16.0-40.0) % [place] % (Auto) (0.0-15.0) % Eos % (Auto) (0.0-7.0) % Baso % (Auto) (0.0-1.5) % Neut # (Auto) (1.4-5.7) K/uL Lymph # (Auto) (0.6-2.4) K/uL [place] # (Auto) (0.0-0.8) K/uL Eos # (Auto) (0.0-0.7) K/uL Baso # (Auto) (0.0-0.1) K/uL Nucleated RBC % /100WBC Nucleated RBCs # K/uL VBG pH (7.31-7.41) VBG pCO2 (35-45) mmHG VBG pO2 (30-40) mmHG VBG HCO3 (22-30) mEq/L VBG Total CO2 (41-51) mmol/L VBG Base Excess (-3.0-3.0) Sodium (136-148) mmol/L Potassium (3.5-5.1) mmol/L Chloride (98-107) mmol/L Carbon Dioxide (21.0-32.0) mmol/L BUN (7.0-18.0) mg/dL Creatinine (0.8-1.3) mg/dL Est Cr Clr Drug Dosing mL/min Estimated GFR (MDRD) ml/min Glucose (74-106) mg/dL POC Glucose 263 H 269 H 242 H (60-110) mg/dL Hemoglobin A1c (4.5-6.2) % Calcium (8.5-10.1) mg/dL Magnesium (1.8-2.4) mg/dL Total Bilirubin (0.2-1.0) mg/dL AST (15-37) IU/L ALT (14-63) IU/L Alkaline Phosphatase (46-116) U/L Total Protein (6.4-8.2) g/dL Albumin (3.4-5.0) g/dL Globulin (2.6-4.0) g/dL Albumin/Globulin Ratio (0.9-1.6) Lipase (73-393) U/L Urine Color Urine Appearance Urine pH (5.0-8.0) Ur Specific [place] (1.001-1.035) Urine Protein (NEGATIVE) mg/dL Urine Glucose (UA) (NEGATIVE) mg/dL Urine Ketones (NEGATIVE) mg/dL Urine Occult Blood (NEGATIVE) Urine Nitrite (NEGATIVE) Urine Bilirubin (NEGATIVE) Urine Urobilinogen (<2.0) EU/dL Ur Leukocyte Esterase (NEGATIVE) Ketones (NEG) 07/01/19 07/01/19 07/01/19 Range/Units 00:55 01:55 02:57 WBC (4.0-11.0) K/uL RBC (4.50-5.90) M/uL Hgb (13.0-17.0) g/dL Hct (38.0-50.0) % MCV (80.0-98.0) fL MCH (27.0-32.0) pg MCHC (31.0-37.0) g/dL RDW Std Deviation (28.0-62.0) fl RDW Coeff of [place] (11.0-15.0) % Plt Count (150-400) K/uL MPV (7.40-12.00) fL Neut % (Auto) (48.0-80.0) % Lymph % (Auto) (16.0-40.0) % [place] % (Auto) (0.0-15.0) % Eos % (Auto) (0.0-7.0) % Baso % (Auto) (0.0-1.5) % Neut # (Auto) (1.4-5.7) K/uL Lymph # (Auto) (0.6-2.4) K/uL [place] # (Auto) (0.0-0.8) K/uL Eos # (Auto) (0.0-0.7) K/uL Baso # (Auto) (0.0-0.1) K/uL Nucleated RBC % /100WBC Nucleated RBCs # K/uL VBG pH (7.31-7.41) VBG pCO2 (35-45) mmHG VBG pO2 (30-40) mmHG VBG HCO3 (22-30) mEq/L VBG Total CO2 (41-51) mmol/L VBG Base Excess (-3.0-3.0) Sodium (136-148) mmol/L Potassium (3.5-5.1) mmol/L Chloride (98-107) mmol/L Carbon Dioxide (21.0-32.0) mmol/L BUN (7.0-18.0) mg/dL Creatinine (0.8-1.3) mg/dL Est Cr Clr Drug Dosing mL/min Estimated GFR (MDRD) ml/min Glucose (74-106) mg/dL POC Glucose 215 H 266 H 235 H (60-110) mg/dL Hemoglobin A1c (4.5-6.2) % Calcium (8.5-10.1) mg/dL Magnesium (1.8-2.4) mg/dL Total Bilirubin (0.2-1.0) mg/dL AST (15-37) IU/L ALT (14-63) IU/L Alkaline Phosphatase (46-116) U/L Total Protein (6.4-8.2) g/dL Albumin (3.4-5.0) g/dL Globulin (2.6-4.0) g/dL Albumin/Globulin Ratio (0.9-1.6) Lipase (73-393) U/L Urine Color Urine Appearance Urine pH (5.0-8.0) Ur Specific [place] (1.001-1.035) Urine Protein (NEGATIVE) mg/dL Urine Glucose (UA) (NEGATIVE) mg/dL Urine Ketones (NEGATIVE) mg/dL Urine Occult Blood (NEGATIVE) Urine Nitrite (NEGATIVE) Urine Bilirubin (NEGATIVE) Urine Urobilinogen (<2.0) EU/dL Ur Leukocyte Esterase (NEGATIVE) Ketones (NEG) 07/01/19 07/01/19 07/01/19 Range/Units 03:58 05:00 05:23 WBC (4.0-11.0) K/uL RBC (4.50-5.90) M/uL Hgb (13.0-17.0) g/dL Hct (38.0-50.0) % MCV (80.0-98.0) fL MCH (27.0-32.0) pg MCHC (31.0-37.0) g/dL RDW Std Deviation (28.0-62.0) fl RDW Coeff of [place] (11.0-15.0) % Plt Count (150-400) K/uL MPV (7.40-12.00) fL Neut % (Auto) (48.0-80.0) % Lymph % (Auto) (16.0-40.0) % [place] % (Auto) (0.0-15.0) % Eos % (Auto) (0.0-7.0) % Baso % (Auto) (0.0-1.5) % Neut # (Auto) (1.4-5.7) K/uL Lymph # (Auto) (0.6-2.4) K/uL [place] # (Auto) (0.0-0.8) K/uL Eos # (Auto) (0.0-0.7) K/uL Baso # (Auto) (0.0-0.1) K/uL Nucleated RBC % /100WBC Nucleated RBCs # K/uL VBG pH (7.31-7.41) VBG pCO2 (35-45) mmHG VBG pO2 (30-40) mmHG VBG HCO3 (22-30) mEq/L VBG Total CO2 (41-51) mmol/L VBG Base Excess (-3.0-3.0) Sodium 142 (136-148) mmol/L Potassium 3.2 L (3.5-5.1) mmol/L Chloride 109 H (98-107) mmol/L Carbon Dioxide 24.9 (21.0-32.0) mmol/L BUN 15 (7.0-18.0) mg/dL Creatinine 1.1 (0.8-1.3) mg/dL Est Cr Clr Drug Dosing 87.41 mL/min Estimated GFR (MDRD) > 60.0 ml/min Glucose 140 H (74-106) mg/dL POC Glucose 180 H 121 H (60-110) mg/dL Hemoglobin A1c (4.5-6.2) % Calcium 7.3 L (8.5-10.1) mg/dL Magnesium (1.8-2.4) mg/dL Total Bilirubin (0.2-1.0) mg/dL AST (15-37) IU/L ALT (14-63) IU/L Alkaline Phosphatase (46-116) U/L Total Protein (6.4-8.2) g/dL Albumin (3.4-5.0) g/dL Globulin (2.6-4.0) g/dL Albumin/Globulin Ratio (0.9-1.6) Lipase (73-393) U/L Urine Color Urine Appearance Urine pH (5.0-8.0) Ur Specific [place] (1.001-1.035) Urine Protein (NEGATIVE) mg/dL Urine Glucose (UA) (NEGATIVE) mg/dL Urine Ketones (NEGATIVE) mg/dL Urine Occult Blood (NEGATIVE) Urine Nitrite (NEGATIVE) Urine Bilirubin (NEGATIVE) Urine Urobilinogen (<2.0) EU/dL Ur Leukocyte Esterase (NEGATIVE) Ketones (NEG) 07/01/19 07/01/19 07/01/19 Range/Units 05:23 05:23 06:02 WBC 11.24 H (4.0-11.0) K/uL RBC 4.32 L (4.50-5.90) M/uL Hgb 13.5 (13.0-17.0) g/dL Hct 38.2 (38.0-50.0) % MCV 88.4 (80.0-98.0) fL MCH 31.3 (27.0-32.0) pg MCHC 35.3 (31.0-37.0) g/dL RDW Std Deviation 46.6 (28.0-62.0) fl RDW Coeff of [place] 14 (11.0-15.0) % Plt Count 148 L (150-400) K/uL MPV 9.20 (7.40-12.00) fL Neut % (Auto) 67.0 (48.0-80.0) % Lymph % (Auto) 21.3 (16.0-40.0) % [place] % (Auto) 10.7 (0.0-15.0) % Eos % (Auto) 0.6 (0.0-7.0) % Baso % (Auto) 0.4 (0.0-1.5) % Neut # (Auto) 7.5 H (1.4-5.7) K/uL Lymph # (Auto) 2.4 (0.6-2.4) K/uL [place] # (Auto) 1.2 H (0.0-0.8) K/uL Eos # (Auto) 0.1 (0.0-0.7) K/uL Baso # (Auto) 0.0 (0.0-0.1) K/uL Nucleated RBC % 0.0 /100WBC Nucleated RBCs # 0 K/uL VBG pH (7.31-7.41) VBG pCO2 (35-45) mmHG VBG pO2 (30-40) mmHG VBG HCO3 (22-30) mEq/L VBG Total CO2 (41-51) mmol/L VBG Base Excess (-3.0-3.0) Sodium (136-148) mmol/L Potassium (3.5-5.1) mmol/L Chloride (98-107) mmol/L Carbon Dioxide (21.0-32.0) mmol/L BUN (7.0-18.0) mg/dL Creatinine (0.8-1.3) mg/dL Est Cr Clr Drug Dosing mL/min Estimated GFR (MDRD) ml/min Glucose (74-106) mg/dL POC Glucose 175 H (60-110) mg/dL Hemoglobin A1c 9.7 H (4.5-6.2) % Calcium (8.5-10.1) mg/dL Magnesium (1.8-2.4) mg/dL Total Bilirubin (0.2-1.0) mg/dL AST (15-37) IU/L ALT (14-63) IU/L Alkaline Phosphatase (46-116) U/L Total Protein (6.4-8.2) g/dL Albumin (3.4-5.0) g/dL Globulin (2.6-4.0) g/dL Albumin/Globulin Ratio (0.9-1.6) Lipase (73-393) U/L Urine Color Urine Appearance Urine pH (5.0-8.0) Ur Specific [place] (1.001-1.035) Urine Protein (NEGATIVE) mg/dL Urine Glucose (UA) (NEGATIVE) mg/dL Urine Ketones (NEGATIVE) mg/dL Urine Occult Blood (NEGATIVE) Urine Nitrite (NEGATIVE) Urine Bilirubin (NEGATIVE) Urine Urobilinogen (<2.0) EU/dL Ur Leukocyte Esterase (NEGATIVE) Ketones (NEG) 07/01/19 07/01/19 07/01/19 Range/Units 06:55 07:55 08:01 WBC (4.0-11.0) K/uL RBC (4.50-5.90) M/uL Hgb (13.0-17.0) g/dL Hct (38.0-50.0) % MCV (80.0-98.0) fL MCH (27.0-32.0) pg MCHC (31.0-37.0) g/dL RDW Std Deviation (28.0-62.0) fl RDW Coeff of [place] (11.0-15.0) % Plt Count (150-400) K/uL MPV (7.40-12.00) fL Neut % (Auto) (48.0-80.0) % Lymph % (Auto) (16.0-40.0) % [place] % (Auto) (0.0-15.0) % Eos % (Auto) (0.0-7.0) % Baso % (Auto) (0.0-1.5) % Neut # (Auto) (1.4-5.7) K/uL Lymph # (Auto) (0.6-2.4) K/uL [place] # (Auto) (0.0-0.8) K/uL Eos # (Auto) (0.0-0.7) K/uL Baso # (Auto) (0.0-0.1) K/uL Nucleated RBC % /100WBC Nucleated RBCs # K/uL VBG pH (7.31-7.41) VBG pCO2 (35-45) mmHG VBG pO2 (30-40) mmHG VBG HCO3 (22-30) mEq/L VBG Total CO2 (41-51) mmol/L VBG Base Excess (-3.0-3.0) Sodium (136-148) mmol/L Potassium (3.5-5.1) mmol/L Chloride (98-107) mmol/L Carbon Dioxide (21.0-32.0) mmol/L BUN (7.0-18.0) mg/dL Creatinine (0.8-1.3) mg/dL Est Cr Clr Drug Dosing mL/min Estimated GFR (MDRD) ml/min Glucose (74-106) mg/dL POC Glucose 217 H 227 H (60-110) mg/dL Hemoglobin A1c (4.5-6.2) % Calcium (8.5-10.1) mg/dL Magnesium 2.0 (1.8-2.4) mg/dL Total Bilirubin (0.2-1.0) mg/dL AST (15-37) IU/L ALT (14-63) IU/L Alkaline Phosphatase (46-116) U/L Total Protein (6.4-8.2) g/dL Albumin (3.4-5.0) g/dL Globulin (2.6-4.0) g/dL Albumin/Globulin Ratio (0.9-1.6) Lipase (73-393) U/L Urine Color Urine Appearance Urine pH (5.0-8.0) Ur Specific [place] (1.001-1.035) Urine Protein (NEGATIVE) mg/dL Urine Glucose (UA) (NEGATIVE) mg/dL Urine Ketones (NEGATIVE) mg/dL Urine Occult Blood (NEGATIVE) Urine Nitrite (NEGATIVE) Urine Bilirubin (NEGATIVE) Urine Urobilinogen (<2.0) EU/dL Ur Leukocyte Esterase (NEGATIVE) Ketones (NEG) 07/01/19 Range/Units 09:50 WBC (4.0-11.0) K/uL RBC (4.50-5.90) M/uL Hgb (13.0-17.0) g/dL Hct (38.0-50.0) % MCV (80.0-98.0) fL MCH (27.0-32.0) pg MCHC (31.0-37.0) g/dL RDW Std Deviation (28.0-62.0) fl RDW Coeff of [place] (11.0-15.0) % Plt Count (150-400) K/uL MPV (7.40-12.00) fL Neut % (Auto) (48.0-80.0) % Lymph % (Auto) (16.0-40.0) % [place] % (Auto) (0.0-15.0) % Eos % (Auto) (0.0-7.0) % Baso % (Auto) (0.0-1.5) % Neut # (Auto) (1.4-5.7) K/uL Lymph # (Auto) (0.6-2.4) K/uL [place] # (Auto) (0.0-0.8) K/uL Eos # (Auto) (0.0-0.7) K/uL Baso # (Auto) (0.0-0.1) K/uL Nucleated RBC % /100WBC Nucleated RBCs # K/uL VBG pH (7.31-7.41) VBG pCO2 (35-45) mmHG VBG pO2 (30-40) mmHG VBG HCO3 (22-30) mEq/L VBG Total CO2 (41-51) mmol/L VBG Base Excess (-3.0-3.0) Sodium (136-148) mmol/L Potassium (3.5-5.1) mmol/L Chloride (98-107) mmol/L Carbon Dioxide (21.0-32.0) mmol/L BUN (7.0-18.0) mg/dL Creatinine (0.8-1.3) mg/dL Est Cr Clr Drug Dosing mL/min Estimated GFR (MDRD) ml/min Glucose (74-106) mg/dL POC Glucose 254 H (60-110) mg/dL Hemoglobin A1c (4.5-6.2) % Calcium (8.5-10.1) mg/dL Magnesium (1.8-2.4) mg/dL Total Bilirubin (0.2-1.0) mg/dL AST (15-37) IU/L ALT (14-63) IU/L Alkaline Phosphatase (46-116) U/L Total Protein (6.4-8.2) g/dL Albumin (3.4-5.0) g/dL Globulin (2.6-4.0) g/dL Albumin/Globulin Ratio (0.9-1.6) Lipase (73-393) U/L Urine Color Urine Appearance Urine pH (5.0-8.0) Ur Specific [place] (1.001-1.035) Urine Protein (NEGATIVE) mg/dL Urine Glucose (UA) (NEGATIVE) mg/dL Urine Ketones (NEGATIVE) mg/dL Urine Occult Blood (NEGATIVE) Urine Nitrite (NEGATIVE) Urine Bilirubin (NEGATIVE) Urine Urobilinogen (<2.0) EU/dL Ur Leukocyte Esterase (NEGATIVE) Ketones (NEG) Med Orders - Current: Current Medications Acetaminophen (Tylenol) 650 mg PO Q4H PRN PRN Reason: Pain (Mild 1-3)/fever Last Admin: 07/01/19 01:04 Dose: 650 mg Folic Acid (Folic Acid) 1 mg PO DAILY [facility] Last Admin: 07/01/19 09:18 Dose: 1 mg Thiamine HCl 100 mg/ Sodium (Chloride) 51 mls @ 204 mls/hr IV Q24H [facility] Last Admin: 06/30/19 17:54 Dose: 204 mls/hr Insulin Human Regular 100 unit (/ Sodium Chloride) 100 mls @ 2.5 mls/hr IV TITRATE [facility]; Protocol Stop: 07/01/19 11:30 Last Titration: 07/01/19 09:52 Dose: 3 unit/hr, 3 mls/hr Insulin Aspart (Novolog) 0 unit SUBCUT TIDAC [facility]; Protocol Insulin Glargine (Lantus Solostar) [facility] [place] Last Admin: 07/01/19 09:20 Dose: 25 units Lorazepam (Ativan) 0 mg IVPUSH Q4H PRN; Protocol PRN Reason: CIWAA Ondansetron HCl (Zofran) 4 mg IVPUSH Q4H PRN PRN Reason: Pain Discontinued Medications Sodium Chloride (Normal Saline) 1,000 mls @ 999 mls/hr IV .Bolus ONE Stop: 06/30/19 11:53 Last Admin: 06/30/19 10:58 Dose: 999 mls/hr Sodium Chloride (Normal Saline) 1,000 mls @ 999 mls/hr IV ASDIRECTED BONIFACIO Last Admin: 06/30/19 11:47 Dose: 999 mls/hr Insulin Human Regular 100 unit (/ Sodium Chloride) 100 mls @ 6 mls/hr IV TITRATE BONIFACIO; Protocol Last Titration: 06/30/19 18:46 Dose: 11.55 unit/hr, 11.55 mls/hr Sodium Chloride (Normal Saline) 1,000 mls @ 200 mls/hr IV ASDIRECTED BONIFACIO Sodium Chloride (Normal Saline) 1,000 mls @ 999 mls/hr IV BOLUS BONIFACIO Sodium Chloride (Normal Saline) 1,000 mls @ 200 mls/hr IV ASDIRECTED BONIFACIO Dextrose/Sodium Chloride (Dextrose 5%-Normal Saline) 1,000 mls @ 150 mls/hr IV ASDIRECTED BONIFACIO Last Admin: 07/01/19 04:31 Dose: 150 mls/hr Sodium Chloride (Normal Saline) 1,000 mls @ 999 mls/hr IV BOLUS BONIFACIO Stop: 07/01/19 04:06 Last Admin: 07/01/19 03:33 Dose: 999 mls/hr Iopamidol (Isovue Multipack-370 (76%)) 100 ml IVPUSH ONETIME ONE Stop: 06/30/19 12:31 Last Admin: 06/30/19 12:31 Dose: 100 ml Metoclopramide HCl (Reglan) 10 mg IVPUSH ONETIME ONE Stop: 06/30/19 11:10 Last Admin: 06/30/19 11:13 Dose: 10 mg Morphine Sulfate (Morphine) 6 mg IVPUSH ONETIME ONE Stop: 06/30/19 10:50 Last Admin: 06/30/19 10:59 Dose: 6 mg Ondansetron HCl (Zofran) 4 mg IVPUSH ONETIME ONE Stop: 06/30/19 10:01 Last Admin: 06/30/19 10:23 Dose: 4 mg Potassium Chloride (Klor-Con 10) 40 meq PO ONETIME ONE Stop: 07/01/19 06:36 Last Admin: 07/01/19 06:49 Dose: 40 meq Potassium Chloride (Klor-Con M20) 40 meq PO ONETIME ONE Stop: 07/01/19 10:01 Last Admin: 07/01/19 09:18 Dose: 40 meq - Exam General: Alert, Oriented, Cooperative, No Acute Distress Lungs: Clear to Auscultation, Normal Respiratory Effort. No: Crackles, Wheezing Cardiovascular: Regular Rate, Regular Rhythm GI/Abdominal Exam: Normal Bowel Sounds, Soft, Non-Tender, No Distention Extremities: Normal Inspection, No Pedal Edema Sepsis Event Note - Evaluation Sepsis Screening Result: No Definite Risk - Focused Exam Vital Signs: Vital Signs Temp Resp BP Pulse Ox 07/01/19 10:00 15 99/54 L 98 07/01/19 09:00 36.4 C 13 99/54 L 98 07/01/19 08:00 13 90/58 L 98 07/01/19 07:00 14 94/54 L 99 07/01/19 06:00 13 95/62 98 07/01/19 05:00 14 93/52 L 98 07/01/19 04:00 36.8 C 13 99/59 L 98 07/01/19 03:00 15 93/48 L 98 07/01/19 02:00 37.3 C 13 94/49 L 99 07/01/19 01:00 37.3 C 14 98/57 L 98 07/01/19 00:00 37.5 C 14 107/65 99 06/30/19 23:00 37.3 C 14 100/59 L 98 Date Exam was Performed: 07/01/19 Time Exam was Performed: 17:44 - Problem List Review Problem List Initiated/Reviewed/Updated: Yes - My Orders Last 24 Hours: My Active Orders 07/01/19 09:00 Insulin Glarg,Human.Rec.Analog [LantUS Solostar] 25 units SUBCUT QAM 07/01/19 11:30 Insulin Aspart [NovoLOG] See Protocol SUBCUT TIDAC - Assessment Assessment:: A: 1. DKA, resolved 2. Type 1 diabetes 3. Hypokalemia P: 1. Will continue with bedside glucose checks. ISS. Continue to hydrate with NS. Will check electrolytes and replace as needed. Possibly discharge later today. - Plan Plan:: 33 yo male admitted for diabetic ketoacidosis. We will rescucitate with IV fluids. We will treat with insulin drip until anion gap closes then switch to subcu insulin. Due to history of alcohol abuse will place on CINDA protocol.
[2019-07-01] MEDS ORDERED: Sodium Chloride 0.9% 1,000 ML IV ONE ×2 (10:45→14:51)
[2019-07-01] MEDS: Insulin Aspart 100 Units/ML 3 ML Pen SUBCUT SCH ×2 (11:49→17:39)
[2019-07-01] MEDS: Thiamine 100 MG in Sodium Chloride 0.9% 50 ML IV SCH (15:56)
[2019-07-01 18:30] LABS: BLOOD UREA NITROGEN,BUN 10 mg/dL (7.0-18.0); CARBON DIOXIDE,CO2 23.7 mmol/L (21.0-32.0); CHLORIDE,CL 109 mmol/L (98-107); GLUCOSE RANDOM 275 mg/dL (74-106); POTASSIUM,K 3.8 mmol/L (3.5-5.1); SODIUM,NA 140 mmol/L (136-148)
--- NOTE | 2019-07-01 18:43 | PCM.DCSUM1 ---
<Marco Villanueva - Last Filed: 07/01/19 18:39> Discharge Summary - Hospital Course Free Text/Narrative:: 33 y/o male wit history of typ1 diabetes who presented to the ER with nausea, vomiting. Admitted for DKA. Started on insulin drip and aggressively hydrated with normal saline. He was able to be transitioned to subcutaneous insulin once anion gap closed and he was tolerating PO intake. In addition, he was monitored with CIWA assessments due to his history of alcohol use. He did not need ativan for withdrawal symptoms. At time of discharge he was tolerating PO intake, feeling better. No abdominal pain or nausea. He was discharged home with refills on his insulin and instructions to follow-up with his PCP. - Discharge Data Discharge Date: 07/01/19 Discharge Disposition: Home, Self-Care 01 Condition: Stable - Referral to Home Health Primary Care Physician: PCP None - Patient Summary/Data Consults: Consultations 07/01/19 09:20 Consult to Radiographer [Consult to Diabetic Nurse Specialist] [CONS] Routine - Patient Instructions Diet: Regular Diet as Tolerated Activity: As Tolerated Notify Provider of: Increased Pain, Swelling and Redness, Nausea and/or Vomiting - Discharge Plan Prescriptions/Med Rec: Insulin Aspart [NovoLOG] See Protocol SQ WITHMEALSANDBED #2 pen Insulin Glarg,Human.Rec.Analog [Lantus Solostar] 25 unit SUBCUT DAILY #2 pen Home Medications: Home Meds Insulin Aspart [NovoLOG] See Protocol SUBCUT TIDAC #1 box 05/10/17 [Rx] Insulin Glarg,Human.Rec.Analog [LantUS Solostar] 25 units SUBCUT QAM 08/17/17 [ History] Insulin Aspart [NovoLOG] See Protocol SQ WITHMEALSANDBED #2 pen 07/01/19 [Rx] Insulin Glarg,Human.Rec.Analog [Lantus Solostar] 25 unit SUBCUT DAILY #2 pen [Rx] Patient Handouts: Diabetic Ketoacidosis Forms: ED Department Discharge Referrals: Alfredo Oconnor MD [Physician] - (Followup with Primary physician 1-2 weeks post hospital stay) - Discharge Summary/Plan Comment DC Time >30 min.: No - Patient Data Vitals - Most Recent: Last Vital Signs Temp 36.8 C 07/01/19 11:56 Pulse 123 H 06/30/19 13:20 Resp 16 07/01/19 13:00 BP 108/73 07/01/19 13:00 Pulse Ox 98 07/01/19 13:00 Weight - Most Recent: 64.1 kg I&O - Last 24 hours: Intake & Output 07/01/19 07/01/19 07/01/19 06:59 14:59 22:59 Intake Total 6376 Output Total 1150 Balance 5226 Lab Results - Last 24 hrs: Laboratory Results - last 24 hr 06/30/19 06/30/19 06/30/19 Range/Units 18:42 19:56 20:38 WBC (4.0-11.0) K/uL RBC (4.50-5.90) M/uL Hgb (13.0-17.0) g/dL Hct (38.0-50.0) % MCV (80.0-98.0) fL MCH (27.0-32.0) pg MCHC (31.0-37.0) g/dL RDW Std Deviation (28.0-62.0) fl RDW Coeff of Macario (11.0-15.0) % Plt Count (150-400) K/uL MPV (7.40-12.00) fL Neut % (Auto) (48.0-80.0) % Lymph % (Auto) (16.0-40.0) % Piute % (Auto) (0.0-15.0) % Eos % (Auto) (0.0-7.0) % Baso % (Auto) (0.0-1.5) % Neut # (Auto) (1.4-5.7) K/uL Lymph # (Auto) (0.6-2.4) K/uL Piute # (Auto) (0.0-0.8) K/uL Eos # (Auto) (0.0-0.7) K/uL Baso # (Auto) (0.0-0.1) K/uL Nucleated RBC % /100WBC Nucleated RBCs # K/uL Sodium (136-148) mmol/L Potassium (3.5-5.1) mmol/L Chloride (98-107) mmol/L Carbon Dioxide (21.0-32.0) mmol/L BUN (7.0-18.0) mg/dL Creatinine (0.8-1.3) mg/dL Est Cr Clr Drug Dosing mL/min Estimated GFR (MDRD) ml/min Glucose (74-106) mg/dL POC Glucose 305 H 241 H 214 H (60-110) mg/dL Hemoglobin A1c (4.5-6.2) % Calcium (8.5-10.1) mg/dL Magnesium (1.8-2.4) mg/dL 06/30/19 06/30/19 06/30/19 Range/Units 20:56 21:35 22:00 WBC (4.0-11.0) K/uL RBC (4.50-5.90) M/uL Hgb (13.0-17.0) g/dL Hct (38.0-50.0) % MCV (80.0-98.0) fL MCH (27.0-32.0) pg MCHC (31.0-37.0) g/dL RDW Std Deviation (28.0-62.0) fl RDW Coeff of Macario (11.0-15.0) % Plt Count (150-400) K/uL MPV (7.40-12.00) fL Neut % (Auto) (48.0-80.0) % Lymph % (Auto) (16.0-40.0) % Piute % (Auto) (0.0-15.0) % Eos % (Auto) (0.0-7.0) % Baso % (Auto) (0.0-1.5) % Neut # (Auto) (1.4-5.7) K/uL Lymph # (Auto) (0.6-2.4) K/uL Piute # (Auto) (0.0-0.8) K/uL Eos # (Auto) (0.0-0.7) K/uL Baso # (Auto) (0.0-0.1) K/uL Nucleated RBC % /100WBC Nucleated RBCs # K/uL Sodium 140 (136-148) mmol/L Potassium 3.9 (3.5-5.1) mmol/L Chloride 106 (98-107) mmol/L Carbon Dioxide 26.5 (21.0-32.0) mmol/L BUN 15 (7.0-18.0) mg/dL Creatinine 1.3 (0.8-1.3) mg/dL Est Cr Clr Drug Dosing 78.51 mL/min Estimated GFR (MDRD) > 60.0 ml/min Glucose 243 H (74-106) mg/dL POC Glucose 217 H 263 H (60-110) mg/dL Hemoglobin A1c (4.5-6.2) % Calcium 7.9 L (8.5-10.1) mg/dL Magnesium (1.8-2.4) mg/dL 06/30/19 07/01/19 07/01/19 Range/Units 22:59 00:02 00:55 WBC (4.0-11.0) K/uL RBC (4.50-5.90) M/uL Hgb (13.0-17.0) g/dL Hct (38.0-50.0) % MCV (80.0-98.0) fL MCH (27.0-32.0) pg MCHC (31.0-37.0) g/dL RDW Std Deviation (28.0-62.0) fl RDW Coeff of Macario (11.0-15.0) % Plt Count (150-400) K/uL MPV (7.40-12.00) fL Neut % (Auto) (48.0-80.0) % Lymph % (Auto) (16.0-40.0) % Piute % (Auto) (0.0-15.0) % Eos % (Auto) (0.0-7.0) % Baso % (Auto) (0.0-1.5) % Neut # (Auto) (1.4-5.7) K/uL Lymph # (Auto) (0.6-2.4) K/uL Piute # (Auto) (0.0-0.8) K/uL Eos # (Auto) (0.0-0.7) K/uL Baso # (Auto) (0.0-0.1) K/uL Nucleated RBC % /100WBC Nucleated RBCs # K/uL Sodium (136-148) mmol/L Potassium (3.5-5.1) mmol/L Chloride (98-107) mmol/L Carbon Dioxide (21.0-32.0) mmol/L BUN (7.0-18.0) mg/dL Creatinine (0.8-1.3) mg/dL Est Cr Clr Drug Dosing mL/min Estimated GFR (MDRD) ml/min Glucose (74-106) mg/dL POC Glucose 269 H 242 H 215 H (60-110) mg/dL Hemoglobin A1c (4.5-6.2) % Calcium (8.5-10.1) mg/dL Magnesium (1.8-2.4) mg/dL 07/01/19 07/01/19 07/01/19 Range/Units 01:55 02:57 03:58 WBC (4.0-11.0) K/uL RBC (4.50-5.90) M/uL Hgb (13.0-17.0) g/dL Hct (38.0-50.0) % MCV (80.0-98.0) fL MCH (27.0-32.0) pg MCHC (31.0-37.0) g/dL RDW Std Deviation (28.0-62.0) fl RDW Coeff of Macario (11.0-15.0) % Plt Count (150-400) K/uL MPV (7.40-12.00) fL Neut % (Auto) (48.0-80.0) % Lymph % (Auto) (16.0-40.0) % Piute % (Auto) (0.0-15.0) % Eos % (Auto) (0.0-7.0) % Baso % (Auto) (0.0-1.5) % Neut # (Auto) (1.4-5.7) K/uL Lymph # (Auto) (0.6-2.4) K/uL Piute # (Auto) (0.0-0.8) K/uL Eos # (Auto) (0.0-0.7) K/uL Baso # (Auto) (0.0-0.1) K/uL Nucleated RBC % /100WBC Nucleated RBCs # K/uL Sodium (136-148) mmol/L Potassium (3.5-5.1) mmol/L Chloride (98-107) mmol/L Carbon Dioxide (21.0-32.0) mmol/L BUN (7.0-18.0) mg/dL Creatinine (0.8-1.3) mg/dL Est Cr Clr Drug Dosing mL/min Estimated GFR (MDRD) ml/min Glucose (74-106) mg/dL POC Glucose 266 H 235 H 180 H (60-110) mg/dL Hemoglobin A1c (4.5-6.2) % Calcium (8.5-10.1) mg/dL Magnesium (1.8-2.4) mg/dL 07/01/19 07/01/19 07/01/19 Range/Units 05:00 05:23 05:23 WBC 11.24 H (4.0-11.0) K/uL RBC 4.32 L (4.50-5.90) M/uL Hgb 13.5 (13.0-17.0) g/dL Hct 38.2 (38.0-50.0) % MCV 88.4 (80.0-98.0) fL MCH 31.3 (27.0-32.0) pg MCHC 35.3 (31.0-37.0) g/dL RDW Std Deviation 46.6 (28.0-62.0) fl RDW Coeff of Macario 14 (11.0-15.0) % Plt Count 148 L (150-400) K/uL MPV 9.20 (7.40-12.00) fL Neut % (Auto) 67.0 (48.0-80.0) % Lymph % (Auto) 21.3 (16.0-40.0) % Piute % (Auto) 10.7 (0.0-15.0) % Eos % (Auto) 0.6 (0.0-7.0) % Baso % (Auto) 0.4 (0.0-1.5) % Neut # (Auto) 7.5 H (1.4-5.7) K/uL Lymph # (Auto) 2.4 (0.6-2.4) K/uL Piute # (Auto) 1.2 H (0.0-0.8) K/uL Eos # (Auto) 0.1 (0.0-0.7) K/uL Baso # (Auto) 0.0 (0.0-0.1) K/uL Nucleated RBC % 0.0 /100WBC Nucleated RBCs # 0 K/uL Sodium 142 (136-148) mmol/L Potassium 3.2 L (3.5-5.1) mmol/L Chloride 109 H (98-107) mmol/L Carbon Dioxide 24.9 (21.0-32.0) mmol/L BUN 15 (7.0-18.0) mg/dL Creatinine 1.1 (0.8-1.3) mg/dL Est Cr Clr Drug Dosing 87.41 mL/min Estimated GFR (MDRD) > 60.0 ml/min Glucose 140 H (74-106) mg/dL POC Glucose 121 H (60-110) mg/dL Hemoglobin A1c (4.5-6.2) % Calcium 7.3 L (8.5-10.1) mg/dL Magnesium (1.8-2.4) mg/dL 07/01/19 07/01/19 07/01/19 Range/Units 05:23 06:02 06:55 WBC (4.0-11.0) K/uL RBC (4.50-5.90) M/uL Hgb (13.0-17.0) g/dL Hct (38.0-50.0) % MCV (80.0-98.0) fL MCH (27.0-32.0) pg MCHC (31.0-37.0) g/dL RDW Std Deviation (28.0-62.0) fl RDW Coeff of Macario (11.0-15.0) % Plt Count (150-400) K/uL MPV (7.40-12.00) fL Neut % (Auto) (48.0-80.0) % Lymph % (Auto) (16.0-40.0) % Piute % (Auto) (0.0-15.0) % Eos % (Auto) (0.0-7.0) % Baso % (Auto) (0.0-1.5) % Neut # (Auto) (1.4-5.7) K/uL Lymph # (Auto) (0.6-2.4) K/uL Piute # (Auto) (0.0-0.8) K/uL Eos # (Auto) (0.0-0.7) K/uL Baso # (Auto) (0.0-0.1) K/uL Nucleated RBC % /100WBC Nucleated RBCs # K/uL Sodium (136-148) mmol/L Potassium (3.5-5.1) mmol/L Chloride (98-107) mmol/L Carbon Dioxide (21.0-32.0) mmol/L BUN (7.0-18.0) mg/dL Creatinine (0.8-1.3) mg/dL Est Cr Clr Drug Dosing mL/min Estimated GFR (MDRD) ml/min Glucose (74-106) mg/dL POC Glucose 175 H 217 H (60-110) mg/dL Hemoglobin A1c 9.7 H (4.5-6.2) % Calcium (8.5-10.1) mg/dL Magnesium (1.8-2.4) mg/dL 07/01/19 07/01/19 07/01/19 Range/Units 07:55 08:01 09:50 WBC (4.0-11.0) K/uL RBC (4.50-5.90) M/uL Hgb (13.0-17.0) g/dL Hct (38.0-50.0) % MCV (80.0-98.0) fL MCH (27.0-32.0) pg MCHC (31.0-37.0) g/dL RDW Std Deviation (28.0-62.0) fl RDW Coeff of Macario (11.0-15.0) % Plt Count (150-400) K/uL MPV (7.40-12.00) fL Neut % (Auto) (48.0-80.0) % Lymph % (Auto) (16.0-40.0) % Piute % (Auto) (0.0-15.0) % Eos % (Auto) (0.0-7.0) % Baso % (Auto) (0.0-1.5) % Neut # (Auto) (1.4-5.7) K/uL Lymph # (Auto) (0.6-2.4) K/uL Piute # (Auto) (0.0-0.8) K/uL Eos # (Auto) (0.0-0.7) K/uL Baso # (Auto) (0.0-0.1) K/uL Nucleated RBC % /100WBC Nucleated RBCs # K/uL Sodium (136-148) mmol/L Potassium (3.5-5.1) mmol/L Chloride (98-107) mmol/L Carbon Dioxide (21.0-32.0) mmol/L BUN (7.0-18.0) mg/dL Creatinine (0.8-1.3) mg/dL Est Cr Clr Drug Dosing mL/min Estimated GFR (MDRD) ml/min Glucose (74-106) mg/dL POC Glucose 227 H 254 H (60-110) mg/dL Hemoglobin A1c (4.5-6.2) % Calcium (8.5-10.1) mg/dL Magnesium 2.0 (1.8-2.4) mg/dL 07/01/19 07/01/19 07/01/19 Range/Units 11:03 11:45 18:03 WBC (4.0-11.0) K/uL RBC (4.50-5.90) M/uL Hgb (13.0-17.0) g/dL Hct (38.0-50.0) % MCV (80.0-98.0) fL MCH (27.0-32.0) pg MCHC (31.0-37.0) g/dL RDW Std Deviation (28.0-62.0) fl RDW Coeff of Macario (11.0-15.0) % Plt Count (150-400) K/uL MPV (7.40-12.00) fL Neut % (Auto) (48.0-80.0) % Lymph % (Auto) (16.0-40.0) % Piute % (Auto) (0.0-15.0) % Eos % (Auto) (0.0-7.0) % Baso % (Auto) (0.0-1.5) % Neut # (Auto) (1.4-5.7) K/uL Lymph # (Auto) (0.6-2.4) K/uL Piute # (Auto) (0.0-0.8) K/uL Eos # (Auto) (0.0-0.7) K/uL Baso # (Auto) (0.0-0.1) K/uL Nucleated RBC % /100WBC Nucleated RBCs # K/uL Sodium 140 (136-148) mmol/L Potassium 3.8 (3.5-5.1) mmol/L Chloride 109 H (98-107) mmol/L Carbon Dioxide 23.7 (21.0-32.0) mmol/L BUN 10 (7.0-18.0) mg/dL Creatinine 0.9 (0.8-1.3) mg/dL Est Cr Clr Drug Dosing 106.83 mL/min Estimated GFR (MDRD) > 60.0 ml/min Glucose 275 H (74-106) mg/dL POC Glucose 177 H 148 H (60-110) mg/dL Hemoglobin A1c (4.5-6.2) % Calcium 7.1 L (8.5-10.1) mg/dL Magnesium (1.8-2.4) mg/dL Med Orders - Current: Current Medications Acetaminophen (Tylenol) 650 mg PO Q4H PRN PRN Reason: Pain (Mild 1-3)/fever Last Admin: 07/01/19 01:04 Dose: 650 mg Folic Acid (Folic Acid) 1 mg PO DAILY [facility] Last Admin: 07/01/19 09:18 Dose: 1 mg Thiamine HCl 100 mg/ Sodium (Chloride) 51 mls @ 204 mls/hr IV Q24H [facility] Last Admin: 07/01/19 15:56 Dose: 204 mls/hr Insulin Aspart (Novolog) 0 unit SUBCUT TIDAC [facility]; Protocol Last Admin: 07/01/19 17:39 Dose: 8 units Insulin Glargine ([facility]us [facility]ostar) [facility] [place] Last Admin: 07/01/19 09:20 Dose: 25 units Lorazepam (Ativan) 0 mg IVPUSH Q4H PRN; Protocol PRN Reason: CIWAA Ondansetron HCl (Zofran) 4 mg IVPUSH Q4H PRN PRN Reason: Pain Discontinued Medications Sodium Chloride (Normal Saline) 1,000 mls @ 999 mls/hr IV .Bolus ONE Stop: 06/30/19 11:53 Last Admin: 06/30/19 10:58 Dose: 999 mls/hr Sodium Chloride (Normal Saline) 1,000 mls @ 999 mls/hr IV ASDIRECTED [facility] Last Admin: 06/30/19 11:47 Dose: 999 mls/hr Insulin Human Regular 100 unit (/ Sodium Chloride) 100 mls @ 6 mls/hr IV TITRATE BONIFACIO; Protocol Last Titration: 06/30/19 18:46 Dose: 11.55 unit/hr, 11.55 mls/hr Sodium Chloride (Normal Saline) 1,000 mls @ 200 mls/hr IV ASDIRECTED BONIFACIO Sodium Chloride (Normal Saline) 1,000 mls @ 999 mls/hr IV BOLUS BONIFACIO Sodium Chloride (Normal Saline) 1,000 mls @ 200 mls/hr IV ASDIRECTED BONIFACIO Dextrose/Sodium Chloride (Dextrose 5%-Normal Saline) 1,000 mls @ 150 mls/hr IV ASDIRECTED BONIFACIO Last Admin: 07/01/19 04:31 Dose: 150 mls/hr Insulin Human Regular 100 unit (/ Sodium Chloride) 100 mls @ 2.5 mls/hr IV TITRATE BONIFACIO; Protocol Stop: 07/01/19 11:30 Last Titration: 07/01/19 11:03 Dose: 0 unit/hr, 0 mls/hr Sodium Chloride (Normal Saline) 1,000 mls @ 999 mls/hr IV BOLUS BONIFACIO Stop: 07/01/19 04:06 Last Admin: 07/01/19 03:33 Dose: 999 mls/hr Sodium Chloride (Normal Saline) 1,000 mls @ 500 mls/hr IV STAT ONE Stop: 07/01/19 12:44 Last Admin: 07/01/19 11:01 Dose: 500 mls/hr Sodium Chloride (Normal Saline) 1,000 mls @ 500 mls/hr IV ONETIME ONE Stop: 07/01/19 16:50 Last Admin: 07/01/19 15:48 Dose: 500 mls/hr Iopamidol (Isovue Multipack-370 (76%)) 100 ml IVPUSH ONETIME ONE Stop: 06/30/19 12:31 Last Admin: 06/30/19 12:31 Dose: 100 ml Metoclopramide HCl (Reglan) 10 mg IVPUSH ONETIME ONE Stop: 06/30/19 11:10 Last Admin: 06/30/19 11:13 Dose: 10 mg Morphine Sulfate (Morphine) 6 mg IVPUSH ONETIME ONE Stop: 06/30/19 10:50 Last Admin: 06/30/19 10:59 Dose: 6 mg Ondansetron HCl (Zofran) 4 mg IVPUSH ONETIME ONE Stop: 06/30/19 10:01 Last Admin: 06/30/19 10:23 Dose: 4 mg Potassium Chloride (Klor-Con 10) 40 meq PO ONETIME ONE Stop: 07/01/19 06:36 Last Admin: 07/01/19 06:49 Dose: 40 meq Potassium Chloride (Klor-Con M20) 40 meq PO ONETIME ONE Stop: 07/01/19 10:01 Last Admin: 07/01/19 09:18 Dose: 40 meq <Bobby العراقي J - Last Filed: 07/02/19 10:39> Discharge Summary - Referral to Home Health Primary Care Physician: PCP None - Patient Summary/Data Consults: Consultations 07/01/19 09:20 Consult to Radiographer [Consult to Diabetic Nurse Specialist] [CONS] Routine - Patient Data Vitals - Most Recent: Last Vital Signs Temp 37.6 C 07/01/19 17:24 Pulse 123 H 06/30/19 13:20 Resp 16 07/01/19 17:24 BP 112/75 07/01/19 17:24 Pulse Ox 98 07/01/19 17:24 Lab Results - Last 24 hrs: Laboratory Results - last 24 hr 07/01/19 07/01/19 07/01/19 Range/Units 11:03 11:45 16:26 Sodium (136-148) mmol/L Potassium (3.5-5.1) mmol/L Chloride (98-107) mmol/L Carbon Dioxide (21.0-32.0) mmol/L BUN (7.0-18.0) mg/dL Creatinine (0.8-1.3) mg/dL Est Cr Clr Drug Dosing mL/min Estimated GFR (MDRD) ml/min Glucose (74-106) mg/dL POC Glucose 177 H 148 H 342 H (60-110) mg/dL Calcium (8.5-10.1) mg/dL 07/01/19 Range/Units 18:03 Sodium 140 (136-148) mmol/L Potassium 3.8 (3.5-5.1) mmol/L Chloride 109 H (98-107) mmol/L Carbon Dioxide 23.7 (21.0-32.0) mmol/L BUN 10 (7.0-18.0) mg/dL Creatinine 0.9 (0.8-1.3) mg/dL Est Cr Clr Drug Dosing 106.83 mL/min Estimated GFR (MDRD) > 60.0 ml/min Glucose 275 H (74-106) mg/dL POC Glucose (60-110) mg/dL Calcium 7.1 L (8.5-10.1) mg/dL Med Orders - Current: Current Medications Discontinued Medications Acetaminophen (Tylenol) 650 mg PO Q4H PRN PRN Reason: Pain (Mild 1-3)/fever Last Admin: 07/01/19 01:04 Dose: 650 mg Folic Acid (Folic Acid) 1 mg PO DAILY BONIFACIO Last Admin: 07/01/19 09:18 Dose: 1 mg Sodium Chloride (Normal Saline) 1,000 mls @ 999 mls/hr IV .Bolus ONE Stop: 06/30/19 11:53 Last Admin: 06/30/19 10:58 Dose: 999 mls/hr Sodium Chloride (Normal Saline) 1,000 mls @ 999 mls/hr IV ASDIRECTED BONIFACIO Last Admin: 06/30/19 11:47 Dose: 999 mls/hr Insulin Human Regular 100 unit (/ Sodium Chloride) 100 mls @ 6 mls/hr IV TITRATE BONIFACIO; Protocol Last Titration: 06/30/19 18:46 Dose: 11.55 unit/hr, 11.55 mls/hr Sodium Chloride (Normal Saline) 1,000 mls @ 200 mls/hr IV ASDIRECTED BONIFACIO Sodium Chloride (Normal Saline) 1,000 mls @ 999 mls/hr IV BOLUS BONIFACIO Sodium Chloride (Normal Saline) 1,000 mls @ 200 mls/hr IV ASDIRECTED BONIFACIO Thiamine HCl 100 mg/ Sodium (Chloride) 51 mls @ 204 mls/hr IV Q24H BONIFACIO Last Admin: 07/01/19 15:56 Dose: 204 mls/hr Dextrose/Sodium Chloride (Dextrose 5%-Normal Saline) 1,000 mls @ 150 mls/hr IV ASDIRECTED BONIFACIO Last Admin: 07/01/19 04:31 Dose: 150 mls/hr Insulin Human Regular 100 unit (/ Sodium Chloride) 100 mls @ 2.5 mls/hr IV TITRATE BONIFACIO; Protocol Stop: 07/01/19 11:30 Last Titration: 07/01/19 11:03 Dose: 0 unit/hr, 0 mls/hr Sodium Chloride (Normal Saline) 1,000 mls @ 999 mls/hr IV BOLUS BONIFACIO Stop: 07/01/19 04:06 Last Admin: 07/01/19 03:33 Dose: 999 mls/hr Sodium Chloride (Normal Saline) 1,000 mls @ 500 mls/hr IV STAT ONE Stop: 07/01/19 12:44 Last Admin: 07/01/19 11:01 Dose: 500 mls/hr Sodium Chloride (Normal Saline) 1,000 mls @ 500 mls/hr IV ONETIME ONE Stop: 07/01/19 16:50 Last Admin: 07/01/19 15:48 Dose: 500 mls/hr Insulin Aspart (Novolog) 0 unit SUBCUT TIDAC [facility]; Protocol Last Admin: 07/01/19 17:39 Dose: 8 units Insulin Glargine (Lantus Solostar) [facility] [place] Last Admin: 07/01/19 09:20 Dose: 25 units Iopamidol (Isovue Multipack-370 (76%)) 100 ml IVPUSH ONETIME ONE Stop: 06/30/19 12:31 Last Admin: 06/30/19 12:31 Dose: 100 ml Lorazepam (Ativan) 0 mg IVPUSH Q4H PRN; Protocol PRN Reason: CIWAA Metoclopramide HCl (Reglan) 10 mg IVPUSH ONETIME ONE Stop: 06/30/19 11:10 Last Admin: 06/30/19 11:13 Dose: 10 mg Morphine Sulfate (Morphine) 6 mg IVPUSH ONETIME ONE Stop: 06/30/19 10:50 Last Admin: 06/30/19 10:59 Dose: 6 mg Ondansetron HCl (Zofran) 4 mg IVPUSH ONETIME ONE Stop: 06/30/19 10:01 Last Admin: 06/30/19 10:23 Dose: 4 mg Ondansetron HCl (Zofran) 4 mg IVPUSH Q4H PRN PRN Reason: Pain Potassium Chloride (Klor-Con 10) 40 meq PO ONETIME ONE Stop: 07/01/19 06:36 Last Admin: 02/19/20 06:49 Dose: 40 meq Potassium Chloride (Klor-Con M20) 40 meq PO ONETIME ONE Stop: 07/01/19 10:01 Last Admin: 07/01/19 09:18 Dose: 40 meq - Free Text/Narrative Note: I have seen and evaluated the patient with the resident. I have discussed the findings and treatment plan with the resident. I agree with the assessment and plan as outlined in the following note.
== END 2019-07-01 18:54 | disposition home or self-care (01) | DRG 638 ==
LOC: MW.ED 09:10 → MW.ICU 13:15 → UNDOADMIN 13:15
PROVIDERS: ADMIT Internal Medicine; ATTEND Internal Medicine
DX: E10.10 Type 1 diabetes mellitus with ketoacidosis without coma (principal); F10.239 Alcohol dependence with withdrawal, unspecified; N17.9 Acute kidney failure, unspecified; G89.29 Other chronic pain; D64.9 Anemia, unspecified; J45.909 Unspecified asthma, uncomplicated; M54.9 Dorsalgia, unspecified; E87.6 Hypokalemia; Z90.49 Acquired absence of other specified parts of digestive tract
CPT/HCPCS: 36415; 71045; 71045-26; 74177; 74177-26; 80048; 80053; 81003; 82009; 82803; 82962; 83036; 83690; 83735; 85025; 93005; 96361; 96374; 96375; 99285-25; A9270-GY; J1815-GY; J2270; J2405; J2765; J3411; J7030; J7040; J7042; J7050; Q9967